=== PATIENT | female | born 1955 | race Caucasian/White ===

== ENCOUNTER 2019-09-01 12:48 | Outpatient (RCR) | payer MEDICARE, SELFPAY | END 2019-11-30 23:59 | disposition home or self-care (01) | LOC: ANHDMC 12:48 | PROVIDERS: PCP Physician Assistant; Visit Provider Physician Assistant | DX: E11.22 Type 2 diabetes mellitus with diabetic chronic kidney disease (principal); E11.40 Type 2 diabetes mellitus with diabetic neuropathy, unspecified; Z71.89 Other specified counseling | CPT/HCPCS: G0108 ==

== ENCOUNTER → 2019-09-28 08:59 | Outpatient (CLI) | payer MEDICARE, SELFPAY ==
--- NOTE | ~2019-09-28 | XR_ITS ---
EXAMINATION: XR hand LT min 3V INDICATION: Left hand pain TECHNIQUE: Three views of the left hand are obtained. COMPARISON: 10/09/2013 FINDINGS: There is soft tissue swelling of the fourth finger no acute fracture is identified. Bone al ignment is normal. There is moderate osteoarthritis at the first carpometacarpal joint. Mild osteoart hritis is seen in multiple interphalangeal joints. IMPRESSION: 1. Soft tissue swelling of the fourth finger without acute osseous abnormality. 2. Polyarticular osteoarthritis. Reviewed, dictated and finalized at location A. DIE PICKER
== END ==
PROVIDERS: PCP Physician Assistant; Visit Provider Physician Assistant
DX: M19.042 Primary osteoarthritis, left hand (principal); M79.89 Other specified soft tissue disorders
CPT/HCPCS: 73130

== ENCOUNTER 2019-10-23 11:49 | Inpatient (IN) | payer MEDICARE, MEDICAID, SELFPAY ==
[2019-10-23] VITALS (12 sets, daily range): BP systolic 100–143; BP diastolic 55–74; PULSE 103–138; RESP 14–26; TEMP 37.2–39.3; O2SAT 76–95; BMI 43.9; BMI 43.7
--- NOTE | ~2019-10-23 | XR_ITS ---
EXAMINATION: XR abdomen/kub 1V DATE: 10/30/2019 14:58 INDICATION: Nephrolithiasis, urinary tract infection with severe sepsis TECHNIQUE: A supine view of the abdomen on 2 radiographs was obtained. COMPARISON: CT dated 10/30/2019 FINDINGS: The amount of gas scattered throughout the colon. No dilated loops of gas-filled bowel to suggest obs truction. The stone previously noted in the proximal left ureter is unable to be clearly identified o n the current study likely due to patient body habitus. Opacities in the bilateral lower lung zones w ith configuration on CT favoring atelectasis over pneumonia. Cardiomediastinal silhouette is within n ormal limits for AP technique. IMPRESSION: 1. Stone seen on CT in the proximal left ureter is unable to be definitively identified on plain radi ographs likely due to patient body habitus. 2. Nonobstructive bowel gas pattern. 3. Bibasilar atelectasis. Reviewed, dictated and finalized at location A. LATE LAYOUT WORKER IMPRESSION: 1. Stone seen on CT in the proximal left ureter is unable to be definitively id entified on plain radiographs likely due to patient body habitus. 2. Nonobstructive bowel gas pattern. 3. Bibasilar atelectasis.
--- NOTE | ~2019-10-23 | XR_ITS ---
EXAMINATION: XR retrograde pyelo w/stent LT DATE: 10/31/2019 14:58 INDICATION: Left internal ureteral stent placement TECHNIQUE: Fluoroscopic images from a left internal ureteral stent placement are submitted for review . 26 seconds of fluoroscopy time. 69 fluoroscopic images. FINDINGS: No prior studies for comparison. There is a left double-J internal ureteral stent projecting in expected position, with proximal [place] loop at the level of the renal pelvis and distal loop in the pelvis within the bladder lumen. IMPRESSION: 1. Left internal ureteral stent placement. Please refer to real-time procedural findings for detail s. Reviewed, dictated and finalized at location B. FLIGHT CREW MEMBER IMPRESSION: 1. Left internal ureteral stent placement. Please refer to real-time procedur al findings for details.
--- NOTE | ~2019-10-23 | XR_ITS ---
EXAMINATION: XR chest 1V portable DATE: 10/24/2019 21:38 INDICATION: Respiratory distress. TECHNIQUE: frontal view of the chest was obtained. COMPARISON: 10/23/2019 FINDINGS: Opacities in the left lower lung zone. Pulmonary vascular congestion without anabell pulmonary edema. N o pleural effusion or pneumothorax. Cardiomegaly. IMPRESSION: 1. Cardiomegaly with pulmonary vascular congestion. 2. Opacities in the left lower lung zone which could represent atelectasis and/or pneumonia. Reviewed, dictated and finalized at location A. DDING MACHINE TENDER IMPRESSION: 1. Cardiomegaly with pulmonary vascular congestion. 2. Opacities in the left lower lung zone which could represent atelectasis and/ or pneumonia.
--- NOTE | ~2019-10-23 | CT_ITS ---
EXAMINATION: CT abdomen pelvis wo con DATE: 10/30/2019 09:34 INDICATION: Leukocytosis. TECHNIQUE: Computed tomography (CT) of the abdomen and pelvis was performed without intravenous contr ast. Automated exposure control and iterative reconstruction technique were employed. The dose-length product was 1521.90 mGy-cm. COMPARISON: CT abdomen and pelvis 06/02/2012 FINDINGS: The visualized portions of the lung bases demonstrate mild atelectasis. No pleural effusion . The heart size is normal. There is a small pericardial effusion. There are coronary artery calcific ations. The liver and spleen are normal. There is a gallstone in the gallbladder, which is normal in size. The pancreas is normal. There are chronic masses in the adrenal glands measuring up to 2.5 cm o n the right, consistent with adenomas. The right kidney is normal. There is mild left hydronephrosis. There is a 7 mm stone in proximal left ureter. There are no dilated loops of bowel. There are no dil ated loops of bowel. The appendix is normal. There is a mildly enlarged periportal lymph node. There is mild left para-aortic lymphadenopathy. There is no free intraperitoneal fluid. There is mild thora columbar spondylosis. IMPRESSION: 1. 7 mm stone in proximal left ureter with mild left hydronephrosis. 2. Mild left para-aortic and periportal lymphadenopathy, likely reactive. 3. Small pericardial effusion. Reviewed, dictated and finalized at location A. AIRSPACE OFFICER
--- NOTE | ~2019-10-23 | CT_ITS ---
EXAMINATION: CT cervical spine wo con DATE: 10/23/2019 12:46 INDICATION: Status post fall out of bed. Confusion. TECHNIQUE: Computed tomography (CT) of the cervical spine was performed without intravenous contrast. The dose-length product was 503 mGy-cm. Automated exposure control and iterative reconstruction tech nique were employed. COMPARISON: None FINDINGS: There is straightening of normal cervical lordosis. There is mild degenerative anterolisthe sis at C2-3, C3-4 and C4-5 secondary to facet hypertrophy. Odontoid process within normal limits. Lat eral masses are normally aligned. There is moderate multilevel facet and uncinate hypertrophy. Lung a pices are normal. No paraspinal soft tissue abnormalities. IMPRESSION: 1. No acute abnormality of the cervical spine. Reviewed, dictated and finalized at location A. LA CHARGER INSULATION
--- NOTE | ~2019-10-23 | XR_ITS ---
EXAMINATION: XR chest 1V 10/23/2019 12:49 INDICATION: Redness of breath PROCEDURE: AP view of the chest COMPARISON: Comparison to multiple prior studies sequentially, with oldest reviewed study dated 08/2015. FINDINGS: The lungs are clear. The cardiomediastinal silhouette is within normal limits. There are no pleural effusions. There is no pneumothorax suspected. IMPRESSION: 1: NO ACUTE CARDIOPULMONARY DISEASE. Reviewed, dictated and finalized at location A. T WINDOW CASHIER
--- NOTE | ~2019-10-23 | US_ITS ---
EXAMINATION: US renal BI EXAM DATE: 10/24/2019 12:54 INDICATION: Acute kidney insufficiency. TECHNIQUE: Multiple grayscale and Doppler images of the kidneys were obtained (by a technologist who performed the scan) and subsequently reviewed. Comparison is made to prior examination from 04/21/2018 . FINDINGS: Right kidney: There is normal contour and echogenicity. It measures 11.6 x 5.4 x 5.5 centimeters. T here are no focal renal lesions identified. There is no hydronephrosis. Left kidney: There is normal contour and echogenicity. It measures 12.6 x 6.3 x 6.3 centimeters. Th ere are no focal renal lesions identified. There is no hydronephrosis. Bladder unremarkable. Incidental hepatic steatosis. IMPRESSION: 1. Sonographically unremarkable kidneys. 2. Hepatic steatosis. Reviewed, dictated and finalized at location B. UNITY ASSOCIATE
--- NOTE | ~2019-10-23 | CT_ITS ---
EXAMINATION: CT brain wo con DATE: 10/23/2019 12:45 INDICATION: Status post fall. Confusion. TECHNIQUE: Computed tomography (CT) of the head was performed without intravenous contrast. The dose- length product was 605.33 mGy-cm. The mA was adjusted according to patient size. Iterative reconstruc tion technique was employed. COMPARISON: CT dated 05/22/2008 FINDINGS: Normal brain parenchymal volume. There are scattered mild periventricular and subcortical w deysi matter changes, most likely related to small vessel ischemic disease (microangiopathy). No acute intracranial hemorrhage, infarction, mass or mass effect. Basilar cisterns are patent. No ventriculo megaly or midline shift. There is intracranial atherosclerosis. Paranasal sinuses and mastoids are pn eumatized. No depressed skull fractures. IMPRESSION: 1. No acute intracranial abnormality. Reviewed, dictated and finalized at location A. F GRINDER
--- NOTE | ~2019-10-23 | XR_ITS ---
EXAMINATION: XR chest 2V DATE: 10/28/2019 12:39 INDICATION: Sepsis. Shortness of breath. TECHNIQUE: Frontal and lateral views of the chest were obtained. COMPARISON: Chest single view 10/24/2019, chest CT 10/30/2015 FINDINGS: There is mild atelectasis in right lower lung zone. No pleural effusion or pneumothorax. Th e heart size is normal. IMPRESSION: 1. Mild atelectasis in right lower lung zone. Reviewed, dictated and finalized at location A. R SWEEPER OPERATOR
--- NOTE | 2019-10-23 11:57 | ED.WEAKNESS ---
HPI - Weakness General Chief complaint: Weakness Stated complaint: weakness Time Seen by Provider: 10/23/19 11:55 Related Data Home Medications Medication Instructions Recorded Confirmed albuterol sulfate 90 mcg/actuation 1 inhalation INHALATION Q4H 07/27/19 07/31/19 aerosol inhaler bupropion HCl 300 mg 24 hr tablet, 300 mg PO QAM 07/27/19 07/31/19 extended release furosemide 40 mg tablet 40 mg PO QAM 07/27/19 07/31/19 gabapentin 300 mg capsule 300 mg PO TID 07/27/19 07/31/19 hydrocodone 10 mg-acetaminophen 1 tablet PO Q8H PRN 07/27/19 07/31/19 325 mg tablet meloxicam 15 mg tablet 15 mg PO DAILY 07/27/19 07/31/19 metoprolol succinate 25 mg 25 mg PO BID 07/27/19 07/31/19 tablet,extended release 24 hr montelukast 10 mg tablet 10 mg PO DAILY 07/27/19 07/31/19 omega 7-cxk-hyp-fish oil 60 mg-90 1 cap PO DAILY 07/27/19 07/31/19 mg-500 mg capsule valsartan 160 mg tablet 160 mg PO DAILY 07/27/19 07/31/19 blood sugar diagnostic #10 each 07/31/19 07/31/19 pen needle, diabetic 31 gauge x #30 each 07/31/19 07/31/19/ simvastatin 40 mg tablet 40 mg PO .HS tablet 07/31/19 07/31/19 zolpidem 10 mg tablet 10 mg PO .HS PRN tablet 07/31/19 07/31/19 albuterol sulfate 90 mcg/actuation 2 inhalation INHALATION Q4-6H PRN 08/01/19 breath activated powder inhaler aspirin 81 mg tablet,delayed 81 mg PO DAILY 08/01/19 release carvedilol 6.25 mg tablet 6.25 mg PO Q12H 08/01/19 cholecalciferol (vitamin D3) 25 1,000 unit PO DAILY 08/01/19 mcg (1,000 unit) capsule diphenhydramine HCl 25 mg tablet 50 mg PO Q6H PRN tablet 08/01/19 hydrocodone 10 mg-acetaminophen 1 tablet PO Q6H PRN 08/01/19 300 mg tablet losartan 100 mg tablet 100 mg PO DAILY 08/01/19 lurasidone 120 mg tablet 120 mg PO DAILY 08/01/19 Allergies Allergy/AdvReac Type Severity Reaction Status Date / Time ibuprofen Allergy Unknown skin Verified 08/02/19 08:29 changes Sulfa (Sulfonamide Allergy Unknown Itching Verified 08/02/19 08:29 Antibiotics) [facility] Past Medical History Medical History (Updated 08/02/19 @ 08:39 by Hever Cobos DO) Anemia Arthritis Asthma Diabetes mellitus Hypertension Stroke Thyroid disease Type 2 diabetes mellitus with hyperglycemia Social History Social History Smoking status: Current every day smoker Second hand tobacco smoke exposure: Yes Smoking end date: 08/31/12 Alcohol intake: never Course Vital Signs Vital signs: Vital Signs Pulse Rate 131 H 10/23/19 11:43 Respiratory Rate 10/23/19 11:43 Blood Pressure 121/74 10/23/19 11:43 Pulse Oximetry 92 10/23/19 11:43 Pulse Rate 131 H 10/23/19 11:43 Respiratory Rate 10/23/19 11:43 Blood Pressure 121/74 10/23/19 11:43 Pulse Oximetry 92 10/23/19 11:43 Discharge Plan Discharge Prescriptions: No Action bupropion HCl 300 mg tablet extended release 24 hr 300 mg PO QAM RF: 0 valsartan [Diovan] 160 mg tablet 160 mg PO DAILY RF: 0 omega 3-ejl-osf-fish oil [Fish Oil] 60-90-500 mg capsule 1 cap PO DAILY RF: 0 furosemide 40 mg tablet 40 mg PO QAM RF: 0 hydrocodone-acetaminophen 10-325 mg tablet 1 tablet PO Q8H PRNRF: 0 meloxicam 15 mg tablet 15 mg PO DAILY RF: 0 metoprolol succinate 25 mg tablet extended release 24 hr 25 mg PO BID RF: 0 gabapentin [Neurontin] 300 mg capsule 300 mg PO TID RF: 0 albuterol sulfate [ProAir HFA] 90 mcg/actuation HFA aerosol inhaler 1 inhalation INHALATION Q4H RF: 0 montelukast [Singulair] 10 mg tablet 10 mg PO DAILY RF: 0 zolpidem 10 mg tablet 10 mg PO .HS PRNRF: 0 simvastatin 40 mg tablet 40 mg PO .HS RF: 0 (DME) OneTouch Verio Strip See Rx Instructions .ROUTE .MEDSUPPLY Qty: 10 RF: 0 (DME) pen needle, diabetic 31 gauge x 5/16 needle See Rx Instructions .ROUTE .MEDSUPPLY Qty: 30 RF: 0 cholecalciferol (vitamin D3) 1,000 unit capsule
--- NOTE | 2019-10-23 12:01 | ECG_ITS ---
Measurements Intervals Ward Rate: 130 P: CA: 0 QRS: -11 QRSD: 113 T: 78 QT: 306 QTc: 450 Interpretive Statements SINUS OR ECTOPIC ATRIAL TACHYCARDIA INTRAVENTRICULAR CONDUCTION DELAY POOR R WAVE PROGRESSION, ANTERIOR LEADS INFERIOR INFARCT, AGE INDETERMINATE BORDERLINE ST-T WAVE ABNORMALITY- LATERAL LEADS BASELINE ARTIFACT- II, V6 ABNORMAL ECG Electronically Signed On 10-23-2019 16:04:32 COMPETITIVE INTELLIGENCE MANAGER by Hever Cobos D.O.
--- NOTE | 2019-10-23 12:01 | ED.FALL ---
HPI - Fall General Chief Complaint: Weakness Stated Complaint: weakness Time Seen by Provider: 10/23/19 11:55 Source: patient Mode of arrival: EMS Limitations: no limitations History of Present Illness HPI Narrative: The pt is a 64 y/o female who presents to the ED, via EMS, with c/o frequent falls for the last 3 days. The pt states that she has been rolling and falling off of her bed for the past 3 days. Today, she fell again and could not get up. The pt notes that she has not been falling while walking with her walker, but is doing so when trying to get out of bed. She has hit her head during the falls but denies being on any blood thinners. The pt reports JARRELL, dizziness, SOB, CP, and productive cough, but denies nausea, vomiting, fever, or any other pain. She has a PMHx of CHF, A-Fib, and COPD, which she uses a CPAP for at night. The pt lives at home with her brother and sister in law and her heating fixture tender is Dr. Cobos. complaint: fall Onset (ago): day(s) (3) Fall from: out of bed Place fall occurred: home Associated symptoms (after fall): headache, chest pain, shortness of breath and other (dizziness, productive cough) Related Data Home Medications Medication Instructions Recorded Confirmed albuterol sulfate 90 mcg/actuation 1 inhalation INHALATION Q4H 07/27/19 10/23/19 aerosol inhaler bupropion HCl 300 mg 24 hr tablet, 300 mg PO QAM 07/27/19 10/23/19 extended release furosemide 40 mg tablet 40 mg PO QAM 07/27/19 10/23/19 gabapentin 300 mg capsule 300 mg PO TID 07/27/19 10/23/19 hydrocodone 10 mg-acetaminophen 1 tablet PO Q6H PRN 07/27/19 10/23/19 325 mg tablet meloxicam 15 mg tablet 15 mg PO DAILY 07/27/19 10/23/19 metoprolol succinate 25 mg 25 mg PO BID 07/27/19 10/23/19 tablet,extended release 24 hr montelukast 10 mg tablet 10 mg PO DAILY 07/27/19 10/23/19 omega 9-vjk-vpw-fish oil 60 mg-90 1 cap PO DAILY 11/27/19 02/23/20 mg-500 mg capsule valsartan 160 mg tablet 160 mg PO DAILY 07/27/19 10/23/19 blood sugar diagnostic #10 each 07/31/19 10/23/19 pen needle, diabetic 31 gauge x #30 each 07/31/19 10/23/19 5/16 simvastatin 40 mg tablet 40 mg PO .HS tablet 07/31/19 10/23/19 aspirin 81 mg tablet,delayed 81 mg PO DAILY 08/01/19 10/23/19 release carvedilol 6.25 mg tablet 6.25 mg PO Q12H 08/01/19 10/23/19 cholecalciferol (vitamin D3) 25 1,000 unit PO DAILY 08/01/19 10/23/19 mcg (1,000 unit) capsule diphenhydramine HCl 25 mg tablet 50 mg PO Q6H PRN tablet 08/01/19 10/23/19 losartan 100 mg tablet 100 mg PO DAILY 08/01/19 10/23/19 lurasidone 120 mg tablet 120 mg PO DAILY 08/01/19 10/23/19 diphenhydramine-acetaminophen 1 tablet PO HS PRN 10/23/19 10/23/19 [Tylenol PM Extra Strength] Allergies Allergy/AdvReac Type Severity Reaction Status Date / Time ibuprofen Allergy Unknown skin Verified 10/23/19 15:26 changes Sulfa (Sulfonamide AdvReac Unknown Itching Verified 10/23/19 15:26 Antibiotics) Review of Systems Review of Systems: All systems reviewed & are unremarkable except as noted in HPI and below Constitutional: Constitutional: Denies fever(s) Cardiovascular: Cardiovascular: Reports chest pain Respiratory: Respiratory: Reports cough (productive) and Reports dyspnea Gastrointestinal: Gastrointestinal: Denies nausea and Denies vomiting Neurologic: Reports dizziness and Reports headache(s) [facility] Past Medical History Medical History (Updated 10/23/19 @ 17:31 by Vanessa Martínez MD) Anemia Arthritis Asthma Back pain Bronchitis CHF (congestive heart failure) COPD (chronic obstructive pulmonary disease) Depression Diabetes mellitus DVT (deep venous thrombosis) Fracture rt knee Gout Hepatitis C Hypercholesteremia Hypertension Neuropathy Pneumonia Rheumatoid arthritis Stroke Thyroid disease Type 2 diabetes mellitus with hyperglycemia UTI (urinary tract infection) Surgical History Surgical History (Updated 10/23/19 @ 12:15 by Janine Hurley) H/O tubal ligation H
[2019-10-23 12:18] LABS: Alveolar/Arterial O2 Gradient 100.6 mmHg; Base Excess ABG -4.4 mEq/l (+/-2.0); Carboxyhemoglobin 0.4 % THb (0-2.0); Fractional Inspired Oxygen 28 %; Methemoglobin ABG 0.3 %THb (0-1.5); Oxygen Content ABG 16.5 %vol (16.0-22.0); Oxyhemoglobin 91.5 % THb (90.0-100.0); PCO2 ABG 30.1 mmHg (35.0-45.0); PO2 ABG 63.5 mmHg (80.0-100.0); PO2 FiO2 Ratio Arterial Blood 2.27 %; Reduced Hemoglobin 7.8 %THb (0-5.0); Total Hemoglobin 12.8 g/dL (12.0-18.0); pH ABG 7.418 (7.350-7.450)
[2019-10-23 12:19] LABS: Device NASAL CANNULA; Modified Allen's Test Pass; Site Drawn LEFT RADIAL
[2019-10-23 12:27] LABS: Add Urine Microscopic? YES; Appearance Urine Cloudy (Clear); Bacteria Urine 4+ /hpf; Bilirubin Urine Negative (Negative); Blood Urine 2+ (Negative); Color Urine Yellow (Yellow); Glucose Urine UA 3+ mg/dL (Negative); Ketones Urine Negative (Negative); Leukocyte Esterase Ur 3+ LEU/UL (Negative); Nitrate Urine Negative (Negative); Protein Urine 2+ mg/dL (Negative); Specific Grav Ur 1.015 (1.001-1.035); Squamous Epithelial Cell Urine Few /hpf (Few); Urobilinogen Urine Negative mg/dL (<2.0); WBC Clumps Urine Present /HPF; WBC Urine >75 /hpf
[2019-10-23 12:40] LABS: Hemoglobin 11.6 g/dL (12.0-15.0); Mean Corpuscular HGB Conc 33.1 g/dl (32-36); Mean Corpuscular Hemoglobin 29.8 pg (26-34); Mean Platelet Volume 11.8 fl (7.4-10.4); Platelet Count Result 205 k/mm3 (150-375); Red Blood Count 3.89 M/mm3 (4.2-5.4); Red Cell Distribution Width 13.7 % (11.5-14.5); White Blood Count 26.1 K/mm3 (4.5-10.0)
[2019-10-23 12:51] LABS: Lactic Acid Reflex 1.9 mmol/L (0.7-2.1)
[2019-10-23 12:52] LABS: Alanine Aminotransferase 21 U/L (4-35); Albumin Level 4.2 g/dL (3.5-5.1); Alkaline Phosphatase 119 U/L (38-126); Aspartate Amino Transferase 27 U/L (14-36); Bilirubin,Total 0.5 mg/dL (0.2-1.3); Blood Urea Nitrogen 36 mg/dL (7-17); Calcium 10.3 mg/dL (8.4-10.2); Carbon Dioxide 21 mmol/L (22-30); Chloride 89 mmol/L (98-107); Estimated Glomerular Filt Rate 12; Glucose 349 mg/dL (65-105); INR 1.1; Lipase 14 U/L (23-300); Magnesium 1.6 mg/dL (1.6-2.3); Potassium 5.1 mmol/L (3.4-5.0); Prothrombin Time 13.8 Seconds (11.1-14.7); Sodium 129 mmol/L (137-145)
[2019-10-23 12:53] LABS: Partial Thromboplastin Time 30.9 SECONDS (22.3-36.8)
[2019-10-23 13:04] LABS: NT Pro B Type Natriuretic Pept 2350 PG/ML (5-100); Troponin I 0.026 ng/mL (0.000-0.034)
[2019-10-23 13:05] LABS: Band Neutrophils Percent 2 % (0-6); Lymphocytes Absolute Manual 1.04 K/mm3 (1.1-4.5); Monocytes Absolute Manual 0.78 K/mm3 (0.1-0.90); Monocytes Percent Manual 3 % (3-9); Neutrophils Absolute Manual 24.27 K/mm3 (1.7-7.2); Neutrophils Percent Manual 91 % (46-73); Platelet Estimate Adequate (Adequate); Total Cells Counted 100
[2019-10-23] MEDS: LACTATED RINGERS 1,000 ML 999 ML IV CONT (13:31)
[2019-10-23 13:48] LABS: Alveolar/Arterial O2 Gradient 94.4 mmHg; Base Excess ABG -4.3 mEq/l (+/-2.0); Carboxyhemoglobin 0.1 % THb (0-2.0); Fractional Inspired Oxygen 28 %; HCO3 ABG 19.6 mEq/l (22.0-26.0); Methemoglobin ABG 0.3 %THb (0-1.5); Oxygen Content ABG 15.9 %vol (16.0-22.0); Oxygen Saturation ABG 93.7 % (95.0-100.0); Oxyhemoglobin 92.3 % THb (90.0-100.0); PCO2 ABG 32.1 mmHg (35.0-45.0); PO2 ABG 67.4 mmHg (80.0-100.0); PO2 FiO2 Ratio Arterial Blood 2.41 %; Reduced Hemoglobin 7.3 %THb (0-5.0); Total Hemoglobin 12.2 g/dL (12.0-18.0); pH ABG 7.403 (7.350-7.450)
[2019-10-23 13:49] LABS: Device NASAL CANNULA; Modified Allen's Test Pass; Site Drawn LEFT RADIAL
--- NOTE | 2019-10-23 14:15 | PM.IMHP ---
H&P: HPI History of Present Illness Chief complaint: Weakness. Narrative: Lakshmi Fry is a 64-year-old female with multiple medical problems to include morbid obesity, hypertension, COPD, chronic respiratory failure on 2 liters nasal cannula, type 2 diabetes mellitus with peripheral neuropathy, rheumatoid arthritis, history of DVT, COPD, and obstructive sleep apnea who presented to the emergency department earlier this morning via EMS from home for evaluation of weakness. Reportedly she has developed progressive weakness to the point where she cannot get herself out of bed, and for the last 4 days she has ?slid out of bed? when trying to get up in the mornings. She lives with her brother and his girlfriend, and they have been able to help her up couple of times. The last 2 mornings she has had to use her Life Alert for lift assist. She declined transport yesterday, but decided she best come in today for evaluation. Family members note that she has been acting a bit differently the last couple of days, seemingly confused, however they give no specific instances. With each fall, she either fell onto her buttocks or forward onto her breasts and stomach. She may have hit her head in 1 of the falls, but she cannot recall any significant trauma. With further questioning, she notes having chronic balance problems and ambulates with a walker. She does have pretty significant neuropathy in her lower extremities as well that she believes are contributing factor. Additionally, she notes lightheadedness, mild shortness of breath, dysuria, and increased urinary frequency/urgency. She denies fever, chills, sweats, chest pain, nausea, vomiting, diarrhea, and decreased oral intake. No auditory and visual changes. She denies focal weakness and paresthesias. Review of Systems Review of Systems: Narrative: Twelve systems were reviewed with pertinent positives and negatives as per HPI. She denies headache. No dysarthria or dysphagia. No paresthesias. No history of CVA. Reports that her glucose has been high recently. She does not recall her last hemoglobin A1c. She states compliance with her CPAP most nights. Except as documented, all other systems were reviewed and are negative. [facility] Past Medical History Medical History (Updated 10/23/19 @ 19:11 by Sharron Blank PA-C) Anemia Arthritis Chronic kidney disease, stage 3 Baseline creatinine appears to be about 1.10. Chronic respiratory failure with hypoxia Combined systolic and diastolic congestive heart failure Echocardiogram in May 2016 showed moderate enlargement of the left ventricular cavity, moderate global left ventricular systolic dysfunction, ejection fraction of 35%, and grade 3 diastolic dysfunction. COPD (chronic obstructive pulmonary disease) Depression Diabetic peripheral neuropathy Gout Hepatitis C History of DVT (deep vein thrombosis) Hyperlipidemia Hypertension Insulin dependent type 2 diabetes mellitus With diabetic peripheral neuropathy Morbid obesity Nonischemic cardiomyopathy Cardiac catheterization December 10, [address] Emmanuel Boyd showed right coronary dominant circulation with no significant coronary disease. Obstructive sleep apnea on CPAP Psoriasis Rheumatoid arthritis Tobacco dependence Surgical History Surgical History (Updated 10/23/19 @ 18:57 by Sharron Blank PA-C) History of cardiac catheterization Cardiac catheterization December 10, [address] Emmanuel Boyd showed right coronary dominant circulation with no significant coronary disease. History of dilatation and curettage Status post tubal ligation Family History Family History Father Cerebrovascular accident Hypertension Mother Family history of malignant neoplasm Other Asthma Diabetes mellitus Family history of anemia Family history of arthritis Family history of blood dyscrasia Family history of cardiovascul
--- NOTE | 2019-10-23 15:09 | ADMGEN ---
This patient, Lakshmi Fry, was admitted to Medical Room 348-. Patient/family oriented to hospital policies and general routines including ID bracelet, bed and alarms, visiting hours, pain management, procedures, bathroom and other care routines, personal items, smoking policy, room service/diet, and visiting hours. Valuables list has been completed. Information on how to activate the Rapid Response Team has been discussed. Patient/Family are encouraged to report perceived risks to care and to ask questions if they do not understand what they are told or what they should do.
[2019-10-23] MEDS: LACTATED RINGERS 1,000 ML 125 ML IV CONT (17:06)
[2019-10-23 17:29] LABS: Glucose Point of Care 325 (65-105)
[2019-10-23 19:20] LABS: Hemoglobin A1C 7.8 % (<5.7)
[2019-10-23 19:35] LABS: Blood Urea Nitrogen 41 mg/dL (7-17); Calcium 10.2 mg/dL (8.4-10.2); Carbon Dioxide 21 mmol/L (22-30); Chloride 88 mmol/L (98-107); Creatine Kinase 871 U/L (30-135); Estimated CRCL calculation 18 ml/min; Estimated Glomerular Filt Rate 12; Glucose 327 mg/dL (65-105); Potassium 4.8 mmol/L (3.4-5.0); Sodium 128 mmol/L (137-145)
[2019-10-23] MEDS: SIMVASTATIN 20 MG TABLET 40 MG PO (20:55)
[2019-10-23] MEDS: INSULIN ASPART (*BKC) 100 UNITS/ML 8 UNITS SUB-Q (21:31)
[2019-10-23] MEDS: ALBUTEROL SULFATE NEB 2.5 MG/0.5 ML INH 5 MG INHALATION (22:05)
[2019-10-23] MEDS: IPRATROPIUM BR 0.02% INH SOLN 0.5 MG/2.5 ML VIAL INHALATION (22:06)
[2019-10-24] VITALS (22 sets, daily range): BP systolic 96–158; BP diastolic 50–75; PULSE 95–116; RESP 16–34; TEMP 36.6–38.8; O2SAT 92–98; BMI 45.1
[2019-10-24 00:21] LABS: Glucose Point of Care 357 (65-105)
[2019-10-24] MEDS: LACTATED RINGERS 1,000 ML 125 ML IV CONT (02:15)
[2019-10-24] MEDS: IPRATROPIUM BR 0.02% INH SOLN 0.5 MG/2.5 ML VIAL INHALATION ×4 (03:56→20:27)
[2019-10-24] MEDS: ALBUTEROL SULFATE NEB 2.5 MG/0.5 ML INH 5 MG INHALATION ×4 (03:56→20:27)
[2019-10-24 06:05] LABS: Hematocrit 30.4 % (37.0-47.0); Hemoglobin 10.4 g/dL (12.0-15.0); Mean Corpuscular HGB Conc 34.2 g/dl (32-36); Mean Corpuscular Hemoglobin 30.1 pg (26-34); Mean Corpuscular Volume 88.1 fl (80-100); Mean Platelet Volume 12.5 fl (7.4-10.4); Platelet Count Result 184 k/mm3 (150-375); Red Blood Count 3.45 M/mm3 (4.2-5.4); Red Cell Distribution Width 13.5 % (11.5-14.5); White Blood Count 21.7 K/mm3 (4.5-10.0)
[2019-10-24 06:18] LABS: Alanine Aminotransferase 20 U/L (4-35); Albumin Level 3.6 g/dL (3.5-5.1); Alkaline Phosphatase 109 U/L (38-126); Aspartate Amino Transferase 36 U/L (14-36); Bilirubin,Total 0.4 mg/dL (0.2-1.3); Blood Urea Nitrogen 46 mg/dL (7-17); Calcium 9.9 mg/dL (8.4-10.2); Carbon Dioxide 21 mmol/L (22-30); Chloride 89 mmol/L (98-107); Estimated CRCL calculation 17 ml/min; Estimated Glomerular Filt Rate 10; Glucose 313 mg/dL (65-105); Potassium 4.8 mmol/L (3.4-5.0); Sodium 128 mmol/L (137-145)
[2019-10-24 07:09] LABS: Band Neutrophils Percent 17 % (0-6); Lymphocytes Absolute Manual 0.21 K/mm3 (1.1-4.5); Monocytes Absolute Manual 0.86 K/mm3 (0.1-0.90); Monocytes Percent Manual 4 % (3-9); Neutrophils Absolute Manual 20.61 K/mm3 (1.7-7.2); Neutrophils Percent Manual 78 % (46-73); Platelet Estimate Adequate (Adequate); Total Cells Counted 100
[2019-10-24 08:15] LABS: Glucose Point of Care 302 (65-105)
[2019-10-24] MEDS: MONTELUKAST SODIUM 10 MG TABLET PO (09:16)
[2019-10-24] MEDS: CHOLECALCIFEROL 1,000 UNIT TABLET 1000 UNITS PO (09:16)
[2019-10-24] MEDS: GABAPENTIN 300 MG CAPSULE PO ×3 (09:16→17:24)
[2019-10-24] MEDS: ASPIRIN 81 MG ENTERIC TABLET PO (09:16)
[2019-10-24] MEDS: buPROPion HCL XL (24 HR) 150 MG TABCR 300 MG PO (09:17)
[2019-10-24] MEDS: OMEGA 3 POLYUNSAT FATTY ACIDS 1 GM CAP PO (09:29)
[2019-10-24] MEDS: INSULIN GLARGINE (*BKC) 100 UNITS/ML 90 UNITS SUB-Q (09:32)
[2019-10-24 09:34] LABS: Glucose Point of Care 279 (65-105)
[2019-10-24] MEDS: INSULIN ASPART (*BKC) 100 UNITS/ML SUB-Q ×3 (09:34→17:28)
--- NOTE | 2019-10-24 09:58 | PCOTNOTE ---
OT eval attempted. Pt off floor for testing. Will attempt OT eval at later time.
[2019-10-24 11:57] LABS: Glucose Point of Care 324 (65-105)
[2019-10-24] MEDS: LACTATED RINGERS 1,000 ML 100 ML IV CONT ×2 (12:40→22:43)
--- NOTE | 2019-10-24 14:43 | P.PNIM_ITS ---
Progress Note: A&P Assessment and Plan (1) Sepsis: Qualifiers: Sepsis type: sepsis due to unspecified organism Sepsis acute organ dysfunction status: without acute organ dysfunction Qualified Code(s): A41.9 - Sepsis, unspecified organism Code(s): A41.9 - Sepsis, unspecified organism Status: Acute Assessment and Plan: * Present on admission and supported by tachycardia, leukocytosis, and acute kidney injury in the setting of infection. * Lactic acid level was within normal limits. * Blood cultures pending (2) Urinary tract infection: Qualifiers: Urinary tract infection type: site unspecified Hematuria presence: without hematuria Qualified Code(s): N39.0 - Urinary tract infection, site not specified Code(s): N39.0 - Urinary tract infection, site not specified Status: Acute Assessment and Plan: * Ceftriaxone day 2 * Urine culture pending. (3) Acute kidney injury: Code(s): N17.9 - Acute kidney failure, unspecified Status: Acute Assessment and Plan: * Etiology is not entirely clear but is most likely multifactorial (infection, dehydration, drugs, rhabdo) * Furosemide, losartan, valsartan, and meloxicam held * She will receive cautious IV fluid rehydration with strict monitoring of I/O. * Renal ultrasound WNL with fatty liver noted * Repeat lab 10/25, consider renal consultation if not improving (4) Electrolyte abnormality: Code(s): E87.8 - Other disorders of electrolyte and fluid balance, not elsewhere classified Status: Acute Assessment and Plan: * Including moderate hyponatremia (glucose 349), mild hyperkalemia, and hypochloremia. * As above, she is receiving cautious IV fluid rehydration. * Will monitor electrolytes closely to ensure they are correcting appropriately. (5) Metabolic encephalopathy: Code(s): G93.41 - Metabolic encephalopathy Status: Acute Assessment and Plan: * improved (6) Nonischemic cardiomyopathy: Code(s): I42.8 - Other cardiomyopathies Status: Acute Assessment and Plan: * Echocardiogram in May 2016 showed moderate global left ventricular systolic dysfunction with ejection fraction of 35% grade 3 diastolic dysfunction. * Cardiac catheterization showed no coronary artery abnormalities. * Will need to be mindful of her volume status while hydrating. (7) Insulin dependent type 2 diabetes mellitus: Code(s): E11.9 - Type 2 diabetes mellitus without complications; Z79.4 - long term care phlebotomist (current) use of insulin Status: Acute Assessment and Plan: * Hyperglycemic today, with random glucose of 349 on arrival. * Metformin on hold given acute kidney injury. * Will continue basal insulin. * initiate sliding scale insulin, Accu-Cheks, and hypoglycemic protocol. * Check hemoglobin A1c. Subjective Date/time seen: 10/24/19 14:43 Interval history: Tired. Napping with CPAP on. Denied pain in chest, abdomen, back, extremities, head. Denied sob. Denied edema. Denied gi/gu c/o. Denied ABNL bleeding. Review of Systems Review of Systems: All systems reviewed & are unremarkable except as noted in HPI and below Exam Narrative: Exam Narrative: HEENT: EOMI, PERRL, pharyngeal mucosa pink and intact NECK: No JVD, adenopathy, or thyromegaly CHEST: Clear to auscultation. Normal effort. HEART: NL S1/S2, regular, no murmur ABDOMEN: BS+, soft, nontender, no ma
--- NOTE | 2019-10-24 14:43 | PM.IMPN ---
Progress Note: A&P Assessment and Plan (1) Sepsis: Qualifiers: Sepsis type: sepsis due to unspecified organism Sepsis acute organ dysfunction status: without acute organ dysfunction Qualified Code(s): A41.9 - Sepsis, unspecified organism Code(s): A41.9 - Sepsis, unspecified organism Status: Acute Assessment and Plan: Present on admission and supported by tachycardia, leukocytosis, and acute kidney injury in the setting of infection. Lactic acid level was within normal limits. Blood cultures pending (2) Urinary tract infection: Qualifiers: Urinary tract infection type: site unspecified Hematuria presence: without hematuria Qualified Code(s): N39.0 - Urinary tract infection, site not specified Code(s): N39.0 - Urinary tract infection, site not specified Status: Acute Assessment and Plan: Ceftriaxone day 2 Urine culture pending. (3) Acute kidney injury: Code(s): N17.9 - Acute kidney failure, unspecified Status: Acute Assessment and Plan: Etiology is not entirely clear but is most likely multifactorial (infection, dehydration, drugs, rhabdo) Furosemide, losartan, valsartan, and meloxicam held She will receive cautious IV fluid rehydration with strict monitoring of I/O. Renal ultrasound WNL with fatty liver noted Repeat lab 10/25, consider renal consultation if not improving (4) Electrolyte abnormality: Code(s): E87.8 - Other disorders of electrolyte and fluid balance, not elsewhere classified Status: Acute Assessment and Plan: Including moderate hyponatremia (glucose 349), mild hyperkalemia, and hypochloremia. As above, she is receiving cautious IV fluid rehydration. Will monitor electrolytes closely to ensure they are correcting appropriately. (5) Metabolic encephalopathy: Code(s): G93.41 - Metabolic encephalopathy Status: Acute Assessment and Plan: improved (6) Nonischemic cardiomyopathy: Code(s): I42.8 - Other cardiomyopathies Status: Acute Assessment and Plan: Echocardiogram in May 2016 showed moderate global left ventricular systolic dysfunction with ejection fraction of 35% grade 3 diastolic dysfunction. Cardiac catheterization showed no coronary artery abnormalities. Will need to be mindful of her volume status while hydrating. (7) Insulin dependent type 2 diabetes mellitus: Code(s): E11.9 - Type 2 diabetes mellitus without complications; Z79.4 - [facility] (current) use of insulin Status: Acute Assessment and Plan: Hyperglycemic today, with random glucose of 349 on arrival. Metformin on hold given acute kidney injury. Will continue basal insulin. initiate sliding scale insulin, Accu-Cheks, and hypoglycemic protocol. Check hemoglobin A1c. Subjective Date/time seen: 10/24/19 14:43 Interval history: Tired. Napping with CPAP on. Denied pain in chest, abdomen, back, extremities, head. Denied sob. Denied edema. Denied gi/gu c/o. Denied ABNL bleeding. Review of Systems Review of Systems: All systems reviewed & are unremarkable except as noted in HPI and below Exam Narrative: Exam Narrative: HEENT: EOMI, PERRL, pharyngeal mucosa pink and intact NECK: No JVD, adenopathy, or thyromegaly CHEST: Clear to auscultation. Normal effort. HEART: NL S1/S2, regular, no murmur ABDOMEN: BS+, soft, nontender, no mass, no bruits EXTREMITIES: No cyanosis, trace ankle edema NEUROLOGIC: CN intact and symmetric to inspection. MUSCULOSKELETAL: Tone and strength symmetric. PSYCH: Alert. Oriented to person, place, and time (year but not month) Objective Data Vital Signs Vital Signs: Vital Signs - 24 hr 10/23/19 14:55 10/23/19 16:00 10/23/19 20:23 Temperature 99.0 F 101.9 F H Pulse Rate 115 H 108 H 130 H Respiratory Rate 14 22 H 18 Blood Pressure 116/68 100/55 L 143/67 H Pulse Oximetry 95 93 92
[2019-10-24 17:12] LABS: Glucose Point of Care 295 (65-105)
[2019-10-24] MEDS: INSULIN ASPART (*BKC) 100 UNITS/ML 8 UNITS SUB-Q (17:27)
[2019-10-24 21:02] LABS: Alveolar/Arterial O2 Gradient 190.9 mmHg; Base Excess ABG -0.9 mEq/l (+/-2.0); CPAP 13 cmH2O; Carboxyhemoglobin 0.3 % THb (0-2.0); Device CPAP; Fractional Inspired Oxygen 42 %; HCO3 ABG 23.1 mEq/l (22.0-26.0); Methemoglobin ABG 0.4 %THb (0-1.5); Modified Allen's Test Unable to perform; Oxygen Content ABG 14.3 %vol (16.0-22.0); Oxygen Saturation ABG 91.7 % (95.0-100.0); Oxyhemoglobin 89.9 % THb (90.0-100.0); PCO2 ABG 36.1 mmHg (35.0-45.0); PO2 FiO2 Ratio Arterial Blood 1.43 %; Reduced Hemoglobin 9.4 %THb (0-5.0); Site Drawn LEFT RADIAL; Total Hemoglobin 11.3 g/dL (12.0-18.0); pH ABG 7.424 (7.350-7.450)
--- NOTE | 2019-10-24 21:17 | PC.NURSE ---
This patient, Lakshmi Fry, was transferred to [232 ] on 10/24/19 at 2119. Personal belongings sent with patient. Belongings list checked and signed with receiving [ ]. Report given to [ ]. Appropriate documentation sent with patient.
[2019-10-24 21:39] LABS: Hematocrit 31.9 % (37.0-47.0); Hemoglobin 10.5 g/dL (12.0-15.0); Mean Corpuscular HGB Conc 32.9 g/dl (32-36); Mean Corpuscular Hemoglobin 29.7 pg (26-34); Mean Corpuscular Volume 90.4 fl (80-100); Mean Platelet Volume 12.5 fl (7.4-10.4); Platelet Count Result 165 k/mm3 (150-375); Red Blood Count 3.53 M/mm3 (4.2-5.4); Red Cell Distribution Width 13.7 % (11.5-14.5); White Blood Count 16.8 K/mm3 (4.5-10.0)
--- NOTE | 2019-10-24 21:45 | PCRCNOTE ---
pre albuterol assessment showed SpO2 88%. Post treatment, patient was placed on ordered CPAP of 13cmwp + 4LPM oxygen for SpO2 90%. Due to patient lack of responsiveness, called RN to assess patient. Vitals done per day care aide. decision made to call rapid response. ABG drawn and patient moved to IMU 232. NIV set up and placed on patient upon arrival to 232 with ordered settings of 15/8 R15 50% for SpO2 96%
[2019-10-24 21:50] LABS: Lactic Acid 1.3 mmol/L (0.7-2.1)
[2019-10-24 22:09] LABS: Blood Urea Nitrogen 55 mg/dL (7-17); Calcium 10.2 mg/dL (8.4-10.2); Carbon Dioxide 25 mmol/L (22-30); Chloride 91 mmol/L (98-107); Estimated CRCL calculation 17 ml/min; Estimated Glomerular Filt Rate 11; Glucose 197 mg/dL (65-105); Potassium 4.8 mmol/L (3.4-5.0); Sodium 131 mmol/L (137-145)
[2019-10-24] MEDS: SIMVASTATIN 20 MG TABLET 40 MG PO (22:43)
[2019-10-24 23:07] LABS: Glucose Point of Care 191 (65-105)
[2019-10-25] VITALS (25 sets, daily range): BP systolic 120–145; BP diastolic 46–87; PULSE 98–118; RESP 20–32; TEMP 36.3–38.3; O2SAT 90–99
[2019-10-25] MEDS: ALBUTEROL SULFATE NEB 2.5 MG/0.5 ML INH 5 MG INHALATION ×4 (03:12→22:01)
[2019-10-25] MEDS: IPRATROPIUM BR 0.02% INH SOLN 0.5 MG/2.5 ML VIAL INHALATION ×4 (03:12→22:00)
--- NOTE | 2019-10-25 03:59 | PM.EVENT ---
Event Note Event Note Event Note: Date and time of patient contact 10/24/2019 at 9:00 p.m. this is a late entry. A rapid response was called. I arrived at the patient's bedside around 2100. Rapid response was called due to the patient being tachypneic with respiratory rate in the 30s and hypoxia. Respiratory therapy was at the bedside and place patient on her CPAP of 13 but had increased the blow-by oxygen to 6 L in order to get the patient's oxygen saturations up to 90%. Which demonstrated 10/23/19 10/23/19 10/24/19 12:11 13:42 20:58 Puncture Site Left radial Left radial Left radial ABG pH 7.418 7.403 7.424 ABG pCO2 30.1 L 32.1 L 36.1 ABG pO2 63.5 L 67.4 L 60.0 L ABG PO2/FiO2 Ratio 2.27 2.41 1.43 ABG HCO3 19.0 L 19.6 L 23.1 ABG O2 Saturation 93.0 L 93.7 L 91.7 L ABG O2 Content 16.5 15.9 L 14.3 L ABG Base Excess -4.4 -4.3 -0.9 A-a Gradient 100.6 94.4 190.9 Oxyhemoglobin 91.5 92.3 89.9 L Carboxyhemoglobin 0.4 0.1 0.3 Reduced Hemoglobin 7.8 H 7.3 H 9.4 H Total Hemoglobin 12.8 12.2 11.3 L O2 Delivery Device Nasal cannula Nasal cannula Cpap O2 Liters/Min 2.0 2.0 6.0 FiO2 28 28 42 Results are similar to prior values. Reportedly has had waxing and waning mental status that is multifactorial given her UTI, sepsis/fevers, and uremia. The patient has been getting IV fluids. A stat chest x-ray was ordered but results were not immediately available. I just removed reviewed the patient's chest x-ray did not feel it is changed much from her baseline. However radiologic interpretation was not immediately available. Given the patient has persistent acute renal failure I initially continued IV fluid hydration. However, at the time of this dictation on the at 4:00 a.m. I reviewed the chest x-ray which demonstrated evidence of pulmonary vascular congestion. I will stop IV fluids at this time. It does not appear that the IV fluids have improved the patient's creatinine much at this point. Her creatinine has continued to slowly increase 3.7-3 0.8-4.3 since admission is now at 4.1. Given the patient's tachypnea and hypoxia and need for transition to more continuous noninvasive ventilatory support patient was transferred to IMU. Repeat labs were performed which demonstrated improvement in leukocytosis. Since the nursing staff had reported that the patient had been still having fevers added blood cultures to the patient's labs. Was obtained and had improved from 1.9 down to 1.3. Acute hypoxic respiratory failure: Patient has been placed on BiPAP 14/04 with a rate of 15 and transferred to IMU for closer monitoring and BiPAP therapy. 35 minutes spent in critical care activities including reviewing the patient's chart, ordering of labs, review of results ABG, and noninvasive ventilatory management.
[2019-10-25 05:40] LABS: Hematocrit 29.1 % (37.0-47.0); Mean Corpuscular HGB Conc 34.4 g/dl (32-36); Mean Corpuscular Hemoglobin 30.5 pg (26-34); Mean Corpuscular Volume 88.7 fl (80-100); Mean Platelet Volume 12.4 fl (7.4-10.4); Platelet Count Result 152 k/mm3 (150-375); Red Blood Count 3.28 M/mm3 (4.2-5.4); Red Cell Distribution Width 13.7 % (11.5-14.5); White Blood Count 15.3 K/mm3 (4.5-10.0)
[2019-10-25 05:54] LABS: Alanine Aminotransferase 23 U/L (4-35); Albumin Level 3.3 g/dL (3.5-5.1); Alkaline Phosphatase 104 U/L (38-126); Aspartate Amino Transferase 50 U/L (14-36); Bilirubin,Total 0.4 mg/dL (0.2-1.3); Blood Urea Nitrogen 57 mg/dL (7-17); Calcium 9.8 mg/dL (8.4-10.2); Carbon Dioxide 22 mmol/L (22-30); Chloride 94 mmol/L (98-107); Creatine Kinase 1074 U/L (30-135); Estimated CRCL calculation 17 ml/min; Estimated Glomerular Filt Rate 11; Glucose 222 mg/dL (65-105); Phosphorus 3.9 mg/dL (2.5-4.5); Potassium 4.8 mmol/L (3.4-5.0); Sodium 131 mmol/L (137-145)
[2019-10-25 07:42] LABS: Glucose Point of Care 213 (65-105)
[2019-10-25 08:09] LABS: Glucose Point of Care 240 (65-105)
[2019-10-25] MEDS: INSULIN ASPART (*BKC) 100 UNITS/ML 8 UNITS SUB-Q ×3 (11:10→19:38)
[2019-10-25] MEDS: INSULIN ASPART (*BKC) 100 UNITS/ML SUB-Q ×2 (11:11→15:45)
[2019-10-25] MEDS: buPROPion HCL XL (24 HR) 150 MG TABCR 300 MG PO (11:12)
[2019-10-25] MEDS: ASPIRIN 81 MG ENTERIC TABLET PO (11:12)
[2019-10-25] MEDS: OMEGA 3 POLYUNSAT FATTY ACIDS 1 GM CAP PO (11:13)
[2019-10-25] MEDS: MONTELUKAST SODIUM 10 MG TABLET PO (11:13)
[2019-10-25] MEDS: GABAPENTIN 300 MG CAPSULE PO ×3 (11:13→17:36)
[2019-10-25] MEDS: CHOLECALCIFEROL 1,000 UNIT TABLET 1000 UNITS PO (11:13)
[2019-10-25] MEDS: TOLNAFTATE 1% POWDER 45 GM BTL 1 APPLIC TOPICAL ×2 (11:13→21:49)
[2019-10-25] MEDS: INSULIN GLARGINE (*BKC) 100 UNITS/ML 90 UNITS SUB-Q (11:15)
[2019-10-25 13:22] LABS: Glucose Point of Care 263 (65-105)
[2019-10-25] MEDS: ACETAMINOPHEN 500 MG TABLET PO (17:37)
[2019-10-25 17:44] LABS: Glucose Point of Care 187 (65-105)
--- NOTE | 2019-10-25 17:50 | P.PNIM_ITS ---
Progress Note: A&P Assessment and Plan (1) Sepsis: Qualifiers: Sepsis type: sepsis due to unspecified organism Sepsis acute organ dysfunction status: without acute organ dysfunction Qualified Code(s): A41.9 - Sepsis, unspecified organism Code(s): A41.9 - Sepsis, unspecified organism Status: Acute Assessment and Plan: * Present on admission and supported by tachycardia, leukocytosis, and acute kidney injury in the setting of infection. * Lactic acid level was within normal limits. * Blood cultures pending (2) Urinary tract infection: Qualifiers: Urinary tract infection type: site unspecified Hematuria presence: without hematuria Qualified Code(s): N39.0 - Urinary tract infection, site not specified Code(s): N39.0 - Urinary tract infection, site not specified Status: Acute Assessment and Plan: * Ceftriaxone day 3 * Urine culture growing E coli sensitivity pending (3) Acute kidney injury: Code(s): N17.9 - Acute kidney failure, unspecified Status: Acute Assessment and Plan: * Etiology is not entirely clear but is most likely multifactorial (infection, dehydration, drugs, rhabdo) * Furosemide, losartan, valsartan, and meloxicam held * She will receive cautious IV fluid rehydration with strict monitoring of I/O. * Renal ultrasound WNL with fatty liver noted * Repeat lab 10/25, today creatinine unchanged at 4.1 but bladder scan revealed greater than 1000 mL when [place] was placed some may be some component of obstruction also (4) Electrolyte abnormality: Code(s): E87.8 - Other disorders of electrolyte and fluid balance, not elsewhere classified Status: Acute Assessment and Plan: * Including moderate hyponatremia (glucose 349), mild hyperkalemia, and hypochlo remia. * As above, she is receiving cautious IV fluid rehydration. * Will monitor electrolytes closely to ensure they are correcting appropriately. (5) Metabolic encephalopathy: Code(s): G93.41 - Metabolic encephalopathy Status: Acute Assessment and Plan: * improved (6) Nonischemic cardiomyopathy: Code(s): I42.8 - Other cardiomyopathies Status: Acute Assessment and Plan: * Echocardiogram in May 2016 showed moderate global left ventricular systolic dysfunction with ejection fraction of 35% grade 3 diastolic dysfunction. * Cardiac catheterization showed no coronary artery abnormalities. * Will need to be mindful of her volume status while hydrating. (7) Insulin dependent type 2 diabetes mellitus: Code(s): E11.9 - Type 2 diabetes mellitus without complications; Z79.4 - intermediate accountant (current) use of insulin Status: Acute Assessment and Plan: * Hyperglycemic today, with random glucose of 349 on arrival. * Metformin on hold given acute kidney injury. * Will continue basal insulin. * initiate sliding scale insulin, Accu-Cheks, and hypoglycemic protocol. * hemoglobin A1c. 7.8. Subjective Date/time seen: 10/25/19 17:50 Interval history: Date of visit 10/25. 54-year-old white female type 2 diabetic, nonischemic cardiomyopathy admitted with sepsis and urinary tract infection. Napping with CPAP on. Denied pain in chest, abdomen, back, extremities, head. Denied sob. Denied edema. Denied gi/gu c/o. Denied ABNL bleeding. Exam Narrative: Exam Narrative: Blood pressure 128/66 pulse is 96 temp 36.3? HEENT: EOMI, PERRL, NECK: No JVD, adenopathy,
--- NOTE | 2019-10-25 17:50 | PM.IMPN ---
Progress Note: A&P Assessment and Plan (1) Sepsis: Qualifiers: Sepsis type: sepsis due to unspecified organism Sepsis acute organ dysfunction status: without acute organ dysfunction Qualified Code(s): A41.9 - Sepsis, unspecified organism Code(s): A41.9 - Sepsis, unspecified organism Status: Acute Assessment and Plan: Present on admission and supported by tachycardia, leukocytosis, and acute kidney injury in the setting of infection. Lactic acid level was within normal limits. Blood cultures pending (2) Urinary tract infection: Qualifiers: Urinary tract infection type: site unspecified Hematuria presence: without hematuria Qualified Code(s): N39.0 - Urinary tract infection, site not specified Code(s): N39.0 - Urinary tract infection, site not specified Status: Acute Assessment and Plan: Ceftriaxone day 3 Urine culture growing E coli sensitivity pending (3) Acute kidney injury: Code(s): N17.9 - Acute kidney failure, unspecified Status: Acute Assessment and Plan: Etiology is not entirely clear but is most likely multifactorial (infection, dehydration, drugs, rhabdo) Furosemide, losartan, valsartan, and meloxicam held She will receive cautious IV fluid rehydration with strict monitoring of I/O. Renal ultrasound WNL with fatty liver noted Repeat lab 10/25, today creatinine unchanged at 4.1 but bladder scan revealed greater than 1000 mL when [place] was placed some may be some component of obstruction also (4) Electrolyte abnormality: Code(s): E87.8 - Other disorders of electrolyte and fluid balance, not elsewhere classified Status: Acute Assessment and Plan: Including moderate hyponatremia (glucose 349), mild hyperkalemia, and hypochloremia. As above, she is receiving cautious IV fluid rehydration. Will monitor electrolytes closely to ensure they are correcting appropriately. (5) Metabolic encephalopathy: Code(s): G93.41 - Metabolic encephalopathy Status: Acute Assessment and Plan: improved (6) Nonischemic cardiomyopathy: Code(s): I42.8 - Other cardiomyopathies Status: Acute Assessment and Plan: Echocardiogram in May 2016 showed moderate global left ventricular systolic dysfunction with ejection fraction of 35% grade 3 diastolic dysfunction. Cardiac catheterization showed no coronary artery abnormalities. Will need to be mindful of her volume status while hydrating. (7) Insulin dependent type 2 diabetes mellitus: Code(s): E11.9 - Type 2 diabetes mellitus without complications; Z79.4 - [facility] (current) use of insulin Status: Acute Assessment and Plan: Hyperglycemic today, with random glucose of 349 on arrival. Metformin on hold given acute kidney injury. Will continue basal insulin. initiate sliding scale insulin, Accu-Cheks, and hypoglycemic protocol. hemoglobin A1c. 7.8. Subjective Date/time seen: 10/25/19 17:50 Interval history: Date of visit 10/25. 54-year-old white female type 2 diabetic, nonischemic cardiomyopathy admitted with sepsis and urinary tract infection. Napping with CPAP on. Denied pain in chest, abdomen, back, extremities, head. Denied sob. Denied edema. Denied gi/gu c/o. Denied ABNL bleeding. Exam Narrative: Exam Narrative: Blood pressure 128/66 pulse is 96 temp 36.3? HEENT: EOMI, PERRL, NECK: No JVD, adenopathy, CHEST: Clear to auscultation. Normal effort. HEART: NL S1/S2, regular, no murmur ABDOMEN: BS+, soft, nontender, EXTREMITIES: , trace ankle edema NEUROLOGIC: CN intact and symmetric to inspection. PSYCH: Alert. Oriented to person, place, and time Objective Data Vital Signs Vital Signs: Vital Signs - 24 hr 10/24/19 20:27 10/24/19 20:45 10/24/19 20:48 Temperature 37.4 C Pulse Rate 116 H 115 H 115 H Respiratory Rate 24 H 31 H 30 H Blood Pressure 143/65 H Puls
[2019-10-25 18:56] LABS: Alveolar/Arterial O2 Gradient 169.1 mmHg; Base Excess ABG 0.5 mEq/l (+/-2.0); Carboxyhemoglobin 0.3 % THb (0-2.0); Device NON-INVASIVE VENT; Fractional Inspired Oxygen 40 %; Methemoglobin ABG 0.3 %THb (0-1.5); Modified Allen's Test Pass; Oxygen Content ABG 15.7 %vol (16.0-22.0); Oxygen Saturation ABG 94.4 % (95.0-100.0); Oxyhemoglobin 93.1 % THb (90.0-100.0); PCO2 ABG 39.9 mmHg (35.0-45.0); PO2 ABG 70.2 mmHg (80.0-100.0); PO2 FiO2 Ratio Arterial Blood 1.75 %; Reduced Hemoglobin 6.3 %THb (0-5.0); Site Drawn RIGHT RADIAL; pH ABG 7.415 (7.350-7.450)
[2019-10-25 18:57] LABS: Non-Invasive Expiratory Pressure 8 CMH2O; Non-Invasive Inspiratory Pressure 15 CMH2O; Non-Invasive Vent Rate 15 /MIN
[2019-10-25 21:01] LABS: Glucose Point of Care 106 (65-105)
[2019-10-25] MEDS: HEPARIN SODIUM 5,000 UNITS/ML VIAL 5000 UNITS SUB-Q (21:48)
[2019-10-25] MEDS: SIMVASTATIN 20 MG TABLET 40 MG PO (21:48)
[2019-10-25] MEDS: MUPIROCIN 2% OINT 22 GM TUBE 1 APPLIC EACH NARE (21:49)
[2019-10-26] VITALS (19 sets, daily range): BP systolic 119–149; BP diastolic 58–85; PULSE 67–114; RESP 18–26; TEMP 36–37.2; O2SAT 93–98
[2019-10-26] MEDS: ALBUTEROL SULFATE NEB 2.5 MG/0.5 ML INH 5 MG INHALATION ×4 (02:15→21:34)
[2019-10-26] MEDS: IPRATROPIUM BR 0.02% INH SOLN 0.5 MG/2.5 ML VIAL INHALATION ×4 (02:15→21:35)
[2019-10-26 05:26] LABS: Basophils Percent Auto 0.2 % (0.2-1.2); Eosinophils Absolute Auto 0.1 K/mm3 (0-0.3); Eosinophils Percent Auto 0.8 % (0-4.4); Hematocrit 30.5 % (37.0-47.0); Hemoglobin 10.2 g/dL (12.0-15.0); Immature Granulocyte Absolute 0.18 K/mm3 (0.00-0.031); Immature Granulocyte Percent A 1.2 % (0-0.5); Lymphocytes Absolute Auto 0.81 K/mm3 (0.9-3.2); Lymphocytes Percent Auto 5.6 % (18.3-44.2); Mean Corpuscular HGB Conc 33.4 g/dl (32-36); Mean Corpuscular Hemoglobin 29.8 pg (26-34); Mean Corpuscular Volume 89.2 fl (80-100); Monocytes Absolute Auto 1.2 K/mm3 (0.1-0.6); Monocytes Percent Auto 8.4 % (2.6-8.5); Neutrophils Absolute Auto 12.2 K/mm3 (1.3-6.7); Neutrophils Percent Auto 83.8 % (45.5-73.1); Platelet Count Result 170 k/mm3 (150-375); Red Blood Count 3.42 M/mm3 (4.2-5.4); Red Cell Distribution Width 14.1 % (11.5-14.5); White Blood Count 14.6 K/mm3 (4.5-10.0)
[2019-10-26] MEDS: HEPARIN SODIUM 5,000 UNITS/ML VIAL 5000 UNITS SUB-Q ×3 (05:50→20:34)
[2019-10-26 05:56] LABS: Blood Urea Nitrogen 70 mg/dL (7-17); Calcium 10.4 mg/dL (8.4-10.2); Carbon Dioxide 25 mmol/L (22-30); Chloride 97 mmol/L (98-107); Estimated CRCL calculation 17 ml/min; Estimated Glomerular Filt Rate 11; Glucose 99 mg/dL (65-105); Potassium 4.4 mmol/L (3.4-5.0); Sodium 136 mmol/L (137-145)
--- NOTE | 2019-10-26 08:00 | ECG_ITS ---
Measurements Intervals [place] Rate: 85 P: 44 NH: 181 QRS: 1 QRSD: 118 T: 59 QT: 338 QTc: 403 Interpretive Statements SINUS RHYTHM FREQUENT ATRIAL PREMATURE COMPLEXES INTRAVENTRICULAR CONDUCTION DELAY LOW QRS VOLTAGE IN PRECORDIAL LEADS POOR R WAVE PROGRESSION, CONSIDER ANTERIOR INFARCT BORDERLINE ST-T WAVE ABNORMALITY- LATERAL LEADS BASELINE ARTIFACT- I, III, V1-V3 ABNORMAL ECG Electronically Signed On 10-26-2019 9:44:02 [employer] by Hever Cobos D.O.
[2019-10-26] MEDS: MONTELUKAST SODIUM 10 MG TABLET PO (08:54)
[2019-10-26] MEDS: ASPIRIN 81 MG ENTERIC TABLET PO (08:54)
[2019-10-26] MEDS: buPROPion HCL XL (24 HR) 150 MG TABCR 300 MG PO (08:54)
[2019-10-26] MEDS: OMEGA 3 POLYUNSAT FATTY ACIDS 1 GM CAP PO (08:54)
[2019-10-26] MEDS: GABAPENTIN 300 MG CAPSULE PO ×3 (08:54→17:18)
[2019-10-26] MEDS: CHOLECALCIFEROL 1,000 UNIT TABLET 1000 UNITS PO (08:54)
[2019-10-26] MEDS: INSULIN ASPART (*BKC) 100 UNITS/ML 8 UNITS SUB-Q ×3 (08:55→17:19)
[2019-10-26] MEDS: MUPIROCIN 2% OINT 22 GM TUBE 1 APPLIC EACH NARE ×2 (08:55→20:34)
[2019-10-26] MEDS: TOLNAFTATE 1% POWDER 45 GM BTL 1 APPLIC TOPICAL ×2 (08:55→20:34)
[2019-10-26] MEDS: INSULIN GLARGINE (*BKC) 100 UNITS/ML 90 UNITS SUB-Q (08:56)
[2019-10-26 09:08] LABS: Glucose Point of Care 102 (65-105)
[2019-10-26 12:18] LABS: Glucose Point of Care 210 (65-105)
[2019-10-26] MEDS: INSULIN ASPART (*BKC) 100 UNITS/ML SUB-Q (13:15)
--- NOTE | 2019-10-26 14:16 | PM.CNNEP ---
Assessment and Plan Assessment and plan (1) Acute kidney injury: Code(s): N17.9 - Acute kidney failure, unspecified Status: Acute (2) Sepsis: Qualifiers: Sepsis acute organ dysfunction status: without acute organ dysfunction Sepsis type: sepsis due to unspecified organism Qualified Code(s): A41.9 - Sepsis, unspecified organism Code(s): A41.9 - Sepsis, unspecified organism Status: Acute (3) Urinary tract infection: Qualifiers: Hematuria presence: without hematuria Urinary tract infection type: site unspecified Qualified Code(s): N39.0 - Urinary tract infection, site not specified Code(s): N39.0 - Urinary tract infection, site not specified Status: Acute (4) Nonischemic cardiomyopathy: Code(s): I42.8 - Other cardiomyopathies Status: Acute Assessment and Plan: . Additional Plan Lakshmi has acute kidney injury/acute renal failure as evidenced by the trend of her labs since admission. Her baseline renal function was apparently normal as of 2019. However, as mentioned, she does have significant risk factors for kidney disease which may have yet manifested themselves at this time. I suspect her acute kidney injury/acute renal failure is multifactorial and probably related to medications that she was on prior to admission (diuretics/NSAIDs/ARB...), her acute infection (urinary tract infection), mild rhabdomyolysis and prerenal factors. She did receive IV fluid resuscitation but then this had to be discontinued due to concerns of volume overload particularly given her known history of a significant cardiomyopathy. Unfortunately, she still has some issues related to fluid overload but diuretics are being held given her renal dysfunction at this time. I am somewhat concerned given the rapid decline in her kidney function that she may require more than just conservative therapy to get her kidney function back to baseline. Eventually, if her urine output continues to be somewhat diminished, we may have to consider IV diuretics to optimize her volume status and of course, if this fails, the next step would probably be renal replacement therapy/dialysis. I had a fairly long discussion with both her daughter at bedside, the patient, and her other daughter by phone (greater than 20 minutes was spent in detailed discussion) regarding her renal dysfunction and my concerns of open may need to do including the possibility of dialysis. My hope is that her kidney function will eventually return to baseline with just supportive therapy but I cannot deny the possibility that she may require more invasive procedures. They all seem to be aware of this possibility and were willing to proceed with dialysis should it be needed. For now, I would continue conservative therapy in terms of holding IV fluids given her issues with volume overload, follow the trend of her repeat labs in urine output, and if necessary, consider diuretic therapy if needed to maintain stability in her respiratory/volume status. I will continue follow patient with you while she remains hospitalized and make further recommendations are hospital course Thank you for allowing me participate in care this patient. History of Present Illness Reason for Consult Consult date: 10/26/19 Reason for consult: acute renal failure Chief Complaint Chief complaint: Severe sepsis, UTI, Acute renal failure History of Present Illness Narrative: The patient 64-year-old female with and extensive medically history as outlined below who presented to the [facility] ER for further evaluation of weakness. Apparently, she has developed progressive weakness -- she cannot get herself out of bed and needs to ?slide out of bed? when she gets up in the mornings. The last couple of mornings before admission, she has had to use her Life Alert for lift assist. Due to the ongoing nature of this problems, she came to the ER for evaluation
--- NOTE | 2019-10-26 16:22 | P.PNIM_ITS ---
Progress Note: A&P Assessment and Plan (1) Sepsis: Qualifiers: Sepsis type: sepsis due to unspecified organism Sepsis acute organ dysfunction status: without acute organ dysfunction Qualified Code(s): A41.9 - Sepsis, unspecified organism Code(s): A41.9 - Sepsis, unspecified organism Status: Acute Assessment and Plan: * Present on admission and supported by tachycardia, leukocytosis, and acute kidney injury in the setting of infection. * Lactic acid level was within normal limits. * Blood cultures negative (2) Urinary tract infection: Qualifiers: Urinary tract infection type: site unspecified Hematuria presence: without hematuria Qualified Code(s): N39.0 - Urinary tract infection, site not specified Code(s): N39.0 - Urinary tract infection, site not specified Status: Acute Assessment and Plan: * Ceftriaxone day 4 * Urine culture growing E coli sensitive to ceftriaxone (3) Acute kidney injury: Code(s): N17.9 - Acute kidney failure, unspecified Status: Acute Assessment and Plan: * Etiology is not entirely clear but is most likely multifactorial (infection, dehydration, drugs, rhabdo) * Furosemide, losartan, valsartan, and meloxicam held * She was rehydrated with strict monitoring of I/O. * Renal ultrasound WNL with fatty liver noted * Repeat lab 10/26, today creatinine unchanged at 4.2 but bladder scan 10/25 revealed greater than 1000 mL when [place] was placed so may be some component of obstruction also, nephrololgy opinion (4) Electrolyte abnormality: Code(s): E87.8 - Other disorders of electrolyte and fluid balance, not elsewhere classified Status: Acute Assessment and Plan: * Including moderate hyponatremia (glucose 349), mild hyperkalemia, and hypoc hloremia. * As above, received cautious IV fluid rehydration. and creatinine did not fall . (5) Metabolic encephalopathy: Code(s): G93.41 - Metabolic encephalopathy Status: Acute Assessment and Plan: * improved (6) Nonischemic cardiomyopathy: Code(s): I42.8 - Other cardiomyopathies Status: Acute Assessment and Plan: * Echocardiogram in May 2016 showed moderate global left ventricular systolic dysfunction with ejection fraction of 35% grade 3 diastolic dysfunction. * Cardiac catheterization showed no coronary artery abnormalities. * last echo 11/15 EF 40%, will recheck . (7) Insulin dependent type 2 diabetes mellitus: Code(s): E11.9 - Type 2 diabetes mellitus without complications; Z79.4 - [facility] (current) use of insulin Status: Acute Assessment and Plan: * Hyperglycemic on admission, with random glucose of 349 on arrival. * Metformin on hold given acute kidney injury. * Will continue basal insulin. * initiate sliding scale insulin, Accu-Cheks, and hypoglycemic protocol. * hemoglobin A1c. 7.8. * FBS 99 this am Subjective Date/time seen: 10/26/19 16:22 Interval history: Date of visit 10/26. 54-year-old white female type 2 diabetic, nonischemic cardiomyopathy admitted with sepsis and urinary tract infection. Napping with CPAP on.but arousable Denied pain in chest, abdomen, back, extremities, head. Denied sob. Denied edema. Denied gi/gu c/o. Denied ABNL bleeding. Exam Narrative: Exam Narrative: Blood pressure 146/58 pulse is 92 temp 36.3?, sat 95% 4L HEENT: EOMI, PERRL, NECK: No JVD, adenopathy, CHEST: Clear to
--- NOTE | 2019-10-26 16:22 | PM.IMPN ---
Progress Note: A&P Assessment and Plan (1) Sepsis: Qualifiers: Sepsis type: sepsis due to unspecified organism Sepsis acute organ dysfunction status: without acute organ dysfunction Qualified Code(s): A41.9 - Sepsis, unspecified organism Code(s): A41.9 - Sepsis, unspecified organism Status: Acute Assessment and Plan: Present on admission and supported by tachycardia, leukocytosis, and acute kidney injury in the setting of infection. Lactic acid level was within normal limits. Blood cultures negative (2) Urinary tract infection: Qualifiers: Urinary tract infection type: site unspecified Hematuria presence: without hematuria Qualified Code(s): N39.0 - Urinary tract infection, site not specified Code(s): N39.0 - Urinary tract infection, site not specified Status: Acute Assessment and Plan: Ceftriaxone day 4 Urine culture growing E coli sensitive to ceftriaxone (3) Acute kidney injury: Code(s): N17.9 - Acute kidney failure, unspecified Status: Acute Assessment and Plan: Etiology is not entirely clear but is most likely multifactorial (infection, dehydration, drugs, rhabdo) Furosemide, losartan, valsartan, and meloxicam held She was rehydrated with strict monitoring of I/O. Renal ultrasound WNL with fatty liver noted Repeat lab 10/26, today creatinine unchanged at 4.2 but bladder scan 10/25 revealed greater than 1000 mL when [place] was placed so may be some component of obstruction also, nephrololgy opinion (4) Electrolyte abnormality: Code(s): E87.8 - Other disorders of electrolyte and fluid balance, not elsewhere classified Status: Acute Assessment and Plan: Including moderate hyponatremia (glucose 349), mild hyperkalemia, and hypochloremia. As above, received cautious IV fluid rehydration. and creatinine did not fall . (5) Metabolic encephalopathy: Code(s): G93.41 - Metabolic encephalopathy Status: Acute Assessment and Plan: improved (6) Nonischemic cardiomyopathy: Code(s): I42.8 - Other cardiomyopathies Status: Acute Assessment and Plan: Echocardiogram in May 2016 showed moderate global left ventricular systolic dysfunction with ejection fraction of 35% grade 3 diastolic dysfunction. Cardiac catheterization showed no coronary artery abnormalities. last echo 11/15 EF 40%, will recheck . (7) Insulin dependent type 2 diabetes mellitus: Code(s): E11.9 - Type 2 diabetes mellitus without complications; Z79.4 - [facility] (current) use of insulin Status: Acute Assessment and Plan: Hyperglycemic on admission, with random glucose of 349 on arrival. Metformin on hold given acute kidney injury. Will continue basal insulin. initiate sliding scale insulin, Accu-Cheks, and hypoglycemic protocol. hemoglobin A1c. 7.8. FBS 99 this am Subjective Date/time seen: 10/26/19 16:22 Interval history: Date of visit 10/26. 54-year-old white female type 2 diabetic, nonischemic cardiomyopathy admitted with sepsis and urinary tract infection. Napping with CPAP on.but arousable Denied pain in chest, abdomen, back, extremities, head. Denied sob. Denied edema. Denied gi/gu c/o. Denied ABNL bleeding. Exam Narrative: Exam Narrative: Blood pressure 146/58 pulse is 92 temp 36.3?, sat 95% 4L HEENT: EOMI, PERRL, NECK: No JVD, adenopathy, CHEST: Clear to auscultation. Normal effort. HEART: NL S1/S2, regular, no murmur ABDOMEN: BS+, soft, nontender, EXTREMITIES: , trace ankle edema NEUROLOGIC: CN intact and symmetric to inspection. PSYCH: Alert. Oriented to person, place, and time Objective Data Vital Signs Vital Signs: Vital Signs - 24 hr 10/25/19 17:37 10/25/19 18:00 10/25/19 18:21 Temperature 38.3 C H 37.0 C Pulse Rate 111 H 110 H Respiratory Rate 22 H Blood Pressure 120/46 L Pulse Oximetry 90 10/25/19 18:
[2019-10-26 16:56] LABS: Glucose Point of Care 101 (65-105)
[2019-10-26] MEDS: METOPROLOL SUCCINATE EXT REL 25 MG TABCR PO (20:35)
[2019-10-26] MEDS: SIMVASTATIN 20 MG TABLET 40 MG PO (20:35)
[2019-10-26 20:38] LABS: Glucose Point of Care 70 (65-105)
[2019-10-27] VITALS (20 sets, daily range): BP systolic 106–145; BP diastolic 49–73; PULSE 78–95; RESP 18–26; TEMP 36.2–36.9; O2SAT 91–98
--- NOTE | 2019-10-27 | ECHO_ITS ---
Patient Info Name: Lakshmi Fry Age: 64 years : 1955 Gender: Female Ht: 65 in Wt: 277 lbs BSA: 2.47 m2 HR: 105 bpm BP: 106 / 49 mmHg Heart Rhythm: Sinus Rhythm Technical Quality: Fair Exam Date: 10/27/2019 9:27 AM Exam Location: [facility] Pul[facility] Patient Status: Inpatient Admit Date: 10/23/2019 Staff Ordering Physician: Domenic Herzog MD [place] Ragger: Fredy Bernard RDCS Attending Provider: Jamison Jones MD Referring Physician: Rosenda PINEDA; Exam Type: CA echo dop color flow w con Study Info Indications I50.9 - Heart failure, unspecified Complete two-dimensional, color flow and Doppler transthoracic echocardiogram is performed with contrast to opacify the left ventrical and to improve the deliniation of the left ventrical endocarial boarders. Contrast/Agitated Saline Contrast/Ag. Saline: Definity Amount: 3.00 ml Administered By: Shira Ward RN Existing IV Access: Yes History/Risk Factors CHF - NICM w/ worsening renal function; CKD3, HTN, DM2, COPD. Summary 1. Left ventricular chamber dimension is severely enlarged. 2. Definity contrast administered improved wall motion interpretation. 3. Left ventricular systolic function is severely reduced, estimated at 30-35%. 4. The left ventricular diastolic function is grade I diastolic dysfunction. 5. E/e' 14 is mildly elevated. 6. Left atrial chamber dimension is mildly enlarged. 7. Right atrial chamber dimension is mildly enlarged. Left Ventricle E/e' 14 is mildly elevated. Definity contrast administered improved wall motion interpretation. Left ventricular chamber dimension is severely enlarged. Left ventricular systolic function is severely reduced, estimated at 30-35%. The left ventricular diastolic function is grade I diastolic dysfunction. Right Ventricle Right ventricular chamber dimension is normal. Right ventricular systolic function is normal. Left Atria Left atrial chamber dimension is mildly enlarged. Right Atria Right atrial chamber dimension is mildly enlarged. Aortic Valve There is no aortic valve stenosis base on normal valve area and gradients. Cannot determine number of aortic valve leaflets. The aortic valve is not well visualized. There is no aortic valve regurgitation. Pulmonic Valve The pulmonic valve is not well visualized. Mitral Valve There is no mitral valve stenosis. There is no mitral valve regurgitation. Tricuspid Valve The tricuspid valve leaflets are not well visualized. There is no tricuspid valve regurgitation. Pericardium/Pleural There is no pericardial effusion. Aorta The aortic root size at the sinus of Valsalva is not well visualized. Left Ventricular Outflow Tract Name Value Normal LVOT 2D LVOT Diameter 2.05 cm LVOT Doppler LVOT Peak Gradient 6 mmHg LVOT Mean Gradient 3 mmHg LVOT VTI 22.30 cm LVOT VTI/AV VTI Ratio 0.57 LVOT Stroke Volume 73.31 ml Mitral Valve
[2019-10-27] MEDS: ALBUTEROL SULFATE NEB 2.5 MG/0.5 ML INH 5 MG INHALATION ×4 (03:41→19:29)
[2019-10-27] MEDS: IPRATROPIUM BR 0.02% INH SOLN 0.5 MG/2.5 ML VIAL INHALATION ×4 (03:42→19:29)
[2019-10-27 05:09] LABS: Basophils Percent Auto 0.3 % (0.2-1.2); Eosinophils Absolute Auto 0.2 K/mm3 (0-0.3); Eosinophils Percent Auto 1.5 % (0-4.4); Hematocrit 30.9 % (37.0-47.0); Immature Granulocyte Absolute 0.34 K/mm3 (0.00-0.031); Immature Granulocyte Percent A 2.2 % (0-0.5); Lymphocytes Percent Auto 7.6 % (18.3-44.2); Mean Corpuscular HGB Conc 32.4 g/dl (32-36); Mean Corpuscular Hemoglobin 29.1 pg (26-34); Mean Corpuscular Volume 89.8 fl (80-100); Monocytes Absolute Auto 1.5 K/mm3 (0.1-0.6); Monocytes Percent Auto 9.3 % (2.6-8.5); Neutrophils Absolute Auto 12.5 K/mm3 (1.3-6.7); Neutrophils Percent Auto 79.1 % (45.5-73.1); Platelet Count Result 198 k/mm3 (150-375); Red Blood Count 3.44 M/mm3 (4.2-5.4); Red Cell Distribution Width 14.3 % (11.5-14.5); White Blood Count 15.8 K/mm3 (4.5-10.0)
[2019-10-27] MEDS: HEPARIN SODIUM 5,000 UNITS/ML VIAL 5000 UNITS SUB-Q ×3 (05:25→20:49)
[2019-10-27 05:31] LABS: Blood Urea Nitrogen 79 mg/dL (7-17); Calcium 10.1 mg/dL (8.4-10.2); Carbon Dioxide 24 mmol/L (22-30); Chloride 96 mmol/L (98-107); Estimated CRCL calculation 17 ml/min; Estimated Glomerular Filt Rate 10; Glucose 98 mg/dL (65-105); Potassium 4.5 mmol/L (3.4-5.0); Sodium 135 mmol/L (137-145)
[2019-10-27 08:11] LABS: Glucose Point of Care 113 (65-105)
[2019-10-27] MEDS: buPROPion HCL XL (24 HR) 150 MG TABCR 300 MG PO (08:36)
[2019-10-27] MEDS: OMEGA 3 POLYUNSAT FATTY ACIDS 1 GM CAP PO (08:36)
[2019-10-27] MEDS: CHOLECALCIFEROL 1,000 UNIT TABLET 1000 UNITS PO (08:37)
[2019-10-27] MEDS: METOPROLOL SUCCINATE EXT REL 25 MG TABCR PO ×2 (08:37→20:47)
[2019-10-27] MEDS: MONTELUKAST SODIUM 10 MG TABLET PO (08:37)
[2019-10-27] MEDS: INSULIN ASPART (*BKC) 100 UNITS/ML 8 UNITS SUB-Q ×3 (08:38→17:42)
[2019-10-27] MEDS: GABAPENTIN 300 MG CAPSULE PO ×3 (08:38→17:42)
[2019-10-27] MEDS: ASPIRIN 81 MG ENTERIC TABLET PO (08:38)
[2019-10-27] MEDS: MUPIROCIN 2% OINT 22 GM TUBE 1 APPLIC EACH NARE ×2 (08:39→20:48)
[2019-10-27] MEDS: TOLNAFTATE 1% POWDER 45 GM BTL 1 APPLIC TOPICAL ×2 (08:39→20:48)
[2019-10-27] MEDS: INSULIN GLARGINE (*BKC) 100 UNITS/ML 90 UNITS SUB-Q (08:39)
[2019-10-27] MEDS: PERFLUTREN LIPID MICROSPHERES 1.5 ML VIAL DILUTED TO 10 ML TOTAL VOLUME IV PUSH (09:51)
[2019-10-27 12:49] LABS: Glucose Point of Care 128 (65-105)
--- NOTE | 2019-10-27 15:16 | PM.PNNEP ---
Progress Note: A&P Assessment and Plan (1) Acute kidney injury: Code(s): N17.9 - Acute kidney failure, unspecified Status: Acute Assessment and Plan: creatinine remains elevated however, no critical electrolytes and making reasonable urine output etiology thought to be multifactorial: - infection/UTI - drugs (diuretics/ARB/NSAIDs), - rhabdo - pre-renal factorus - urinary retention/obstruction(?) follow trend of repeat labs and UOP (2) Sepsis: Qualifiers: Sepsis acute organ dysfunction status: without acute organ dysfunction Sepsis type: sepsis due to unspecified organism Qualified Code(s): A41.9 - Sepsis, unspecified organism Code(s): A41.9 - Sepsis, unspecified organism Status: Acute Assessment and Plan: as noted on admission clinically better continue supportive therapy (3) Urinary tract infection: Qualifiers: Hematuria presence: without hematuria Urinary tract infection type: site unspecified Qualified Code(s): N39.0 - Urinary tract infection, site not specified Code(s): N39.0 - Urinary tract infection, site not specified Status: Acute Assessment and Plan: E.coli by culture on antibiotics (4) Nonischemic cardiomyopathy: Code(s): I42.8 - Other cardiomyopathies Status: Acute Assessment and Plan: issues with volume overload with IVFs IVFs hold follow volume status closely Will continue to follow. Subjective Date/time seen: 10/27/19 15:16 Sleeping with CPAP and in no acute distress; no new issues or problems voiced at this time; no new issues or events overnight or earlier today. Exam Narrative: Exam Narrative: General: WD/WN female in NAD Heart: normal S1 and S2; no rub Lungs: coarse with a few crackles at bases Abdomen: soft, nontender, nondistended, positive bowel sounds Extremities: no cyanosis or clubbing; 2+ edema Skin: warm and dry Objective Data Vital Signs Vital Signs: Vital Signs Temp Pulse Resp BP Pulse Ox 10/27/19 12:00 36.5 C 82 24 H 121/56 L 94 10/27/19 09:05 82 18 96 10/27/19 08:37 92 10/27/19 08:00 36.2 C L 78 20 133/73 97 10/27/19 04:43 36.6 C 84 22 H 106/49 L 98 10/27/19 03:48 80 20 10/27/19 03:45 81 24 H 94 10/27/19 03:42 83 20 10/26/19 23:10 83 21 H 95 10/26/19 21:43 81 20 10/26/19 21:35 76 20 10/26/19 20:35 114 H 10/26/19 20:00 36.8 C 86 20 136/69 96 10/26/19 16:00 36.9 C 96 26 H 149/67 H 94 Intake/Output Intake/Output: Intake & Output 10/24/19 10/25/19 10/26/19 10/27/19 23:59 23:59 23:59 23:59 Intake Total 4610 1490 1860 690 Output Total 400 1000 1900 950 Balance 4211 626 -70 -413 Meds/Results Medications: Active Medications Generic Name Dose Route Start Last Admin Trade Name Freq PRN Reason Stop Dose Admin Acetaminophen 500 mg 10/23/19 21:00 10/25/19 17:37 Tylenol Tablet PO 500 mg HS PRN Administration Insomnia Albuterol 5 mg 10/23/19 20:00 10/27/19 14:59 Albuterol Sulf Neb 2.5mg/0.5ml INHALATION 5 mg Q6HRT KALINA Administration Aspirin 81 mg 10/24/19 09:00 10/27/19 08:38 Aspirin Ec PO 81 mg DAILY KALINA Administration Bupropion HCl 300 mg 10/24/19 09:00 10/27/19 08:36 Wellbutrin Xl (24 Hr) PO 300 mg QAM KALINA Administration Dextrose 12.5 gm 10/23/19 19:18 Dextrose 50% Syringe IV PUSH PRN PRN Hypoglycemia Protocol Diphenhydramine HCl 50 mg 10/23/19 19:24 10/23/19 20:56 Benadryl Cap PO 50 mg Q6H PRN Administration Itching Diphenhydramine HCl 25 mg 10/23/19 21:00 Benadryl Cap PO HS PRN Insomnia Fish Oil 1 gm 10/24/19 09:00 10/27/19 08:36 Lovaza PO 1 gm DAILY KALINA Administration Gabapentin 300 mg 10/24/19 09:00 10/27/19 12:50 Neurontin PO 300 mg TID KALINA Administration Glucagon 1 mg 10/23/19 19:
--- NOTE | 2019-10-27 16:08 | PCPTNOTE ---
The patient treatment was not able to be completed. Will plan to continue treatment per plan of care.
--- NOTE | 2019-10-27 17:30 | P.PNIM_ITS ---
Progress Note: A&P Assessment and Plan (1) Sepsis: Qualifiers: Sepsis type: sepsis due to unspecified organism Sepsis acute organ dysfunction status: without acute organ dysfunction Qualified Code(s): A41.9 - Sepsis, unspecified organism Code(s): A41.9 - Sepsis, unspecified organism Status: Acute Assessment and Plan: * Present on admission and supported by tachycardia, leukocytosis, and acute kidney injury in the setting of infection. * Lactic acid level was within normal limits. * Blood cultures negative (2) Urinary tract infection: Qualifiers: Urinary tract infection type: site unspecified Hematuria presence: without hematuria Qualified Code(s): N39.0 - Urinary tract infection, site not specified Code(s): N39.0 - Urinary tract infection, site not specified Status: Acute Assessment and Plan: * Ceftriaxone day 5 * Urine culture growing E coli sensitive to ceftriaxone (3) Acute kidney injury: Code(s): N17.9 - Acute kidney failure, unspecified Status: Acute Assessment and Plan: * Etiology is not entirely clear but is most likely multifactorial (infection, dehydration, drugs, rhabdo) * Furosemide, losartan, valsartan, and meloxicam held * She was rehydrated with strict monitoring of I/O. * Renal ultrasound WNL with fatty liver noted * Repeat lab 10/27, today creatinine at 4.3 but bladder scan 10/25 revealed greater than 1000 mL when [place] was placed so may be some component of obstruction also, nephrololgy input appreciated (4) Electrolyte abnormality: Code(s): E87.8 - Other disorders of electrolyte and fluid balance, not elsewhere classified Status: Acute Assessment and Plan: * Including moderate hyponatremia (glucose 349), mild hyperkalemia, and hypo chloremia. * As above, received cautious IV fluid rehydration. and creatinine did not fall . (5) Metabolic encephalopathy: Code(s): G93.41 - Metabolic encephalopathy Status: Acute Assessment and Plan: * improved (6) Nonischemic cardiomyopathy: Code(s): I42.8 - Other cardiomyopathies Status: Acute Assessment and Plan: * Echocardiogram in May 2016 showed moderate global left ventricular systolic dysfunction with ejection fraction of 35% grade 3 diastolic dysfunction. * Cardiac catheterization showed no coronary artery abnormalities. * last echo 11/15 EF 40%, and repeat now 30-35 % . (7) Insulin dependent type 2 diabetes mellitus: Code(s): E11.9 - Type 2 diabetes mellitus without complications; Z79.4 - [facility] (current) use of insulin Status: Acute Assessment and Plan: * Hyperglycemic on admission, with random glucose of 349 on arrival. * Metformin on hold given acute kidney injury. * Will continue basal insulin. * initiate sliding scale insulin, Accu-Cheks, and hypoglycemic protocol. * hemoglobin A1c. 7.8. * FBS 98 this am Subjective Date/time seen: 10/27/19 17:30 Interval history: Date of visit 10/27. 54-year-old white female type 2 diabetic, nonischemic cardiomyopathy admitted with sepsis and urinary tract infection. Napping with CPAP on.but arousable Denied pain in chest, abdomen, back, extremities, head. Denied sob. Denied edema. Denied gi/gu c/o. Denied ABNL bleeding. Exam Narrative: Exam Narrative: Blood pressure 122/56 pulse is 82 temp 36.3?, sat 94% 4L HEENT: EOMI, PERRL, NECK: No JVD, adenopathy, CHES
--- NOTE | 2019-10-27 17:30 | PM.IMPN ---
Progress Note: A&P Assessment and Plan (1) Sepsis: Qualifiers: Sepsis type: sepsis due to unspecified organism Sepsis acute organ dysfunction status: without acute organ dysfunction Qualified Code(s): A41.9 - Sepsis, unspecified organism Code(s): A41.9 - Sepsis, unspecified organism Status: Acute Assessment and Plan: Present on admission and supported by tachycardia, leukocytosis, and acute kidney injury in the setting of infection. Lactic acid level was within normal limits. Blood cultures negative (2) Urinary tract infection: Qualifiers: Urinary tract infection type: site unspecified Hematuria presence: without hematuria Qualified Code(s): N39.0 - Urinary tract infection, site not specified Code(s): N39.0 - Urinary tract infection, site not specified Status: Acute Assessment and Plan: Ceftriaxone day 5 Urine culture growing E coli sensitive to ceftriaxone (3) Acute kidney injury: Code(s): N17.9 - Acute kidney failure, unspecified Status: Acute Assessment and Plan: Etiology is not entirely clear but is most likely multifactorial (infection, dehydration, drugs, rhabdo) Furosemide, losartan, valsartan, and meloxicam held She was rehydrated with strict monitoring of I/O. Renal ultrasound WNL with fatty liver noted Repeat lab 10/27, today creatinine at 4.3 but bladder scan 10/25 revealed greater than 1000 mL when [place] was placed so may be some component of obstruction also, nephrololgy input appreciated (4) Electrolyte abnormality: Code(s): E87.8 - Other disorders of electrolyte and fluid balance, not elsewhere classified Status: Acute Assessment and Plan: Including moderate hyponatremia (glucose 349), mild hyperkalemia, and hypochloremia. As above, received cautious IV fluid rehydration. and creatinine did not fall . (5) Metabolic encephalopathy: Code(s): G93.41 - Metabolic encephalopathy Status: Acute Assessment and Plan: improved (6) Nonischemic cardiomyopathy: Code(s): I42.8 - Other cardiomyopathies Status: Acute Assessment and Plan: Echocardiogram in May 2016 showed moderate global left ventricular systolic dysfunction with ejection fraction of 35% grade 3 diastolic dysfunction. Cardiac catheterization showed no coronary artery abnormalities. last echo 11/15 EF 40%, and repeat now 30-35 % . (7) Insulin dependent type 2 diabetes mellitus: Code(s): E11.9 - Type 2 diabetes mellitus without complications; Z79.4 - skilled nursing (current) use of insulin Status: Acute Assessment and Plan: Hyperglycemic on admission, with random glucose of 349 on arrival. Metformin on hold given acute kidney injury. Will continue basal insulin. initiate sliding scale insulin, Accu-Cheks, and hypoglycemic protocol. hemoglobin A1c. 7.8. FBS 98 this am Subjective Date/time seen: 10/27/19 17:30 Interval history: Date of visit 10/27. 54-year-old white female type 2 diabetic, nonischemic cardiomyopathy admitted with sepsis and urinary tract infection. Napping with CPAP on.but arousable Denied pain in chest, abdomen, back, extremities, head. Denied sob. Denied edema. Denied gi/gu c/o. Denied ABNL bleeding. Exam Narrative: Exam Narrative: Blood pressure 122/56 pulse is 82 temp 36.3?, sat 94% 4L HEENT: EOMI, PERRL, NECK: No JVD, adenopathy, CHEST: Clear to auscultation. Normal effort. HEART: NL S1/S2, regular, no murmur ABDOMEN: BS+, soft, nontender, EXTREMITIES: , trace ankle edema NEUROLOGIC: CN intact and symmetric to inspection. PSYCH: Alert. Oriented to person, place, and time Objective Data Vital Signs Vital Signs: Vital Signs - 24 hr 10/26/19 20:00 10/26/19 20:35 10/26/19 21:35 Temperature 36.8 C Pulse Rate 86 114 H 76 Respiratory Rate 20 20 Blood Pressure 136/69 Pulse Oximetry 96 10/26/19 21:
--- NOTE | 2019-10-27 17:53 | PC.NURSE ---
This patient, Lakshmi Fry, was transferred to [[id number] ] on 10/27/19 at 1753. Personal belongings sent with patient. Belongings list checked and signed with receiving [ ]. Report given to [ JOSIANE Sherman]. Appropriate documentation sent with patient.
[2019-10-27 18:07] LABS: Glucose Point of Care 97 (65-105)
--- NOTE | 2019-10-27 18:43 | PC.NURSE ---
Received from [facility] 232/ at [address] bed.
[2019-10-27] MEDS: SIMVASTATIN 20 MG TABLET 40 MG PO (20:48)
[2019-10-28] VITALS (16 sets, daily range): BP systolic 122–145; BP diastolic 49–79; PULSE 70–88; RESP 16–25; TEMP 36.1–36.6; O2SAT 92–99
[2019-10-28] MEDS: ALBUTEROL SULFATE NEB 2.5 MG/0.5 ML INH 5 MG INHALATION ×4 (01:19→22:18)
[2019-10-28] MEDS: IPRATROPIUM BR 0.02% INH SOLN 0.5 MG/2.5 ML VIAL INHALATION ×4 (01:19→22:18)
[2019-10-28] MEDS: HEPARIN SODIUM 5,000 UNITS/ML VIAL 5000 UNITS SUB-Q ×3 (06:02→21:38)
[2019-10-28 06:12] LABS: Basophils Absolute Auto 0.1 K/mm3 (0.0-0.1); Basophils Percent Auto 0.5 % (0.2-1.2); Eosinophils Absolute Auto 0.3 K/mm3 (0-0.3); Eosinophils Percent Auto 1.7 % (0-4.4); Hemoglobin 10.1 g/dL (12.0-15.0); Immature Granulocyte Absolute 0.72 K/mm3 (0.00-0.031); Immature Granulocyte Percent A 4.2 % (0-0.5); Immature Platelet Fraction Pct 12.9 % (0.9-11.2); Lymphocytes Percent Auto 11.6 % (18.3-44.2); Mean Corpuscular HGB Conc 32.6 g/dl (32-36); Mean Corpuscular Hemoglobin 29.7 pg (26-34); Mean Corpuscular Volume 91.2 fl (80-100); Mean Platelet Volume 13.2 fl (7.4-10.4); Monocytes Absolute Auto 1.3 K/mm3 (0.1-0.6); Monocytes Percent Auto 7.7 % (2.6-8.5); Neutrophils Absolute Auto 12.8 K/mm3 (1.3-6.7); Neutrophils Percent Auto 74.3 % (45.5-73.1); Platelet Count Result 221 k/mm3 (150-375); Red Cell Distribution Width 14.3 % (11.5-14.5); White Blood Count 17.2 K/mm3 (4.5-10.0)
[2019-10-28 06:28] LABS: Blood Urea Nitrogen 83 mg/dL (7-17); Calcium 9.8 mg/dL (8.4-10.2); Carbon Dioxide 25 mmol/L (22-30); Chloride 96 mmol/L (98-107); Estimated CRCL calculation 17 ml/min; Estimated Glomerular Filt Rate 11; Glucose 90 mg/dL (65-105); Potassium 4.5 mmol/L (3.4-5.0); Sodium 134 mmol/L (137-145)
[2019-10-28] MEDS: GABAPENTIN 300 MG CAPSULE PO ×3 (09:01→17:38)
[2019-10-28] MEDS: ASPIRIN 81 MG ENTERIC TABLET PO (09:01)
[2019-10-28 09:02] LABS: Glucose Point of Care 111 (65-105)
[2019-10-28] MEDS: METOPROLOL SUCCINATE EXT REL 25 MG TABCR PO ×2 (09:02→21:35)
[2019-10-28] MEDS: OMEGA 3 POLYUNSAT FATTY ACIDS 1 GM CAP PO (09:02)
[2019-10-28] MEDS: MUPIROCIN 2% OINT 22 GM TUBE 1 APPLIC EACH NARE ×2 (09:02→21:35)
[2019-10-28] MEDS: MONTELUKAST SODIUM 10 MG TABLET PO (09:02)
[2019-10-28] MEDS: CHOLECALCIFEROL 1,000 UNIT TABLET 1000 UNITS PO (09:03)
[2019-10-28] MEDS: buPROPion HCL XL (24 HR) 150 MG TABCR 300 MG PO (09:03)
[2019-10-28] MEDS: TOLNAFTATE 1% POWDER 45 GM BTL 1 APPLIC TOPICAL ×2 (09:07→21:36)
--- NOTE | 2019-10-28 10:21 | P.PNIM_ITS ---
Progress Note: A&P Assessment and Plan (1) Sepsis: Qualifiers: Sepsis type: sepsis due to unspecified organism Sepsis acute organ dysfunction status: without acute organ dysfunction Qualified Code(s): A41.9 - Sepsis, unspecified organism Code(s): A41.9 - Sepsis, unspecified organism Status: Acute Assessment and Plan: * Present on admission and supported by tachycardia, leukocytosis, and acute kidney injury in the setting of infection. * Lactic acid level was within normal limits. * Blood cultures negative * WBC still up so repeat cxr (2) Urinary tract infection: Qualifiers: Urinary tract infection type: site unspecified Hematuria presence: without hematuria Qualified Code(s): N39.0 - Urinary tract infection, site not specified Code(s): N39.0 - Urinary tract infection, site not specified Status: Acute Assessment and Plan: * Ceftriaxone day 6 * Urine culture growing E coli sensitive to ceftriaxone (3) Acute kidney injury: Code(s): N17.9 - Acute kidney failure, unspecified Status: Acute Assessment and Plan: * Etiology is not entirely clear but is most likely multifactorial (infection, dehydration, drugs, rhabdo) * Furosemide, losartan, valsartan, and meloxicam held * She was rehydrated with strict monitoring of I/O. * Renal ultrasound WNL with fatty liver noted * Repeat lab 10/27, today creatinine still at 4.2 and diuresing some so may have peaked and hopefully will see more recovery in renal function * (4) Electrolyte abnormality: Code(s): E87.8 - Other disorders of electrolyte and fluid balance, not elsewhere classified Status: Acute Assessment and Plan: * Including moderate hyponatremia (glucose 349), mild hyperkalemia, and hypochloremia. * As above, received cautious IV fluid rehydration. and electrolytes have corrected Na 134 today and K 4.5 . (5) Metabolic encephalopathy: Code(s): G93.41 - Metabolic encephalopathy Status: Acute Assessment and Plan: * resolved (6) Nonischemic cardiomyopathy: Code(s): I42.8 - Other cardiomyopathies Status: Acute Assessment and Plan: * Echocardiogram in May 2016 showed moderate global left ventricular systolic dysfunction with ejection fraction of 35% grade 3 diastolic dysfunction. * Cardiac catheterization showed no coronary artery abnormalities. * last echo 11/15 EF 40%, and repeat now 30-35 % , ARB and diuretic on hold . (7) Insulin dependent type 2 diabetes mellitus: Code(s): E11.9 - Type 2 diabetes mellitus without complications; Z79.4 - terminal carman (current) use of insulin Status: Acute Assessment and Plan: * Hyperglycemic on admission, with random glucose of 349 on arrival. * Metformin on hold given acute kidney injury. * Will continue basal insulin but decrease to 80 U daily . * initiate sliding scale insulin, Accu-Cheks, and hypoglycemic protocol. * hemoglobin A1c. 7.8. * FBS 90 this am Subjective Date/time seen: 10/28/19 10:21 Interval history: Date of visit 10/28. 54-year-old white female type 2 diabetic, nonischemic cardiomyopathy admitted with sepsis and urinary tract infection. Feels much better and asking to go home. Denied pain in chest, abdomen, back, extremities, head. Denied sob. Denied edema. Denied gi/gu c/o. Exam Narrative: Exam Narrative: Blood pressure 144/80 pulse is 74 temp 36.3?, sat 93% 4L H
--- NOTE | 2019-10-28 10:21 | PM.IMPN ---
Progress Note: A&P Assessment and Plan (1) Sepsis: Qualifiers: Sepsis type: sepsis due to unspecified organism Sepsis acute organ dysfunction status: without acute organ dysfunction Qualified Code(s): A41.9 - Sepsis, unspecified organism Code(s): A41.9 - Sepsis, unspecified organism Status: Acute Assessment and Plan: Present on admission and supported by tachycardia, leukocytosis, and acute kidney injury in the setting of infection. Lactic acid level was within normal limits. Blood cultures negative WBC still up so repeat cxr (2) Urinary tract infection: Qualifiers: Urinary tract infection type: site unspecified Hematuria presence: without hematuria Qualified Code(s): N39.0 - Urinary tract infection, site not specified Code(s): N39.0 - Urinary tract infection, site not specified Status: Acute Assessment and Plan: Ceftriaxone day 6 Urine culture growing E coli sensitive to ceftriaxone (3) Acute kidney injury: Code(s): N17.9 - Acute kidney failure, unspecified Status: Acute Assessment and Plan: Etiology is not entirely clear but is most likely multifactorial (infection, dehydration, drugs, rhabdo) Furosemide, losartan, valsartan, and meloxicam held She was rehydrated with strict monitoring of I/O. Renal ultrasound WNL with fatty liver noted Repeat lab 10/27, today creatinine still at 4.2 and diuresing some so may have peaked and hopefully will see more recovery in renal function (4) Electrolyte abnormality: Code(s): E87.8 - Other disorders of electrolyte and fluid balance, not elsewhere classified Status: Acute Assessment and Plan: Including moderate hyponatremia (glucose 349), mild hyperkalemia, and hypochloremia. As above, received cautious IV fluid rehydration. and electrolytes have corrected Na 134 today and K 4.5 . (5) Metabolic encephalopathy: Code(s): G93.41 - Metabolic encephalopathy Status: Acute Assessment and Plan: resolved (6) Nonischemic cardiomyopathy: Code(s): I42.8 - Other cardiomyopathies Status: Acute Assessment and Plan: Echocardiogram in May 2016 showed moderate global left ventricular systolic dysfunction with ejection fraction of 35% grade 3 diastolic dysfunction. Cardiac catheterization showed no coronary artery abnormalities. last echo 11/15 EF 40%, and repeat now 30-35 % , ARB and diuretic on hold . (7) Insulin dependent type 2 diabetes mellitus: Code(s): E11.9 - Type 2 diabetes mellitus without complications; Z79.4 - computer terminal operator (current) use of insulin Status: Acute Assessment and Plan: Hyperglycemic on admission, with random glucose of 349 on arrival. Metformin on hold given acute kidney injury. Will continue basal insulin but decrease to 80 U daily . initiate sliding scale insulin, Accu-Cheks, and hypoglycemic protocol. hemoglobin A1c. 7.8. FBS 90 this am Subjective Date/time seen: 10/28/19 10:21 Interval history: Date of visit 10/28. 54-year-old white female type 2 diabetic, nonischemic cardiomyopathy admitted with sepsis and urinary tract infection. Feels much better and asking to go home. Denied pain in chest, abdomen, back, extremities, head. Denied sob. Denied edema. Denied gi/gu c/o. Exam Narrative: Exam Narrative: Blood pressure 144/80 pulse is 74 temp 36.3?, sat 93% 4L HEENT: EOMI, PERRL, NECK: No JVD, adenopathy, CHEST: Clear to auscultation. Normal effort. HEART: NL S1/S2, regular, no murmur ABDOMEN: BS+, soft, nontender, EXTREMITIES: , no ankle edema NEUROLOGIC: CN intact and symmetric to inspection. PSYCH: Alert. Oriented to person, place, and time Objective Data Vital Signs Vital Signs: Vital Signs - 24 hr 10/27/19 12:00 10/27/19 14:59 10/27/19 15:09 Temperature 36.5 C Pulse Rate 82 82 85 Respiratory Rate 24 H 18 18 Blood Pressure
[2019-10-28 10:48] LABS: Glucose Point of Care 110 (65-105)
--- NOTE | 2019-10-28 11:47 | PCNFU ---
Nutrition Follow-Up Complete: Inadequate oral Intake as related to UTI/sepsis as evidenced by poor po intake reported. Adequate Intake of at least 75% of meals/supplements Goal has been met. Pt current nutrition is [facility]. Nutrition recommendation: Agree Last recorded weight is 118.6 kg. Bowel Motility: last reported BM 10/24 Labs Reviewed:Na 134,GFR 11,BUN 83,Cr 4.2,Hct 31.0,Hgb 10.1 Meds Noted:Vit D, Lovaza Additional Notes: Patient is on Isolation for MRSA in the nares. Agree with diet orders, intake has been good 75-100% of meals. Also receiving Ensure compact BID for an additional 220 kcals and 10 gms protein. Blood Sugars running WNL. Monitoring: RD will monitor every 5 days.
[2019-10-28] MEDS: INSULIN GLARGINE (*BKC) 100 UNITS/ML 75 UNITS SUB-Q (11:52)
[2019-10-28 12:33] LABS: Glucose Point of Care 172 (65-105)
--- NOTE | 2019-10-28 13:06 | WPDCDIQUERY2 ---
CDI Query Clarification Request -Documentation in H&P that pt is on home O2 at 2L and chronic respiratory failure -On 10/24 a rapid response was called for tachypnea and hypoxia. Pt was placed on Cpap with O2 and 6L then bipap. -ABG's 10/24 pH 7.424, pCO2 36.1 pO2 60.0 HCO3 23.1 O2 Sats 91% on Cpap with O2 at 6L -Acute respiratory failure documented by Dr Duran after rapid response -Pt remains on O2 at 4-5 L -Neither acute or chronic respiratory failure are on problem list Please clarify if acute and/or chronic respiratory failure have been ruled in or ruled out.
[2019-10-28] MEDS: INSULIN ASPART (*BKC) 100 UNITS/ML 8 UNITS SUB-Q (13:42)
--- NOTE | 2019-10-28 16:18 | PM.PNNEP ---
Progress Note: A&P Assessment and Plan (1) Acute kidney injury: Code(s): N17.9 - Acute kidney failure, unspecified Status: Acute Assessment and Plan: etiology thought to be multifactorial: - infection/UTI - drugs (diuretics/ARB/NSAIDs), - rhabdo - pre-renal factorus - urinary retention/obstruction(?) creatinine remains elevated - possible peak/plateau yesterday with creatinine of 4.3mg/dl (?) no critical electrolytes and good urine output (post ATN/obstructive diuresis?) follow trend of repeat labs and UOP (2) Sepsis: Qualifiers: Sepsis type: sepsis due to unspecified organism Sepsis acute organ dysfunction status: without acute organ dysfunction Qualified Code(s): A41.9 - Sepsis, unspecified organism Code(s): A41.9 - Sepsis, unspecified organism Status: Acute Assessment and Plan: as noted on admission clinically better continue supportive therapy (3) Urinary tract infection: Qualifiers: Urinary tract infection type: site unspecified Hematuria presence: without hematuria Qualified Code(s): N39.0 - Urinary tract infection, site not specified Code(s): N39.0 - Urinary tract infection, site not specified Status: Acute Assessment and Plan: E.coli by culture on antibiotics (4) Nonischemic cardiomyopathy: Code(s): I42.8 - Other cardiomyopathies Status: Acute Assessment and Plan: issues with volume overload with IVFs IVFs hold follow volume status closely Will continue to follow. Subjective Date/time seen: 10/28/19 16:18 Sleeping comfortably when I came to see her; after I woke her up, she voiced no acute complaints with regard to chest pain, shortness of breath, nausea, or vomiting; states she is feeling reasonably well. Exam Narrative: Exam Narrative: General: WD/WN female in NAD Heart: normal S1 and S2; no rub Lungs: coarse and decreased at bases Abdomen: soft, nontender, nondistended, positive bowel sounds Extremities: no cyanosis or clubbing; 2+ edema Skin: warm and intact Objective Data Vital Signs Vital Signs: Vital Signs Temp Pulse Resp BP Pulse Ox 10/28/19 15:32 79 18 10/28/19 15:26 70 16 10/28/19 09:59 88 20 10/28/19 09:52 87 18 93 10/28/19 09:02 74 10/28/19 06:29 36.1 C L 74 16 145/79 H 99 10/28/19 01:35 82 24 H 10/28/19 01:23 80 25 H 95 10/28/19 01:19 80 25 H 10/27/19 22:28 82 26 H 96 10/27/19 21:25 36.4 C L 95 18 145/61 H 92 10/27/19 19:45 86 22 H 94 10/27/19 19:42 86 22 H 10/27/19 19:31 94 10/27/19 19:29 88 20 10/27/19 18:30 36.9 C 94 18 135/55 L 97 10/27/19 18:10 92 20 93 Intake/Output Intake/Output: Intake & Output 10/25/19 10/26/19 10/27/19 10/28/19 23:59 23:59 23:59 23:59 Intake Total 1490 1860 2180 1280 Output Total 1000 1900 3700 1300 Balance 038 -52 -8037 -20 Meds/Results Medications: Active Medications Generic Name Dose Route Start Last Admin Trade Name Freq PRN Reason Stop Dose Admin Acetaminophen 500 mg 10/23/19 21:00 10/25/19 17:37 Tylenol Tablet PO 500 mg HS PRN Administration Insomnia Albuterol 5 mg 10/23/19 20:00 10/28/19 15:24 Albuterol Sulf Neb 2.5mg/0.5ml INHALATION 5 mg Q6HRT KALINA Administration Aspirin 81 mg 10/24/19 09:00 10/28/19 09:01 Aspirin Ec PO 81 mg DAILY KALINA Administration Bupropion HCl 300 mg 10/24/19 09:00 10/28/19 09:03 Wellbutrin Xl (24 Hr) PO 300 mg QAM KALINA Administration Dextrose 12.5 gm 10/23/19 19:18 Dextrose 50% Syringe IV PUSH PRN PRN Hypoglycemia Protocol Diphenhydramine HCl 50 mg 10/23/19 19:24 10/23/19 20:56 Benadryl Cap PO 50 mg Q6H PRN Administration Itching Diphenhydramine HCl 25 mg 10/23/19 21:00 Benadryl Cap PO HS PRN Insomnia Fish Oil 1 gm 10/24/19 09:00 10/02
[2019-10-28 17:46] LABS: Glucose Point of Care 98 (65-105)
[2019-10-28] MEDS: SIMVASTATIN 20 MG TABLET 40 MG PO (21:37)
[2019-10-28 22:00] LABS: Glucose Point of Care 233 (65-105)
[2019-10-29] VITALS (13 sets, daily range): BP systolic 113–124; BP diastolic 53–58; PULSE 70–87; RESP 16–27; TEMP 36.6–36.8; O2SAT 93–99
[2019-10-29] MEDS: IPRATROPIUM BR 0.02% INH SOLN 0.5 MG/2.5 ML VIAL INHALATION ×4 (03:39→19:52)
[2019-10-29] MEDS: ALBUTEROL SULFATE NEB 2.5 MG/0.5 ML INH 5 MG INHALATION ×4 (03:39→19:52)
[2019-10-29] MEDS: HEPARIN SODIUM 5,000 UNITS/ML VIAL 5000 UNITS SUB-Q ×3 (06:03→21:00)
[2019-10-29 06:04] LABS: Basophils Absolute Auto 0.1 K/mm3 (0.0-0.1); Basophils Percent Auto 0.4 % (0.2-1.2); Eosinophils Absolute Auto 0.3 K/mm3 (0-0.3); Eosinophils Percent Auto 1.7 % (0-4.4); Hematocrit 31.1 % (37.0-47.0); Hemoglobin 10.3 g/dL (12.0-15.0); Immature Granulocyte Absolute 1.13 K/mm3 (0.00-0.031); Immature Granulocyte Percent A 5.6 % (0-0.5); Lymphocytes Absolute Auto 2.35 K/mm3 (0.9-3.2); Lymphocytes Percent Auto 11.6 % (18.3-44.2); Mean Corpuscular HGB Conc 33.1 g/dl (32-36); Mean Corpuscular Volume 90.7 fl (80-100); Mean Platelet Volume 12.3 fl (7.4-10.4); Monocytes Absolute Auto 1.3 K/mm3 (0.1-0.6); Monocytes Percent Auto 6.2 % (2.6-8.5); Neutrophils Absolute Auto 15.1 K/mm3 (1.3-6.7); Neutrophils Percent Auto 74.5 % (45.5-73.1); Platelet Count Result 299 k/mm3 (150-375); Red Blood Count 3.43 M/mm3 (4.2-5.4); Red Cell Distribution Width 14.3 % (11.5-14.5); White Blood Count 20.3 K/mm3 (4.5-10.0)
[2019-10-29 06:21] LABS: Blood Urea Nitrogen 90 mg/dL (7-17); Calcium 9.4 mg/dL (8.4-10.2); Carbon Dioxide 25 mmol/L (22-30); Chloride 96 mmol/L (98-107); Estimated CRCL calculation 19 ml/min; Estimated Glomerular Filt Rate 12; Glucose 109 mg/dL (65-105); Potassium 4.9 mmol/L (3.4-5.0); Sodium 135 mmol/L (137-145)
[2019-10-29] MEDS: buPROPion HCL XL (24 HR) 150 MG TABCR 300 MG PO (09:07)
[2019-10-29] MEDS: OMEGA 3 POLYUNSAT FATTY ACIDS 1 GM CAP PO (09:07)
[2019-10-29] MEDS: CHOLECALCIFEROL 1,000 UNIT TABLET 1000 UNITS PO (09:07)
[2019-10-29] MEDS: ASPIRIN 81 MG ENTERIC TABLET PO (09:07)
[2019-10-29] MEDS: MUPIROCIN 2% OINT 22 GM TUBE 1 APPLIC EACH NARE ×2 (09:08→20:45)
[2019-10-29] MEDS: GABAPENTIN 300 MG CAPSULE PO ×3 (09:08→17:31)
[2019-10-29] MEDS: MONTELUKAST SODIUM 10 MG TABLET PO (09:08)
[2019-10-29] MEDS: TOLNAFTATE 1% POWDER 45 GM BTL 1 APPLIC TOPICAL ×2 (09:08→20:46)
[2019-10-29] MEDS: METOPROLOL SUCCINATE EXT REL 25 MG TABCR PO ×2 (09:08→20:52)
[2019-10-29] MEDS: INSULIN GLARGINE (*BKC) 100 UNITS/ML 75 UNITS SUB-Q (09:26)
[2019-10-29 09:33] LABS: Glucose Point of Care 116 (65-105)
--- NOTE | 2019-10-29 12:00 | P.PNIM_ITS ---
Progress Note: A&P Assessment and Plan (1) Sepsis: Qualifiers: Sepsis type: sepsis due to unspecified organism Sepsis acute organ dysfunction status: without acute organ dysfunction Qualified Code(s): A41.9 - Sepsis, unspecified organism Code(s): A41.9 - Sepsis, unspecified organism Status: Acute Assessment and Plan: * Present on admission and supported by tachycardia, leukocytosis, and acute kidney injury in the setting of infection. * Lactic acid level was within normal limits. * Blood cultures negative * WBC still up and repeat cxr 10/18 no infiltrates, she has had no diarrhea to suggest cdiff, no fever and BS trending down? * if wbc still up 10/[address] abd and pelvis (2) Urinary tract infection: Qualifiers: Urinary tract infection type: site unspecified Hematuria presence: without hematuria Qualified Code(s): N39.0 - Urinary tract infection, site not specified Code(s): N39.0 - Urinary tract infection, site not specified Status: Acute Assessment and Plan: * Ceftriaxone day 7 * Urine culture growing E coli sensitive to ceftriaxone (3) Acute kidney injury: Code(s): N17.9 - Acute kidney failure, unspecified Status: Acute Assessment and Plan: * Etiology is not entirely clear but is most likely multifactorial (infection, dehydration, drugs, rhabdo) * Furosemide, losartan, valsartan, and meloxicam held * She was rehydrated with strict monitoring of I/O. * Renal ultrasound WNL with fatty liver noted * Repeat lab , today creatinine at 3.7 and diuresing some so has peaked and hopefully will see more recovery in renal function * (4) Electrolyte abnormality: Code(s): E87.8 - Other disorders of electrolyte and fluid balance, not elsewhere classified Status: Acute Assessment and Plan: * Including moderate hyponatremia (glucose 349), mild hyperkalemia, and hypochloremia. * As above, received cautious IV fluid rehydration. and electrolytes have corrected Na 135 today and K 4.9 . (5) Metabolic encephalopathy: Code(s): G93.41 - Metabolic encephalopathy Status: Acute Assessment and Plan: * resolved (6) Nonischemic cardiomyopathy: Code(s): I42.8 - Other cardiomyopathies Status: Acute Assessment and Plan: * Echocardiogram in May 2016 showed moderate global left ventricular systolic dysfunction with ejection fraction of 35% grade 3 diastolic dysfunction. * Cardiac catheterization showed no coronary artery abnormalities. * last echo 11/15 EF 40%, and repeat now 30-35 % , ARB and diuretic still on hold . (7) Insulin dependent type 2 diabetes mellitus: Code(s): E11.9 - Type 2 diabetes mellitus without complications; Z79.4 - assisted (current) use of insulin Status: Acute Assessment and Plan: * Hyperglycemic on admission, with random glucose of 349 on arrival. * Metformin on hold given acute kidney injury. * Will continue basal insulin but decrease to 60 U daily 10/29. * initiate sliding scale insulin, Accu-Cheks, and hypoglycemic protocol. * hemoglobin A1c. 7.8. * FBS 107 this am Subjective Date/time seen: 10/29/19 12:00 Interval history: Date of visit . 54-year-old white female type 2 diabetic, nonischemic cardiomyopathy admitted with sepsis and urinary tract infection. Feels much better and up some (poorly motivated) Denied pain in chest, abdomen, back, extremities, head. Denied sob. Denied
--- NOTE | 2019-10-29 12:00 | PM.IMPN ---
Progress Note: A&P Assessment and Plan (1) Sepsis: Qualifiers: Sepsis type: sepsis due to unspecified organism Sepsis acute organ dysfunction status: without acute organ dysfunction Qualified Code(s): A41.9 - Sepsis, unspecified organism Code(s): A41.9 - Sepsis, unspecified organism Status: Acute Assessment and Plan: Present on admission and supported by tachycardia, leukocytosis, and acute kidney injury in the setting of infection. Lactic acid level was within normal limits. Blood cultures negative WBC still up and repeat cxr 10/18 no infiltrates, she has had no diarrhea to suggest cdiff, no fever and BS trending down? if wbc still up 10/[address] abd and pelvis (2) Urinary tract infection: Qualifiers: Urinary tract infection type: site unspecified Hematuria presence: without hematuria Qualified Code(s): N39.0 - Urinary tract infection, site not specified Code(s): N39.0 - Urinary tract infection, site not specified Status: Acute Assessment and Plan: Ceftriaxone day 7 Urine culture growing E coli sensitive to ceftriaxone (3) Acute kidney injury: Code(s): N17.9 - Acute kidney failure, unspecified Status: Acute Assessment and Plan: Etiology is not entirely clear but is most likely multifactorial (infection, dehydration, drugs, rhabdo) Furosemide, losartan, valsartan, and meloxicam held She was rehydrated with strict monitoring of I/O. Renal ultrasound WNL with fatty liver noted Repeat lab , today creatinine at 3.7 and diuresing some so has peaked and hopefully will see more recovery in renal function (4) Electrolyte abnormality: Code(s): E87.8 - Other disorders of electrolyte and fluid balance, not elsewhere classified Status: Acute Assessment and Plan: Including moderate hyponatremia (glucose 349), mild hyperkalemia, and hypochloremia. As above, received cautious IV fluid rehydration. and electrolytes have corrected Na 135 today and K 4.9 . (5) Metabolic encephalopathy: Code(s): G93.41 - Metabolic encephalopathy Status: Acute Assessment and Plan: resolved (6) Nonischemic cardiomyopathy: Code(s): I42.8 - Other cardiomyopathies Status: Acute Assessment and Plan: Echocardiogram in May 2016 showed moderate global left ventricular systolic dysfunction with ejection fraction of 35% grade 3 diastolic dysfunction. Cardiac catheterization showed no coronary artery abnormalities. last echo 11/15 EF 40%, and repeat now 30-35 % , ARB and diuretic still on hold . (7) Insulin dependent type 2 diabetes mellitus: Code(s): E11.9 - Type 2 diabetes mellitus without complications; Z79.4 - senior living (current) use of insulin Status: Acute Assessment and Plan: Hyperglycemic on admission, with random glucose of 349 on arrival. Metformin on hold given acute kidney injury. Will continue basal insulin but decrease to 60 U daily 10/29. initiate sliding scale insulin, Accu-Cheks, and hypoglycemic protocol. hemoglobin A1c. 7.8. FBS 107 this am Subjective Date/time seen: 10/29/19 12:00 Interval history: Date of visit . 54-year-old white female type 2 diabetic, nonischemic cardiomyopathy admitted with sepsis and urinary tract infection. Feels much better and up some (poorly motivated) Denied pain in chest, abdomen, back, extremities, head. Denied sob. Denied edema. Denied diarrhea Exam Narrative: Exam Narrative: Blood pressure 124/58 pulse is 80 afebrile, sat 93% 4L HEENT: EOMI, PERRL, NECK: No JVD, adenopathy, CHEST: Clear to auscultation. Normal effort. HEART: NL S1/S2, regular, no murmur ABDOMEN: BS+, soft, nontender, EXTREMITIES: , no ankle edema NEUROLOGIC: CN intact and symmetric to inspection. PSYCH: Alert. Oriented to person, place, and time Objective Data Vital Signs Vital Signs: Vital Signs - 24 hr
[2019-10-29 12:33] LABS: Glucose Point of Care 175 (65-105)
[2019-10-29] MEDS: INSULIN ASPART (*BKC) 100 UNITS/ML 8 UNITS SUB-Q ×2 (13:01→18:11)
--- NOTE | 2019-10-29 15:34 | PM.PNNEP ---
Progress Note: A&P Assessment and Plan (1) Acute kidney injury: Code(s): N17.9 - Acute kidney failure, unspecified Status: Acute Assessment and Plan: etiology thought to be multifactorial: - infection/UTI - drugs (diuretics/ARB/NSAIDs) - rhabdomyolysis - pre-renal factors - urinary retention/obstruction(?) creatinine improving - peak/plateau with creatinine of 4.3mg/dl no critical electrolytes and good urine output (post ATN/obstructive diuresis?) follow trend of repeat labs and UOP (2) Sepsis: Qualifiers: Sepsis type: sepsis due to unspecified organism Sepsis acute organ dysfunction status: without acute organ dysfunction Qualified Code(s): A41.9 - Sepsis, unspecified organism Code(s): A41.9 - Sepsis, unspecified organism Status: Acute Assessment and Plan: as noted on admission clinically better continue supportive therapy (3) Urinary tract infection: Qualifiers: Urinary tract infection type: site unspecified Hematuria presence: without hematuria Qualified Code(s): N39.0 - Urinary tract infection, site not specified Code(s): N39.0 - Urinary tract infection, site not specified Status: Acute Assessment and Plan: E.coli by culture on antibiotics (4) Nonischemic cardiomyopathy: Code(s): I42.8 - Other cardiomyopathies Status: Acute Assessment and Plan: issues with volume overload with IVFs IVFs hold follow volume status closely PRN diuretics if needed Will continue to follow. Subjective Date/time seen: 10/29/19 15:34 Overall, states she is feeling better; no ambulating much at this time; no issues or problems overnight; no apparent distress voiced today. Exam Narrative: Exam Narrative: General: WD/WN female in NAD Heart: normal S1 and S2; no rub Lungs: coarse and decreased at bases Abdomen: soft, nontender, nondistended, positive bowel sounds Extremities: no cyanosis or clubbing; 2+ edema Skin: warm and intact Objective Data Vital Signs Vital Signs: Vital Signs Temp Pulse Resp BP Pulse Ox 10/29/19 14:43 85 20 10/29/19 14:35 82 20 10/29/19 14:00 36.8 C 87 18 120/56 L 98 10/29/19 09:20 83 20 10/29/19 09:08 78 20 93 10/29/19 08:00 36.8 C 86 18 124/58 L 97 10/29/19 03:45 83 18 10/29/19 03:40 81 18 10/29/19 03:39 81 20 95 10/28/19 22:32 81 18 10/28/19 22:31 85 22 H 94 10/28/19 22:23 92 10/28/19 22:18 85 18 10/28/19 21:35 81 10/28/19 20:47 36.6 C 81 24 H 122/49 L 95 Intake/Output Intake/Output: Intake & Output 10/26/19 10/27/19 10/28/19 10/29/19 23:59 23:59 23:59 23:59 Intake Total 1860 2180 3810 1310 Output Total 1900 3700 3100 1400 Balance -40 1520 710 -90 Meds/Results Medications: Active Medications Generic Name Dose Route Start Last Admin Trade Name Freq PRN Reason Stop Dose Admin Acetaminophen 500 mg 10/23/19 21:00 10/25/19 17:37 Tylenol Tablet PO 500 mg HS PRN Administration Insomnia Albuterol 5 mg 10/23/19 20:00 10/29/19 14:43 Albuterol Sulf Neb 2.5mg/0.5ml INHALATION 5 mg Q6HRT KALINA Administration Aspirin 81 mg 10/24/19 09:00 10/29/19 09:07 Aspirin Ec PO 81 mg DAILY KALINA Administration Bupropion HCl 300 mg 10/24/19 09:00 10/29/19 09:07 Wellbutrin Xl (24 Hr) PO 300 mg QAM KALINA Administration Dextrose 12.5 gm 10/23/19 19:18 Dextrose 50% Syringe IV PUSH PRN PRN Hypoglycemia Protocol Diphenhydramine HCl 50 mg 10/23/19 19:24 10/23/19 20:56 Benadryl Cap PO 50 mg Q6H PRN Administration Itching Diphenhydramine HCl 25 mg 10/23/19 21:00 Benadryl Cap PO HS PRN Insomnia Fish Oil 1 gm 10/24/19 09:00 10/29/19 09:07 Lovaza PO 1 gm DAILY KALINA Administration Gabapentin 300 mg 10/24/19 09:00 10/29/19 12:26 Neurontin PO 300
[2019-10-29 18:19] LABS: Glucose Point of Care 130 (65-105)
[2019-10-29] MEDS: SIMVASTATIN 20 MG TABLET 40 MG PO (20:45)
[2019-10-29 21:06] LABS: Glucose Point of Care 211 (65-105)
[2019-10-30] VITALS (15 sets, daily range): BP systolic 100–119; BP diastolic 48–62; PULSE 63–89; RESP 16–20; TEMP 36.4–36.6; O2SAT 93–97
[2019-10-30] MEDS: ALBUTEROL SULFATE NEB 2.5 MG/0.5 ML INH 5 MG INHALATION ×4 (02:05→20:17)
[2019-10-30] MEDS: IPRATROPIUM BR 0.02% INH SOLN 0.5 MG/2.5 ML VIAL INHALATION ×4 (02:05→20:17)
[2019-10-30] MEDS: HEPARIN SODIUM 5,000 UNITS/ML VIAL 5000 UNITS SUB-Q ×3 (05:57→21:32)
[2019-10-30 06:12] LABS: Basophils Absolute Auto 0.1 K/mm3 (0.0-0.1); Basophils Percent Auto 0.5 % (0.2-1.2); Eosinophils Absolute Auto 0.5 K/mm3 (0-0.3); Eosinophils Percent Auto 2.4 % (0-4.4); Hematocrit 31.7 % (37.0-47.0); Hemoglobin 10.3 g/dL (12.0-15.0); Immature Granulocyte Absolute 1.21 K/mm3 (0.00-0.031); Immature Granulocyte Percent A 5.9 % (0-0.5); Lymphocytes Absolute Auto 2.53 K/mm3 (0.9-3.2); Lymphocytes Percent Auto 12.3 % (18.3-44.2); Mean Corpuscular HGB Conc 32.5 g/dl (32-36); Mean Corpuscular Hemoglobin 29.6 pg (26-34); Mean Corpuscular Volume 91.1 fl (80-100); Mean Platelet Volume 12.4 fl (7.4-10.4); Monocytes Absolute Auto 1.1 K/mm3 (0.1-0.6); Monocytes Percent Auto 5.4 % (2.6-8.5); Neutrophils Absolute Auto 15.1 K/mm3 (1.3-6.7); Neutrophils Percent Auto 73.5 % (45.5-73.1); Platelet Count Result 297 k/mm3 (150-375); Red Blood Count 3.48 M/mm3 (4.2-5.4); Red Cell Distribution Width 14.3 % (11.5-14.5); White Blood Count 20.6 K/mm3 (4.5-10.0)
[2019-10-30 06:29] LABS: Albumin Level 3.3 g/dL (3.5-5.1); Blood Urea Nitrogen 85 mg/dL (7-17); Calcium 9.8 mg/dL (8.4-10.2); Carbon Dioxide 25 mmol/L (22-30); Chloride 97 mmol/L (98-107); Estimated CRCL calculation 20 ml/min; Estimated Glomerular Filt Rate 13; Glucose 106 mg/dL (65-105); Phosphorus 5.7 mg/dL (2.5-4.5); Potassium 5.2 mmol/L (3.4-5.0); Sodium 134 mmol/L (137-145)
[2019-10-30] MEDS: buPROPion HCL XL (24 HR) 150 MG TABCR 300 MG PO (10:45)
[2019-10-30] MEDS: CHOLECALCIFEROL 1,000 UNIT TABLET 1000 UNITS PO (10:45)
[2019-10-30] MEDS: GABAPENTIN 300 MG CAPSULE PO ×3 (10:45→17:36)
[2019-10-30] MEDS: MONTELUKAST SODIUM 10 MG TABLET PO (10:45)
[2019-10-30] MEDS: OMEGA 3 POLYUNSAT FATTY ACIDS 1 GM CAP PO (10:45)
[2019-10-30] MEDS: ASPIRIN 81 MG ENTERIC TABLET PO (10:45)
[2019-10-30] MEDS: MUPIROCIN 2% OINT 22 GM TUBE 1 APPLIC EACH NARE (10:46)
[2019-10-30] MEDS: METOPROLOL SUCCINATE EXT REL 25 MG TABCR PO ×2 (10:46→21:31)
[2019-10-30] MEDS: TOLNAFTATE 1% POWDER 45 GM BTL 1 APPLIC TOPICAL ×2 (10:48→21:31)
[2019-10-30] MEDS: INSULIN GLARGINE (*BKC) 100 UNITS/ML 65 UNITS SUB-Q (10:51)
[2019-10-30 10:55] LABS: Glucose Point of Care 104 (65-105)
--- NOTE | 2019-10-30 12:46 | P.PNIM_ITS ---
Progress Note: A&P Assessment and Plan (1) Sepsis: Qualifiers: Sepsis type: sepsis due to unspecified organism Sepsis acute organ dysfunction status: without acute organ dysfunction Qualified Code(s): A41.9 - Sepsis, unspecified organism Code(s): A41.9 - Sepsis, unspecified organism Status: Acute Assessment and Plan: * Present on admission and supported by tachycardia, leukocytosis, and acute kidney injury in the setting of infection. * Lactic acid level was within normal limits. * Blood cultures negative * WBC still up and repeat cxr 10/18 no infiltrates, she has had no diarrhea to suggest cdiff, no fever and BS trending down * wbc still up today and ct abd and pelvis reveal 7 mm proximal stone with mild hydro,? source of WBC (2) Urinary tract infection: Qualifiers: Urinary tract infection type: site unspecified Hematuria presence: without hematuria Qualified Code(s): N39.0 - Urinary tract infection, site not specified Code(s): N39.0 - Urinary tract infection, site not specified Status: Acute Assessment and Plan: * Ceftriaxone day 8 * Urine culture growing E coli sensitive to ceftriaxone (3) Acute kidney injury: Code(s): N17.9 - Acute kidney failure, unspecified Status: Acute Assessment and Plan: * Etiology is not entirely clear but is most likely multifactorial (infection, dehydration, drugs, rhabdo) and now possible obstruction with stone * Furosemide, losartan, valsartan, and meloxicam held * She was rehydrated with strict monitoring of I/O. * Renal ultrasound WNL with fatty liver noted * Repeat lab , today creatinine at 3.5 and diuresing some so has peaked and hopefully will see more recovery in renal function, with mild hydro on Left will have seen urology see, ? stent * (4) Electrolyte abnormality: Code(s): E87.8 - Other disorders of electrolyte and fluid balance, not elsewhere classified Status: Acute Assessment and Plan: * Including moderate hyponatremia (glucose 349), mild hyperkalemia, and hypochloremia. * As above, received cautious IV fluid rehydration. and electrolytes have corrected Na 134 today and K 5.2 . (5) Metabolic encephalopathy: Code(s): G93.41 - Metabolic encephalopathy Status: Acute Assessment and Plan: * resolved (6) Nonischemic cardiomyopathy: Code(s): I42.8 - Other cardiomyopathies Status: Acute Assessment and Plan: * Echocardiogram in May 2016 showed moderate global left ventricular systolic dysfunction with ejection fraction of 35% grade 3 diastolic dysfunction. * Cardiac catheterization showed no coronary artery abnormalities. * last echo 11/15 EF 40%, and repeat now 30-35 % , ARB and diuretic still on hold . (7) Insulin dependent type 2 diabetes mellitus: Code(s): E11.9 - Type 2 diabetes mellitus without complications; Z79.4 - [facility] (current) use of insulin Status: Acute Assessment and Plan: * Hyperglycemic on admission, with random glucose of 349 on arrival. * Metformin on hold given acute kidney injury. * Will continue basal insulin but decrease to 65 U daily 10/29. * initiate sliding scale insulin, Accu-Cheks, and hypoglycemic protocol. * hemoglobin A1c. 7.8. * FBS 106 this am Subjective Date/time seen: 10/30/19 12:46 Interval history: Date of visit . 54-year-old white female type 2 diabetic, nonischemic cardiomyopathy admitted with se
--- NOTE | 2019-10-30 12:46 | PM.IMPN ---
Progress Note: A&P Assessment and Plan (1) Sepsis: Qualifiers: Sepsis type: sepsis due to unspecified organism Sepsis acute organ dysfunction status: without acute organ dysfunction Qualified Code(s): A41.9 - Sepsis, unspecified organism Code(s): A41.9 - Sepsis, unspecified organism Status: Acute Assessment and Plan: Present on admission and supported by tachycardia, leukocytosis, and acute kidney injury in the setting of infection. Lactic acid level was within normal limits. Blood cultures negative WBC still up and repeat cxr 10/18 no infiltrates, she has had no diarrhea to suggest cdiff, no fever and BS trending down wbc still up today and ct abd and pelvis reveal 7 mm proximal stone with mild hydro,? source of WBC (2) Urinary tract infection: Qualifiers: Urinary tract infection type: site unspecified Hematuria presence: without hematuria Qualified Code(s): N39.0 - Urinary tract infection, site not specified Code(s): N39.0 - Urinary tract infection, site not specified Status: Acute Assessment and Plan: Ceftriaxone day 8 Urine culture growing E coli sensitive to ceftriaxone (3) Acute kidney injury: Code(s): N17.9 - Acute kidney failure, unspecified Status: Acute Assessment and Plan: Etiology is not entirely clear but is most likely multifactorial (infection, dehydration, drugs, rhabdo) and now possible obstruction with stone Furosemide, losartan, valsartan, and meloxicam held She was rehydrated with strict monitoring of I/O. Renal ultrasound WNL with fatty liver noted Repeat lab , today creatinine at 3.5 and diuresing some so has peaked and hopefully will see more recovery in renal function, with mild hydro on Left will have seen urology see, ? stent (4) Electrolyte abnormality: Code(s): E87.8 - Other disorders of electrolyte and fluid balance, not elsewhere classified Status: Acute Assessment and Plan: Including moderate hyponatremia (glucose 349), mild hyperkalemia, and hypochloremia. As above, received cautious IV fluid rehydration. and electrolytes have corrected Na 134 today and K 5.2 . (5) Metabolic encephalopathy: Code(s): G93.41 - Metabolic encephalopathy Status: Acute Assessment and Plan: resolved (6) Nonischemic cardiomyopathy: Code(s): I42.8 - Other cardiomyopathies Status: Acute Assessment and Plan: Echocardiogram in May 2016 showed moderate global left ventricular systolic dysfunction with ejection fraction of 35% grade 3 diastolic dysfunction. Cardiac catheterization showed no coronary artery abnormalities. last echo 11/15 EF 40%, and repeat now 30-35 % , ARB and diuretic still on hold . (7) Insulin dependent type 2 diabetes mellitus: Code(s): E11.9 - Type 2 diabetes mellitus without complications; Z79.4 - [facility] (current) use of insulin Status: Acute Assessment and Plan: Hyperglycemic on admission, with random glucose of 349 on arrival. Metformin on hold given acute kidney injury. Will continue basal insulin but decrease to 65 U daily 10/29. initiate sliding scale insulin, Accu-Cheks, and hypoglycemic protocol. hemoglobin A1c. 7.8. FBS 106 this am Subjective Date/time seen: 10/30/19 12:46 Interval history: Date of visit . 54-year-old white female type 2 diabetic, nonischemic cardiomyopathy admitted with sepsis and urinary tract infection. Feels much better and up some (poorly motivated) Denied pain in chest, abdomen, back, extremities, head. Denied sob. Denied edema. Denied diarrhea. when can I go home Exam Narrative: Exam Narrative: Blood pressure 120/60 pulse is 80 afebrile, sat 92% 4L HEENT: EOMI, PERRL, NECK: No JVD, adenopathy, CHEST: Clear to auscultation. Normal effort. HEART: NL S1/S2, regular, no murmur ABDOMEN: BS+, soft, nontender, EXTREMITIES: , no ankle
[2019-10-30 14:23] LABS: Glucose Point of Care 171 (65-105)
[2019-10-30] MEDS: INSULIN ASPART (*BKC) 100 UNITS/ML 8 UNITS SUB-Q ×2 (14:32→17:40)
--- NOTE | 2019-10-30 14:50 | PM.PNNEP ---
Progress Note: A&P Assessment and Plan (1) Acute kidney injury: Code(s): N17.9 - Acute kidney failure, unspecified Status: Acute Assessment and Plan: etiology thought to be multifactorial: - infection/UTI - drugs (diuretics/ARB/NSAIDs) - rhabdomyolysis - pre-renal factors - urinary retention(?) - possible obstruction(?) -- see CT of abdomen done today creatinine improving - peak/plateau with creatinine of 4.3mg/dl no critical electrolytes and good urine output (post ATN/obstructive diuresis?) follow trend of repeat labs and UOP (2) Sepsis: Qualifiers: Sepsis type: sepsis due to unspecified organism Sepsis acute organ dysfunction status: without acute organ dysfunction Qualified Code(s): A41.9 - Sepsis, unspecified organism Code(s): A41.9 - Sepsis, unspecified organism Status: Acute Assessment and Plan: as noted on admission clinically better continue supportive therapy (3) Urinary tract infection: Qualifiers: Urinary tract infection type: site unspecified Hematuria presence: without hematuria Qualified Code(s): N39.0 - Urinary tract infection, site not specified Code(s): N39.0 - Urinary tract infection, site not specified Status: Acute Assessment and Plan: E.coli by culture on antibiotics (4) Nephrolithiasis: Code(s): N20.0 - Calculus of kidney Status: Acute Assessment and Plan: as noted by CT scan of abdomen today evidence of mild left hydronephrosis (not present on renal ultrasound done earlier) Urology consuted for further evaluation (5) Nonischemic cardiomyopathy: Code(s): I42.8 - Other cardiomyopathies Status: Acute Assessment and Plan: issues with volume overload with IVFs follow volume status closely PRN diuretics if needed Will continue to follow. Subjective Date/time seen: 10/30/19 14:50 Appears to be steadily improving in general; keeps asking about possible discharge; CT of abdomen makes note of nephrolithiasis with associated obstruction on left although patient appears asymptomatic. Exam Narrative: Exam Narrative: General: WD/WN female in NAD Heart: normal S1 and S2; no rub Lungs: coarse and decreased at bases Abdomen: soft, nontender, nondistended, positive bowel sounds Extremities: no cyanosis or clubbing; 1 - 2+ edema Skin: no rash or nodules Objective Data Vital Signs Vital Signs: Vital Signs Temp Pulse Resp BP Pulse Ox 03/01/20 14:00 36.6 C 68 18 118/62 97 10/30/19 10:46 74 10/30/19 09:10 63 20 10/30/19 09:00 72 20 93 10/30/19 07:53 119/60 10/30/19 06:39 36.4 C L 79 16 100/48 L 96 10/30/19 02:14 71 18 10/30/19 02:05 70 20 93 10/29/19 20:52 78 10/29/19 20:46 36.6 C 78 16 113/53 L 99 10/29/19 20:03 86 27 H 96 10/29/19 19:52 82 22 H 95 Intake/Output Intake/Output: Intake & Output 10/27/19 10/28/19 10/29/19 10/30/19 23:59 23:59 23:59 23:59 Intake Total 2180 3810 2650 930 Output Total 3700 3100 2200 1660 Balance -1520 710 450 -730 Meds/Results Medications: Active Medications Generic Name Dose Route Start Last Admin Trade Name Freq PRN Reason Stop Dose Admin Acetaminophen 500 mg 10/23/19 21:00 10/25/19 17:37 Tylenol Tablet PO 500 mg HS PRN Administration Insomnia Albuterol 5 mg 10/23/19 20:00 10/30/19 09:01 Albuterol Sulf Neb 2.5mg/0.5ml INHALATION 5 mg Q6HRT KALINA Administration Aspirin 81 mg 10/24/19 09:00 10/30/19 10:45 Aspirin Ec PO 81 mg DAILY KALINA Administration Bupropion HCl 300 mg 10/24/19 09:00 10/30/19 10:45 Wellbutrin Xl (24 Hr) PO 300 mg QAM KALINA Administration Dextrose 12.5 gm 10/23/19 19:18 Dextrose 50% Syringe IV PUSH PRN PRN Hypoglycemia Protocol Diphenhydramine HCl 50 mg 10/23/19 19:24 10/23/19 20:56 Benadryl Cap P
--- NOTE | 2019-10-30 14:58 | WPDURCON ---
Assessment and Plan Assessment and plan (1) Nephrolithiasis: Code(s): N20.0 - Calculus of kidney Status: Acute Assessment and Plan: Patient is clinically stable at this time. I have recommended she undergo cystoscopy and left ureteral stent placement. Particularly in light of her immunocompromised state give her DMII. She has just finished drinking an Ensure and had a full lunch. We will plan for cystoscopy and left ureteral stent placement tomorrow with Dr. Mcknight, [employer] is aware. NPO pMN D5 1/2 NS at 75cc/hr Continue IV antibiotics. Urology Consult Note HPI Date Seen: 10/30/19 Requesting Physician: Jamison Jones MD Primary Care Provider: Geri Girard, PA Consult Narrative Narrative: Lakshmi Fry is a 64 year old female who was admitted 10/23/19 for a UTI. She was treated with culture specific antibiotics and a RBUS performed closer to her admission date was essentially normal. Her WBC however, has not down-trended despite antibiotics so her admitting physician ordered a CT scan which demonstrated a 7 mm proximal left ureteral stone. She denies pain, nausea or other symptoms typical of obstructing ureteral stones. She was looking forward to discharge tomorrow, however she just finished an Ensure and had a general diet lunch. Review of Systems Review of Systems: All systems reviewed & are unremarkable except as noted in HPI and below Constitutional: Constitutional: Reports no additional constitutional complaints, Denies anorexia, Denies chills, Denies daytime sleepiness, Denies difficulty sleeping, Denies fatigue and Denies fever(s) Eyes: Eyes: Reports no additional eye complaints ENT: Reports Normal hearing present Cardiovascular: Cardiovascular: Reports no additional cardiovascular complaints Respiratory: Respiratory: Reports no additional respiratory complaints Gastrointestinal: Gastrointestinal: Reports no additional gastrointestinal complaints Genitourinary: Genitourinary: Reports as per HPI Musculoskeletal: Musculoskeletal: Reports as per HPI Integumentary/Breasts: Skin/Breast: Reports as per HPI Neurologic: Reports system reviewed and no additional complaints, except as documented and Reports as per HPI Psychiatric: Psychiatric: Reports no additional psychiatric complaints and Reports as per HPI Endocrine: Endocrine: Reports no additional endocrine complaints and Reports as per HPI Hematologic/Lymphatic: Hematologic/Lymphatic: Reports no additional hematologic/lymphatic complaints and Reports as per HPI Allergic/Immunologic: Allergic/Immunologic: Reports no additional allergic/immunologic complaints and Reports as per HPI PMFSH Past Medical History Medical History (Updated 10/30/19 @ 14:57 by Ange Barlow MD) Anemia Arthritis Chronic kidney disease, stage 3 Baseline creatinine appears to be about 1.10. Chronic respiratory failure with hypoxia Combined systolic and diastolic congestive heart failure Echocardiogram in May 2016 showed moderate enlargement of the left ventricular cavity, moderate global left ventricular systolic dysfunction, ejection fraction of 35%, and grade 3 diastolic dysfunction. COPD (chronic obstructive pulmonary disease) Depression Diabetic peripheral neuropathy Gout Hepatitis C History of DVT (deep vein thrombosis) Hyperlipidemia Hypertension Insulin dependent type 2 diabetes mellitus With diabetic peripheral neuropathy Morbid obesity Nonischemic cardiomyopathy Cardiac catheterization December 10, [address] Emmanuel Boyd showed right coronary dominant circulation with no significant coronary disease. Obstructive sleep apnea on CPAP Psoriasis Rheumatoid arthritis Tobacco dependence Surgical History Surgical History (Updated 10/23/19 @ 18:57 by Sharron Blank PA-C) History of cardiac catheterization Cardiac catheterization December 10, [address] Emmanuel Boyd showed right coronary dominant circulation with n
[2019-10-30] MEDS: DEXTROSE 5%/0.45% SOD CHL 1,000 ML 75 ML IV CONT (17:38)
[2019-10-30 18:15] LABS: Glucose Point of Care 144 (65-105)
[2019-10-30] MEDS: SIMVASTATIN 20 MG TABLET 40 MG PO (21:31)
--- NOTE | 2019-10-30 22:00 | PC.NURSE ---
checked pts BGL and got a error with the meter, pt was unwilling to be restuck for a second attempt to check her BGL.
[2019-10-31] VITALS (21 sets, daily range): BP systolic 91–132; BP diastolic 42–73; PULSE 64–88; RESP 15–30; TEMP 36.1–36.7; O2SAT 92–100
[2019-10-31] MEDS: ALBUTEROL SULFATE NEB 2.5 MG/0.5 ML INH 5 MG INHALATION ×3 (01:08→22:42)
[2019-10-31] MEDS: IPRATROPIUM BR 0.02% INH SOLN 0.5 MG/2.5 ML VIAL INHALATION ×3 (01:08→22:42)
[2019-10-31 05:47] LABS: Basophils Absolute Auto 0.2 K/mm3 (0.0-0.1); Basophils Percent Auto 0.9 % (0.2-1.2); Eosinophils Absolute Auto 0.5 K/mm3 (0-0.3); Eosinophils Percent Auto 2.5 % (0-4.4); Hematocrit 32.8 % (37.0-47.0); Hemoglobin 10.1 g/dL (12.0-15.0); Immature Granulocyte Absolute 1.02 K/mm3 (0.00-0.031); Immature Granulocyte Percent A 4.9 % (0-0.5); Lymphocytes Absolute Auto 2.38 K/mm3 (0.9-3.2); Lymphocytes Percent Auto 11.5 % (18.3-44.2); Mean Corpuscular HGB Conc 30.8 g/dl (32-36); Mean Corpuscular Hemoglobin 29.4 pg (26-34); Mean Corpuscular Volume 95.6 fl (80-100); Monocytes Percent Auto 4.8 % (2.6-8.5); Neutrophils Absolute Auto 15.6 K/mm3 (1.3-6.7); Neutrophils Percent Auto 75.4 % (45.5-73.1); Platelet Count Result 346 k/mm3 (150-375); Red Blood Count 3.43 M/mm3 (4.2-5.4); Red Cell Distribution Width 14.2 % (11.5-14.5); White Blood Count 20.7 K/mm3 (4.5-10.0)
[2019-10-31 06:01] LABS: Blood Urea Nitrogen 78 mg/dL (7-17); Calcium 9.4 mg/dL (8.4-10.2); Carbon Dioxide 20 mmol/L (22-30); Chloride 101 mmol/L (98-107); Estimated CRCL calculation 22 ml/min; Estimated Glomerular Filt Rate 15; Glucose 138 mg/dL (65-105); Potassium 5.6 mmol/L (3.4-5.0); Sodium 131 mmol/L (137-145)
[2019-10-31] MEDS: HEPARIN SODIUM 5,000 UNITS/ML VIAL 5000 UNITS SUB-Q ×3 (06:44→21:00)
[2019-10-31 08:27] LABS: Glucose Point of Care 133 (65-105)
[2019-10-31] MEDS: DEXTROSE 5%/0.45% SOD CHL 1,000 ML 75 ML IV CONT (09:21)
--- NOTE | 2019-10-31 11:20 | WPDUROPN2 ---
Progress Note: A&P Assessment and Plan (1) Nephrolithiasis: Code(s): N20.0 - Calculus of kidney Status: Acute Assessment and Plan: Left ureteral stone noted on CT scan with hydronephrosis. Will plan on left ureteral stent today with definitive stone management to follow. (2) Acute UTI (urinary tract infection): Code(s): N39.0 - Urinary tract infection, site not specified Status: Acute Assessment and Plan: Urine cultures growing E coli. She is on antibiotics. Subjective Subjective Date/Time Seen: 10/31/19 11:21 No flank pain. No flank pain noted. Has a history of kidney stones. I discussed with her will be placing left ureteral stent today. Definitive stone procedure to follow. Exam Const: General: no acute distress HENMT: Mouth: Yes moist mucous membranes Eyes: General: appearance normal, both eyes and all related structures Resp: Effort & Inspection: normal respiratory effort Psych: Mental Status: mental status grossly normal Objective Data Vital Signs Vital Signs: Vital Signs - 24 hr 10/30/19 14:00 10/30/19 15:15 10/30/19 15:26 Temperature 97.9 F Pulse Rate 68 89 68 Respiratory Rate 18 20 20 Blood Pressure 118/62 Pulse Oximetry 97 10/30/19 20:18 10/30/19 20:21 10/30/19 20:25 Temperature Pulse Rate 76 79 Respiratory Rate 20 20 Blood Pressure Pulse Oximetry 94 10/30/19 21:31 10/30/19 21:39 10/31/19 00:00 Temperature 96.9 F L Pulse Rate 79 79 71 Respiratory Rate 20 16 Blood Pressure 120/49 L Pulse Oximetry 94 99 10/31/19 01:09 10/31/19 01:17 10/31/19 01:26 Temperature Pulse Rate 88 81 88 Respiratory Rate 20 20 30 H Blood Pressure Pulse Oximetry 93 10/31/19 04:30 10/31/19 06:31 10/31/19 07:48 Temperature 97.3 F L Pulse Rate 81 70 70 Respiratory Rate 22 H 15 20 Blood Pressure 110/44 L Pulse Oximetry 94 94 94 10/31/19 07:50 10/31/19 08:02 Temperature Pulse Rate 70 72 Respiratory Rate 20 20 Blood Pressure Pulse Oximetry Intake/Output Intake/Output: Intake & Output 10/28/19 10/29/19 10/30/1920 23:59 23:59 23:59 23:59 Intake Total 3810 2650 2270 1150 Output Total 3100 2200 2560 2420 Balance 710 382 -818 -6644 Meds/Results Medications: Active Medications Generic Name Dose Route Start Last Admin Trade Name Freq PRN Reason Stop Dose Admin Acetaminophen 500 mg 10/23/19 21:00 10/25/19 17:37 Tylenol Tablet PO 500 mg HS PRN Administration Insomnia Albuterol 5 mg 10/23/19 20:00 10/31/19 07:46 Albuterol Sulf Neb 2.5mg/0.5ml INHALATION 5 mg Q6HRT KALINA Administration Aspirin 81 mg 10/24/19 09:00 10/30/19 10:45 Aspirin Ec PO 81 mg DAILY KALINA Administration Bupropion HCl 300 mg 10/24/19 09:00 10/30/19 10:45 Wellbutrin Xl (24 Hr) PO 300 mg QAM KALINA Administration Dextrose 12.5 gm 10/23/19 19:18 Dextrose 50% Syringe IV PUSH PRN PRN Hypoglycemia Protocol Diphenhydramine HCl 50 mg 10/23/19 19:24 10/23/19 20:56 Benadryl Cap PO 50 mg Q6H PRN Administration Itching Diphenhydramine HCl 25 mg 10/23/19 21:00 Benadryl Cap PO HS PRN Insomnia Fentanyl Citrate 25 mcg 10/31/19 08:16 Sublimaze IV PUSH Q2M PRN Pain Fish Oil 1 gm 10/24/19 09:00 10/30/19 10:45 Lovaza PO 1 gm DAILY KALINA Administration Gabapentin 300 mg 10/24/19 09:00 10/30/19 17:36 Neurontin PO 300 mg TID KALINA Administration Glucagon 1 mg 10/23/19 19:18 Glucagon For Inj IM PRN PRN Hypoglycemia Protocol Glucose 15 gm 10/23/19 19:18 Glutose 15 PO PRN PRN Hypoglycemia Protocol Heparin Sodium (Porcine) 5,000 units 10/25/19 22:00 10/31/19 06:44 Heparin Sodium SUB-Q 5,000 units Q8HR KALINA Administration Ceftriaxone Sodium/Dextrose 1 gm in 50 mls @ 100 mls/hr 10/24/19 14:00 10/30/19 14:17 Rocephin 1 Gm/D5w 50 Ml IVPB Infus
[2019-10-31] MEDS: INSULIN GLARGINE (*BKC) 100 UNITS/ML 30 UNITS SUB-Q (11:38)
[2019-10-31] MEDS: METOPROLOL SUCCINATE EXT REL 25 MG TABCR PO ×2 (11:40→20:56)
[2019-10-31] MEDS: TOLNAFTATE 1% POWDER 45 GM BTL 1 APPLIC TOPICAL ×2 (11:45→20:56)
--- NOTE | 2019-10-31 13:22 | PCPTNOTE ---
The PT treatment was unable to be completed today, patient out of room for procedure. Will continue per Plan of Care frequency and endurance.
[2019-10-31] MEDS: LACTATED RINGERS 1,000 ML 30 ML IV CONT (13:30)
--- NOTE | 2019-10-31 13:47 | PCOTNOTE ---
Patient unavailable to be seen, in procedure to place stent. Will attempt later if time permits, or continue plan of care tomorrow, 11/01/19.
[2019-10-31 13:49] LABS: Glucose Point of Care 132 (65-105)
--- NOTE | 2019-10-31 13:54 | WPDANESEPPF ---
Anes - Initial Pre Proc Eval Procedure: Operation Date: 10/31/19 16:00 Proposed Procedures p Cystoscopy,Left Stent Placement,Possible Ureteroscopy - Chester Mcknight MD Date/Time: 10/31/19 13:54 Surgeon: Jamison Jones MD Pre Op Diagnosis: Severe sepsis, UTI, Acute renal failure Patient Data Age: 64 Gender: F Height: 1.65 m Weight: 117.4 kg Last Vital Signs Temp 36.3 C L 10/31/19 06:31 Pulse 73 10/31/19 11:40 Resp 20 10/31/19 08:02 BP 110/44 L 10/31/19 06:31 Pulse Ox 94 10/31/19 07:48 Allergies Allergy/AdvReac Type Severity Reaction Status Date / Time ibuprofen Allergy Unknown skin Verified 10/23/19 15:26 changes Sulfa (Sulfonamide AdvReac Unknown Itching Verified 10/23/19 15:26 Antibiotics) Home Medications Medication Instructions Recorded Confirmed Type albuterol sulfate 90 mcg/actuation 1 inhalation INHALATION Q4H 07/27/19 10/23/19 History aerosol inhaler bupropion HCl 300 mg 24 hr tablet, 300 mg PO QAM 07/27/19 10/23/19 History extended release gabapentin 300 mg capsule 300 mg PO TID 07/27/19 10/23/19 History hydrocodone 10 mg-acetaminophen 1 tablet PO Q6H PRN 07/27/19 10/23/19 History 325 mg tablet meloxicam 15 mg tablet 15 mg PO DAILY 07/27/19 10/23/19 History metoprolol succinate 25 mg 25 mg PO BID 07/27/19 10/23/19 History tablet,extended release 24 hr montelukast 10 mg tablet 10 mg PO DAILY 07/27/19 10/23/19 History omega 3-qnr-eur-fish oil 60 mg-90 1 cap PO DAILY 07/27/19 10/23/19 History mg-500 mg capsule valsartan 160 mg tablet 160 mg PO DAILY 07/27/19 10/23/19 History blood sugar diagnostic #10 each 07/31/19 10/23/19 History pen needle, diabetic 31 gauge x #30 each 07/31/19 10/23/19 History 5/16 simvastatin 40 mg tablet 40 mg PO .HS tablet 07/31/19 10/23/19 History aspirin 81 mg tablet,delayed 81 mg PO DAILY 08/01/19 10/23/19 History release carvedilol 6.25 mg tablet 6.25 mg PO Q12H 08/01/19 10/23/19 History cholecalciferol (vitamin D3) 25 1,000 unit PO DAILY 08/01/19 10/23/19 History mcg (1,000 unit) capsule diphenhydramine HCl 25 mg tablet 50 mg PO Q6H PRN tablet 08/01/19 10/23/19 History losartan 100 mg tablet 100 mg PO DAILY 08/01/19 10/23/19 History lurasidone 120 mg tablet 120 mg PO DAILY 08/01/19 10/23/19 History metformin 500 mg tablet 500 mg PO QPM #90 tablet 08/18/19 10/23/19 Rx insulin aspart U-100 100 unit/mL See Rx Instructions SUB-Q .COMPLEX 10/20/19 10/23/19 Rx (3 mL) subcutaneous pen #45 ml insulin glargine 100 unit/mL (3 90 unit SUB-Q DAILY 90 Days #81 ml 10/20/19 10/23/19 Rx mL) subcutaneous pen diphenhydramine-acetaminophen 1 tablet PO HS PRN 10/23/19 10/23/19 History [Tylenol PM Extra Strength] furosemide 40 mg tablet See Rx Instructions .ROUTE 10/25/19 Rx .COMPLEX #30 tablet Laboratory Tests 10/30/19 10/30/19 10/31/19 14:21 17:37 05:07 WBC 20.7 K/mm3 H K/mm3 (4.5-10.0) RBC 3.43 M/mm3 L M/mm3 (4.2-5.4) Hgb 10.1 g/dL L g/dL (12.0-15.0) Hct 32.8 % L % (37.0-47.0) MCV 95.6 fl fl (80-100) MCH 29.4 pg pg (26-34) MCHC 30.8 g/dl L g/dl (32-36) RDW 14.2 % % (11.5-14.5) Plt Count 346 k/mm3 k/mm3 (150-375) MPV 12.0 fl H fl (7.4-10.4) Immature Gran % (Auto) 4.9 % H % (0-0.5) Neut % (Auto) 75.4 % H % (45.5-73.1) Lymph % (Auto) 11.5 % L % (18.3-44.2) [place] % (Auto) 4.8 % % (2.6-8.5) Eos % (Auto) 2.5 % % (0-4.4) Baso % (Auto) 0.9 % % (0.2-1.2) Lymph # (Auto) 2.38 K/mm3 K/mm3 (0.9-3.2) [place] # (Auto) 1.0 K/mm3 H K/mm3 (0.1-0.6) Eos # (Auto) 0.5 K/mm3 H K/mm3 (0-0.3) Baso # (Auto) 0.2 K/mm3 H K/mm3 (0.0-0.1) Abs Immat Gran (auto) 1.02 K/mm3 H K/mm3 (0.00-0.031) Absolute Neuts (auto) 15.6 K/mm3 H K/mm3 (1.3-6.7) Absolute Nucleated RBC 0.0 K/mm3
[2019-10-31 14:24] LABS: Glucose Point of Care 148 (65-105)
[2019-10-31] MEDS: LIDOCAINE HCL 2% GEL UROJET 10 ML PKG MUCOUS MEM (14:50)
--- NOTE | 2019-10-31 14:55 | P.OP_ITS ---
Procedure Note - Detailed Date of procedure: 10/31/19 Pre-op diagnosis: Severe sepsis, UTI, Acute renal failure Left ureteral stone, hydronephrosis Post-op diagnosis: same Procedure performed: Cystoscopy, left retrograde pyelogram, left ureteral stent placement Description of procedure: She was correctly identified and informed consent is obtained. She from the operating room. She was given general anesthesia. She was on appropriate perioperative antibiotics. She was prepped and draped in a sterile fashion. A time-out performed. Bladder revealed some redness and some catheter related edema. The stone was seen on de ionizer operator radiograph. I did a gentle retrograde pyelogram on the outline renal anatomy. She had hydronephrosis proximal to the stone. A guidewire was placed in the kidney. I loaded a 4.8 variable length stent. Proximal coil in the kidney. Distal coil in the bladder. There was purulence which came from the left ureteral orifice. The bladder was drained. Uro jet was applied. She was awakened and transferred to the PACU in stable condition. Implants: 4.8 variable length stent Anesthesia: GLMA Surgeon: Chester Mcknight MD Estimated blood loss (mL): 0 Drains: Yes (Stent) Packing: No Pathology: none sent Complications: No immediate complications Condition: stable Disposition: PACU
[2019-10-31] MEDS: CHOLECALCIFEROL 1,000 UNIT TABLET 1000 UNITS PO (16:57)
[2019-10-31] MEDS: OMEGA 3 POLYUNSAT FATTY ACIDS 1 GM CAP PO (16:57)
[2019-10-31] MEDS: ASPIRIN 81 MG ENTERIC TABLET PO (16:57)
[2019-10-31] MEDS: buPROPion HCL XL (24 HR) 150 MG TABCR 300 MG PO (16:57)
[2019-10-31] MEDS: MONTELUKAST SODIUM 10 MG TABLET PO (16:57)
[2019-10-31] MEDS: GABAPENTIN 300 MG CAPSULE PO (16:58)
[2019-10-31] MEDS: PHENAZOPYRIDINE HCL 100 MG TABLET 200 MG PO (16:58)
[2019-10-31] MEDS: metFORMIN HCL 500 MG TABLET PO (17:01)
--- NOTE | 2019-10-31 17:07 | P.PNNP_ITS ---
Progress Note: A&P Assessment and Plan (1) Acute kidney injury: Code(s): N17.9 - Acute kidney failure, unspecified Status: Acute Assessment and Plan: * etiology thought to be multifactorial: - infection/UTI - drugs (diuretics/ARB/NSAIDs) - rhabdomyolysis - pre-renal factors - urinary retention(?) - possible obstruction(?) --she has a stone and hydronephrosis; urology seeing her. To do a stent today. * creatinine improving - peak/plateau with creatinine of 4.3mg/dl * no critical electrolytes and good urine output * follow trend of repeat labs and UOP * Discussed with Dr. Herzog (2) Sepsis: Qualifiers: Sepsis acute organ dysfunction status: without acute organ dysfunction Sepsis type: sepsis due to unspecified organism Qualified Code(s): A41.9 - Sepsis, unspecified organism Code(s): A41.9 - Sepsis, unspecified organism Status: Acute Assessment and Plan: * as noted on admission * clinically better * continue supportive therapy (3) Urinary tract infection: Qualifiers: Hematuria presence: without hematuria Urinary tract infection type: site unspecified Qualified Code(s): N39.0 - Urinary tract infection, site not specified Code(s): N39.0 - Urinary tract infection, site not specified Status: Acute Assessment and Plan: * E.coli by culture * on antibiotics (4) Nephrolithiasis: Code(s): N20.0 - Calculus of kidney Status: Acute Assessment and Plan: * as noted by CT scan of abdomen today * Will get a stent today. * Will see what kind of urine is behind the stone. (5) Nonischemic cardiomyopathy: Code(s): I42.8 - Other cardiomyopathies Status: Acute Assessment and Plan: * issues with volume overload with IVFs * follow volume status closely * PRN diuretics if needed Will continue to follow. Additional Plan Subjective Date/time seen: 10/31/19 08:07 Interval history: Lakshmi is feeling about the same. No chest pain or shortness of breath She is eager to get her stent placed. Review of Systems Cardiovascular: Cardiovascular: Reports no additional cardiovascular complaint s Respiratory: Respiratory: Reports no additional respiratory complaints Gastrointestinal: Gastrointestinal: Reports no additional gastrointestinal complaints Genitourinary: Genitourinary: Reports no additional female genitourinary complaints Exam Narrative: Exam Narrative: General: WD/WN female in NAD Heart: normal S1 and S2; no rub or gallop Lungs: coarse and decreased at bases Abdomen: soft, nontender, nondistended, positive bowel sounds Extremities: 1 - 2+ edema Skin: no rash or nodules Objective Data Vital Signs Vital Signs: Vital Signs - 24 hr 10/30/19 20:18 10/30/19 20:21 10/30/19 20:25 Temperature Pulse Rate 76 79 Respiratory Rate 20 20 Blood Pressure Pulse Oximetry 94 10/30/19 21:31 10/30/19 21:39 10/31/19 00:00 Temperature 36.1 C L Pulse Rate 79 79 71 Respiratory Rate 20 16 Blood Pressure 120/49 L Pulse Oximetry 94 99 10/31/19 01:09 10/31/19 01:17 10/31/19 01:26 Temperature Pulse Rate 88 81 88 Respira
--- NOTE | 2019-10-31 17:07 | PM.PNNEP ---
Progress Note: A&P Assessment and Plan (1) Acute kidney injury: Code(s): N17.9 - Acute kidney failure, unspecified Status: Acute Assessment and Plan: etiology thought to be multifactorial: - infection/UTI - drugs (diuretics/ARB/NSAIDs) - rhabdomyolysis - pre-renal factors - urinary retention(?) - possible obstruction(?) --she has a stone and hydronephrosis; urology seeing her. To do a stent today. creatinine improving - peak/plateau with creatinine of 4.3mg/dl no critical electrolytes and good urine output follow trend of repeat labs and UOP Discussed with Dr. Herzog (2) Sepsis: Qualifiers: Sepsis acute organ dysfunction status: without acute organ dysfunction Sepsis type: sepsis due to unspecified organism Qualified Code(s): A41.9 - Sepsis, unspecified organism Code(s): A41.9 - Sepsis, unspecified organism Status: Acute Assessment and Plan: as noted on admission clinically better continue supportive therapy (3) Urinary tract infection: Qualifiers: Hematuria presence: without hematuria Urinary tract infection type: site unspecified Qualified Code(s): N39.0 - Urinary tract infection, site not specified Code(s): N39.0 - Urinary tract infection, site not specified Status: Acute Assessment and Plan: E.coli by culture on antibiotics (4) Nephrolithiasis: Code(s): N20.0 - Calculus of kidney Status: Acute Assessment and Plan: as noted by CT scan of abdomen today Will get a stent today. Will see what kind of urine is behind the stone. (5) Nonischemic cardiomyopathy: Code(s): I42.8 - Other cardiomyopathies Status: Acute Assessment and Plan: issues with volume overload with IVFs follow volume status closely PRN diuretics if needed Will continue to follow. Additional Plan Subjective Date/time seen: 10/31/19 08:07 Interval history: Lakshmi is feeling about the same. No chest pain or shortness of breath She is eager to get her stent placed. Review of Systems Cardiovascular: Cardiovascular: Reports no additional cardiovascular complaints Respiratory: Respiratory: Reports no additional respiratory complaints Gastrointestinal: Gastrointestinal: Reports no additional gastrointestinal complaints Genitourinary: Genitourinary: Reports no additional female genitourinary complaints Exam Narrative: Exam Narrative: General: WD/WN female in NAD Heart: normal S1 and S2; no rub or gallop Lungs: coarse and decreased at bases Abdomen: soft, nontender, nondistended, positive bowel sounds Extremities: 1 - 2+ edema Skin: no rash or nodules Objective Data Vital Signs Vital Signs: Vital Signs - 24 hr 10/30/19 20:18 10/30/19 20:21 10/30/19 20:25 Temperature Pulse Rate 76 79 Respiratory Rate 20 20 Blood Pressure Pulse Oximetry 94 10/30/19 21:31 10/30/19 21:39 10/31/19 00:00 Temperature 36.1 C L Pulse Rate 79 79 71 Respiratory Rate 20 16 Blood Pressure 120/49 L Pulse Oximetry 94 99 10/31/19 01:09 10/31/19 01:17 10/31/19 01:26 Temperature Pulse Rate 88 81 88 Respiratory Rate 20 20 30 H Blood Pressure Pulse Oximetry 93 10/31/19 04:30 10/31/19 06:31 10/31/19 07:48 Temperature 36.3 C L Pulse Rate 81 70 70 Respiratory Rate 22 H 15 20 Blood Pressure 110/44 L Pulse Oximetry 94 94 94 10/31/19 07:50 10/31/19 08:02 10/31/19 11:40 Temperature Pulse Rate 70 72 73 Respiratory Rate 20 20 Blood Pressure Pulse Oximetry 10/31/19 13:30 10/31/19 15:06 10/31/19 15:15 Temperature 36.2 C L 36.7 C Pulse Rate 64 70 71 Respiratory Rate 18 18 18 Blood Pressure 119/42 L 131/73 91/47 L Pulse Oximetry 100 93 96 10/31/19 15:30 10/31/19 15:45 Temperature Pulse Rate 69 66 Respiratory Rate 18 18 Blood Pressure 129/64 132/59 L Pulse Oximetry 97 98 Intake/Output Int
[2019-10-31] MEDS: carvediloL 6.25 MG TABLET PO (17:10)
--- NOTE | 2019-10-31 17:11 | P.PNIM_ITS ---
Progress Note: A&P Assessment and Plan (1) Sepsis: Qualifiers: Sepsis type: sepsis due to unspecified organism Sepsis acute organ dysfunction status: without acute organ dysfunction Qualified Code(s): A41.9 - Sepsis, unspecified organism Code(s): A41.9 - Sepsis, unspecified organism Status: Acute Assessment and Plan: * Present on admission and supported by tachycardia, leukocytosis, and acute kidney injury in the setting of infection. * Lactic acid level was within normal limits. * Blood cultures negative * WBC still up and repeat cxr 10/18 no infiltrates, she has had no diarrhea to suggest cdiff, no fever and BS trending down * wbc still up 10/[address] and pelvis reveal 7 mm proximal stone with mild hydro,? source of WBC * 10/30 urology did cysto with stent placement and found her renal insult from left ureteral orifice. Should improve her WBC and creatinine (2) Urinary tract infection: Qualifiers: Urinary tract infection type: site unspecified Hematuria presence: without hematuria Qualified Code(s): N39.0 - Urinary tract infection, site not specified Code(s): N39.0 - Urinary tract infection, site not specified Status: Acute Assessment and Plan: * Ceftriaxone day 9 * Urine culture growing E coli sensitive to ceftriaxone * Will continue antibiotics since is complicated UTI with stone (3) Acute kidney injury: Code(s): N17.9 - Acute kidney failure, unspecified Status: Acute Assessment and Plan: * Etiology is not entirely clear but is most likely multifactorial (infection, dehydration, drugs, rhabdo) and now possible obstruction with stone * Furosemide, losartan, valsartan, and meloxicam held * She was rehydrated with strict monitoring of I/O. * Renal ultrasound WNL with fatty liver noted * Repeat lab , today creatinine at 3.2 and diuresing some so has peaked and hopefully will see more recovery in renal function, with mild hydro on Left urology saw and placed stent today. Hopefully this will accelerate return of renal function also * (4) Electrolyte abnormality: Code(s): E87.8 - Other disorders of electrolyte and fluid balance, not elsewhere classified Status: Acute Assessment and Plan: * Including moderate hyponatremia (glucose 349), mild hyperkalemia, and hypochloremia. * As above, received cautious IV fluid rehydration. and electrolytes have corrected Na 131 today and K 5.6 . (5) Metabolic encephalopathy: Code(s): G93.41 - Metabolic encephalopathy Status: Acute Assessment and Plan: * resolved but still intermittently confused probably secondary to underlying infection (6) Nonischemic cardiomyopathy: Code(s): I42.8 - Other cardiomyopathies Status: Acute Assessment and Plan: * Echocardiogram in May 2016 showed moderate global left ventricular systolic dysfunction with ejection fraction of 35% grade 3 diastolic dysf unction. * Cardiac catheterization showed no coronary artery abnormalities. * last echo 11/15 EF 40%, and repeat now 30-35 % , ARB and diuretic still on hold . (7) Insulin dependent type 2 diabetes mellitus: Code(s): E11.9 - Type 2 diabetes mellitus without complications; Z79.4 - residential (current) use of insulin Status: Acute Assessment and Plan: * Hyperglycemic on admission, with random glucose of 349 on arrival. * Metformin on hold given acute kidney injury. * Will continue basal insulin but
--- NOTE | 2019-10-31 17:11 | PM.IMPN ---
Progress Note: A&P Assessment and Plan (1) Sepsis: Qualifiers: Sepsis type: sepsis due to unspecified organism Sepsis acute organ dysfunction status: without acute organ dysfunction Qualified Code(s): A41.9 - Sepsis, unspecified organism Code(s): A41.9 - Sepsis, unspecified organism Status: Acute Assessment and Plan: Present on admission and supported by tachycardia, leukocytosis, and acute kidney injury in the setting of infection. Lactic acid level was within normal limits. Blood cultures negative WBC still up and repeat cxr 10/18 no infiltrates, she has had no diarrhea to suggest cdiff, no fever and BS trending down wbc still up 10/[address] abd and pelvis reveal 7 mm proximal stone with mild hydro,? source of WBC 10/30 urology did cysto with stent placement and found her renal insult from left ureteral orifice. Should improve her WBC and creatinine (2) Urinary tract infection: Qualifiers: Urinary tract infection type: site unspecified Hematuria presence: without hematuria Qualified Code(s): N39.0 - Urinary tract infection, site not specified Code(s): N39.0 - Urinary tract infection, site not specified Status: Acute Assessment and Plan: Ceftriaxone day 9 Urine culture growing E coli sensitive to ceftriaxone Will continue antibiotics since is complicated UTI with stone (3) Acute kidney injury: Code(s): N17.9 - Acute kidney failure, unspecified Status: Acute Assessment and Plan: Etiology is not entirely clear but is most likely multifactorial (infection, dehydration, drugs, rhabdo) and now possible obstruction with stone Furosemide, losartan, valsartan, and meloxicam held She was rehydrated with strict monitoring of I/O. Renal ultrasound WNL with fatty liver noted Repeat lab , today creatinine at 3.2 and diuresing some so has peaked and hopefully will see more recovery in renal function, with mild hydro on Left urology saw and placed stent today. Hopefully this will accelerate return of renal function also (4) Electrolyte abnormality: Code(s): E87.8 - Other disorders of electrolyte and fluid balance, not elsewhere classified Status: Acute Assessment and Plan: Including moderate hyponatremia (glucose 349), mild hyperkalemia, and hypochloremia. As above, received cautious IV fluid rehydration. and electrolytes have corrected Na 131 today and K 5.6 . (5) Metabolic encephalopathy: Code(s): G93.41 - Metabolic encephalopathy Status: Acute Assessment and Plan: resolved but still intermittently confused probably secondary to underlying infection (6) Nonischemic cardiomyopathy: Code(s): I42.8 - Other cardiomyopathies Status: Acute Assessment and Plan: Echocardiogram in May 2016 showed moderate global left ventricular systolic dysfunction with ejection fraction of 35% grade 3 diastolic dysfunction. Cardiac catheterization showed no coronary artery abnormalities. last echo 11/15 EF 40%, and repeat now 30-35 % , ARB and diuretic still on hold . (7) Insulin dependent type 2 diabetes mellitus: Code(s): E11.9 - Type 2 diabetes mellitus without complications; Z79.4 - skilled nursing (current) use of insulin Status: Acute Assessment and Plan: Hyperglycemic on admission, with random glucose of 349 on arrival. Metformin on hold given acute kidney injury. Will continue basal insulin but decrease to 65 U daily 10/29. initiate sliding scale insulin, Accu-Cheks, and hypoglycemic protocol. hemoglobin A1c. 7.8. FBS 138 this am, only received 30 units of Lantus today since was NPO and had late afternoon procedure Subjective Date/time seen: 10/31/19 17:11 Interval history: Date of visit 10/30. 54-year-old white female type 2 diabetic, nonischemic cardiomyopathy admitted with sepsis and urinary tract infection. Feels much better and up some
[2019-10-31 18:51] LABS: Glucose Point of Care 102 (65-105)
[2019-10-31] MEDS: INSULIN ASPART (*BKC) 100 UNITS/ML 8 UNITS SUB-Q (18:52)
[2019-10-31] MEDS: SIMVASTATIN 20 MG TABLET 40 MG PO (20:55)
[2019-10-31 21:57] LABS: Glucose Point of Care 118 (65-105)
[2019-11-01] VITALS (13 sets, daily range): BP systolic 115–134; BP diastolic 51–98; PULSE 64–84; RESP 16–19; TEMP 36.1–36.3; O2SAT 93–100
[2019-11-01] MEDS: DEXTROSE 5%/0.45% SOD CHL 1,000 ML 75 ML IV CONT (01:25)
[2019-11-01] MEDS: ALBUTEROL SULFATE NEB 2.5 MG/0.5 ML INH 5 MG INHALATION ×3 (03:44→19:38)
[2019-11-01] MEDS: IPRATROPIUM BR 0.02% INH SOLN 0.5 MG/2.5 ML VIAL INHALATION ×3 (03:44→19:38)
[2019-11-01] MEDS: HEPARIN SODIUM 5,000 UNITS/ML VIAL 5000 UNITS SUB-Q ×3 (05:56→21:00)
[2019-11-01 06:01] LABS: Basophils Absolute Auto 0.1 K/mm3 (0.0-0.1); Basophils Percent Auto 0.5 % (0.2-1.2); Eosinophils Absolute Auto 0.6 K/mm3 (0-0.3); Hematocrit 31.4 % (37.0-47.0); Hemoglobin 10.3 g/dL (12.0-15.0); Immature Granulocyte Absolute 0.93 K/mm3 (0.00-0.031); Immature Granulocyte Percent A 4.6 % (0-0.5); Lymphocytes Absolute Auto 2.59 K/mm3 (0.9-3.2); Lymphocytes Percent Auto 12.9 % (18.3-44.2); Mean Corpuscular HGB Conc 32.8 g/dl (32-36); Mean Corpuscular Hemoglobin 30.1 pg (26-34); Mean Corpuscular Volume 91.8 fl (80-100); Mean Platelet Volume 11.4 fl (7.4-10.4); Monocytes Absolute Auto 0.8 K/mm3 (0.1-0.6); Monocytes Percent Auto 4.2 % (2.6-8.5); Neutrophils Percent Auto 74.8 % (45.5-73.1); Platelet Count Result 488 k/mm3 (150-375); Red Blood Count 3.42 M/mm3 (4.2-5.4); Red Cell Distribution Width 14.2 % (11.5-14.5)
[2019-11-01 07:00] LABS: Albumin Level 3.3 g/dL (3.5-5.1); Blood Urea Nitrogen 66 mg/dL (7-17); Calcium 9.9 mg/dL (8.4-10.2); Carbon Dioxide 25 mmol/L (22-30); Chloride 102 mmol/L (98-107); Estimated CRCL calculation 21 ml/min; Estimated Glomerular Filt Rate 14; Glucose 115 mg/dL (65-105); Phosphorus 5.4 mg/dL (2.5-4.5); Potassium 5.2 mmol/L (3.4-5.0); Sodium 136 mmol/L (137-145)
--- NOTE | 2019-11-01 07:46 | WPDANESPN ---
Anes - Prog Note Post-Op Date/Time: 11/01/19 07:46 Cardiovascular status: normal Respiratory status: normal Airway patency: baseline Mental status: baseline Post-Op hydration status: normal Vital Signs: Last Vital Signs Temp 36.1 C L 11/01/19 06:00 Pulse 64 11/01/19 06:00 Resp 16 11/01/19 06:00 BP 120/69 11/01/19 06:00 Pulse Ox 97 11/01/19 06:00 I/O: Intake & Output 10/31/19 10/31/19 11/01/19 15:59 23:59 07:59 Intake Total 1050 1830 740 Output Total 1216 201 Balance 5595 -708 -107 Laboratory Tests 11/01/19 05:05 11/01/19 05:05 10/31/19 10/31/19 10/31/19 05:07 08:24 11:55 WBC 20.7 H RBC 3.43 L Hgb 10.1 L Hct 32.8 L MCV 95.6 MCH 29.4 MCHC 30.8 L RDW 14.2 Plt Count 346 MPV 12.0 H Immature Gran % (Auto) 4.9 H Neut % (Auto) 75.4 H Lymph % (Auto) 11.5 L [place] % (Auto) 4.8 Eos % (Auto) 2.5 Baso % (Auto) 0.9 Lymph # (Auto) 2.38 [place] # (Auto) 1.0 H Eos # (Auto) 0.5 H Baso # (Auto) 0.2 H Abs Immat Gran (auto) 1.02 H Absolute Neuts (auto) 15.6 H Absolute Nucleated RBC 0.0 Nucleated RBC % 0.0 Sodium Potassium Chloride Carbon Dioxide BUN Creatinine Estim Creat Clear Calc Estimated GFR Glucose POC Capillary Glucose 133 H 132 H Calcium Phosphorus Albumin 10/31/19 10/31/19 10/31/19 14:21 17:02 20:36 WBC RBC Hgb Hct MCV MCH MCHC RDW Plt Count MPV Immature Gran % (Auto) Neut % (Auto) Lymph % (Auto) [place] % (Auto) Eos % (Auto) Baso % (Auto) Lymph # (Auto) [place] # (Auto) Eos # (Auto) Baso # (Auto) Abs Immat Gran (auto) Absolute Neuts (auto) Absolute Nucleated RBC Nucleated RBC % Sodium Potassium Chloride Carbon Dioxide BUN Creatinine Estim Creat Clear Calc Estimated GFR Glucose POC Capillary Glucose 148 H 102 118 H Calcium Phosphorus Albumin 11/01/19 11/01/19 05:05 05:05 WBC 20.0 H RBC 3.42 L Hgb 10.3 L Hct 31.4 L MCV 91.8 MCH 30.1 MCHC 32.8 RDW 14.2 Plt Count 488 H MPV 11.4 H Immature Gran % (Auto) 4.6 H Neut % (Auto) 74.8 H Lymph % (Auto) 12.9 L [place] % (Auto) 4.2 Eos % (Auto) 3.0 Baso % (Auto) 0.5 Lymph # (Auto) 2.59 [place] # (Auto) 0.8 H Eos # (Auto) 0.6 H Baso # (Auto) 0.1 Abs Immat Gran (auto) 0.93 H Absolute Neuts (auto) 15.0 H Absolute Nucleated RBC 0.0 Nucleated RBC % 0.0 Sodium 136 L Potassium 5.2 H Chloride 102 Carbon Dioxide 25 BUN 66 H D Creatinine 3.30 H Estim Creat Clear Calc 21 Estimated GFR 14 L Glucose 115 H POC Capillary Glucose Calcium 9.9 Phosphorus 5.4 H Albumin 3.3 L Post-procedural complaints: none Patient Feedback: Patient satisfied with anesthetic care.
[2019-11-01 08:25] LABS: Glucose Point of Care 141 (65-105)
--- NOTE | 2019-11-01 09:06 | WPDUROPN2 ---
Progress Note: A&P Assessment and Plan (1) Nephrolithiasis: Code(s): N20.0 - Calculus of kidney Status: Acute Assessment and Plan: Will plan to schedule Lithotripsy as an outpatient. (2) Urinary tract infection: Qualifiers: Urinary tract infection type: site unspecified Hematuria presence: without hematuria Qualified Code(s): N39.0 - Urinary tract infection, site not specified Code(s): N39.0 - Urinary tract infection, site not specified Status: Acute Assessment and Plan: Continue IV antibiotics. Ok to discharge home from urology standpoint on appropriate oral antibiotics. Will follow up next week in the office for a repeat urine culture and to schedule Lithotripsy. Subjective Subjective Date/Time Seen: 11/01/19 09:06 Left Proximal Ureteral Stone UTI Review of Systems Cardiovascular: Cardiovascular: Denies chest pain Respiratory: Respiratory: Reports no additional respiratory complaints Gastrointestinal: Gastrointestinal: Denies abdominal pain, Denies nausea and Denies vomiting Genitourinary: Genitourinary: Reports no additional female genitourinary complaints Exam Resp: Effort & Inspection: normal respiratory effort Cardio: Rate: regular rate GI: GI Palp: No abdominal tenderness Extrem: General: no edema Objective Data Vital Signs Vital Signs: Vital Signs - 24 hr 10/31/19 11:40 10/31/19 13:30 10/31/19 15:06 Temperature 97.2 F L 98.1 F Pulse Rate 73 64 70 Respiratory Rate 18 18 Blood Pressure 119/42 L 131/73 Pulse Oximetry 100 93 10/31/19 15:15 10/31/19 15:30 10/31/19 15:45 Temperature Pulse Rate 71 69 66 Respiratory Rate 18 18 18 Blood Pressure 91/47 L 129/64 132/59 L Pulse Oximetry 96 97 98 10/31/19 17:10 10/31/19 20:56 10/31/19 22:45 Temperature Pulse Rate 72 80 Respiratory Rate Blood Pressure Pulse Oximetry 92 10/31/19 22:46 10/31/19 22:56 10/31/19 22:57 Temperature Pulse Rate 68 73 73 Respiratory Rate 20 20 19 Blood Pressure Pulse Oximetry 92 11/01/19 00:00 11/01/19 03:45 11/01/19 03:55 Temperature 97.1 F L Pulse Rate 73 65 69 Respiratory Rate 17 18 18 Blood Pressure 124/51 L Pulse Oximetry 100 11/01/19 06:00 11/01/19 08:00 Temperature 97.0 F L 97.0 F L Pulse Rate 64 64 Respiratory Rate 16 16 Blood Pressure 120/69 115/98 H Pulse Oximetry 97 99 Intake/Output Intake/Output: Intake & Output 10/29/19 10/30/19 10/31/19 11/01/19 23:59 23:59 23:59 23:59 Intake Total 2650 2270 3030 740 Output Total 2200 2560 4500 970 Balance 450 290 1470 -230 Meds/Results Medications: Active Medications Generic Name Dose Route Start Last Admin Trade Name Freq PRN Reason Stop Dose Admin Acetaminophen 500 mg 10/23/19 21:00 10/25/19 17:37 Tylenol Tablet PO 500 mg HS PRN Administration Insomnia Hydrocodone Bitart/Acetaminophen 1 tab 10/31/19 15:46 [place] 10-325 Mg PO Q6H PRN Pain, Severe Albuterol 5 mg 10/23/19 20:00 11/01/19 03:44 Albuterol Sulf Neb 2.5mg/0.5ml INHALATION 5 mg Q6HRT KALINA Administration Aspirin 81 mg 10/24/19 09:00 10/31/19 16:57 Aspirin Ec PO 81 mg DAILY KALINA Administration Bupropion HCl 300 mg 10/24/19 09:00 10/31/19 16:57 Wellbutrin Xl (24 Hr) PO 300 mg QAM KALINA Administration Dextrose 12.5 gm 10/23/19 19:18 Dextrose 50% Syringe IV PUSH PRN PRN Hypoglycemia Protocol Diphenhydramine HCl 50 mg 10/23/19 19:24 10/23/19 20:56 Benadryl Cap PO 50 mg Q6H PRN Administration Itching Diphenhydramine HCl 25 mg 10/23/19 21:00 Benadryl Cap PO HS PRN Insomnia Fentanyl Citrate 25 mcg 10/31/19 08:16 Sublimaze IV PUSH Q2M PRN Pain Fish Oil 1 gm 10/24/19 09:00 10/31/19 16:57 Lovaza PO 1 gm DAILY KALINA Administration Gabapentin 300 mg 10/24/19 09:00 10/31/19 16:58 Neurontin PO 300 mg TID KALINA Administration
[2019-11-01] MEDS: PHENAZOPYRIDINE HCL 100 MG TABLET 200 MG PO ×3 (09:36→17:41)
[2019-11-01] MEDS: ASPIRIN 81 MG ENTERIC TABLET PO (09:36)
[2019-11-01] MEDS: CHOLECALCIFEROL 1,000 UNIT TABLET 1000 UNITS PO (09:37)
[2019-11-01] MEDS: buPROPion HCL XL (24 HR) 150 MG TABCR 300 MG PO (09:37)
[2019-11-01] MEDS: TOLNAFTATE 1% POWDER 45 GM BTL 1 APPLIC TOPICAL ×2 (09:38→20:50)
[2019-11-01] MEDS: MONTELUKAST SODIUM 10 MG TABLET PO (09:38)
[2019-11-01] MEDS: GABAPENTIN 300 MG CAPSULE PO ×3 (09:38→17:41)
[2019-11-01] MEDS: OMEGA 3 POLYUNSAT FATTY ACIDS 1 GM CAP PO (09:38)
[2019-11-01] MEDS: METOPROLOL SUCCINATE EXT REL 25 MG TABCR PO ×2 (09:40→20:51)
[2019-11-01] MEDS: INSULIN GLARGINE (*BKC) 100 UNITS/ML 65 UNITS SUB-Q (09:41)
[2019-11-01] MEDS: INSULIN ASPART (*BKC) 100 UNITS/ML 8 UNITS SUB-Q ×2 (09:41→13:43)
--- NOTE | 2019-11-01 09:47 | P.PNNP_ITS ---
Progress Note: A&P Assessment and Plan (1) Acute kidney injury: Code(s): N17.9 - Acute kidney failure, unspecified Status: Acute Assessment and Plan: * etiology thought to be multifactorial: - infection/UTI - drugs (diuretics/ARB/NSAIDs) - rhabdomyolysis recheck a CPK -the stone was obstructing and there was pus behind there. * creatinine improving - peak/plateau with creatinine of 4.3mg/dl * no critical electrolytes and good urine output * Creatinine seems to be improving (2) Sepsis: Qualifiers: Sepsis type: sepsis due to unspecified organism Sepsis acute organ dysfunction status: without acute organ dysfunction Qualified Code(s): A41.9 - Sepsis, unspecified organism Code(s): A41.9 - Sepsis, unspecified organism Status: Acute Assessment and Plan: * as noted on admission * clinically better * Blood cultures were negative. * She is on antibiotics (3) Urinary tract infection: Qualifiers: Urinary tract infection type: site unspecified Hematuria presence: without hematuria Qualified Code(s): N39.0 - Urinary tract infection, site not specified Code(s): N39.0 - Urinary tract infection, site not specified Status: Acute Assessment and Plan: * E.coli by culture * on antibiotics (4) Nephrolithiasis: Code(s): N20.0 - Calculus of kidney Status: Acute Assessment and Plan: * as noted by CT scan of abdomen today * Stent was placed (5) Nonischemic cardiomyopathy: Code(s): I42.8 - Other cardiomyopathies Status: Acute Assessment and Plan: * issues with volume overload with IVFs * follow volume status closely * PRN diuretics if needed Additional Plan Subjective Date/time seen: 11/01/19 09:47 Interval history: Lakshmi is feeling about the same. Eager for discharge Up and walking in the halls. Eating well. Review of Systems Cardiovascular: Cardiovascular: Reports no additional cardiovascular c omplaints Respiratory: Respiratory: Reports no additional respiratory complaints Gastrointestinal: Gastrointestinal: Reports no additional gastrointestinal complaints Genitourinary: Genitourinary: Reports no additional female genitourinary complaints Exam Narrative: Exam Narrative: General: WD/WN female in NAD Heart: normal S1 and S2; no rub or gallop Lungs: Fairly clear bilaterally Abdomen: soft, nontender, nondistended, positive bowel sounds Extremities: 1+ edema Skin: no rash Objective Data Vital Signs Vital Signs: Vital Signs - 24 hr 10/31/19 11:40 10/31/19 13:30 10/31/19 15:06 Temperature 36.2 C L 36.7 C Pulse Rate 73 64 70 Respiratory Rate 18 18 Blood Pressure 119/42 L 131/73 Pulse Oximetry 100 93 10/31/19 15:15 10/31/19 15:30 10/31/19 15:45 Temperature Pulse Rate 71 69 66 Respiratory Rate 18 18 18 Blood Pressure 91/47 L 129/64 132/59 L Pulse Oximetry 96 97 98 10/31/19 17:10 10/31/19 20:56 10/31/19 22:45 Temperature Pulse Rate 72 80 Respiratory Rate Blood Pressure Pulse Oximetry 92 10/31/19 22:46 10/31/19 22:56 10/31/19 22:57 Temperature
--- NOTE | 2019-11-01 09:47 | PM.PNNEP ---
Progress Note: A&P Assessment and Plan (1) Acute kidney injury: Code(s): N17.9 - Acute kidney failure, unspecified Status: Acute Assessment and Plan: etiology thought to be multifactorial: - infection/UTI - drugs (diuretics/ARB/NSAIDs) - rhabdomyolysis recheck a CPK -the stone was obstructing and there was pus behind there. creatinine improving - peak/plateau with creatinine of 4.3mg/dl no critical electrolytes and good urine output Creatinine seems to be improving (2) Sepsis: Qualifiers: Sepsis type: sepsis due to unspecified organism Sepsis acute organ dysfunction status: without acute organ dysfunction Qualified Code(s): A41.9 - Sepsis, unspecified organism Code(s): A41.9 - Sepsis, unspecified organism Status: Acute Assessment and Plan: as noted on admission clinically better Blood cultures were negative. She is on antibiotics (3) Urinary tract infection: Qualifiers: Urinary tract infection type: site unspecified Hematuria presence: without hematuria Qualified Code(s): N39.0 - Urinary tract infection, site not specified Code(s): N39.0 - Urinary tract infection, site not specified Status: Acute Assessment and Plan: E.coli by culture on antibiotics (4) Nephrolithiasis: Code(s): N20.0 - Calculus of kidney Status: Acute Assessment and Plan: as noted by CT scan of abdomen today Stent was placed (5) Nonischemic cardiomyopathy: Code(s): I42.8 - Other cardiomyopathies Status: Acute Assessment and Plan: issues with volume overload with IVFs follow volume status closely PRN diuretics if needed Additional Plan Subjective Date/time seen: 11/01/19 09:47 Interval history: Lakshmi is feeling about the same. Eager for discharge Up and walking in the halls. Eating well. Review of Systems Cardiovascular: Cardiovascular: Reports no additional cardiovascular complaints Respiratory: Respiratory: Reports no additional respiratory complaints Gastrointestinal: Gastrointestinal: Reports no additional gastrointestinal complaints Genitourinary: Genitourinary: Reports no additional female genitourinary complaints Exam Narrative: Exam Narrative: General: WD/WN female in NAD Heart: normal S1 and S2; no rub or gallop Lungs: Fairly clear bilaterally Abdomen: soft, nontender, nondistended, positive bowel sounds Extremities: 1+ edema Skin: no rash Objective Data Vital Signs Vital Signs: Vital Signs - 24 hr 10/31/19 11:40 10/31/19 13:30 10/31/19 15:06 Temperature 36.2 C L 36.7 C Pulse Rate 73 64 70 Respiratory Rate 18 18 Blood Pressure 119/42 L 131/73 Pulse Oximetry 100 93 10/31/19 15:15 10/31/19 15:30 10/31/19 15:45 Temperature Pulse Rate 71 69 66 Respiratory Rate 18 18 18 Blood Pressure 91/47 L 129/64 132/59 L Pulse Oximetry 96 97 98 10/31/19 17:10 10/31/19 20:56 10/31/19 22:45 Temperature Pulse Rate 72 80 Respiratory Rate Blood Pressure Pulse Oximetry 92 10/31/19 22:46 10/31/19 22:56 10/31/19 22:57 Temperature Pulse Rate 68 73 73 Respiratory Rate 20 20 19 Blood Pressure Pulse Oximetry 92 11/01/19 00:00 11/01/19 03:45 11/01/19 03:55 Temperature 36.2 C L Pulse Rate 73 65 69 Respiratory Rate 17 18 18 Blood Pressure 124/51 L Pulse Oximetry 100 11/01/19 06:00 11/01/19 08:00 Temperature 36.1 C L 36.1 C L Pulse Rate 64 64 Respiratory Rate 16 16 Blood Pressure 120/69 115/98 H Pulse Oximetry 97 99 Intake/Output Intake/Output: Intake & Output 10/29/19 10/30/19 10/31/19 11/01/19 23:59 23:59 23:59 23:59 Intake Total 2650 2270 3030 880 Output Total 2200 2560 4500 970 Balance 371 -071 -0410 -90 Meds/Results Medications: Active Medications Generic Name Dose Route Start Last Admin Trade Name Freq PRN Reason Stop Dose Admin Acetaminophen 500 mg
[2019-11-01 12:25] LABS: Creatine Kinase 32 U/L (30-135)
[2019-11-01 12:33] LABS: Glucose Point of Care 166 (65-105)
--- NOTE | 2019-11-01 16:30 | P.PNIM_ITS ---
Progress Note: A&P Assessment and Plan (1) Urinary tract infection: Qualifiers: Urinary tract infection type: site unspecified Hematuria presence: without hematuria Qualified Code(s): N39.0 - Urinary tract infection, site not specified Code(s): N39.0 - Urinary tract infection, site not specified Status: Acute Assessment and Plan: * Ceftriaxone day 10 * Urine culture growing E coli sensitive to ceftriaxone * Will continue antibiotics since is complicated UTI with stone (2) Acute kidney injury: Code(s): N17.9 - Acute kidney failure, unspecified Status: Acute Assessment and Plan: * Etiology is not entirely clear but is most likely multifactorial (infection, dehydration, drugs, rhabdo) and now possible obstruction with stone * Furosemide, losartan, valsartan, and meloxicam held * She was rehydrated with strict monitoring of I/O. * Renal ultrasound WNL with fatty liver noted * Repeat lab , today creatinine at 3.2 and diuresing some so has peaked and hopefully will see more recovery in renal function, with mild hydro on Left urology saw and placed stent. (3) Electrolyte abnormality: Code(s): E87.8 - Other disorders of electrolyte and fluid balance, not elsewhere classified Status: Acute Assessment and Plan: * Including moderate hyponatremia (glucose 349), mild hyperkalemia, and hypochloremia. * As above, received cautious IV fluid rehydration. and electrolytes have corrected Na 136today and K 5.2 . (4) Metabolic encephalopathy: Code(s): G93.41 - Metabolic encephalopathy Status: Acute Assessment and Plan: * resolved but still intermittently confused probably secondary to underlying infection * 3/3 seems to be doing better (5) Nonischemic cardiomyopathy: Code(s): I42.8 - Other cardiomyopathies Status: Acute Assessment and Plan: * Echocardiogram in May 2016 showed moderate global left ventricular systolic dysfunction with ejection fraction of 35% grade 3 diastolic dysfunction. * Cardiac catheterization showed no coronary artery abnormalities. * last echo 11/15 EF 40%, and repeat now 30-35 % , ARB and diuretic still on hold . (6) Insulin dependent type 2 diabetes mellitus: Code(s): E11.9 - Type 2 diabetes mellitus without complications; Z79.4 - [facility] (current) use of insulin Status: Acute Assessment and Plan: * Hyperglycemic on admission, with random glucose of 349 on arrival. * Metformin on hold given acute kidney injury. * Will continue basal insulin but decrease to 65 U daily 10/29. * initiate sliding scale insulin, Accu-Cheks, and hypoglycemic protocol. * hemoglobin A1c. 7.8. (7) Sepsis: Qualifiers: Sepsis type: sepsis due to unspecified organism Sepsis acute organ dysfunction status: without acute organ dysfunction Qualified Code(s): A41.9 - Sepsis, unspecified organism Code(s): A41.9 - Sepsis, unspecified organism Status: Acute Assessment and Plan: * Present on admission and supported by tachycardia, leukocytosis, and acute kidney injury in the setting of infection. * Lactic acid level was within normal limits. * Blood cultures negative * WBC still up and repeat cxr 10/18 no infiltrates, she has had no diarrhea to suggest cdiff, no fever and BS trending down * wbc still up 10/[address] and pelvis reveal 7 mm proximal stone with mild hydro,? source of WBC * 10/30 urology did cysto with stent placement and found
--- NOTE | 2019-11-01 16:30 | PM.IMPN ---
Progress Note: A&P Assessment and Plan (1) Urinary tract infection: Qualifiers: Urinary tract infection type: site unspecified Hematuria presence: without hematuria Qualified Code(s): N39.0 - Urinary tract infection, site not specified Code(s): N39.0 - Urinary tract infection, site not specified Status: Acute Assessment and Plan: Ceftriaxone day 10 Urine culture growing E coli sensitive to ceftriaxone Will continue antibiotics since is complicated UTI with stone (2) Acute kidney injury: Code(s): N17.9 - Acute kidney failure, unspecified Status: Acute Assessment and Plan: Etiology is not entirely clear but is most likely multifactorial (infection, dehydration, drugs, rhabdo) and now possible obstruction with stone Furosemide, losartan, valsartan, and meloxicam held She was rehydrated with strict monitoring of I/O. Renal ultrasound WNL with fatty liver noted Repeat lab , today creatinine at 3.2 and diuresing some so has peaked and hopefully will see more recovery in renal function, with mild hydro on Left urology saw and placed stent. (3) Electrolyte abnormality: Code(s): E87.8 - Other disorders of electrolyte and fluid balance, not elsewhere classified Status: Acute Assessment and Plan: Including moderate hyponatremia (glucose 349), mild hyperkalemia, and hypochloremia. As above, received cautious IV fluid rehydration. and electrolytes have corrected Na 136today and K 5.2 . (4) Metabolic encephalopathy: Code(s): G93.41 - Metabolic encephalopathy Status: Acute Assessment and Plan: resolved but still intermittently confused probably secondary to underlying infection 3/3 seems to be doing better (5) Nonischemic cardiomyopathy: Code(s): I42.8 - Other cardiomyopathies Status: Acute Assessment and Plan: Echocardiogram in May 2016 showed moderate global left ventricular systolic dysfunction with ejection fraction of 35% grade 3 diastolic dysfunction. Cardiac catheterization showed no coronary artery abnormalities. last echo 11/15 EF 40%, and repeat now 30-35 % , ARB and diuretic still on hold . (6) Insulin dependent type 2 diabetes mellitus: Code(s): E11.9 - Type 2 diabetes mellitus without complications; Z79.4 - [employer] (current) use of insulin Status: Acute Assessment and Plan: Hyperglycemic on admission, with random glucose of 349 on arrival. Metformin on hold given acute kidney injury. Will continue basal insulin but decrease to 65 U daily 10/29. initiate sliding scale insulin, Accu-Cheks, and hypoglycemic protocol. hemoglobin A1c. 7.8. (7) Sepsis: Qualifiers: Sepsis type: sepsis due to unspecified organism Sepsis acute organ dysfunction status: without acute organ dysfunction Qualified Code(s): A41.9 - Sepsis, unspecified organism Code(s): A41.9 - Sepsis, unspecified organism Status: Acute Assessment and Plan: Present on admission and supported by tachycardia, leukocytosis, and acute kidney injury in the setting of infection. Lactic acid level was within normal limits. Blood cultures negative WBC still up and repeat cxr 10/18 no infiltrates, she has had no diarrhea to suggest cdiff, no fever and BS trending down wbc still up 10/[address] and pelvis reveal 7 mm proximal stone with mild hydro,? source of WBC 10/30 urology did cysto with stent placement and found her renal insult from left ureteral orifice. Should improve her WBC and creatinine 10/31 resolved Subjective Date/time seen: 11/01/19 16:30 Interval history: Wants to go home. Denied pain. Tolerated diet. Only c/o is frequent urination. Review of Systems Review of Systems: All systems reviewed & are unremarkable except as noted in HPI and below Exam Narrative: Exam Narrative: HEENT: EOMI, PERRL, NECK: No JVD, adenopathy, CHEST: Clear to
[2019-11-01 17:52] LABS: Glucose Point of Care 110 (65-105)
[2019-11-01 20:40] LABS: Glucose Point of Care 190 (65-105)
[2019-11-01] MEDS: SIMVASTATIN 20 MG TABLET 40 MG PO (20:50)
[2019-11-02] VITALS (16 sets, daily range): BP systolic 117–139; BP diastolic 45–74; PULSE 71–85; RESP 16–18; TEMP 36.2–36.6; O2SAT 92–100
[2019-11-02] MEDS: IPRATROPIUM BR 0.02% INH SOLN 0.5 MG/2.5 ML VIAL INHALATION ×3 (02:15→19:54)
[2019-11-02] MEDS: ALBUTEROL SULFATE NEB 2.5 MG/0.5 ML INH 5 MG INHALATION ×3 (02:15→19:54)
[2019-11-02] MEDS: HEPARIN SODIUM 5,000 UNITS/ML VIAL 5000 UNITS SUB-Q ×3 (05:06→21:27)
[2019-11-02 06:05] LABS: Hematocrit 32.6 % (37.0-47.0); Hemoglobin 10.2 g/dL (12.0-15.0); Mean Corpuscular HGB Conc 31.3 g/dl (32-36); Mean Corpuscular Hemoglobin 29.4 pg (26-34); Mean Corpuscular Volume 93.9 fl (80-100); Mean Platelet Volume 11.6 fl (7.4-10.4); Platelet Count Result 511 k/mm3 (150-375); Red Blood Count 3.47 M/mm3 (4.2-5.4); Red Cell Distribution Width 14.3 % (11.5-14.5); White Blood Count 17.1 K/mm3 (4.5-10.0)
[2019-11-02 06:37] LABS: Albumin Level 3.5 g/dL (3.5-5.1); Blood Urea Nitrogen 54 mg/dL (7-17); Calcium 10.3 mg/dL (8.4-10.2); Carbon Dioxide 26 mmol/L (22-30); Chloride 103 mmol/L (98-107); Estimated CRCL calculation 22 ml/min; Estimated Glomerular Filt Rate 15; Glucose 125 mg/dL (65-105); Phosphorus 5.8 mg/dL (2.5-4.5); Potassium 5.5 mmol/L (3.4-5.0); Sodium 137 mmol/L (137-145)
--- NOTE | 2019-11-02 07:09 | PM.PNNEP ---
Progress Note: A&P Assessment and Plan (1) Acute kidney injury: Code(s): N17.9 - Acute kidney failure, unspecified Status: Acute Assessment and Plan: etiology thought to be multifactorial: - infection/UTI - drugs (diuretics/ARB/NSAIDs) - rhabdomyolysis CK is normal now. -the stone was obstructing and there was pus behind there. creatinine seems to have plateaued. It is unclear why this is the case because she had the stone removed. Consider another bug in the urine behind the stone, allergic interstitial nephritis I doubt dehydration because she is making some much urine and she is taking a good amount of volume in. (2) Sepsis: Qualifiers: Sepsis type: sepsis due to unspecified organism Sepsis acute organ dysfunction status: without acute organ dysfunction Qualified Code(s): A41.9 - Sepsis, unspecified organism Code(s): A41.9 - Sepsis, unspecified organism Status: Acute Assessment and Plan: as noted on admission clinically better Blood cultures were negative. White cell count has dropped. She is on antibiotics Since her creatinine is stabilized we will check another urine culture to be sure there was nothing else growing behind that stone. (3) Urinary tract infection: Qualifiers: Urinary tract infection type: site unspecified Hematuria presence: without hematuria Qualified Code(s): N39.0 - Urinary tract infection, site not specified Code(s): N39.0 - Urinary tract infection, site not specified Status: Acute Assessment and Plan: E.coli by culture on antibiotics Will repeat urine culture (4) Nephrolithiasis: Code(s): N20.0 - Calculus of kidney Status: Acute Assessment and Plan: as noted by CT scanof abdomen Stent was placed (5) Nonischemic cardiomyopathy: Code(s): I42.8 - Other cardiomyopathies Status: Acute Assessment and Plan: issues with volume overload with IVFs follow volume status closely PRN diuretics if needed (6) Hyperkalemia: Code(s): E87.5 - Hyperkalemia Status: Acute Assessment and Plan: Potassium is 5.5 today. Will repeat this this afternoon. And treat if it is still high Additional Plan Subjective Date/time seen: 11/02/19 07:09 Interval history: Lakshmi is feeling about the same. Walked in the halls yesterday. Eating okay. Slept well last night Review of Systems Cardiovascular: Cardiovascular: Reports no additional cardiovascular complaints Respiratory: Respiratory: Reports no additional respiratory complaints Gastrointestinal: Gastrointestinal: Reports no additional gastrointestinal complaints Genitourinary: Genitourinary: Reports no additional female genitourinary complaints Exam Narrative: Exam Narrative: General: WD/WN female in NAD Heart: normal S1 and S2; no rub or gallop Lungs: Fairly clear to auscultation Abdomen: soft, nontender, nondistended, positive bowel sounds Extremities: Not much edema Skin: no rash or subcu nodules Objective Data Vital Signs Vital Signs: Vital Signs - 24 hr 11/01/19 08:00 11/01/19 09:40 11/01/19 15:44 Temperature 36.1 C L Pulse Rate 64 64 78 Respiratory Rate 16 18 Blood Pressure 115/98 H Pulse Oximetry 99 11/01/19 16:00 11/01/19 19:39 11/01/19 19:42 Temperature 36.3 C L Pulse Rate 73 72 Respiratory Rate 16 18 Blood Pressure 134/96 H Pulse Oximetry 100 93 11/01/19 19:50 11/01/19 20:51 11/01/19 22:00 Temperature Pulse Rate 74 84 78 Respiratory Rate 18 19 Blood Pressure Pulse Oximetry 94 11/02/19 00:00 11/02/19 02:15 11/02/19 02:25 Temperature 36.6 C Pulse Rate 77 73 74 Respiratory Rate 18 18 18 Blood Pressure 127/46 L Pulse Oximetry 97 11/02/19 06:00 Temperature 36.2 C L Pulse Rate 73 Respiratory Rate 18 Blood Pressure 124/46 L Pulse Oximetry 100 Intake/Output Intake/Output:
[2019-11-02 08:05] LABS: Glucose Point of Care 173 (65-105)
[2019-11-02] MEDS: GABAPENTIN 300 MG CAPSULE PO ×3 (08:45→17:44)
[2019-11-02] MEDS: PHENAZOPYRIDINE HCL 100 MG TABLET 200 MG PO ×3 (08:45→17:44)
[2019-11-02] MEDS: TOLNAFTATE 1% POWDER 45 GM BTL 1 APPLIC TOPICAL ×2 (08:45→21:26)
[2019-11-02] MEDS: buPROPion HCL XL (24 HR) 150 MG TABCR 300 MG PO (08:45)
[2019-11-02] MEDS: ASPIRIN 81 MG ENTERIC TABLET PO (08:45)
[2019-11-02] MEDS: CHOLECALCIFEROL 1,000 UNIT TABLET 1000 UNITS PO (08:45)
[2019-11-02] MEDS: MONTELUKAST SODIUM 10 MG TABLET PO (08:46)
[2019-11-02] MEDS: OMEGA 3 POLYUNSAT FATTY ACIDS 1 GM CAP PO (08:46)
[2019-11-02] MEDS: METOPROLOL SUCCINATE EXT REL 25 MG TABCR PO ×2 (08:50→21:26)
[2019-11-02] MEDS: INSULIN GLARGINE (*BKC) 100 UNITS/ML 65 UNITS SUB-Q (08:52)
[2019-11-02] MEDS: INSULIN ASPART (*BKC) 100 UNITS/ML 8 UNITS SUB-Q ×3 (08:52→17:45)
--- NOTE | 2019-11-02 11:36 | PCDIET ---
Nutrition Follow-Up Complete: Inadequate oral Intake as related to UTI/sepsis as evidenced by poor po intake reported. Adequate Intake of at least 75% of meals/supplements Goal: Goal Met. Continue goal. Pt current nutrition is DBCC+ Glucerna Nutrition recommendation: Agree Last recorded weight is 117.2 kg (down from admit wt of 123.1) Wt loss appropriate Bowel Motility: BM yesterday Labs Reviewed: Hgb 10.2, Hct 32.6, K 5.5, GFR 15, BUN 54, Cr 3.2, PO4 5.8 Meds Noted:Vit D, Insulin Additional Notes: Pt eating 100% of all meals and glucerna. Bowels moving normally. All goals met. Plans for possible d/c today. RD will monitor every 7 days.
[2019-11-02 11:42] LABS: Glucose Point of Care 113 (65-105)
[2019-11-02 12:03] LABS: Add Urine Microscopic? YES; Appearance Urine Clear (Clear); Bacteria Urine Trace /hpf; Bilirubin Urine Negative (Negative); Blood Urine 2+ (Negative); Color Urine Amber (Yellow); Glucose Urine UA 1+ mg/dL (Negative); Ketones Urine Negative (Negative); Leukocyte Esterase Ur 1+ LEU/UL (Negative); Mucus Urine Rare /lpf; Nitrate Urine Positive (Negative); Protein Urine 2+ mg/dL (Negative); Specific Grav Ur 1.013 (1.001-1.035); Squamous Epithelial Cell Urine Rare /hpf (Few); Urobilinogen Urine Negative mg/dL (<2.0); WBC Urine 21-30 /hpf
[2019-11-02 13:47] LABS: Potassium 5.6 mmol/L (3.4-5.0)
--- NOTE | 2019-11-02 14:58 | P.PNIM_ITS ---
Progress Note: A&P Assessment and Plan (1) Urinary tract infection: Qualifiers: Urinary tract infection type: site unspecified Hematuria presence: without hematuria Qualified Code(s): N39.0 - Urinary tract infection, site not specified Code(s): N39.0 - Urinary tract infection, site not specified Status: Acute Assessment and Plan: * Ceftriaxone day 11 * Urine culture growing E coli sensitive to ceftriaxone * Will continue antibiotics since is complicated UTI with stone (2) Acute kidney injury: Code(s): N17.9 - Acute kidney failure, unspecified Status: Acute Assessment and Plan: * Etiology is not entirely clear but is most likely multifactorial (infection, dehydration, drugs, rhabdo) and now possible obstruction with stone * Furosemide, losartan, valsartan, and meloxicam held * She was rehydrated with strict monitoring of I/O. * Renal ultrasound WNL with fatty liver noted * Repeat lab , today creatinine at 3.3 (3) Electrolyte abnormality: Code(s): E87.8 - Other disorders of electrolyte and fluid balance, not elsewhere classified Status: Acute Assessment and Plan: * Including moderate hyponatremia (glucose 349), mild hyperkalemia, and hypochloremia. * As above, received cautious IV fluid rehydration. and electrolytes have corrected Na 137, K 5.5, then 5.6 on repeat * Kayexalate 15gm x 1 * F/u lab in AM. * Renal diet ordered . (4) Metabolic encephalopathy: Code(s): G93.41 - Metabolic encephalopathy Status: Acute Assessment and Plan: * resolved but still intermittently confused probably secondary to underlying infection * 3/4 seems to be at baseline (5) Nonischemic cardiomyopathy: Code(s): I42.8 - Other cardiomyopathies Status: Acute Assessment and Plan: * Echocardiogram in May 2016 showed moderate global left ventricular systolic dysfunction with ejection fraction of 35% grade 3 diastolic dysfunction. * Cardiac catheterization showed no coronary artery abnormalities. * last echo 11/15 EF 40%, and repeat now 30-35 % , ARB and diuretic still on hold . (6) Insulin dependent type 2 diabetes mellitus: Code(s): E11.9 - Type 2 diabetes mellitus without complications; Z79.4 - [facility] ([facility] use of insulin Status: Acute Assessment and Plan: * Hyperglycemic on admission, with random glucose of 349 on arrival. * Metformin on hold given acute kidney injury. * Will continue basal insulin but decrease to 65 U daily 10/29. * initiate sliding scale insulin, Accu-Cheks, and hypoglycemic protocol. * hemoglobin A1c. 7.8. (7) Sepsis: Qualifiers: Sepsis type: sepsis due to unspecified organism Sepsis acute organ dysfunction status: without acute organ dysfunction Qualified Code(s): A41.9 - Sepsis, unspecified organism Code(s): A41.9 - Sepsis, unspecified organism Status: Acute Assessment and Plan: * Present on admission and supported by tachycardia, leukocytosis, and acute kidney injury in the setting of infection. * Lactic acid level was within normal limits. * Blood cultures negative * WBC still up and repeat cxr 10/18 no infiltrates, she has had no diarrhea to suggest cdiff, no fever and BS trending down * wbc still up 10/[address] and pelvis reveal 7 mm proximal stone with mild hydro,? source of WBC * 10/30 urology did cysto with stent placement and found her renal insult from le ft ureteral orifice. Should improve her WB
--- NOTE | 2019-11-02 14:58 | PM.IMPN ---
Progress Note: A&P Assessment and Plan (1) Urinary tract infection: Qualifiers: Urinary tract infection type: site unspecified Hematuria presence: without hematuria Qualified Code(s): N39.0 - Urinary tract infection, site not specified Code(s): N39.0 - Urinary tract infection, site not specified Status: Acute Assessment and Plan: Ceftriaxone day 11 Urine culture growing E coli sensitive to ceftriaxone Will continue antibiotics since is complicated UTI with stone (2) Acute kidney injury: Code(s): N17.9 - Acute kidney failure, unspecified Status: Acute Assessment and Plan: Etiology is not entirely clear but is most likely multifactorial (infection, dehydration, drugs, rhabdo) and now possible obstruction with stone Furosemide, losartan, valsartan, and meloxicam held She was rehydrated with strict monitoring of I/O. Renal ultrasound WNL with fatty liver noted Repeat lab , today creatinine at 3.3 (3) Electrolyte abnormality: Code(s): E87.8 - Other disorders of electrolyte and fluid balance, not elsewhere classified Status: Acute Assessment and Plan: Including moderate hyponatremia (glucose 349), mild hyperkalemia, and hypochloremia. As above, received cautious IV fluid rehydration. and electrolytes have corrected Na 137, K 5.5, then 5.6 on repeat Kayexalate 15gm x 1 F/u lab in AM. Renal diet ordered . (4) Metabolic encephalopathy: Code(s): G93.41 - Metabolic encephalopathy Status: Acute Assessment and Plan: resolved but still intermittently confused probably secondary to underlying infection 3/4 seems to be at baseline (5) Nonischemic cardiomyopathy: Code(s): I42.8 - Other cardiomyopathies Status: Acute Assessment and Plan: Echocardiogram in May 2016 showed moderate global left ventricular systolic dysfunction with ejection fraction of 35% grade 3 diastolic dysfunction. Cardiac catheterization showed no coronary artery abnormalities. last echo 11/15 EF 40%, and repeat now 30-35 % , ARB and diuretic still on hold . (6) Insulin dependent type 2 diabetes mellitus: Code(s): E11.9 - Type 2 diabetes mellitus without complications; Z79.4 - [facility] (current) use of insulin Status: Acute Assessment and Plan: Hyperglycemic on admission, with random glucose of 349 on arrival. Metformin on hold given acute kidney injury. Will continue basal insulin but decrease to 65 U daily 10/29. initiate sliding scale insulin, Accu-Cheks, and hypoglycemic protocol. hemoglobin A1c. 7.8. (7) Sepsis: Qualifiers: Sepsis type: sepsis due to unspecified organism Sepsis acute organ dysfunction status: without acute organ dysfunction Qualified Code(s): A41.9 - Sepsis, unspecified organism Code(s): A41.9 - Sepsis, unspecified organism Status: Acute Assessment and Plan: Present on admission and supported by tachycardia, leukocytosis, and acute kidney injury in the setting of infection. Lactic acid level was within normal limits. Blood cultures negative WBC still up and repeat cxr 10/18 no infiltrates, she has had no diarrhea to suggest cdiff, no fever and BS trending down wbc still up 10/[address] and pelvis reveal 7 mm proximal stone with mild hydro,? source of WBC 10/30 urology did cysto with stent placement and found her renal insult from left ureteral orifice. Should improve her WBC and creatinine 10/31 resolved Subjective Date/time seen: 11/02/19 14:58 Interval history: Wants to go home. Denied pain. Tolerated diet. Only c/o is frequent urination. Exam Narrative: Exam Narrative: HEENT: EOMI, PERRL, NECK: No JVD, adenopathy, CHEST: Clear to auscultation. Normal effort. HEART: NL S1/S2, regular, no murmur ABDOMEN: BS+, soft, nontender, EXTREMITIES: no ankle edema NEUROLOGIC: CN intact and symmetric to inspection. PSYC
[2019-11-02 16:38] LABS: Glucose Point of Care 107 (65-105)
[2019-11-02] MEDS: SODIUM POLYSTYRENE SULFONONATE 15 GM/60 ML BTL PO (17:44)
[2019-11-02] MEDS: SIMVASTATIN 20 MG TABLET 40 MG PO (21:25)
[2019-11-02 21:43] LABS: Glucose Point of Care 129 (65-105)
[2019-11-03] MEDS: IPRATROPIUM BR 0.02% INH SOLN 0.5 MG/2.5 ML VIAL INHALATION (01:50)
[2019-11-03] MEDS: ALBUTEROL SULFATE NEB 2.5 MG/0.5 ML INH 5 MG INHALATION (01:50)
[2019-11-03 01:52] VITALS: PULSE 65; RESP 18
[2019-11-03] MEDS: HEPARIN SODIUM 5,000 UNITS/ML VIAL 5000 UNITS SUB-Q (05:44)
[2019-11-03 06:06] VITALS: BP 113/48; PULSE 69; RESP 16; TEMP 36.2; O2SAT 95
[2019-11-03 06:19] LABS: Hematocrit 31.7 % (37.0-47.0); Mean Corpuscular HGB Conc 31.5 g/dl (32-36); Mean Corpuscular Hemoglobin 29.3 pg (26-34); Mean Platelet Volume 10.9 fl (7.4-10.4); Platelet Count Result 509 k/mm3 (150-375); Red Blood Count 3.41 M/mm3 (4.2-5.4); Red Cell Distribution Width 14.2 % (11.5-14.5)
[2019-11-03 06:35] LABS: Albumin Level 3.5 g/dL (3.5-5.1); Blood Urea Nitrogen 44 mg/dL (7-17); Carbon Dioxide 23 mmol/L (22-30); Chloride 100 mmol/L (98-107); Estimated CRCL calculation 22 ml/min; Estimated Glomerular Filt Rate 15; Glucose 121 mg/dL (65-105); Phosphorus 5.8 mg/dL (2.5-4.5); Potassium 5.1 mmol/L (3.4-5.0); Sodium 138 mmol/L (137-145)
[2019-11-03 08:25] LABS: Glucose Point of Care 119 (65-105)
[2019-11-03] MEDS: INSULIN ASPART (*BKC) 100 UNITS/ML 8 UNITS SUB-Q (08:41)
[2019-11-03 08:42] VITALS: PULSE 70
[2019-11-03] MEDS: MONTELUKAST SODIUM 10 MG TABLET PO (08:42)
[2019-11-03] MEDS: GABAPENTIN 300 MG CAPSULE PO (08:42)
[2019-11-03] MEDS: OMEGA 3 POLYUNSAT FATTY ACIDS 1 GM CAP PO (08:42)
[2019-11-03] MEDS: METOPROLOL SUCCINATE EXT REL 25 MG TABCR PO (08:42)
[2019-11-03] MEDS: CHOLECALCIFEROL 1,000 UNIT TABLET 1000 UNITS PO (08:42)
[2019-11-03] MEDS: PHENAZOPYRIDINE HCL 100 MG TABLET 200 MG PO (08:43)
[2019-11-03] MEDS: ASPIRIN 81 MG ENTERIC TABLET PO (08:43)
[2019-11-03] MEDS: buPROPion HCL XL (24 HR) 150 MG TABCR 300 MG PO (08:43)
[2019-11-03] MEDS: TOLNAFTATE 1% POWDER 45 GM BTL 1 APPLIC TOPICAL (08:43)
[2019-11-03] MEDS: INSULIN GLARGINE (*BKC) 100 UNITS/ML 65 UNITS SUB-Q (08:46)
--- NOTE | 2019-11-03 11:44 | PM.PNNEP ---
Progress Note: A&P Assessment and Plan (1) Acute kidney injury: Code(s): N17.9 - Acute kidney failure, unspecified Status: Acute Assessment and Plan: etiology thought to be multifactorial: - infection/UTI - drugs (diuretics/ARB/NSAIDs) - rhabdomyolysis CK is normal now. - kidney stone obstruction and associated infection creatinine seems to have plateaued - new baseline versus may take more time to improve?? continue supportive therapy (2) Sepsis: Qualifiers: Sepsis type: sepsis due to unspecified organism Sepsis acute organ dysfunction status: without acute organ dysfunction Qualified Code(s): A41.9 - Sepsis, unspecified organism Code(s): A41.9 - Sepsis, unspecified organism Status: Acute Assessment and Plan: as noted on admission clinically better blood cultures were negative. WBC has continued to decline on antibiotics (3) Urinary tract infection: Qualifiers: Urinary tract infection type: site unspecified Hematuria presence: without hematuria Qualified Code(s): N39.0 - Urinary tract infection, site not specified Code(s): N39.0 - Urinary tract infection, site not specified Status: Acute Assessment and Plan: E.coli by culture on antibiotics follow-up on urine culture (4) Nephrolithiasis: Code(s): N20.0 - Calculus of kidney Status: Acute Assessment and Plan: as noted by CT scanof abdomen stent was placed by Urology (5) Nonischemic cardiomyopathy: Code(s): I42.8 - Other cardiomyopathies Status: Acute Assessment and Plan: issues with volume overload with IVFs follow volume status closely PRN diuretics if needed Will continue to follow. Subjective Date/time seen: 11/03/19 11:44 Appears to be doing relatively well since I last saw her; quite anxious to go home; no apparent distress voiced; no issues or events overnight or earlier today to report. Exam Narrative: Exam Narrative: General: WD/WN female in NAD Heart: normal S1 and S2; no rub or gallop Lungs: Fairly clear to auscultation Abdomen: soft, nontender, nondistended, positive bowel sounds Extremities: Not much edema Skin: no rash or subcu nodules Objective Data Vital Signs Vital Signs: Vital Signs Temp Pulse Resp BP Pulse Ox 11/03/19 08:42 70 11/03/19 06:06 36.2 C L 69 16 113/48 L 95 11/03/19 01:52 65 18 11/02/19 21:26 84 11/02/19 20:07 76 18 11/02/19 19:57 92 11/02/19 19:56 71 18 11/02/19 19:32 36.3 C L 73 16 139/45 L 92 11/02/19 17:56 36.3 C L 73 18 117/72 96 11/02/19 16:00 36.3 C L 85 18 138/74 98 11/02/19 15:14 72 18 11/02/19 15:05 95 11/02/19 15:04 73 18 Intake/Output Intake/Output: Intake & Output 10/31/19 11/01/19 11/02/19 11/03/19 23:59 23:59 23:59 23:59 Intake Total 3030 3015 2955 1340 Output Total 4500 1420 3130 825 Balance -1470 1595 -175 515 Meds/Results Medications: Active Medications Generic Name Dose Route Start Last Admin Trade Name Freq PRN Reason Stop Dose Admin Acetaminophen 500 mg 10/23/19 21:00 10/25/19 17:37 Tylenol Tablet PO 500 mg HS PRN Administration Insomnia Hydrocodone Bitart/Acetaminophen 1 tab 10/31/19 15:46 Agate 10-325 Mg PO Q6H PRN Pain, Severe Albuterol 5 mg 10/23/19 20:00 11/03/19 01:50 Albuterol Sulf Neb 2.5mg/0.5ml INHALATION 5 mg Q6HRT KALINA Administration Aspirin 81 mg 10/24/19 09:00 11/03/19 08:43 Aspirin Ec PO 81 mg DAILY KALINA Administration Bupropion HCl 300 mg 10/24/19 09:00 11/03/19 08:43 Wellbutrin Xl (24 Hr) PO 300 mg QAM KALINA Administration Dextrose 12.5 gm 10/23/19 19:18 Dextrose 50% Syringe IV PUSH PRN PRN Hypoglycemia Protocol Diphenhydramine HCl 50 mg 10/23/19 19:24 10/23/19 20:56 Benadryl Cap PO 50 mg Q6H PRN Admi
[2019-11-03 12:05] LABS: Glucose Point of Care 81 (65-105)
--- NOTE | 2019-11-03 13:46 | P.DS_ITS ---
DS: Diagnosis Admitting Diagnosis Admitting Diagnosis: Sepsis, unspecified organism Discharge Diagnosis (1) Urinary tract infection: Qualifiers: Hematuria presence: without hematuria Urinary tract infection type: site unspecified Qualified Code(s): N39.0 - Urinary tract infection, site not specified Code(s): N39.0 - Urinary tract infection, site not specified Status: Acute Assessment and Plan: * Ceftriaxone day 12, add 3 more days of cefdinir as outpatient * Urine culture growing E coli sensitive to ceftriaxone * Will continue antibiotics since is complicated UTI with stone (2) Acute kidney injury: Code(s): N17.9 - Acute kidney failure, unspecified Status: Acute Assessment and Plan: * Etiology is not entirely clear but is most likely multifactorial (infection, dehydration, drugs, rhabdo) and now possible obstruction with stone * Furosemide, losartan, valsartan, and meloxicam held * She was rehydrated with strict monitoring of I/O. * Renal ultrasound WNL with fatty liver noted * Repeat lab , today creatinine at 3.1 (max was 4.3) (3) Electrolyte abnormality: Code(s): E87.8 - Other disorders of electrolyte and fluid balance, not elsewhere classified Status: Acute Assessment and Plan: * Including moderate hyponatremia (glucose 349), mild hyperkalemia, and hypochloremia. * As above, received cautious IV fluid rehydration. and electrolytes have corrected Na 137, K 5.5, then 5.6 on repeat on 11/01; 5.1 on 11/02 * Kayexalate 15gm x 1 on 11/01 * F/u lab in 4 days * Renal diet ordered . (4) Metabolic encephalopathy: Code(s): G93.41 - Metabolic encephalopathy Status: Acute Assessment and Plan: * resolved but still intermittently confused probably secondary to underlying infection * 3/4 seems to be at baseline (5) Nonischemic cardiomyopathy: Code(s): I42.8 - Other cardiomyopathies Status: Acute Assessment and Plan: * Echocardiogram in May 2016 showed moderate global left ventricular systolic dysfunction with ejection fraction of 35% grade 3 diastolic dysfunction. * Cardiac catheterization showed no coronary artery abnormalities. * last echo 11/15 EF 40%, and repeat now 30-35 % , ARB still on hold; resume diuretic at discharge . (6) Insulin dependent type 2 diabetes mellitus: Code(s): E11.9 - Type 2 diabetes mellitus without complications; Z79.4 - director long term care (current) use of insulin Status: Acute Assessment and Plan: * Hyperglycemic on admission, with random glucose of 349 on arrival. * Metformin on hold given acute kidney injury. * Will continue basal insulin but decrease to 60 U daily 10/29. * Continue premeal Novolog 8 U if BS is over 140 * Add pioglitazone * Monitor FBS as outpatient TIDAC and report to PCP * hemoglobin A1c. 7.8. (7) Sepsis: Qualifiers: Sepsis acute organ dysfunction status: without acute organ dysfunction Sepsis type: sepsis due to unspecified organism Qualified Code(s): A41.9 - Sepsis, unspecified organism Code(s): A41.9 - Sepsis, unspecified organism Status: Acute Assessment and Plan: * Present on admission and supported by tachycardia, leukocytosis, and acute kidney injury in the setting of infection. * Lactic acid level was within normal limits. * Blood cultures negative * WBC still up and repeat cxr 10/18 no infiltrates, she has had no diarrhea to suggest cdiff, no fever and BS trending down *
--- NOTE | 2019-11-03 13:46 | PM.DS ---
DS: Diagnosis Admitting Diagnosis Admitting Diagnosis: Sepsis, unspecified organism Discharge Diagnosis (1) Urinary tract infection: Qualifiers: Hematuria presence: without hematuria Urinary tract infection type: site unspecified Qualified Code(s): N39.0 - Urinary tract infection, site not specified Code(s): N39.0 - Urinary tract infection, site not specified Status: Acute Assessment and Plan: Ceftriaxone day 12, add 3 more days of cefdinir as outpatient Urine culture growing E coli sensitive to ceftriaxone Will continue antibiotics since is complicated UTI with stone (2) Acute kidney injury: Code(s): N17.9 - Acute kidney failure, unspecified Status: Acute Assessment and Plan: Etiology is not entirely clear but is most likely multifactorial (infection, dehydration, drugs, rhabdo) and now possible obstruction with stone Furosemide, losartan, valsartan, and meloxicam held She was rehydrated with strict monitoring of I/O. Renal ultrasound WNL with fatty liver noted Repeat lab , today creatinine at 3.1 (max was 4.3) (3) Electrolyte abnormality: Code(s): E87.8 - Other disorders of electrolyte and fluid balance, not elsewhere classified Status: Acute Assessment and Plan: Including moderate hyponatremia (glucose 349), mild hyperkalemia, and hypochloremia. As above, received cautious IV fluid rehydration. and electrolytes have corrected Na 137, K 5.5, then 5.6 on repeat on 11/01; 5.1 on 11/02 Kayexalate 15gm x 1 on 11/01 F/u lab in 4 days Renal diet ordered . (4) Metabolic encephalopathy: Code(s): G93.41 - Metabolic encephalopathy Status: Acute Assessment and Plan: resolved but still intermittently confused probably secondary to underlying infection 3/4 seems to be at baseline (5) Nonischemic cardiomyopathy: Code(s): I42.8 - Other cardiomyopathies Status: Acute Assessment and Plan: Echocardiogram in May 2016 showed moderate global left ventricular systolic dysfunction with ejection fraction of 35% grade 3 diastolic dysfunction. Cardiac catheterization showed no coronary artery abnormalities. last echo 11/15 EF 40%, and repeat now 30-35 % , ARB still on hold; resume diuretic at discharge . (6) Insulin dependent type 2 diabetes mellitus: Code(s): E11.9 - Type 2 diabetes mellitus without complications; Z79.4 - correction (current) use of insulin Status: Acute Assessment and Plan: Hyperglycemic on admission, with random glucose of 349 on arrival. Metformin on hold given acute kidney injury. Will continue basal insulin but decrease to 60 U daily 10/29. Continue premeal Novolog 8 U if BS is over 140 Add pioglitazone Monitor FBS as outpatient TIDAC and report to PCP hemoglobin A1c. 7.8. (7) Sepsis: Qualifiers: Sepsis acute organ dysfunction status: without acute organ dysfunction Sepsis type: sepsis due to unspecified organism Qualified Code(s): A41.9 - Sepsis, unspecified organism Code(s): A41.9 - Sepsis, unspecified organism Status: Acute Assessment and Plan: Present on admission and supported by tachycardia, leukocytosis, and acute kidney injury in the setting of infection. Lactic acid level was within normal limits. Blood cultures negative WBC still up and repeat cxr 10/18 no infiltrates, she has had no diarrhea to suggest cdiff, no fever and BS trending down wbc still up 10/[address] and pelvis reveal 7 mm proximal stone with mild hydro,? source of WBC / urology did cysto with stent placement and found her renal insult from left ureteral orifice. Should improve her WBC and creatinine 3/3 resolved DS: Summary Hospital Course Reason for hospitalization: Weakness Hospital Course: Progressive generalized weakness for the 4 days prior to admission. Found to have urinary infection and acute kidney injury. Treate
== END 2019-11-03 14:52 | disposition home or self-care (01) | DRG 853 ==
LOC: ANHED 12:24 → ANH3MED 14:43 → ANH3MEDSUR 10-24 12:11 → ANH3MED 10-24 12:13 → ANHIMU 10-24 21:44 → ANH3MED 10-27 17:49
PROVIDERS: Internal Medicine; Internal Medicine Nephrology; Physician Assistant; Urology; Admitting Provider Internal Medicine; Emergency Provider General Practice; PCP Physician Assistant; Visit Provider Internal Medicine
PROC: 0T778DZ Dilation of Left Ureter with Intraluminal Device, Via Natural or Artificial Opening Endoscopic (ICD-10-PCS; CPT 52352; principal; 2019-10-31 16:00)
DX: A41.9 Sepsis, unspecified organism (principal); G93.41 Metabolic encephalopathy; Z68.41 Body mass index [BMI] 40.0-44.9, adult; J96.11 Chronic respiratory failure with hypoxia; I42.8 Other cardiomyopathies; N39.0 Urinary tract infection, site not specified; E87.1 Hypo-osmolality and hyponatremia; I13.0 Hypertensive heart and chronic kidney disease with heart failure and stage 1 through stage 4 chronic kidney disease, or unspecified chronic kidney disease; I50.42 Chronic combined systolic (congestive) and diastolic (congestive) heart failure; M62.82 Rhabdomyolysis; N13.2 Hydronephrosis with renal and ureteral calculous obstruction; N18.3 Chronic kidney disease, stage 3 (moderate); E66.01 Morbid (severe) obesity due to excess calories; J44.9 Chronic obstructive pulmonary disease, unspecified; Z99.81 Dependence on supplemental oxygen; E11.42 Type 2 diabetes mellitus with diabetic polyneuropathy; Z79.4 Long term (current) use of insulin; G47.33 Obstructive sleep apnea (adult) (pediatric); E87.5 Hyperkalemia; R65.20 Severe sepsis without septic shock; E87.8 Other disorders of electrolyte and fluid balance, not elsewhere classified; E11.65 Type 2 diabetes mellitus with hyperglycemia; Z86.718 Personal history of other venous thrombosis and embolism; E11.22 Type 2 diabetes mellitus with diabetic chronic kidney disease; M06.9 Rheumatoid arthritis, unspecified; F17.210 Nicotine dependence, cigarettes, uncomplicated; B96.20 Unspecified Escherichia coli [E. coli] as the cause of diseases classified elsewhere; T50.2X5A Adverse effect of carbonic-anhydrase inhibitors, benzothiadiazides and other diuretics, initial encounter; T39.395A Adverse effect of other nonsteroidal anti-inflammatory drugs [NSAID], initial encounter; E86.0 Dehydration; T46.5X5A Adverse effect of other antihypertensive drugs, initial encounter; Z86.19 Personal history of other infectious and parasitic diseases; L40.9 Psoriasis, unspecified
CPT/HCPCS: 36415; 36600; 70450; 71045; 71046; 72125; 74018; 74176; 74420; 76775; 80048; 80053; 80069; 81001; 82375; 82550; 82805; 83036; 83050; 83605; 83690; 83735; 83880; 84100; 84132; 84443; 84484; 85025; 85027; 85055; 85610; 85730; 87040; 87077; 87081; 87086; 87088; 87186; 93005; 94002; 94003; 94640; 94660; 96365; 97110; 97116; 97161; 97165; 97530; 97535; 99285; A9270; C1769; C2617; C8929; J0131; J0696; J1644; J1815; J2250; J2405; J2704; J3010; J7120; Q9957

== ENCOUNTER → 2019-11-09 08:42 | Outpatient (CLI) | payer MEDICARE, SELFPAY ==
--- NOTE | ~2019-11-09 | XR_ITS ---
XR knee RT 2V DATE: 11/09/2019 09:23 INDICATION: Bilateral chronic knee pain TECHNIQUE: AP and lateral views COMPARISON: 11/07/2016 right knee FINDINGS: There is varus angulation. There is severe hypertrophic osteoarthritic spurring and joint s pace narrowing at the patellofemoral joint and severe joint space narrowing and spurring at the media l compartment. There is prominent periarticular spurring at the lateral compartment. Loose body at suprapatellar bursa. No fracture, dislocation, periosteal reaction or bone destruction is evident. IMPRESSION: Severe osteoarthritic changes at the patellofemoral and medial compartments and moderatel y prominent osteoarthritic change at the lateral compartment Reviewed, dictated and finalized at location A. IMPRESSION: Severe osteoarthritic changes at the patellofemoral and medial comp artments and moderately prominent osteoarthritic change at the lateral compartm ent
--- NOTE | ~2019-11-09 | XR_ITS ---
XR knee LT 2V DATE: 11/09/2019 09:23 INDICATION: Chronic bilateral knee pain TECHNIQUE: AP and lateral views COMPARISON: 05/04/2019 left knee FINDINGS: There is severe hypertrophic osteoarthritic spurring and joint space narrowing at the [place] lofemoral joint. There is severe osteoarthritis at the medial compartment and moderately prominent os teoarthritis at the lateral compartment. Resolution of joint effusion since 05/04/2019. No fracture, dislocation, periosteal reaction or bone destruction or chondrocalcinosis is evident. IMPRESSION: Severe osteoarthritis at patellofemoral and medial compartments, moderately severe osteoa rthritis at lateral compartment Reviewed, dictated and finalized at location A. IMPRESSION: Severe osteoarthritis at patellofemoral and medial compartments, mo derately severe osteoarthritis at lateral compartment
--- NOTE | ~2019-11-09 | XR_ITS ---
XR lumbar spine 2-3V DATE: 11/09/2019 09:23 INDICATION: Chronic back pain, radiculopathy TECHNIQUE: AP, lateral, coned lateral lumbosacral views COMPARISON: 10/30/2019 CT abdomen pelvis noncontrast examination FINDINGS: Calcified gallstone is noted overlying the right upper quadrant. Calcified left renal pelvi c stone is noted and left internal urinary stent. Normal alignment of the lumbar spine. No fracture, bone destruction or spondylolisthesis. The lumbar pedicles are intact. There is mild degenerative spurring of the lumbar spine but the lumbar and lumbo sacral interspaces are well preserved. The sacroiliac joints are normal. IMPRESSION: Mild degenerative change of the lumbar spine Left internal urinary stent; calcified left ureteropelvic junction stone Cholelithiasis Reviewed, dictated and finalized at location A.
== END ==
PROVIDERS: PCP Pain Medicine Interventional Pain Medicine
DX: G89.4 Chronic pain syndrome (principal); M54.17 Radiculopathy, lumbosacral region; Z96.0 Presence of urogenital implants; N20.1 Calculus of ureter; K80.20 Calculus of gallbladder without cholecystitis without obstruction; M17.0 Bilateral primary osteoarthritis of knee
CPT/HCPCS: 72100; 73560

== ENCOUNTER 2020-01-16 13:07 | Outpatient (CLI) | payer MEDICARE, MEDICAID, SELFPAY ==
[2020-01-16 13:47] LABS: INR 1.1; Prothrombin Time 13.5 Seconds (11.1-14.7)
[2020-01-16 13:48] LABS: Partial Thromboplastin Time 34.2 SECONDS (22.3-36.8)
[2020-01-16 13:58] LABS: Blood Urea Nitrogen 26 mg/dL (7-17); Calcium 11.3 mg/dL (8.4-10.2); Carbon Dioxide 27 mmol/L (22-30); Chloride 101 mmol/L (98-107); Estimated Glomerular Filt Rate 17; Glucose 63 mg/dL (65-105); Potassium 4.9 mmol/L (3.4-5.0); Sodium 137 mmol/L (137-145)
== END 2020-01-16 13:08 | disposition home or self-care (01) ==
LOC: ANHSURGERY 13:12
PROVIDERS: Anesthesiology; PCP Physician Assistant; Visit Provider Urology
DX: Z01.818 Encounter for other preprocedural examination (principal); N20.0 Calculus of kidney; E11.9 Type 2 diabetes mellitus without complications; Z79.4 Long term (current) use of insulin
CPT/HCPCS: 36415; 80048; 85610; 85730; 87077; 87086; 87088

== ENCOUNTER 2020-01-17 00:11 | Outpatient (CLI) | payer MEDICARE, MEDICAID, SELFPAY ==
[2020-01-17 18:40] LABS: SARS-CoV-2 RNA PCR Negative
== END 2020-01-17 00:12 | disposition home or self-care (01) ==
LOC: ANHCOVIDDT 00:11
PROVIDERS: PCP Physician Assistant; Visit Provider Urology
DX: Z01.812 Encounter for preprocedural laboratory examination (principal); Z20.828 Contact with and (suspected) exposure to other viral communicable diseases
CPT/HCPCS: 87635; C9803; U0003

== ENCOUNTER 2020-01-20 01:01 | Day surgery (SDC) | payer MEDICARE, MEDICAID, SELFPAY ==
[2020-01-13 15:30] VITALS: BMI 43.4
[2020-01-20] VITALS (7 sets, daily range): BP systolic 108–123; BP diastolic 49–68; PULSE 75–88; RESP 15–18; TEMP 36.5–36.6; O2SAT 92–99
--- NOTE | ~2020-01-20 | XR_ITS ---
XR abdomen/kub 1V DATE: 01/20/2020 08:52 INDICATION: Lithotripsy, left sided stone TECHNIQUE: AP projection, 2 views COMPARISON: 10/30/2019 KUB FINDINGS: There is a left internal urinary stent, proximal pigtail overlying the left kidney, distal pigtail overlying the left base of the urinary bladder. There is an approximately 4 x 8 mm calcified stone at the proximal left ureter at the L3 level. There is an approximately 6.5 mm calcified gallstone overlying the right upper abdomen, consistent wi th gallstone documented on 10/30/2019 CT abdomen pelvis examination. No bowel obstruction is evident. IMPRESSION: Proximal left ureteral calcified calculus; left internal urinary calculus Cholelithiasis Reviewed, dictated and finalized at Location A. Reviewed, dictated and finalized at location A. IMPRESSION: Proximal left ureteral calcified calculus; left internal urinary ca lculus Cholelithiasis
--- NOTE | 2020-01-20 07:30 | WPDHPUPDATE1 ---
History and Physical Update Update Date/Time: 01/20/20 07:30 History and Physical has been reviewed, including an updated exam of the patient. There are NO changes in the patient's condition. Risks, benefits, and alternatives have been discussed and questions answered. Patient agrees to proceed with procedure.
[2020-01-20 09:25] LABS: Glucose Point of Care 135 (65-105)
[2020-01-20] MEDS: LACTATED RINGERS 1,000 ML 30 ML IV CONT ×2 (09:30→12:10)
--- NOTE | 2020-01-20 10:24 | WPDANESEPPF ---
Anes - Initial Pre Proc Eval Procedure: Operation Date: 01/20/20 10:45 Proposed Procedures p Left Extracorporeal Shock Wave Lithotripsy - Chester Mcknight MD Date/Time: 01/20/20 10:24 Surgeon: Chester Mcknight MD Pre Op Diagnosis: Ureteral Stone Patient Data Age: 64 Gender: F Height: 1.66 m Weight: 116.2 kg Last Vital Signs Temp 36.5 C 01/20/20 09:04 Pulse 88 01/20/20 09:04 Resp 18 01/20/20 09:04 BP 110/60 01/20/20 09:04 Pulse Ox 99 01/20/20 09:04 Allergies Allergy/AdvReac Type Severity Reaction Status Date / Time ibuprofen Allergy Unknown skin Verified 01/20/20 09:38 changes Sulfa (Sulfonamide AdvReac Unknown Itching Verified 01/20/20 09:38 Antibiotics) Home Medications Medication Instructions Recorded Confirmed Type albuterol sulfate 90 mcg/actuation 1 inhalation INHALATION Q4H PRN 07/27/19 01/13/20 History aerosol inhaler bupropion HCl 300 mg 24 hr tablet, 300 mg PO QAM 07/27/19 01/13/20 History extended release gabapentin 300 mg capsule 300 mg PO TID 07/27/19 01/13/20 History hydrocodone 10 mg-acetaminophen 1 tablet PO Q6H PRN 07/27/19 01/13/20 History 325 mg tablet montelukast 10 mg tablet 10 mg PO DAILY 07/27/19 01/13/20 History aspirin 81 mg tablet,delayed 81 mg PO DAILY 08/01/19 01/13/20 History release cholecalciferol (vitamin D3) 25 1,000 unit PO DAILY 08/01/19 01/13/20 History mcg (1,000 unit) capsule lurasidone 120 mg tablet 120 mg PO DAILY 08/01/19 01/13/20 History tolnaftate 1 applic TOPICAL Q12HR #0 g 11/03/19 01/13/20 Rx insulin degludec 100 unit/mL (3 50 unit SUBCUT QPM 90 Days #45 ml 12/08/19 01/13/20 Rx mL) subcutaneous pen pen needle, diabetic 31 gauge x #30 each 12/08/19 12/08/19 History 516 simvastatin 40 mg tablet 40 mg PO QPM tablet 12/08/19 01/13/20 History blood sugar diagnostic #300 each 12/21/19 Rx duloxetine 60 mg PO DAILY 01/13/20 01/13/20 History fluticasone furoate-vilanterol 1 inh INHALATION DAILY 01/13/20 01/13/20 History [Breo Ellipta] furosemide 40 mg PO DAILY 01/13/20 01/13/20 History icosapent ethyl [Vascepa] 2 g PO BID 01/13/20 01/13/20 History insulin aspart U-100 [Novolog 40 unit SUBCUT TID 01/13/20 01/13/20 History Flexpen U-100 Insulin] losartan 100 mg PO DAILY 01/13/20 01/13/20 History metformin 500 mg PO DAILY 01/13/20 01/13/20 History carvedilol 6.25 mg tablet 6.25 mg PO BID #60 tablet 01/16/20 01/20/20 Rx Laboratory Tests 01/20/20 09:22 POC Capillary Glucose 135 mg/dl H mg/dl (65-105) Patient hx anesthesia problems: none Family hx anesthesia problems: none PMFSH Social History Social History Social History: The patient lives in [place] with her brother and his girlfriend. She has smoked as many as a pack of cigarettes per day, and now smokes about a half pack a day. She denies alcohol and drug abuse. She wishes to be a full code. Smoking packs per day: 0.5 Smoking cigarettes per day: 10.0 Years smoked: 52 Smoking pack-years: 26.00 Smoking status: Current every day smoker Second hand tobacco smoke exposure: Yes Gender identity (if verbalized by the patient): Female Spiritual care concerns: No Agree to blood products: Yes Anes - Eval Final PreProcedure Day of Procedure 01/20/20 10:24 Patient weight: morbidly obese Heart: regular rate and rhythm Lungs: clear to auscultation and normal air movement Airway: Mallampati scale class II Neurological: alert and oriented Last oral intake: >/= 8 hours ASA classification: IV Emergent: no Anesthetic plan: proceed Anesthesia type and monitoring: general LMA Informed Consent: The patient's anesthetic plan and its attendant risks and benefits were discussed with the patient/family/POA. Questions were solicited and answers provided to the satisfaction of the patient/family/POA.
[2020-01-20] MEDS: ceFAZolin 2 GM/D5W 50 ML 2 GM/50 ML BAG IVPB (11:16)
--- NOTE | 2020-01-20 12:09 | PM.PROC ---
Procedure Note - Detailed Date of procedure: 01/20/20 Pre-op diagnosis: Ureteral Stone Post-op diagnosis: same Procedure performed: Left extracorporeal shockwave lithotripsy Description of procedure: She was correctly identified and informed consent is obtained. She is from the operating room. She was given general anesthesia. The stone was targeted fluoroscopy. It was clearly visible in the left proximal ureter. The stent was in place. We delivered lithotripsy. Total of 2500 shocks. Power level up to 4. There was excellent fragmentation of the stone. She is awakened and transferred to the PACU in stable condition. Implants: None Anesthesia: GLMA Surgeon: Chester Mcknight MD Estimated blood loss (mL): 0 Drains: No Packing: No Pathology: none sent Complications: No immediate complications Condition: stable
[2020-01-20 12:27] LABS: Glucose Point of Care 103 (65-105)
== END 2020-01-20 13:49 | disposition home or self-care (01) ==
PROVIDERS: PCP Physician Assistant; Visit Provider Urology
PROC: (CPT 50590; principal; 2020-01-20 10:45)
DX: N20.1 Calculus of ureter (principal); I13.0 Hypertensive heart and chronic kidney disease with heart failure and stage 1 through stage 4 chronic kidney disease, or unspecified chronic kidney disease; I50.40 Unspecified combined systolic (congestive) and diastolic (congestive) heart failure; N18.3 Chronic kidney disease, stage 3 (moderate); J96.11 Chronic respiratory failure with hypoxia; J44.9 Chronic obstructive pulmonary disease, unspecified; E11.40 Type 2 diabetes mellitus with diabetic neuropathy, unspecified; E11.22 Type 2 diabetes mellitus with diabetic chronic kidney disease; M10.9 Gout, unspecified; F32.9 Major depressive disorder, single episode, unspecified; E78.5 Hyperlipidemia, unspecified; I42.8 Other cardiomyopathies; G47.33 Obstructive sleep apnea (adult) (pediatric); M06.9 Rheumatoid arthritis, unspecified; D64.9 Anemia, unspecified; L40.9 Psoriasis, unspecified; Z86.718 Personal history of other venous thrombosis and embolism; Z86.19 Personal history of other infectious and parasitic diseases; Z79.82 Long term (current) use of aspirin; Z79.4 Long term (current) use of insulin; Z79.84 Long term (current) use of oral hypoglycemic drugs; F17.210 Nicotine dependence, cigarettes, uncomplicated; E66.01 Morbid (severe) obesity due to excess calories; Z68.41 Body mass index [BMI] 40.0-44.9, adult
CPT/HCPCS: 50590; 36415; 74018; 80048; 85610; 85730; 87077; 87086; 87088; A9270; J0690; J2250; J2370; J2405; J2704; J3010; J7120

== ENCOUNTER 2020-02-09 09:13 | Outpatient (CLI) | payer MEDICARE, MEDICAID, SELFPAY ==
--- NOTE | ~2020-02-09 | XR_ITS ---
XR abdomen/kub 1V 02/09/2020 09:34 Indication: Left ureteral stone Procedure: KUB Comparison: 01/20/2020 Findings: Left internal ureteral stent in expected position. There is a right renal stone measuring 9 mm. Bowel gas pattern is nonobstructive. No acute osseous abnormality. Impression: 1: Right nephrolithiasis. Reviewed, dictated and finalized at location A. Impression: 1: Right nephrolithiasis.
== END 2020-02-09 09:14 | disposition home or self-care (01) ==
PROVIDERS: PCP Physician Assistant; Visit Provider Urology
DX: N20.1 Calculus of ureter (principal); N20.0 Calculus of kidney
CPT/HCPCS: 74018

== ENCOUNTER 2020-06-07 15:33 | Outpatient (RCR) | payer MEDICARE, MEDICAID, SELFPAY | END 2020-08-27 15:57 | disposition home or self-care (01) | LOC: ANHDMC 15:33 | PROVIDERS: PCP Physician Assistant; Visit Provider Physician Assistant | DX: E11.65 Type 2 diabetes mellitus with hyperglycemia (principal); E11.22 Type 2 diabetes mellitus with diabetic chronic kidney disease; E11.40 Type 2 diabetes mellitus with diabetic neuropathy, unspecified | CPT/HCPCS: 99199 ==

== ENCOUNTER 2020-11-21 16:51 | Emergency (ER) | payer MEDICARE, MEDICAID, SELFPAY ==
--- NOTE | ~2020-11-21 | XR_ITS ---
XR hip RT min 2V DATE: 11/21/2020 17:27 INDICATION: Right lateral hip pain following a fall last week TECHNIQUE: AP and lateral views of right hip COMPARISON: None FINDINGS: Osteopenia. Normal alignment at the pubic symphysis and right sacroiliac joint. No fracture, dislocation, avascular necrosis or bone destruction of the right hip is evident. Right h ip joint space is relatively preserved. IMPRESSION: Osteopenia; no fracture or dislocation of the right hip Reviewed, dictated and finalized at location B.
[2020-11-21 17:09] VITALS: BP 141/74; PULSE 111; RESP 16; TEMP 37.2; O2SAT 97
--- NOTE | 2020-11-21 17:10 | ED.GENADULT ---
HPI - General Adult General Chief complaint: Extremity Injury, Lower Stated complaint: right hip pain Time Seen by Provider: 11/21/20 17:10 Source: patient and RN notes reviewed Mode of arrival: ambulatory Limitations: no limitations History of Present Illness HPI narrative: 65-year-old female presents with complaints of right hip pain for the past 6 days. Lakshmi reports falling down 4 concert steps landing on RT hip and buttock causing pain. Vicodin last on 11/19/20 and ice without relief. Denies radiation of pain. No numbness or tingling or bleeding. No swelling. No loss of mobility. Exacerbating factor consist of being weight and movement. No relieving factors. Remains active. The patient reports she was diagnosed with COVID-19 October 2020, no recent symptoms. The patient reports she is not waiting for the results of a COVID-19 lab test. The patient reports she do not have fever, chills, weakness, or fatigue. The patient reports she do not have a new or worsening cough or shortness of breath. Denies chest pain. The patient reports she do not have any rhinorrhea, congestion, sore throat, loss of taste and/or smell, nausea, vomiting, abdominal pain, and diarrhea. Tolerating po intake well. Denies concerns for COVID-19 or exposures been home with limited outdoor exposure except for essential household needs and return home. At this time, patient is not suspected of having COVID-19. Some parts of this dictation were generated by voice recognition software and may contain typographical and/or grammatical inaccuracies. Related Data Home Medications Medication Instructions Recorded Confirmed gabapentin 300 mg capsule 300 mg PO TID 07/27/19 11/21/20 hydrocodone 10 mg-acetaminophen 1 tablet PO Q6-8H PRN 07/27/19 11/21/20 325 mg tablet montelukast 10 mg tablet 10 mg PO DAILY 07/27/19 11/21/20 aspirin 81 mg tablet,delayed 81 mg PO DAILY 08/01/19 11/21/20 release cholecalciferol (vitamin D3) 25 1,000 unit PO DAILY 08/01/19 11/21/20 mcg (1,000 unit) capsule lurasidone 120 mg tablet 120 mg PO DAILY 08/01/19 11/21/20 pen needle, diabetic 31 gauge x #30 each 04/09/20 08/12/20 5/16 simvastatin 40 mg tablet 40 mg PO QPM tablet 12/08/19 11/21/20 Breo Ellipta 1 inh INHALATION DAILY 01/13/20 11/21/20 duloxetine 60 mg PO DAILY 01/13/20 11/21/20 icosapent ethyl [Vascepa] 2 g PO BID 01/13/20 11/21/20 tolnaftate 1 % topical powder 1 applic TOPICAL Q12HR PRN g 11/12/20 11/21/20 allopurinol 300 mg PO DAILY 11/21/20 11/21/20 bupropion HCl 200 mg PO BID 11/21/20 11/21/20 carvedilol 6.25 mg PO BID 11/21/20 11/21/20 cyclobenzaprine 10 mg PO Q8-12H PRN 11/21/20 11/21/20 Allergies Allergy/AdvReac Type Severity Reaction Status Date / Time ibuprofen Allergy Unknown skin Verified 04/11/20 13:56 changes Sulfa (Sulfonamide AdvReac Unknown Itching Verified 04/11/20 13:56 Antibiotics) Review of Systems Review of Systems: Narrative: CONSTITUTIONAL: Denies fever, chills, sweats. EYES: Denies visual changes, redness, discharge. ENT: Denies rhinorrhea, congestion, sore throat, otalgia. CARDIOVASCULAR: Denies chest pain, palpitations, edema. RESPIRATORY: Denies dyspnea, wheezing, cough. GASTROINTESTINAL: Denies abdominal pain, nausea, vomiting, diarrhea. SKIN: Denies rash or itching. MUSCULOSKELETAL: Denies acute back pain or myalgia. Complains of Right hip pain. NEUROLOGIC: Denies numbness or focal weakness. PSYCHIATRIC: Denies anxiety or depression. All systems reviewed & are unremarkable except as noted in HPI and below. [facility] Past Medical History Medical History (Updated 11/21/20 @ 17:44 by LAKIA Cleaning) Anemia Arthritis Chronic kidney disease, stage 3 Baseline creatinine appears to be about 1.10. Chronic respiratory failure with hypoxia Combined systolic and diastolic congestive heart failure Echocardiogram in May 2016 showed moderate enlargement of the left ventricular cavity, moderate global
[2020-11-21 17:12] VITALS: BP 141/74; PULSE 111; RESP 16; TEMP 37.2; O2SAT 97
[2020-11-21 17:51] VITALS: PULSE 94
== END 2020-11-21 17:51 | disposition home or self-care (01) ==
PROVIDERS: Emergency Provider Nurse Practitioner Family; PCP Physician Assistant
DX: M25.551 Pain in right hip (principal); M85.851 Other specified disorders of bone density and structure, right thigh; F17.210 Nicotine dependence, cigarettes, uncomplicated; M19.90 Unspecified osteoarthritis, unspecified site; I13.0 Hypertensive heart and chronic kidney disease with heart failure and stage 1 through stage 4 chronic kidney disease, or unspecified chronic kidney disease; E11.22 Type 2 diabetes mellitus with diabetic chronic kidney disease; N18.30 Chronic kidney disease, stage 3 unspecified; I50.9 Heart failure, unspecified; J44.9 Chronic obstructive pulmonary disease, unspecified; F32.9 Major depressive disorder, single episode, unspecified; E11.42 Type 2 diabetes mellitus with diabetic polyneuropathy; M10.9 Gout, unspecified; G47.33 Obstructive sleep apnea (adult) (pediatric); M06.9 Rheumatoid arthritis, unspecified; E78.5 Hyperlipidemia, unspecified; Z79.4 Long term (current) use of insulin
CPT/HCPCS: 73502; 99213; G0463

== ENCOUNTER 2020-12-27 12:53 | Outpatient (CLI) | payer MEDICARE, MEDICAID, SELFPAY ==
--- NOTE | 2020-12-27 13:27 | ECHO_ITS ---
Patient Info Name: Lakshmi Fry Age: 65 years : 1955 Gender: Female Ht: 65 in Wt: 269 lbs BSA: 2.43 m2 BP: 119 / 69 mmHg Technical Quality: Poor Exam Date: 12/27/2020 1:46 PM Exam Location: [facility] Patient Status: Outpatient Admit Date: 12/27/2020 Staff Ordering Physician: Hever Cobos DO Mechanical Technologist: Nakita Corona RDCS Attending Provider: Hever Cobos DO Referring Physician: Papito MANE; Exam Type: CA echo dop color flow w con Study Info Indications I50.42 - Chronic combined systolic (congestive) and diastolic (congestive) heart failure Complete two-dimensional, color flow and Doppler transthoracic echocardiogram is performed with contrast to opacify the left ventricle and to improve the deliniation of the left ventricle endocardial borders. Contrast/Agitated Saline Contrast/Ag. Saline: Definity Amount: 2.00 ml Administered By: Naomy Lazaro RN Site Condition: No extravasation and IV removed Reason for Poor Study: poor echocardiographic windows Summary 1. Left ventricular chamber dimension is moderately enlarged. 2. Definity contrast administered improved wall motion interpretation. 3. Left ventricular systolic function is moderately reduced, estimated at 40-45%. 4. Left ventricular septal wall motion is abnormal with septal motion related to bundle branch block. 5. The left ventricular diastolic function is grade I diastolic dysfunction. 6. E/e' 11 is mildly elevated. 7. There is mild aortic valve sclerosis. 8. No pulmonary hypertension, estimated pulmonary arterial systolic pressure is 32 mmHg. Left Ventricle E/e' 11 is mildly elevated. Definity contrast administered improved wall motion interpretation. Left ventricular chamber dimension is moderately enlarged. Left ventricular systolic function is moderately reduced, estimated at 40-45%. Left ventricular septal wall motion is abnormal with septal motion related to bundle branch block. The left ventricular diastolic function is grade I diastolic dysfunction. Right Ventricle Right ventricular systolic function is normal with normal TAPSE 2.3 cm. Right ventricular chamber dimension is normal. Left Atria Left atrial chamber dimension is normal. Right Atria Right atrial chamber dimension is normal. Aortic Valve The aortic valve is probable trileaflet. There is mild aortic valve sclerosis. There is no aortic valve stenosis. There is no aortic valve regurgitation. Pulmonic Valve There is no pulmonic regurgitation. Mitral Valve There is no mitral valve stenosis. There is no mitral valve regurgitation. Tricuspid Valve There is no tricuspid valve regurgitation. No pulmonary hypertension, estimated pulmonary arterial systolic pressure is 32 mmHg. Pericardium/Pleural There is no pericardial effusion. Inferior Vena Cava Normal inferior vena cava with >50% collapse upon inspiration consistent with normal right atrial pressure, 5 mmHg. Aorta The aortic root size at the sinus of Valsalva is not well visualized. Left Ventricular Outflow Tract Name Value Normal LVOT 2D LVOT Diameter 2.00 cm LVOT Doppler
== END 2020-12-27 12:54 | disposition home or self-care (01) ==
PROVIDERS: PCP Physician Assistant; Visit Provider Internal Medicine Cardiovascular Disease
DX: I50.42 Chronic combined systolic (congestive) and diastolic (congestive) heart failure (principal); I35.8 Other nonrheumatic aortic valve disorders
CPT/HCPCS: C8929

== ENCOUNTER 2021-02-22 03:09 | Inpatient (IN) | payer MEDICARE, MEDICAID, SELFPAY ==
[2021-02-22] VITALS (23 sets, daily range): BP systolic 94–152; BP diastolic 52–83; PULSE 97–124; RESP 24–31; TEMP 36.8–39.4; O2SAT 93–100
--- NOTE | ~2021-02-22 | CT_ITS ---
EXAMINATION: CT brain wo con DATE: 02/22/2021 16:28 INDICATION: Confusion. Right hemiparesis. TECHNIQUE: Computed tomography (CT) of the head was performed without intravenous contrast. The mA wa s adjusted according to patient size. Iterative reconstruction technique was employed. The dose-lengt h product was 605.33 mGy-cm. COMPARISON: Head CT 10/23/2019 FINDINGS: There are scattered areas of low attenuation in the cerebral white matter. There is no intr acranial hemorrhage, acute infarction, or abnormal intracranial mass lesion. The ventricles are celestina l in size. There is mild mucosal thickening in the ethmoid sinuses. The orbits are normal. The mastoi d air cells are normal. IMPRESSION: 1. Stable mild nonspecific cerebral white matter disease, which likely represents chronic small vesse l ischemic disease. Reviewed, dictated and finalized at location A. IMPRESSION: 1. Stable mild nonspecific cerebral white matter disease, which likely represen ts chronic small vessel ischemic disease.
--- NOTE | ~2021-02-22 | XR_ITS ---
EXAMINATION: XR chest 1V portable DATE: 02/22/2021 03:52 INDICATION: Weakness TECHNIQUE: frontal view of the chest was obtained. COMPARISON: Chest radiograph dated 10/28/2019 FINDINGS: The lungs are clear with no focal airspace opacities, pulmonary edema, pleural effusion or pneumothor ax. The cardiomediastinal silhouette is normal accounting for slight rightward rotation of the patien t. Visualized bones and soft tissues are unremarkable. IMPRESSION: 1. No acute cardiopulmonary disease. Reviewed, dictated and finalized at location A.
--- NOTE | 2021-02-22 03:22 | ED.WEAKNESS ---
HPI - Weakness General Chief complaint: Weakness Stated complaint: LETHARGY, GLF X 2, NOT FEELING WELL History of Present Illness HPI Narrative: 65 yo female w/ h/o htn, DM, psoriasis presents to the ED for weakness. She reports that she has not been feeling well for the past 3 days. She has felt increasingly weak and tired. She has had 2 falls. She also endorses urinary frequency. Her blood sugar has been running in the high 300s. No chest pain, SOB. Related Data Home Medications Medication Instructions Recorded Confirmed gabapentin 300 mg capsule 300 mg PO TID 07/27/19 12/24/20 hydrocodone 10 mg-acetaminophen 1 tablet PO Q6-8H PRN 07/27/19 12/24/20 325 mg tablet montelukast 10 mg tablet 10 mg PO DAILY 07/27/19 12/24/20 aspirin 81 mg tablet,delayed 81 mg PO DAILY 08/01/19 12/24/20 release cholecalciferol (vitamin D3) 25 1,000 unit PO DAILY 08/01/19 12/24/20 mcg (1,000 unit) capsule lurasidone 120 mg tablet 120 mg PO DAILY 08/01/19 12/24/20 pen needle, diabetic 31 gauge x #30 each 12/08/19 12/24/20 5/16 simvastatin 40 mg tablet 40 mg PO QPM tablet 12/08/19 12/24/20 Breo Ellipta 1 inh INHALATION DAILY 01/13/20 12/24/20 duloxetine 60 mg PO DAILY 01/13/20 12/24/20 icosapent ethyl [Vascepa] 2 g PO BID 01/13/20 12/24/20 tolnaftate 1 % topical powder 1 applic TOPICAL Q12HR PRN g 11/12/20 12/24/20 allopurinol 300 mg PO DAILY 11/21/20 12/24/20 bupropion HCl 200 mg PO BID 11/21/20 12/24/20 carvedilol 6.25 mg PO BID 11/21/20 12/24/20 cyclobenzaprine 10 mg PO Q8-12H PRN 11/21/20 12/24/20 Allergies Allergy/AdvReac Type Severity Reaction Status Date / Time ibuprofen Allergy Unknown skin Verified 12/24/20 10:15 changes Sulfa (Sulfonamide AdvReac Unknown Itching Verified 12/24/20 10:15 Antibiotics) Review of Systems Review of Systems: All systems reviewed & are unremarkable except as noted in HPI and below Constitutional: Constitutional: Reports chills, Reports fatigue, Reports fever(s) and Reports weakness Eyes: Eyes: Reports no additional eye complaints ENT: Denies sore throat Cardiovascular: Cardiovascular: Denies chest pain Respiratory: Respiratory: Denies dyspnea Gastrointestinal: Gastrointestinal: Denies abdominal pain and Denies vomiting Genitourinary: Genitourinary: Denies hematuria, Reports nocturia and Denies dysuria Neurologic: Denies dizziness and Denies numbness [facility] Past Medical History Medical History Anemia Arthritis Chronic kidney disease, stage 3 Baseline creatinine appears to be about 1.10. Chronic respiratory failure with hypoxia Combined systolic and diastolic congestive heart failure Echocardiogram in May 2016 showed moderate enlargement of the left ventricular cavity, moderate global left ventricular systolic dysfunction, ejection fraction of 35%, and grade 3 diastolic dysfunction. COPD (chronic obstructive pulmonary disease) Depression Diabetic peripheral neuropathy Gout Hepatitis C History of DVT (deep vein thrombosis) Hyperkalemia Hyperlipidemia Hypertension Insulin dependent type 2 diabetes mellitus With diabetic peripheral neuropathy Morbid obesity Nonischemic cardiomyopathy Cardiac catheterization December 10, [address] Emmanuel Boyd showed right coronary dominant circulation with no significant coronary disease. Obstructive sleep apnea on CPAP Psoriasis Rheumatoid arthritis Tobacco dependence Surgical History Surgical History History of cardiac catheterization Cardiac catheterization December 10, [address] Emmanuel Boyd showed right coronary dominant circulation with no significant coronary disease. History of dilatation and curettage History of lithotripsy Status post tubal ligation Family History Family History Father Cerebrovascular accident Hypertension Mother Fami
--- NOTE | 2021-02-22 03:23 | PC.NURSE ---
Pt presents to ED with complaints of weakness for the past couple of days . Pt denies nvd, fever, chills, chest pain, and sob. Breathing noted to be even and unlabored on room air with saturation of 96% Per EMS, pt blood sugar was in the 400s. Pt complains of urinary frequency but states she takes water pills . EDMD presented to bedside. Pt states she has fallen x2 since midnight. Pt in no obvious distress with stable vitals and denies all pain and discomfort at this time. Call button and personal items within reach. Pt advised to press call button for assistance. EKG completed during triage.
--- NOTE | 2021-02-22 03:28 | ECG_ITS ---
SINUS OR ECTOPIC ATRIAL TACHYCARDIA LEFT AXIS DEVIATION INTRAVENTRICULAR CONDUCTION DELAY POOR R WAVE PROGRESSION, CONSIDER ANTERIOR INFARCT INFERIOR INFARCT, AGE INDETERMINATE BORDERLINE ST-T WAVE ABNORMALITY- HIGH LATERAL LEADS BASELINE ARTIFACT- I, II, AVR, AVL, V1-V6 ABNORMAL ECG Electronically Signed On 02-27-2021 14:01:58 CDT by Hever Cobos D.O. COMPARED TO ECG 10/26/2019 09:03:17 LEFT-AXIS DEVIATION NOW PRESENT MTDD
[2021-02-22] MEDS: SODIUM CHLORIDE 0.9% IV 500 ML 999 ML IV CONT ×3 (03:34→16:24)
--- NOTE | 2021-02-22 03:55 | PC.NURSE ---
CXR completed at bedside. Pt resting on cart in its lowest position with call button and personal items within reach. Pt advised to press call button for assistance.
[2021-02-22 03:57] LABS: Basophils Absolute Auto 0.1 K/mm3 (0.0-0.1); Basophils Percent Auto 0.4 % (0.2-1.2); Eosinophils Percent Auto 0.1 % (0-4.4); Hematocrit 35.2 % (37.0-47.0); Hemoglobin 11.2 g/dL (12.0-15.0); Immature Granulocyte Absolute 0.12 K/mm3 (0.00-0.031); Immature Granulocyte Percent A 0.6 % (0-0.5); Lymphocytes Absolute Auto 1.05 K/mm3 (0.9-3.2); Lymphocytes Percent Auto 5.2 % (18.3-44.2); Mean Corpuscular HGB Conc 31.8 g/dl (32-36); Mean Corpuscular Hemoglobin 29.2 pg (26-34); Mean Corpuscular Volume 91.7 fl (80-100); Mean Platelet Volume 11.7 fl (7.4-10.4); Monocytes Absolute Auto 1.4 K/mm3 (0.1-0.6); Neutrophils Absolute Auto 17.4 K/mm3 (1.3-6.7); Neutrophils Percent Auto 86.7 % (45.5-73.1); Platelet Count Result 233 k/mm3 (150-375); Red Blood Count 3.84 M/mm3 (4.2-5.4); Red Cell Distribution Width 13.7 % (11.5-14.5)
[2021-02-22 04:08] LABS: Alanine Aminotransferase 15 U/L (4-35); Albumin Level 4.4 g/dL (3.5-5.1); Alkaline Phosphatase 109 U/L (38-126); Anion Gap 10 mmol/L (8-16); Aspartate Amino Transferase 20 U/L (14-36); Bilirubin,Total 0.4 mg/dL (0.2-1.3); Blood Urea Nitrogen 34 mg/dL (7-17); Calcium 10.7 mg/dL (8.4-10.2); Carbon Dioxide 22 mmol/L (22-30); Chloride 97 mmol/L (98-107); Estimated CRCL calculation 26 ml/min; Estimated Glomerular Filt Rate 18; Glucose 454 mg/dL (65-105); Potassium 5.6 mmol/L (3.4-5.0); Sodium 129 mmol/L (137-145)
[2021-02-22 04:10] LABS: Partial Thromboplastin Time 30.9 SECONDS (22.3-36.8)
[2021-02-22 04:12] LABS: Add Urine Microscopic? YES; Appearance Urine Cloudy (Clear); Bacteria Urine Trace /hpf; Bilirubin Urine Negative (Negative); Blood Urine 1+ (Negative); Color Urine Yellow (Yellow); Glucose Urine UA 3+ mg/dL (Negative); Ketones Urine Negative (Negative); Leukocyte Esterase Ur 3+ LEU/UL (Negative); Nitrate Urine Negative (Negative); Protein Urine 2+ mg/dL (Negative); Specific Grav Ur 1.017 (1.001-1.035); Squamous Epithelial Cell Urine Many /hpf (Few); Urobilinogen Urine Negative mg/dL (<2.0); WBC Clumps Urine Present /HPF; WBC Urine >75 /hpf
--- NOTE | 2021-02-22 04:38 | PC.NURSE ---
Pt assisted on and off of bedpan, repositioned in bed and lights dimmed for comfort. Pt resting on cart with call button and personal items within reach with stable vitals and in no obvious distress. Pt advised to press call button for assistance.
[2021-02-22 04:57] LABS: Beta-Hydroxybutyrate/Acetoacetate 0.27 mmol/L (0.02-0.27)
--- NOTE | 2021-02-22 05:17 | PC.NURSE ---
Pt temp remains 101.8. EDMD notified and no new orders provided at this time. ice packs applied to bilateral axilla to help decrease temp. Pt also has 0.9 NS infusing. Will continue to monitor vitals. Pt resting on cart in its lowest position with call button and personal items within reach. Pt advised to press call button for assistance.
[2021-02-22] MEDS: SODIUM CHLORIDE 0.9% IV 1,000 ML 999 ML IV CONT (05:20)
[2021-02-22] MEDS: SODIUM CHLORIDE 0.9% IV 1,000 ML 125 ML IV CONT (05:20)
--- NOTE | 2021-02-22 05:53 | PC.NURSE ---
Pt temp has improved and is now 100.0F. Ice pack remain to bilateral axilla and pt tolerating well. Pt in no obvious distress with stable vitals with call button and personal items within reach. Pt advised to press call button for assistance.
--- NOTE | 2021-02-22 06:00 | PC.NURSE ---
Pt called for bedpan but had an episode of incontinence by the time nurse writer producer made it to bedside. Pt carlee area and cleansed. Linens changed and pt repositioned for comfort. Call button and personal items within reach. Pt advised to press call button for assistance.
--- NOTE | 2021-02-22 06:06 | PC.NURSE ---
Report called to receiving nurse. Ok to send pt to floor.
--- NOTE | 2021-02-22 06:18 | PC.NURSE ---
Pt sent to floor alert, stable and in no obvious distress via cart with RN.
--- NOTE | 2021-02-22 06:35 | PC.NURSE ---
This patient, Lakshmi Fry, was admitted to Intensive Care Unit-7. Patient/family oriented to hospital policies and general routines including ID bracelet, bed and alarms, visiting hours, pain management, procedures, bathroom and other care routines, personal items, smoking policy, room service/diet, and visiting hours. Information on how to activate the Rapid Response Team has been discussed. Patient/Family are encouraged to report perceived risks to care and to ask questions if they do not understand what they are told or what they should do.
--- NOTE | 2021-02-22 07:32 | PC.NURSE ---
Daughter Sheba will go to patients house to get remaining medicine information and call with info between [phone].
[2021-02-22 08:54] LABS: Glucose Point of Care 479 mg/dl (65-105)
--- NOTE | 2021-02-22 09:17 | ECG_ITS ---
Measurements Intervals [place] Rate: 114 P: MA: 0 QRS: -42 QRSD: 130 T: 81 QT: 353 QTc: 487 Interpretive Statements SINUS OR ECTOPIC ATRIAL TACHYCARDIA LEFT AXIS DEVIATION INTRAVENTRICULAR CONDUCTION DELAY POOR R WAVE PROGRESSION, CONSIDER ANTERIOR INFARCT INFERIOR INFARCT, AGE INDETERMINATE BORDERLINE ST-T WAVE ABNORMALITY- HIGH LATERAL LEADS BASELINE ARTIFACT- I, II, AVR, AVL, V1-V6 ABNORMAL ECG Electronically Signed On 02-25-2021 10:57:12 CDT by Hever WAYNE
[2021-02-22] MEDS: INSULIN GLARGINE (*BKC) 100 UNITS/ML 50 UNITS SUB-Q (10:39)
[2021-02-22] MEDS: INSULIN ASPART (*BKC) 100 UNITS/ML 10 UNITS SUB-Q (10:40)
[2021-02-22] MEDS: allopurinoL 300 MG TABLET PO (10:41)
[2021-02-22] MEDS: SACUBITRIL/VALSARTAN 24-26 MG TABLET 1 TAB PO ×2 (10:41→20:05)
[2021-02-22] MEDS: CYCLOBENZAPRINE HCL 10 MG TABLET PO (10:41)
[2021-02-22] MEDS: buPROPion HCL SR (12HR) 100 MG TABCR 200 MG PO ×2 (10:41→20:06)
[2021-02-22] MEDS: OMEGA 3 POLYUNSAT FATTY ACIDS 1 GM CAP PO ×2 (10:41→20:06)
[2021-02-22] MEDS: DIVALPROEX SODIUM DR 250 MG TABEC PO ×2 (10:42→20:05)
[2021-02-22] MEDS: CHOLECALCIFEROL 1,000 UNITS TABLET 1000 UNITS PO (10:42)
[2021-02-22] MEDS: MONTELUKAST SODIUM 10 MG TABLET PO (10:42)
[2021-02-22] MEDS: GABAPENTIN 400 MG CAPSULE PO ×2 (10:42→12:21)
[2021-02-22 11:54] LABS: Hemoglobin A1C 11.7 % (<5.7)
[2021-02-22 12:14] LABS: Glucose Point of Care 475 mg/dl (65-105)
[2021-02-22] MEDS: INSULIN GLARGINE (*BKC) 100 UNITS/ML 40 UNITS SUB-Q (12:20)
[2021-02-22] MEDS: INSULIN ASPART (*BKC) 100 UNITS/ML 20 UNITS SUB-Q (12:20)
[2021-02-22] MEDS: SODIUM CHLORIDE 0.9% IV 1,000 ML 150 ML IV CONT ×2 (12:21→20:39)
--- NOTE | 2021-02-22 14:17 | PM.IMHP ---
H&P: HPI History of Present Illness Date/Time: 02/22/21 14:17 Patient is a 65-year-old female morbidly obese with history of diabetes and hypertension presented emergency department with complaints of weakness fatigue, frequency of urination with dysuria, patient denies any fever or chills, upon arrival patient blood sugar were 454, however patient is not in DKA, patient is being hydrated, and started the patient long-acting as well as short-acting insulin, patient has uncontrolled diabetes with hemoglobin A1c of 11.7, will consult certified adaptive physical educator for further recommendation, will continue to hydrate the patient monitor electrolytes, the urine is suspicious for UTI patient started on Rocephin and will follow-up on urine culture, most likely patient symptoms are stemming from UTI, will have a PT OT evaluate Chief Complaint: Generalized weakness hyperglycemia Review of Systems Review of Systems: All systems reviewed & are unremarkable except as noted in HPI and below PMFSH Past Medical History Medical History Anemia Arthritis Chronic kidney disease, stage 3 Baseline creatinine appears to be about 1.10. Chronic respiratory failure with hypoxia Combined systolic and diastolic congestive heart failure Echocardiogram in May 2016 showed moderate enlargement of the left ventricular cavity, moderate global left ventricular systolic dysfunction, ejection fraction of 35%, and grade 3 diastolic dysfunction. COPD (chronic obstructive pulmonary disease) Depression Diabetic peripheral neuropathy Gout Hepatitis C History of DVT (deep vein thrombosis) Hyperkalemia Hyperlipidemia Hypertension Insulin dependent type 2 diabetes mellitus With diabetic peripheral neuropathy Morbid obesity Nonischemic cardiomyopathy Cardiac catheterization December 10, [address] Emmanuel Boyd showed right coronary dominant circulation with no significant coronary disease. Obstructive sleep apnea on CPAP Psoriasis Rheumatoid arthritis Tobacco dependence Surgical History Surgical History History of cardiac catheterization Cardiac catheterization December 10, [address] Emmanuel Boyd showed right coronary dominant circulation with no significant coronary disease. History of dilatation and curettage History of lithotripsy Status post tubal ligation Family History Family History Father Cerebrovascular accident Hypertension Mother Family history of malignant neoplasm Other Asthma Diabetes mellitus Family history of anemia Family history of arthritis Family history of blood dyscrasia Family history of cardiovascular disease Family history of migraine headaches Social History Social History Social History: The patient lives in [place] with her brother and his girlfriend. She has smoked as many as a pack of cigarettes per day, and now smokes about a half pack a day. She denies alcohol and drug abuse. She wishes to be a full code. Smoking packs per day: 1.5 Smoking cigarettes per day: 30.0 Years smoked: 52 Smoking pack-years: 78.00 Smoking status: Former smoker Tobacco type: cigarettes Second hand tobacco smoke exposure: Yes Smoking end date: 07/31/20 Alcohol intake: never Substance use: never Substance use type: painkillers Additional occupation/education comments: disable Gender identity (if verbalized by the patient): Female Spiritual care concerns: No Agree to blood products: Yes Meds Home Medications and Allergies Home Medications Medication Instructions Recorded Confirmed Type gabapentin 300 mg capsule 400 mg PO TID 07/27/19 02/22/21 History montelukast 10 mg tablet 10 mg PO DAILY 07/27/19 02/22/21 History aspirin 81 mg tablet,delayed 81 mg PO DAILY
[2021-02-22 14:19] LABS: Albumin Level 3.6 g/dL (3.5-5.1); Anion Gap 11 mmol/L (8-16); Blood Urea Nitrogen 32 mg/dL (7-17); Calcium 9.7 mg/dL (8.4-10.2); Carbon Dioxide 18 mmol/L (22-30); Chloride 101 mmol/L (98-107); Estimated CRCL calculation 27 ml/min; Estimated Glomerular Filt Rate 19; Glucose 481 mg/dL (65-105); Magnesium 1.9 mg/dL (1.6-2.3); Phosphorus 3.1 mg/dL (2.5-4.5); Potassium 5.2 mmol/L (3.4-5.0); Sodium 130 mmol/L (137-145)
[2021-02-22 15:13] LABS: Glucose Point of Care 356 mg/dl (65-105)
--- NOTE | 2021-02-22 15:31 | PCOTNOTE ---
Attempted OT evaluation, but unable to complete. Upon entering found patient to be drowsy and sleepy on CPAP. RN summoned and removed CPAP. Attempted to have patient raise right arm and leg, but patient unable to move right arm and leg on command. Patient did not appear to have facial drooping. RN present and aware. RN called MD to update. MD ordering a stat CT. Will attempt again tomorrow.
[2021-02-22 15:47] LABS: Alveolar/Arterial O2 Gradient 48.3 mmHg; Base Excess ABG -2.9 mEq/l (+/-2.0); Device ROOM AIR; Fractional Inspired Oxygen 21 %; HCO3 ABG 21.7 mEq/l (22.0-26.0); Modified Allen's Test Unable to perform; Oxygen Content ABG 13.8 %vol (16.0-22.0); Oxygen Saturation ABG 89.4 % (95.0-100.0); PCO2 ABG 37.2 mmHg (35.0-45.0); PO2 ABG 56.9 mmHg (80.0-100.0); PO2 FiO2 Ratio Arterial Blood 2.71 %; Site Drawn LEFT RADIAL; pH ABG 7.384 (7.350-7.450)
[2021-02-22] MEDS: INSULIN ASPART (*BKC) 100 UNITS/ML 8 UNITS SUB-Q (17:14)
[2021-02-22 17:21] LABS: Glucose Point of Care 324 mg/dl (65-105)
[2021-02-22 17:52] LABS: Amphetamine Screen Urine Negative (Negative); Barbiturate Screen Urine Negative (Negative); Benzodiazepines Screen Urine Negative (Negative); Cannabinoid Screen Urine Negative (Negative); Cocaine Screen Urine Negative (Negative); Methadone Screen Urine Negative (Negative); Opiate Screen Urine Negative (Negative); Phencyclidine Screen Urine Negative (Negative)
[2021-02-22] MEDS: carvediloL 6.25 MG TABLET PO (20:05)
[2021-02-22] MEDS: HEPARIN SODIUM 5,000 UNITS/ML VIAL 5000 UNITS SUB-Q (20:06)
[2021-02-22] MEDS: TOLNAFTATE 1% POWDER 45 GM BTL 1 APPLIC TOPICAL (20:11)
--- NOTE | 2021-02-22 20:39 | PM.EVENT ---
Event Note Event Note Event Note: Preliminary blood culture demonstrates gram negative bacilli in anaerobic culture. Add metronidazole 500 mg q 8hr until identified.
[2021-02-22 20:52] LABS: Glucose Point of Care 249 mg/dl (65-105)
[2021-02-22] MEDS: metroNIDAZOLE 500 MG/ISO 100ML 500 MG/100 ML BAG 100 MG IVPB (21:40)
[2021-02-23] VITALS (20 sets, daily range): BP systolic 119–147; BP diastolic 51–79; PULSE 90–109; RESP 18–32; TEMP 37.1–38.8; O2SAT 92–100
[2021-02-23 04:29] LABS: Hematocrit 32.4 % (37.0-47.0); Hemoglobin 10.3 g/dL (12.0-15.0); Mean Corpuscular HGB Conc 31.8 g/dl (32-36); Mean Corpuscular Hemoglobin 29.6 pg (26-34); Mean Corpuscular Volume 93.1 fl (80-100); Mean Platelet Volume 11.9 fl (7.4-10.4); Platelet Count Result 175 k/mm3 (150-375); Red Blood Count 3.48 M/mm3 (4.2-5.4); Red Cell Distribution Width 13.8 % (11.5-14.5); White Blood Count 16.2 K/mm3 (4.5-10.0)
[2021-02-23] MEDS: SODIUM CHLORIDE 0.9% IV 1,000 ML 150 ML IV CONT (04:33)
[2021-02-23 04:35] LABS: Albumin Level 3.7 g/dL (3.5-5.1); Anion Gap 10 mmol/L (8-16); Blood Urea Nitrogen 29 mg/dL (7-17); Calcium 9.9 mg/dL (8.4-10.2); Carbon Dioxide 21 mmol/L (22-30); Chloride 108 mmol/L (98-107); Estimated CRCL calculation 27 ml/min; Estimated Glomerular Filt Rate 19; Glucose 251 mg/dL (65-105); Magnesium 2.1 mg/dL (1.6-2.3); Phosphorus 3.5 mg/dL (2.5-4.5); Potassium 4.7 mmol/L (3.4-5.0); Sodium 139 mmol/L (137-145)
[2021-02-23] MEDS: metroNIDAZOLE 500 MG/ISO 100ML 500 MG/100 ML BAG 100 MG IVPB (06:27)
[2021-02-23] MEDS: INSULIN ASPART (*BKC) 100 UNITS/ML SUB-Q ×2 (08:38→12:17)
[2021-02-23] MEDS: SACUBITRIL/VALSARTAN 24-26 MG TABLET 1 TAB PO ×2 (08:41→20:10)
[2021-02-23] MEDS: DIVALPROEX SODIUM DR 250 MG TABEC PO ×2 (08:42→20:11)
[2021-02-23] MEDS: MONTELUKAST SODIUM 10 MG TABLET PO (08:42)
[2021-02-23] MEDS: buPROPion HCL SR (12HR) 100 MG TABCR 200 MG PO ×2 (08:42→20:10)
[2021-02-23] MEDS: GABAPENTIN 400 MG CAPSULE PO ×3 (08:43→16:54)
[2021-02-23] MEDS: carvediloL 6.25 MG TABLET PO ×2 (08:43→20:10)
[2021-02-23] MEDS: OMEGA 3 POLYUNSAT FATTY ACIDS 1 GM CAP PO ×2 (08:43→20:11)
[2021-02-23] MEDS: HEPARIN SODIUM 5,000 UNITS/ML VIAL 5000 UNITS SUB-Q ×2 (08:44→20:11)
[2021-02-23] MEDS: INSULIN GLARGINE (*BKC) 100 UNITS/ML 30 UNITS SUB-Q ×2 (08:52→20:50)
[2021-02-23] MEDS: TOLNAFTATE 1% POWDER 45 GM BTL 1 APPLIC TOPICAL ×2 (08:57→20:11)
[2021-02-23] MEDS: CHOLECALCIFEROL 1,000 UNITS TABLET 1000 UNITS PO (08:58)
[2021-02-23 09:08] LABS: Glucose Point of Care 260 mg/dl (65-105)
[2021-02-23 12:31] LABS: Glucose Point of Care 258 mg/dl (65-105)
--- NOTE | 2021-02-23 12:40 | PM.IMPN ---
Progress Note: A&P Assessment and Plan (1) Sepsis: Code(s): A41.9 - Sepsis, unspecified organism Status: Acute Assessment and Plan: patient met sepsis criteria with elevated WBC count tachycardia UTI - lactic acid was within normal limits - UA reflective of UTI - blood and urine cultures growing E coli, sensitivities pending - continue ceftriaxone - patient has been adequately fluid-resuscitated, also drinking plenty of fluids so will discontinue maintenance IV fluids (2) UTI (urinary tract infection): Code(s): N39.0 - Urinary tract infection, site not specified Status: Acute Assessment and Plan: urine cultures growing E coli, sensitivities pending, continue ceftriaxone (3) CKD (chronic kidney disease) stage 4, GFR 15-29 ml/min: Code(s): N18.4 - Chronic kidney disease, stage 4 (severe) Status: Acute Assessment and Plan: patient with acute on chronic kidney disease, baseline creatinine unknown - in December 2019 patient had a creatinine of 2.70 - has a history of UTI, currently urine cultures growing E coli - continue to monitor renal function, electrolytes and urine output (4) Hyperkalemia: Code(s): E87.5 - Hyperkalemia Status: Acute Assessment and Plan: resolved (5) Type 2 diabetes mellitus with hyperglycemia, with long-term current use of insulin: Code(s): E11.65 - Type 2 diabetes mellitus with hyperglycemia; Z79.4 - long-term (current) use of insulin Status: Acute Assessment and Plan: patient with uncontrolled blood sugars, - continue Lantus and sliding scale insulin with Accu-Cheks - hemoglobin A1c this admission is 11.7 Additional Plan discussed with patient updated with her condition and plan of care. Code status full code This dictation may have been done utilizing a voice recognition system. Attempts have been made to correct errors. However, there may be uncorrected grammatical, spelling, and recognition errors present. Due to a high probability of clinically significant, life threatening deterioration, the patient required my highest level of preparedness to intervene emergently and I personally spent this critical care time directly and personally managing the patient. This critical care time included obtaining a history; examining the patient; pulse oximetry; ordering and review of studies; arranging urgent treatment with development of a management plan; evaluation of patient's response to treatment; frequent reassessment; and discussions with other providers. It was exclusive of separately billable procedures and treating other patients and teaching time. Please see Assessment and Plan section and the rest of the note for further information on patient assessment and treatment Subjective Date/time seen: 02/23/21 12:40 Interval history: Patient is a 65-year-old female morbidly obese with history of diabetes and hypertension presented emergency department with complaints of weakness fatigue, frequency of urination with dysuria, patient denies any fever or chills, upon arrival patient blood sugar were 454, however patient is not in DKA, patient is being hydrated, and started the patient long-acting as well as short-acting insulin, patient has uncontrolled diabetes with hemoglobin A1c of 11.7, will consult natural resources extension educator for further recommendation, will continue to hydrate the patient monitor electrolytes, the urine is suspicious for UTI patient started on Rocephin and will follow-up on urine culture patient seen and examined this morning, is awake, alert, oriented x3, able to answer questions appropriately, follows simple commands in all extremities. Urine output has been adequate, patient is hemodynamically stable. Blood in urine cultures growing E coli. White count trending down. Creatinine remains elevated at 2.6. Patient is afebrile, she was to eat something. Patient denies any chest pain, shortness of breath, abdo
[2021-02-23] MEDS: ALPRAZolam (*CRX) 0.25 MG TABLET PO (13:11)
[2021-02-23] MEDS: SIMVASTATIN 20 MG TABLET 40 MG PO (16:55)
[2021-02-23 17:05] LABS: Glucose Point of Care 196 mg/dl (65-105)
[2021-02-23 20:57] LABS: Glucose Point of Care 181 mg/dl (65-105)
[2021-02-23] MEDS: ACETAMINOPHEN 325 MG TABLET 650 MG PO (21:12)
[2021-02-24] VITALS (8 sets, daily range): BP systolic 110–120; BP diastolic 43–87; PULSE 93–102; RESP 18–20; TEMP 36.7–37.7; O2SAT 93–100
[2021-02-24 04:31] LABS: Hematocrit 31.3 % (37.0-47.0); Hemoglobin 9.8 g/dL (12.0-15.0); Mean Corpuscular HGB Conc 31.3 g/dl (32-36); Mean Corpuscular Hemoglobin 29.1 pg (26-34); Mean Corpuscular Volume 92.9 fl (80-100); Mean Platelet Volume 11.5 fl (7.4-10.4); Platelet Count Result 157 k/mm3 (150-375); Red Blood Count 3.37 M/mm3 (4.2-5.4); Red Cell Distribution Width 13.7 % (11.5-14.5)
[2021-02-24 05:24] LABS: Albumin Level 3.7 g/dL (3.5-5.1); Anion Gap 10 mmol/L (8-16); Blood Urea Nitrogen 27 mg/dL (7-17); Calcium 10.4 mg/dL (8.4-10.2); Carbon Dioxide 23 mmol/L (22-30); Chloride 106 mmol/L (98-107); Estimated CRCL calculation 29 ml/min; Estimated Glomerular Filt Rate 20; Glucose 187 mg/dL (65-105); Magnesium 2.1 mg/dL (1.6-2.3); Phosphorus 3.2 mg/dL (2.5-4.5); Potassium 4.6 mmol/L (3.4-5.0); Sodium 139 mmol/L (137-145)
[2021-02-24] MEDS: INSULIN GLARGINE (*BKC) 100 UNITS/ML 30 UNITS SUB-Q ×2 (08:19→20:34)
[2021-02-24 08:20] LABS: Glucose Point of Care 200 mg/dl (65-105)
[2021-02-24] MEDS: HEPARIN SODIUM 5,000 UNITS/ML VIAL 5000 UNITS SUB-Q ×2 (08:21→20:32)
[2021-02-24] MEDS: MONTELUKAST SODIUM 10 MG TABLET PO (08:22)
[2021-02-24] MEDS: buPROPion HCL SR (12HR) 100 MG TABCR 200 MG PO ×2 (08:22→20:26)
[2021-02-24] MEDS: DIVALPROEX SODIUM DR 250 MG TABEC PO ×2 (08:23→20:26)
[2021-02-24] MEDS: GABAPENTIN 400 MG CAPSULE PO ×3 (08:23→18:37)
[2021-02-24] MEDS: OMEGA 3 POLYUNSAT FATTY ACIDS 1 GM CAP PO ×2 (08:23→20:26)
[2021-02-24] MEDS: SACUBITRIL/VALSARTAN 24-26 MG TABLET 1 TAB PO ×2 (08:24→20:26)
[2021-02-24] MEDS: CHOLECALCIFEROL 1,000 UNITS TABLET 1000 UNITS PO (08:24)
[2021-02-24] MEDS: carvediloL 6.25 MG TABLET PO ×2 (08:24→20:26)
[2021-02-24] MEDS: TOLNAFTATE 1% POWDER 45 GM BTL 1 APPLIC TOPICAL ×2 (08:26→20:25)
--- NOTE | 2021-02-24 10:38 | PC.NURSE ---
Sheba called this nurse and was given an update. All questions answered per Sheba.
--- NOTE | 2021-02-24 12:45 | PM.IMPN ---
Progress Note: A&P Assessment and Plan (1) Sepsis: Code(s): A41.9 - Sepsis, unspecified organism Status: Acute Assessment and Plan: 02/22/21 14:17 Patient met the criteria for sepsis with tachycardia tachypnea elevated white and acute on chronic kidney disease most likely secondary to UTI. 02/24/21 12:45 02/22 Patient is a 65-year-old female morbidly obese with history of diabetes and hypertension presented emergency department with complaints of weakness fatigue, frequency of urination with dysuria, patient denies any fever or chills, upon arrival patient blood sugar were 454, however patient is not in DKA, patient is being hydrated, and started the patient long-acting as well as short-acting insulin, patient has uncontrolled diabetes with hemoglobin A1c of 11.7, will consult conservation educator for further recommendation, will continue to hydrate the patient monitor electrolytes, the urine is suspicious for UTI patient started on Rocephin and will follow-up on urine culture, most likely patient symptoms are stemming from UTI, will have a PT OT evaluate. 02/23 seen by curber 02/24 today's patient more awake however unable to provide detailed review of symptom and what exactly happened prior to coming to emergency depart however patient blood sugars are trending, urine and blood cultures are growing E coli ESBL resistant to Rocephin started the patient on Zosyn, will continue to monitor, most likely her initial symptoms a stemming from sepsis secondary to urine and blood culture with E coli ESBL, clinically stable will have a PT OT evaluate the and further recommendation to follow. (2) UTI (urinary tract infection): Code(s): N39.0 - Urinary tract infection, site not specified Status: Acute Assessment and Plan: Will start the patient on ceftriaxone follow-up on urine culture and sensitivity (3) CKD (chronic kidney disease) stage 4, GFR 15-29 ml/min: Code(s): N18.4 - Chronic kidney disease, stage 4 (severe) Status: Acute Assessment and Plan: Patient with acute on chronic kidney disease will hydrate the patient and monitor kidney function if there is no much improved will consult senior linux systems administrator for further recommendation (4) Hyperkalemia: Code(s): E87.5 - Hyperkalemia Status: Acute Assessment and Plan: Most likely secondary hyperglycemia will monitor (5) Type 2 diabetes mellitus with hyperglycemia, with long-term current use of insulin: Code(s): E11.65 - Type 2 diabetes mellitus with hyperglycemia; Z79.4 - [facility] (current) use of insulin Status: Acute Assessment and Plan: Patient with uncontrolled diabetes will continue present managed consult conservation educator and further recommendation to follow. Subjective Date/time seen: 02/24/21 12:45 02/22 Patient is a 65-year-old female morbidly obese with history of diabetes and hypertension presented emergency department with complaints of weakness fatigue, frequency of urination with dysuria, patient denies any fever or chills, upon arrival patient blood sugar were 454, however patient is not in DKA, patient is being hydrated, and started the patient long-acting as well as short-acting insulin, patient has uncontrolled diabetes with hemoglobin A1c of 11.7, will consult conservation educator for further recommendation, will continue to hydrate the patient monitor electrolytes, the urine is suspicious for UTI patient started on Rocephin and will follow-up on urine culture, most likely patient symptoms are stemming from UTI, will have a PT OT evaluate. 02/23 seen by curber 02/24 today's patient more awake however unable to provide detailed review of symptom and what exactly happened prior to coming to emergency depart however patient blood sugars are trending, urine and blood cultures are growing E coli ESBL resistant to Rocephin started the patient on Zosyn, will continue to monitor, most likely he
[2021-02-24 12:47] LABS: Glucose Point of Care 185 mg/dl (65-105)
--- NOTE | 2021-02-24 13:39 | PC.NURSE ---
This patient, Lakshmi Fry, was transferred to [ 348 ] on 02/24/21 at 1320. Personal belongings sent with patient. Report given to [ JOSIANE Cooper. ]. Appropriate documentation sent with patient.
--- NOTE | 2021-02-24 13:43 | PC.NURSE ---
Sheba (Daughter) notified that this patient was brought to 3rd medical room 348. Update given and all questions answered per Sheba.
[2021-02-24] MEDS: SIMVASTATIN 20 MG TABLET 40 MG PO (18:37)
[2021-02-24 18:59] LABS: Glucose Point of Care 116 mg/dl (65-105)
[2021-02-24 22:15] LABS: Glucose Point of Care 175 mg/dl (65-105)
--- NOTE | 2021-02-25 | ECG_ITS ---
Measurements Intervals [place] Rate: 87 P: 46 IN: 168 QRS: -30 QRSD: 118 T: 59 QT: 349 QTc: 422 Interpretive Statements SINUS RHYTHM INTRAVENTRICULAR CONDUCTION DELAY POOR R WAVE PROGRESSION, ANTERIOR LEADS INFERIOR INFARCT, AGE INDETERMINATE BASELINE WANDER- II, III, AVR, AVL, AVF ABNORMAL ECG Electronically Signed On 02-27-2021 15:18:32 CDT by Hever Cobos D.O.
[2021-02-25 05:50] LABS: Hematocrit 31.5 % (37.0-47.0); Hemoglobin 10.1 g/dL (12.0-15.0); Mean Corpuscular HGB Conc 32.1 g/dl (32-36); Mean Corpuscular Hemoglobin 28.9 pg (26-34); Mean Corpuscular Volume 90.3 fl (80-100); Platelet Count Result 190 k/mm3 (150-375); Red Blood Count 3.49 M/mm3 (4.2-5.4); Red Cell Distribution Width 13.6 % (11.5-14.5); White Blood Count 8.3 K/mm3 (4.5-10.0)
[2021-02-25 06:09] LABS: Albumin Level 3.5 g/dL (3.5-5.1); Anion Gap 10 mmol/L (8-16); Blood Urea Nitrogen 29 mg/dL (7-17); Calcium 10.1 mg/dL (8.4-10.2); Carbon Dioxide 23 mmol/L (22-30); Chloride 105 mmol/L (98-107); Estimated CRCL calculation 32 ml/min; Estimated Glomerular Filt Rate 24; Glucose 116 mg/dL (65-105); Phosphorus 3.1 mg/dL (2.5-4.5); Potassium 4.2 mmol/L (3.4-5.0); Sodium 138 mmol/L (137-145)
[2021-02-25 06:12] VITALS: BP 131/71; PULSE 95; RESP 18; TEMP 36.4; O2SAT 93
[2021-02-25 07:41] LABS: Glucose Point of Care 114 mg/dl (65-105)
[2021-02-25] MEDS: buPROPion HCL SR (12HR) 100 MG TABCR 200 MG PO ×2 (08:47→20:01)
[2021-02-25] MEDS: OMEGA 3 POLYUNSAT FATTY ACIDS 1 GM CAP PO ×2 (08:48→20:04)
[2021-02-25] MEDS: MONTELUKAST SODIUM 10 MG TABLET PO (08:48)
[2021-02-25 08:49] VITALS: PULSE 102
[2021-02-25] MEDS: GABAPENTIN 400 MG CAPSULE PO ×3 (08:49→18:23)
[2021-02-25] MEDS: DIVALPROEX SODIUM DR 250 MG TABEC PO ×2 (08:49→20:02)
[2021-02-25] MEDS: carvediloL 6.25 MG TABLET PO ×2 (08:49→20:02)
[2021-02-25] MEDS: HEPARIN SODIUM 5,000 UNITS/ML VIAL 5000 UNITS SUB-Q ×2 (08:51→20:02)
[2021-02-25] MEDS: CHOLECALCIFEROL 1,000 UNITS TABLET 1000 UNITS PO (08:51)
[2021-02-25] MEDS: SACUBITRIL/VALSARTAN 24-26 MG TABLET 1 TAB PO ×2 (08:54→20:05)
[2021-02-25] MEDS: INSULIN GLARGINE (*BKC) 100 UNITS/ML 30 UNITS SUB-Q ×2 (09:01→20:03)
--- NOTE | 2021-02-25 10:50 | P.CDI_ITS ---
CDI Query Clarification Request -02/22 Creatinine 2.70, 02/23 creatinine 2.60, 02/24 creatinine 2.40, 02/25 creatinine 2.10 -CKD 4 has been documented and acute on chronic kidney disease has been documented. Please further clarify acute on chronic kidney disease . * Acute renal failure on CKD 4 * CKD 4 * Other * Unable to determine <Yennifer Dougherty RN - Last Filed: 02/25/21 10:54> Clarified Diagnosis (1) Acute renal failure superimposed on stage 4 chronic kidney disease: Code(s): N17.9 - Acute kidney failure, unspecified; N18.4 - Chronic kidney disease, stage 4 (severe) <Yennifer Dougherty RN - Last Filed: 02/25/21 10:54> Status: Acute <Yennifer Dougherty RN - Last Filed: 02/25/21 10:54> Assessment and Plan: most likely secondary most likely secondary to sepsis, hyperglycemia, and dehydration, patient is being hydrated blood sugars are correct kidney function is improving, will continue to monitor. <Oren Tiwari MD - Last Filed: 02/25/21 15:41>
[2021-02-25] MEDS: TOLNAFTATE 1% POWDER 45 GM BTL 1 APPLIC TOPICAL ×2 (10:58→20:04)
[2021-02-25 12:07] LABS: Glucose Point of Care 157 mg/dl (65-105)
--- NOTE | 2021-02-25 15:27 | PM.IMPN ---
Progress Note: A&P Assessment and Plan (1) Sepsis: Code(s): A41.9 - Sepsis, unspecified organism Status: Acute Assessment and Plan: Patient met the criteria for sepsis with tachycardia tachypnea elevated white and acute on chronic kidney disease most likely secondary to UTI. 02/24/21 12:45 02/22 Patient is a 65-year-old female morbidly obese with history of diabetes and hypertension presented emergency department with complaints of weakness fatigue, frequency of urination with dysuria, patient denies any fever or chills, upon arrival patient blood sugar were 454, however patient is not in DKA, patient is being hydrated, and started the patient long-acting as well as short-acting insulin, patient has uncontrolled diabetes with hemoglobin A1c of 11.7, will consult residential property tax appraiser for further recommendation, will continue to hydrate the patient monitor electrolytes, the urine is suspicious for UTI patient started on Rocephin and will follow-up on urine culture, most likely patient symptoms are stemming from UTI, will have a PT OT evaluate. 02/23 seen by homemaking rehabilitation consultant 02/24 today's patient more awake however unable to provide detailed review of symptom and what exactly happened prior to coming to emergency depart however patient blood sugars are trending, urine and blood cultures are growing E coli ESBL resistant to Rocephin started the patient on Zosyn, will continue to monitor, most likely her initial symptoms a stemming from sepsis secondary to urine and blood culture with E coli ESBL, clinically stable will have a PT OT evaluate the and further recommendation to follow. 02/25 today patient is sitting in the chair states feeling better unable to provide detailed review of symptom, patient has sepsis urine culture and blood culture are positive E coli ESBL being treated with Zosyn patient will require total of 7 days of IV antibiotic 10/07 until 03/02, will continue PT OT, patient will benefit going to rehab. Andrés on CKD4 most likely secondary to sepsis, hyperglycemia, and dehydration, patient is being hydrated blood sugars are corrected kidney function is improving, will continue to monitor. (2) UTI (urinary tract infection): Code(s): N39.0 - Urinary tract infection, site not specified Status: Acute Assessment and Plan: Will start the patient on ceftriaxone follow-up on urine culture and sensitivity (3) CKD (chronic kidney disease) stage 4, GFR 15-29 ml/min: Code(s): N18.4 - Chronic kidney disease, stage 4 (severe) Status: Acute Assessment and Plan: Patient with acute on chronic kidney disease will hydrate the patient and monitor kidney function if there is no much improved will consult business analytics specialist for further recommendation (4) Hyperkalemia: Code(s): E87.5 - Hyperkalemia Status: Acute Assessment and Plan: Most likely secondary hyperglycemia will monitor (5) Type 2 diabetes mellitus with hyperglycemia, with long-term current use of insulin: Code(s): E11.65 - Type 2 diabetes mellitus with hyperglycemia; Z79.4 - predatory animal exterminator (current) use of insulin Status: Acute Assessment and Plan: Patient with uncontrolled diabetes will continue present managed consult residential property tax appraiser and further recommendation to follow. (6) Acute renal failure superimposed on stage 4 chronic kidney disease: Code(s): N17.9 - Acute kidney failure, unspecified; N18.4 - Chronic kidney disease, stage 4 (severe) Status: Acute Assessment and Plan: most likely secondary most likely secondary to sepsis, hyperglycemia, and dehydration, patient is being hydrated blood sugars are correct kidney function is improving, will continue to monitor. Subjective Date/time seen: 02/25/21 15:27 Exam Narrative: Exam Narrative: morbidly obese Patient is comfortable, NAD HEENT: eyes are clear and none icteric LUNGS:CTA HEART: RR S1S2 ABD: BS+, Soft and nontender Low
[2021-02-25 16:56] VITALS: BP 117/62; PULSE 92; RESP 18; TEMP 36.7; O2SAT 94
[2021-02-25 17:49] LABS: Glucose Point of Care 140 mg/dl (65-105)
[2021-02-25] MEDS: SIMVASTATIN 20 MG TABLET 40 MG PO (18:22)
[2021-02-25 20:01] VITALS: BP 123/65; PULSE 73; RESP 20; TEMP 36.6; O2SAT 93
[2021-02-25 20:02] VITALS: PULSE 73
[2021-02-25 21:20] LABS: Glucose Point of Care 197 mg/dl (65-105)
[2021-02-25] MEDS: HYDROcodone/acetaminophen (*CRX) 5-325 MG TABLET 1 TAB PO (23:49)
[2021-02-26 05:54] VITALS: BP 139/70; PULSE 81; RESP 18; TEMP 36; O2SAT 95
[2021-02-26 06:11] LABS: Hematocrit 31.1 % (37.0-47.0); Hemoglobin 9.8 g/dL (12.0-15.0); Mean Corpuscular HGB Conc 31.5 g/dl (32-36); Mean Corpuscular Hemoglobin 28.7 pg (26-34); Mean Corpuscular Volume 90.9 fl (80-100); Mean Platelet Volume 11.5 fl (7.4-10.4); Platelet Count Result 211 k/mm3 (150-375); Red Blood Count 3.42 M/mm3 (4.2-5.4); Red Cell Distribution Width 13.7 % (11.5-14.5); White Blood Count 8.7 K/mm3 (4.5-10.0)
[2021-02-26 06:24] LABS: Albumin Level 3.3 g/dL (3.5-5.1); Anion Gap 7 mmol/L (8-16); Blood Urea Nitrogen 28 mg/dL (7-17); Calcium 9.9 mg/dL (8.4-10.2); Carbon Dioxide 26 mmol/L (22-30); Chloride 103 mmol/L (98-107); Estimated CRCL calculation 33 ml/min; Estimated Glomerular Filt Rate 24; Glucose 103 mg/dL (65-105); Magnesium 1.9 mg/dL (1.6-2.3); Phosphorus 3.8 mg/dL (2.5-4.5); Potassium 3.9 mmol/L (3.4-5.0); Sodium 136 mmol/L (137-145)
[2021-02-26 08:03] LABS: Glucose Point of Care 108 mg/dl (65-105)
[2021-02-26] MEDS: buPROPion HCL SR (12HR) 100 MG TABCR 200 MG PO ×2 (09:17→21:27)
[2021-02-26 09:18] VITALS: PULSE 84
[2021-02-26] MEDS: carvediloL 6.25 MG TABLET PO ×2 (09:18→21:27)
[2021-02-26] MEDS: SACUBITRIL/VALSARTAN 24-26 MG TABLET 1 TAB PO ×2 (09:18→21:27)
[2021-02-26] MEDS: MONTELUKAST SODIUM 10 MG TABLET PO (09:19)
[2021-02-26] MEDS: DIVALPROEX SODIUM DR 250 MG TABEC PO ×2 (09:19→21:27)
[2021-02-26] MEDS: OMEGA 3 POLYUNSAT FATTY ACIDS 1 GM CAP PO ×2 (09:20→21:27)
[2021-02-26] MEDS: GABAPENTIN 400 MG CAPSULE PO ×3 (09:20→17:49)
[2021-02-26] MEDS: CHOLECALCIFEROL 1,000 UNITS TABLET 1000 UNITS PO (09:20)
[2021-02-26] MEDS: HEPARIN SODIUM 5,000 UNITS/ML VIAL 5000 UNITS SUB-Q ×2 (09:20→21:30)
[2021-02-26] MEDS: TOLNAFTATE 1% POWDER 45 GM BTL 1 APPLIC TOPICAL ×2 (09:22→21:38)
[2021-02-26] MEDS: INSULIN GLARGINE (*BKC) 100 UNITS/ML 30 UNITS SUB-Q ×2 (09:25→21:30)
[2021-02-26 11:42] LABS: Glucose Point of Care 186 mg/dl (65-105)
[2021-02-26 13:00] VITALS: BP 110/62; PULSE 84; RESP 20; TEMP 36.4; O2SAT 95
[2021-02-26] MEDS: HYDROcodone/acetaminophen (*CRX) 5-325 MG TABLET 1 TAB PO ×2 (13:02→21:28)
--- NOTE | 2021-02-26 15:24 | PM.IMPN ---
Progress Note: A&P Assessment and Plan (1) Acute renal failure superimposed on stage 4 chronic kidney disease: Code(s): N17.9 - Acute kidney failure, unspecified; N18.4 - Chronic kidney disease, stage 4 (severe) Status: Acute Assessment and Plan: most likely secondary most likely secondary to sepsis, hyperglycemia, and dehydration. Continues to improve slowly. Unknown baseline (2) Sepsis: Code(s): A41.9 - Sepsis, unspecified organism Status: Acute Assessment and Plan: likely from UTI along with bacteremia with ESBL E coli (3) UTI (urinary tract infection): Code(s): N39.0 - Urinary tract infection, site not specified Status: Acute Assessment and Plan: on Zosyn however with ESBL and bacteremia will change it to ertapenem (4) CKD (chronic kidney disease) stage 4, GFR 15-29 ml/min: Code(s): N18.4 - Chronic kidney disease, stage 4 (severe) Status: Acute Assessment and Plan: she was running in 3-4 back in 2019 (5) Hyperkalemia: Code(s): E87.5 - Hyperkalemia Status: Acute Assessment and Plan: resolved (6) Nephrolithiasis: Code(s): N20.0 - Calculus of kidney Status: Acute (7) Nonischemic cardiomyopathy: Code(s): I42.8 - Other cardiomyopathies Status: Acute (8) Metabolic encephalopathy: Code(s): G93.41 - Metabolic encephalopathy Status: Acute Assessment and Plan: this is resolved likely related to sepsis and UTI bacteremia and UTI /hyperglycemia Urine drug screen negative Head CT with stable mild nonspecific cerebral white matter disease which likely represents chronic small-vessel ischemic disease (9) Electrolyte abnormality: Code(s): E87.8 - Other disorders of electrolyte and fluid balance, not elsewhere classified Status: Acute Assessment and Plan: improved (10) Tobacco dependence: Code(s): F17.200 - Nicotine dependence, unspecified, uncomplicated Status: Acute (11) Severe sepsis: Code(s): A41.9 - Sepsis, unspecified organism; R65.20 - Severe sepsis without septic shock Status: Acute (12) Essential hypertension: Code(s): I10 - Essential (primary) hypertension Status: Acute (13) Hyperlipidemia, unspecified: Code(s): E78.5 - Hyperlipidemia, unspecified Status: Acute (14) Peripheral polyneuropathy: Code(s): G62.9 - Polyneuropathy, unspecified Status: Acute (15) Bacteremia: Code(s): R78.81 - Bacteremia Status: Acute Assessment and Plan: with ESBL E coli currently getting Zosyn with bacteremia was changed to ertapenem she will need IV antibiotics for 2 weeks total starting from 02/22/2021 Additional Plan full code Disposition: Await PT OT evaluation Remove [place] catheter today DVT prophylaxis heparin subcu Subjective Date/time seen: 02/26/21 15:24 Interval history: see feels much better. She has a [place] in place. No fevers chills no more confused or hallucinations. Renal function is improving she denies any shortness of breath or chest pain. Review of Systems Review of Systems: All systems reviewed & are unremarkable except as noted in HPI and below Exam Narrative: Exam Narrative: morbidly obeseNot in acute distress Patient is comfortable, NAD HEENT: eyes are clear and none icteric LUNGS:CTA no respiratory distress HEART: RR S1S2 ABD: BS+, Soft and nontender Lower extremities: no edema sinuses or clubbing SKIN: nonjaundiced Neuro: grossly intact. alert and oriented x3 Objective Data Vital Signs Vital Signs: Vital Signs - 24 hr 02/25/21 16:56 02/25/21 20:01 02/25/21 20:02 Temperature 98.1 F 97.9 F Pulse Rate 92 73 73 Respiratory Rate 18 20 Blood Pressure 117/62 123/65 Pulse Oximetry 94 93 02/26/21 05:54 02/26/21 09:18 02/26/21 13:00 Temperature 96.8 F L 97.5 F L Pulse Rate 81 84 84 Respiratory Rate 18 20 Blood Pressure 13
[2021-02-26 17:03] LABS: Glucose Point of Care 196 mg/dl (65-105)
[2021-02-26] MEDS: ERTAPENEM SODIUM 0.5 GM in SODIUM CHLORIDE 0.9% IV 50 ML IVPB (17:47)
[2021-02-26] MEDS: SIMVASTATIN 20 MG TABLET 40 MG PO (17:50)
[2021-02-26 20:13] VITALS: BP 106/42; PULSE 87; RESP 18; TEMP 36.1; O2SAT 96
[2021-02-26 21:27] VITALS: PULSE 87
[2021-02-26 22:37] LABS: Glucose Point of Care 161 mg/dl (65-105)
[2021-02-27 05:58] VITALS: BP 122/51; PULSE 80; RESP 18; TEMP 36.4; O2SAT 93
[2021-02-27 06:04] LABS: Hematocrit 31.1 % (37.0-47.0); Hemoglobin 9.7 g/dL (12.0-15.0); Mean Corpuscular HGB Conc 31.2 g/dl (32-36); Mean Corpuscular Hemoglobin 28.5 pg (26-34); Mean Corpuscular Volume 91.5 fl (80-100); Mean Platelet Volume 11.2 fl (7.4-10.4); Platelet Count Result 237 k/mm3 (150-375); Red Cell Distribution Width 13.8 % (11.5-14.5); White Blood Count 10.4 K/mm3 (4.5-10.0)
[2021-02-27 06:17] LABS: Albumin Level 3.4 g/dL (3.5-5.1); Anion Gap 8 mmol/L (8-16); Blood Urea Nitrogen 25 mg/dL (7-17); Carbon Dioxide 26 mmol/L (22-30); Chloride 102 mmol/L (98-107); Estimated CRCL calculation 34 ml/min; Estimated Glomerular Filt Rate 25; Glucose 163 mg/dL (65-105); Phosphorus 3.4 mg/dL (2.5-4.5); Sodium 136 mmol/L (137-145)
[2021-02-27 09:05] LABS: Glucose Point of Care 199 mg/dl (65-105)
[2021-02-27] MEDS: INSULIN GLARGINE (*BKC) 100 UNITS/ML 30 UNITS SUB-Q (09:39)
[2021-02-27 09:40] VITALS: PULSE 86
[2021-02-27] MEDS: GABAPENTIN 400 MG CAPSULE PO ×2 (09:40→12:11)
[2021-02-27] MEDS: OMEGA 3 POLYUNSAT FATTY ACIDS 1 GM CAP PO (09:40)
[2021-02-27] MEDS: carvediloL 6.25 MG TABLET PO (09:40)
[2021-02-27] MEDS: CHOLECALCIFEROL 1,000 UNITS TABLET 1000 UNITS PO (09:40)
[2021-02-27] MEDS: DIVALPROEX SODIUM DR 250 MG TABEC PO (09:40)
[2021-02-27] MEDS: SACUBITRIL/VALSARTAN 24-26 MG TABLET 1 TAB PO (09:41)
[2021-02-27] MEDS: HEPARIN SODIUM 5,000 UNITS/ML VIAL 5000 UNITS SUB-Q (09:41)
[2021-02-27] MEDS: buPROPion HCL SR (12HR) 100 MG TABCR 200 MG PO (09:41)
[2021-02-27] MEDS: MONTELUKAST SODIUM 10 MG TABLET PO (09:41)
[2021-02-27] MEDS: TOLNAFTATE 1% POWDER 45 GM BTL 1 APPLIC TOPICAL (09:42)
--- NOTE | 2021-02-27 10:17 | PM.DS ---
DS: Admitting Diagnosis Admitting Diagnosis Admitting Diagnosis: Sepsis DS: Discharge Diagnosis Discharge Diagnosis (1) Bacteremia: Code(s): R78.81 - Bacteremia Status: Acute (2) Acute renal failure superimposed on stage 4 chronic kidney disease: Code(s): N17.9 - Acute kidney failure, unspecified; N18.4 - Chronic kidney disease, stage 4 (severe) Status: Acute (3) Sepsis: Code(s): A41.9 - Sepsis, unspecified organism Status: Acute (4) UTI (urinary tract infection): Code(s): N39.0 - Urinary tract infection, site not specified Status: Acute (5) Nonischemic cardiomyopathy: Code(s): I42.8 - Other cardiomyopathies Status: Acute (6) Metabolic encephalopathy: Code(s): G93.41 - Metabolic encephalopathy Status: Acute (7) Electrolyte abnormality: Code(s): E87.8 - Other disorders of electrolyte and fluid balance, not elsewhere classified Status: Acute (8) Insulin dependent type 2 diabetes mellitus: Code(s): E11.9 - Type 2 diabetes mellitus without complications; Z79.4 - buttermaker helper (current) use of insulin Status: Acute (9) Morbid obesity with BMI of 40.0-44.9, adult: Code(s): E66.01 - Morbid (severe) obesity due to excess calories; Z68.41 - Body mass index [BMI]40.0-44.9, adult Status: Acute (10) Chronic kidney disease, stage III (moderate): Code(s): N18.3 - Chronic kidney disease, stage 3 (moderate) Status: Acute (11) Chronic combined systolic and diastolic CHF (congestive heart failure): Code(s): I50.42 - Chronic combined systolic (congestive) and diastolic (congestive) heart failure Status: Acute (12) Peripheral polyneuropathy: Code(s): G62.9 - Polyneuropathy, unspecified Status: Acute (13) Hyperlipidemia, unspecified: Code(s): E78.5 - Hyperlipidemia, unspecified Status: Acute (14) Essential hypertension: Code(s): I10 - Essential (primary) hypertension Status: Acute DS: Summary Hospital Course Hospital Course: (1) Acute renal failure superimposed on stage 4 chronic kidney disease: most likely secondary most likely secondary to sepsis, hyperglycemia, and dehydration. Continues to improve slowly. baseline at 2.2 back from November. Back to her baseline at the time of discharge (2) Sepsis: likely from UTI along with bacteremia with ESBL E coli (3) UTI (urinary tract infection): on Zosyn however with ESBL and bacteremia will change it to ertapenem. Continue ertapenem for total 2 weeks stop date of 03/08/2021. She does have underlying chronic kidney disease discussed the risk PICC line / midline insertion for future fistula requirement. She is aware of the risk and verbalizes understanding (4) CKD (chronic kidney disease) stage 4, GFR 15-29 ml/min: she was running in 3-4 back in 2019. Down to 2.2 back in November 2020 (5) Hyperkalemia: resolved (6) Nephrolithiasis: Code(s): N20.0 - Calculus of kidney Status: Acute (7) Nonischemic cardiomyopathy: Code(s): I42.8 - Other cardiomyopathies Status: Acute (8) Metabolic encephalopathy: Code(s): G93.41 - Metabolic encephalopathy Status: Acute Assessment and Plan: this is resolved likely related to sepsis and UTI bacteremia and UTI /hyperglycemia Urine drug screen negative Head CT with stable mild nonspecific cerebral white matter disease which likely represents chronic small-vessel ischemic disease (9) Electrolyte abnormality: Code(s): E87.8 - Other disorders of electrolyte and fluid balance, not elsewhere classified Status: Acute Assessment and Plan: improved (10) Tobacco dependence: Code(s): F17.200 - Nicotine dependence, unspecified, uncomplicated Status: Acute (12) Essential hypertension: Code(s): I10 - Essential (primary) hypertension Status: Acute (13) Hyperlipidemia, unspecified
[2021-02-27] MEDS: HYDROcodone/acetaminophen (*CRX) 5-325 MG TABLET 1 TAB PO (10:51)
[2021-02-27 11:02] VITALS: O2SAT 92
[2021-02-27] MEDS: LIDOCAINE HCL 1% LOCAL INJ 2 ML AMPUL 5 ML INFILTRATE (11:15)
[2021-02-27 12:47] VITALS: BP 125/66; PULSE 84; RESP 14; TEMP 35.7; O2SAT 96
[2021-02-27] MEDS: SALINE LOCK FLUSH 10 ML IV PUSH (15:05)
[2021-02-27] MEDS: ERTAPENEM SODIUM 0.5 GM in SODIUM CHLORIDE 0.9% IV 50 ML IVPB (15:05)
[2021-02-27 15:25] LABS: Glucose Point of Care 144 mg/dl (65-105)
== END 2021-02-27 16:20 | disposition home health service (06) | DRG 689 ==
LOC: ANHED 05:19 → ANHICU 06:37 → ANH3MED 02-26 12:34 → ANHICU 02-28 14:07
PROVIDERS: Family Medicine; Admitting Provider Internal Medicine; Emergency Provider Emergency Medicine; PCP Physician Assistant; Visit Provider Internal Medicine
DX: N39.0 Urinary tract infection, site not specified (principal); G93.41 Metabolic encephalopathy; N17.9 Acute kidney failure, unspecified; I13.0 Hypertensive heart and chronic kidney disease with heart failure and stage 1 through stage 4 chronic kidney disease, or unspecified chronic kidney disease; N18.4 Chronic kidney disease, stage 4 (severe); I50.42 Chronic combined systolic (congestive) and diastolic (congestive) heart failure; J96.11 Chronic respiratory failure with hypoxia; I42.8 Other cardiomyopathies; Z68.41 Body mass index [BMI] 40.0-44.9, adult; E87.5 Hyperkalemia; F32.9 Major depressive disorder, single episode, unspecified; E78.5 Hyperlipidemia, unspecified; E11.42 Type 2 diabetes mellitus with diabetic polyneuropathy; E11.22 Type 2 diabetes mellitus with diabetic chronic kidney disease; E11.65 Type 2 diabetes mellitus with hyperglycemia; E66.01 Morbid (severe) obesity due to excess calories; F17.210 Nicotine dependence, cigarettes, uncomplicated; L40.9 Psoriasis, unspecified; G47.33 Obstructive sleep apnea (adult) (pediatric); E86.0 Dehydration; M19.90 Unspecified osteoarthritis, unspecified site; D64.9 Anemia, unspecified; M06.9 Rheumatoid arthritis, unspecified; J44.9 Chronic obstructive pulmonary disease, unspecified; M1A.9XX0 Chronic gout, unspecified, without tophus (tophi); Z86.718 Personal history of other venous thrombosis and embolism; Z86.19 Personal history of other infectious and parasitic diseases; Z76.4 Other boarder to healthcare facility
CPT/HCPCS: 36415; 36569; 36600; 70450; 71045; 80053; 80069; 80307; 81001; 82010; 82805; 82948; 83036; 83605; 83735; 85025; 85027; 85610; 85730; 87040; 87077; 87086; 87088; 87186; 93005; 94003; 96361; 96365; 96375; 97110; 97163; 97165; 97530; 99285; A9270; C1751; J0131; J0696; J1335; J1644; J1815; J2543; J7030; J7040

== ENCOUNTER 2021-03-06 11:55 | Outpatient (NON) | payer MEDICARE, MEDICAID, SELFPAY ==
[2021-03-06 12:14] LABS: Hematocrit 34.8 % (37.0-47.0); Hemoglobin 11.2 g/dL (12.0-15.0); Mean Corpuscular HGB Conc 32.2 g/dl (32-36); Mean Corpuscular Hemoglobin 28.9 pg (26-34); Mean Corpuscular Volume 89.9 fl (80-100); Mean Platelet Volume 10.8 fl (7.4-10.4); Platelet Count Result 486 k/mm3 (150-375); Red Blood Count 3.87 M/mm3 (4.2-5.4); Red Cell Distribution Width 14.3 % (11.5-14.5); White Blood Count 14.2 K/mm3 (4.5-10.0)
[2021-03-06 12:20] LABS: Alanine Aminotransferase 28 U/L (4-35); Albumin Level 4.4 g/dL (3.5-5.1); Alkaline Phosphatase 98 U/L (38-126); Anion Gap 9 mmol/L (8-16); Aspartate Amino Transferase 36 U/L (14-36); Bilirubin,Total 0.3 mg/dL (0.2-1.3); Blood Urea Nitrogen 23 mg/dL (7-17); Calcium 13.1 mg/dL (8.4-10.2); Carbon Dioxide 28 mmol/L (22-30); Chloride 98 mmol/L (98-107); Estimated Glomerular Filt Rate 19; Glucose 137 mg/dL (65-105); Potassium 5.9 mmol/L (3.4-5.0); Sodium 135 mmol/L (137-145)
== END 2021-03-06 11:56 | disposition home or self-care (01) ==
PROVIDERS: PCP Physician Assistant; Referring Provider Physician Assistant; Visit Provider Internal Medicine
DX: N17.9 Acute kidney failure, unspecified (principal); A41.9 Sepsis, unspecified organism
CPT/HCPCS: 80053; 85027

== ENCOUNTER 2021-03-07 10:46 | Observation (INO) | payer MEDICARE, MEDICAID, SELFPAY ==
--- NOTE | ~2021-03-07 | XR_ITS ---
EXAMINATION: XR chest 2V EXAM DATE: 03/07/2021 11:17 INDICATION: Elevated white blood cell count, urinary tract infection. TECHNIQUE: Frontal and lateral projections of the chest obtained and reviewed. Comparison is made to prior examination from 02/22/2021. FINDINGS: The lungs are clear. There are no pleural effusions. The cardiomediastinal silhouette is within normal limits. There is no pneumothorax suspected. There are mild bony degenerative changes. IMPRESSION: No acute cardiopulmonary findings. Reviewed, dictated and finalized at location B.
--- NOTE | ~2021-03-07 | XR_ITS ---
EXAMINATION: XR abdomen/kub 1V EXAM DATE: 03/08/2021 12:45 INDICATION: Kidney stone. TECHNIQUE: Frontal projection of the upper abdomen, frontal projection lower abdomen/pelvis for inter pretation. Comparison is made to prior examination from 02/09/2020. FINDINGS: There is calcification projecting over the right midabdomen superolateral to the kidney sto ne, probably cholelithiasis. Previously seen left double-J ureteral stent has been removed. No suspic ious soft tissue calcifications identified. There is a nonobstructive bowel gas pattern. There are no pleural effusions. IMPRESSION: Probable cholelithiasis. Reviewed, dictated and finalized at location B. IMPRESSION: Probable cholelithiasis.
--- NOTE | ~2021-03-07 | US_ITS ---
EXAMINATION: US renal BI EXAM DATE: 03/08/2021 12:01 INDICATION: Acute kidney insufficiency, hx of kidney stones STEVE . TECHNIQUE: Multiple grayscale and Doppler images of the kidneys were obtained (by a technologist who performed the scan) and subsequently reviewed. There is no prior study for comparison. FINDINGS: Right kidney: There is normal contour and echogenicity. It measures 11.3 x 6.1 x 4.3 centimeters. T here are no focal renal lesions identified. There is no hydronephrosis. Left kidney: There is normal contour and echogenicity. It measures 10.9 x 3.6 x 4.3 centimeters. The re is a 1 cm cyst. There is no hydronephrosis. Bladder unremarkable. IMPRESSION: Sonographically unremarkable kidneys. Reviewed, dictated and finalized at location B.
[2021-03-07 11:18] VITALS: BP 104/67; PULSE 83; RESP 20; TEMP 36.9; O2SAT 98
[2021-03-07 11:42] LABS: Basophils Absolute Auto 0.1 K/mm3 (0.0-0.1); Basophils Percent Auto 0.7 % (0.2-1.2); Eosinophils Absolute Auto 0.2 K/mm3 (0-0.3); Eosinophils Percent Auto 1.1 % (0-4.4); Hematocrit 33.2 % (37.0-47.0); Hemoglobin 10.6 g/dL (12.0-15.0); Immature Granulocyte Absolute 0.08 K/mm3 (0.00-0.031); Immature Granulocyte Percent A 0.6 % (0-0.5); Lymphocytes Percent Auto 22.4 % (18.3-44.2); Mean Corpuscular HGB Conc 31.9 g/dl (32-36); Mean Corpuscular Hemoglobin 28.7 pg (26-34); Mean Platelet Volume 10.2 fl (7.4-10.4); Monocytes Absolute Auto 0.9 K/mm3 (0.1-0.6); Monocytes Percent Auto 6.9 % (2.6-8.5); Neutrophils Absolute Auto 9.2 K/mm3 (1.3-6.7); Neutrophils Percent Auto 68.3 % (45.5-73.1); Platelet Count Result 472 k/mm3 (150-375); Red Blood Count 3.69 M/mm3 (4.2-5.4); Red Cell Distribution Width 14.1 % (11.5-14.5); White Blood Count 13.4 K/mm3 (4.5-10.0)
[2021-03-07 11:51] LABS: Lactic Acid Reflex 1.5 mmol/L (0.7-2.1)
[2021-03-07 11:53] LABS: Alanine Aminotransferase 27 U/L (4-35); Albumin Level 4.4 g/dL (3.5-5.1); Alkaline Phosphatase 96 U/L (38-126); Anion Gap 13 mmol/L (8-16); Aspartate Amino Transferase 38 U/L (14-36); Bilirubin,Total 0.4 mg/dL (0.2-1.3); Blood Urea Nitrogen 29 mg/dL (7-17); CRP 0.7 mg/dL (<1.0); Calcium 12.5 mg/dL (8.4-10.2); Carbon Dioxide 25 mmol/L (22-30); Chloride 95 mmol/L (98-107); Estimated CRCL calculation 21 ml/min; Estimated Glomerular Filt Rate 15; Glucose 180 mg/dL (65-105); INR 1.1; Lipase 60 U/L (23-300); Potassium 5.7 mmol/L (3.4-5.0); Prothrombin Time 13.7 Seconds (11.1-14.7); Sodium 133 mmol/L (137-145)
[2021-03-07 11:54] LABS: Partial Thromboplastin Time 28.3 SECONDS (22.3-36.8)
[2021-03-07 12:18] VITALS: BP 121/81; PULSE 88; RESP 20; O2SAT 97
[2021-03-07] MEDS: DEXTROSE 50% 25 GM/50 ML SYRINGE IV PUSH (12:19)
[2021-03-07] MEDS: INSULIN HUMAN REGULAR (*BKC) 100 UNITS/ML IV PUSH (12:19)
[2021-03-07] MEDS: CALCIUM GLUCONATE 1,000 MG/10 ML VIAL 1000 MG IV PUSH (12:19)
[2021-03-07 13:02] LABS: Add Urine Microscopic? YES; Appearance Urine Clear (Clear); Bilirubin Urine Negative (Negative); Blood Urine Negative (Negative); Color Urine Yellow (Yellow); Glucose Urine UA Negative (Negative); Ketones Urine Negative (Negative); Leukocyte Esterase Ur 1+ LEU/UL (Negative); Nitrate Urine Negative (Negative); Protein Urine 1+ mg/dL (Negative); RBC Urine 0-2 /hpf (0-2); Squamous Epithelial Cell Urine Rare /hpf (Few); Urobilinogen Urine Negative mg/dL (<2.0); WBC Urine 16-20 /hpf
[2021-03-07] MEDS: SODIUM CHLORIDE 0.9% IV 500 ML 999 ML IV CONT (13:14)
--- NOTE | 2021-03-07 13:41 | ED.GENADULT ---
HPI - General Adult General Chief complaint: Recheck/Abnormal Lab/Rx Stated complaint: high wbc Time Seen by Provider: 03/07/21 10:56 Source: patient, RN notes reviewed and old records reviewed Mode of arrival: ambulatory Limitations: no limitations History of Present Illness HPI narrative: Patient is a 65-year-old female who presents per request of primary care for evaluation of elevated white blood cell count and abnormal electrolytes on blood work performed yesterday. Patient was recently discharged from the hospital has a PICC line in the left arm was being treated for urinary tract infection bacteremia with history of chronic kidney disease. Patient is scheduled to have the PICC line removed tomorrow. On arrival patient is chronically ill-appearing denying any pain or other complaints Related Data Home Medications Medication Instructions Recorded Confirmed gabapentin 300 mg capsule 400 mg PO TID 07/27/19 02/22/21 montelukast 10 mg tablet 10 mg PO DAILY 07/27/19 02/22/21 aspirin 81 mg tablet,delayed 81 mg PO DAILY 08/01/19 02/22/21 release cholecalciferol (vitamin D3) 25 1,000 unit PO DAILY 08/01/19 02/22/21 mcg (1,000 unit) capsule simvastatin 40 mg tablet 40 mg PO QPM tablet 12/08/19 02/22/21 Breo Ellipta 1 inh INHALATION DAILY 01/13/20 02/22/21 duloxetine 60 mg PO DAILY 01/13/20 02/22/21 icosapent ethyl [Vascepa] 2 g PO BID 01/13/20 02/22/21 allopurinol 300 mg PO DAILY 11/21/20 02/22/21 bupropion HCl 200 mg PO BID 11/21/20 02/22/21 carvedilol 6.25 mg PO BID 11/21/20 02/22/21 cyclobenzaprine 10 mg PO Q8-12H PRN 11/21/20 02/22/21 Latuda 80 mg PO DAILY 02/22/21 02/22/21 Tresiba FlexTouch U-100 90 unit SUBCUT HS 02/22/21 02/22/21 Trulicity 0.75 mg SUBCUT WEEKLY 02/22/21 02/22/21 divalproex 250 mg PO Q12H 02/22/21 02/22/21 omega-3 acid ethyl esters 2 cap PO BID 02/22/21 02/22/21 Allergies Allergy/AdvReac Type Severity Reaction Status Date / Time ibuprofen Allergy Unknown skin Verified 03/07/21 11:26 changes Sulfa (Sulfonamide AdvReac Unknown Itching Verified 03/07/21 11:26 Antibiotics) cucumber AdvReac Hives Verified 03/07/21 11:26 Review of Systems Review of Systems: All systems reviewed & are unremarkable except as noted in HPI and below PMFSH Past Medical History Medical History Acute renal failure superimposed on stage 4 chronic kidney disease Anemia Arthritis Chronic kidney disease, stage 3 Baseline creatinine appears to be about 1.10. Chronic respiratory failure with hypoxia Combined systolic and diastolic congestive heart failure Echocardiogram in May 2016 showed moderate enlargement of the left ventricular cavity, moderate global left ventricular systolic dysfunction, ejection fraction of 35%, and grade 3 diastolic dysfunction. COPD (chronic obstructive pulmonary disease) Depression Diabetic peripheral neuropathy Gout Hepatitis C History of DVT (deep vein thrombosis) Hyperkalemia Hyperlipidemia Hypertension Insulin dependent type 2 diabetes mellitus With diabetic peripheral neuropathy Morbid obesity Nonischemic cardiomyopathy Cardiac catheterization December 10, [address] Emmanuel Boyd showed right coronary dominant circulation with no significant coronary disease. Obstructive sleep apnea on CPAP Psoriasis Rheumatoid arthritis Tobacco dependence Surgical History Surgical History History of cardiac catheterization Cardiac catheterization December 10, [address] Emmanuel Boyd showed right coronary dominant circulation with no significant coronary disease. History of dilatation and curettage History of lithotripsy Status post tubal ligation Family History Family History Father Cerebrovascular accident Hypertension Mother Family history of malignant neoplasm Other Asthma Diabetes mellitus Famil
[2021-03-07 14:03] VITALS: BP 98/53; PULSE 82; RESP 17; O2SAT 94
--- NOTE | 2021-03-07 15:45 | PM.IMHP ---
H&P: HPI History of Present Illness Date/Time: 03/07/21 15:45 Chief Complaint: Abnormal labs. Narrative: This is a 65-year-old female smoker with combined systolic and diastolic congestive heart failure, chronic respiratory failure with hypoxia, chronic obstructive pulmonary disease, insulin-dependent type 2 diabetes mellitus, obstructive sleep apnea, rheumatoid arthritis, and several other comorbidities who presented to the emergency department earlier today at the direction of her primary care provider for evaluation of abnormal labs. She is known to the hospitalist service with a recent admission from 02/22/2021 through 02/27/2021 at which time she was treated for sepsis and ESBL E coli bacteremia secondary to urinary tract infection as well as acute on chronic kidney failure. She was discharged with a PICC or midline in place and has a couple of doses left of ertapenem. Today she was directed to the emergency department by her PCP after she was found to have some abnormalities on labs drawn yesterday including elevated white blood cell count, increasing creatinine from baseline, and elevated potassium. The patient tells me she feels just fine and she has no specific complaints although she is wondering if she is truly dehydrated as she has been eating and drinking as per usual. Specifically she denies fever, chills, sweats, cold and flu symptoms, cough, nausea, vomiting, diarrhea, and dysuria. She has no open wounds, red areas on her skin, or concerns for infection at her PICC/midline site. No issues with urinary retention. Aside from the ertapenem she has not had any recent changes in her medications. Review of Systems Review of Systems: Narrative: Twelve systems were reviewed with pertinent positives and negatives as per HPI. Except as documented, all other systems were reviewed and are negative. [facility] Past Medical History Medical History (Updated 03/07/21 @ 23:01 by Sharron Blank PA-C) Anemia Arthritis Chronic anemia Chronic kidney disease, stage 4 (severe) Baseline creatinine seems to be around 2.60. Chronic obstructive pulmonary disease Chronic respiratory failure with hypoxia Combined systolic and diastolic congestive heart failure Echocardiogram in May 2016 showed moderate enlargement of the left ventricular cavity, moderate global left ventricular systolic dysfunction, ejection fraction of 35%, and grade 3 diastolic dysfunction. Deep venous thrombosis Depression Diabetic peripheral neuropathy Gout Hepatitis C Hyperlipidemia Hypertension Insulin dependent type 2 diabetes mellitus With diabetic peripheral neuropathy. Hemoglobin A1c was 11.7% on 02/22/2021. Kidney stones Morbid obesity Nonischemic cardiomyopathy Cardiac catheterization December 10, [address] Emmanuel Boyd showed right coronary dominant circulation with no significant coronary disease. Obstructive sleep apnea on CPAP Psoriasis Rheumatoid arthritis Tobacco dependence Transient ischemic attack Surgical History Surgical History History of cardiac catheterization Cardiac catheterization December 10, [address] Emmanuel Boyd showed right coronary dominant circulation with no significant coronary disease. History of dilatation and curettage History of lithotripsy Status post tubal ligation Family History Family History Father Cerebrovascular accident Hypertension Mother Family history of malignant neoplasm Other Asthma Diabetes mellitus Family history of anemia Family history of arthritis Family history of blood dyscrasia Family history of cardiovascular disease Family history of migraine headaches Social History Social History (Updated 03/07/21 @ 22:54 by Sharron Blank PA-C) Social History: The patient lives in [place] with a roommate. She is on disability. She smoked up to 1.5 packs of cigarett
--- NOTE | 2021-03-07 15:50 | ADMGEN ---
This patient, Lakshmi Fry, was admitted to Medical Room 247-. Patient/family oriented to hospital policies and general routines including ID bracelet, bed and alarms, visiting hours, pain management, procedures, bathroom and other care routines, personal items, smoking policy, room service/diet, and visiting hours. Information on how to activate the Rapid Response Team has been discussed. Patient/Family are encouraged to report perceived risks to care and to ask questions if they do not understand what they are told or what they should do.
[2021-03-07 16:04] VITALS: BMI 43.2
[2021-03-07] MEDS: ERTAPENEM SODIUM 0.5 GM in SODIUM CHLORIDE 0.9% IV 50 ML IVPB (16:48)
[2021-03-07 17:34] LABS: Glucose Point of Care 164 mg/dl (65-105)
[2021-03-07 18:00] VITALS: BP 117/45; PULSE 88; RESP 16; TEMP 36.2; O2SAT 93
[2021-03-07] MEDS: LACTATED RINGERS 1,000 ML 100 ML IV CONT (18:05)
[2021-03-07] MEDS: OMEGA 3 POLYUNSAT FATTY ACIDS 1 GM CAP 2 GM PO (19:36)
[2021-03-07] MEDS: HYDROcodone/acetaminophen (*CRX) 10-325 MG TABLET 1 TAB PO ×2 (19:37→23:42)
[2021-03-07] MEDS: DIVALPROEX SODIUM DR 250 MG TABEC PO (19:37)
[2021-03-07 19:58] LABS: Anion Gap 10 mmol/L (8-16); Blood Urea Nitrogen 33 mg/dL (7-17); Calcium 11.5 mg/dL (8.4-10.2); Carbon Dioxide 26 mmol/L (22-30); Chloride 98 mmol/L (98-107); Estimated CRCL calculation 21 ml/min; Estimated Glomerular Filt Rate 15; Glucose 209 mg/dL (65-105); Magnesium 1.9 mg/dL (1.6-2.3); Sodium 134 mmol/L (137-145)
[2021-03-07 20:00] VITALS: PULSE 87
[2021-03-07 21:21] VITALS: BP 120/65; PULSE 91; RESP 16; TEMP 36.1; O2SAT 98
[2021-03-07] MEDS: SALINE LOCK FLUSH 10 ML IV PUSH (21:29)
[2021-03-07 21:31] LABS: Glucose Point of Care 180 mg/dl (65-105)
[2021-03-08] VITALS (14 sets, daily range): BP systolic 94–137; BP diastolic 55–66; PULSE 75–109; RESP 16–18; TEMP 36–36.6; O2SAT 91–98; BMI 43.2
[2021-03-08] MEDS: CALCIUM CARBONATE (TUMS) 500 MG (200 MG ELEMENTAL) 400 MG PO (03:51)
[2021-03-08] MEDS: LACTATED RINGERS 1,000 ML 100 ML IV CONT (03:54)
[2021-03-08] MEDS: HYDROcodone/acetaminophen (*CRX) 10-325 MG TABLET 1 TAB PO ×4 (05:36→23:19)
[2021-03-08] MEDS: SALINE LOCK FLUSH 10 ML IV PUSH ×3 (05:36→23:20)
[2021-03-08] MEDS: DIVALPROEX SODIUM DR 250 MG TABEC PO ×2 (05:36→17:39)
--- NOTE | 2021-03-08 07:57 | PM.CNCAR ---
Assessment and Plan Assessment and plan (1) Chronic combined systolic and diastolic CHF (congestive heart failure): Code(s): I50.42 - Chronic combined systolic (congestive) and diastolic (congestive) heart failure Status: Acute Assessment and Plan: Her EF improved recently to 40-45% on Coreg and Entresto. She was started on Entresto in March 2020. When she was on Losartan prior to Entresto she had intermittent hyperkalemia also which could be contributing to it along with her CKD probably from Diabetes. Agree to hold Entresto as her potassium improves. ARB or Stas Inh or Entresto can cause hyperkalemia, and therefore cannot start either of them. In the future if her EF drops again, will do a trial of one of those medications to improve her EF. May d/c home from cardiology standpoint and f/u with me in 2 weeks. (2) Essential hypertension: Code(s): I10 - Essential (primary) hypertension Status: Acute Assessment and Plan: Stable. (3) Hyperlipidemia, unspecified: Code(s): E78.5 - Hyperlipidemia, unspecified Status: Acute Assessment and Plan: On medications. (4) Type 2 diabetes mellitus with hyperglycemia, with long-term current use of insulin: Code(s): E11.65 - Type 2 diabetes mellitus with hyperglycemia; Z79.4 - intermodal dispatcher (current) use of insulin Status: Acute Assessment and Plan: Managed as per hospitalist. (5) Morbid obesity with BMI of 40.0-44.9, adult: Code(s): E66.01 - Morbid (severe) obesity due to excess calories; Z68.41 - Body mass index [BMI]40.0-44.9, adult Status: Acute (6) Hyperkalemia: Code(s): E87.5 - Hyperkalemia Status: Acute Assessment and Plan: Improving. (7) CKD (chronic kidney disease) stage 4, GFR 15-29 ml/min: Code(s): N18.4 - Chronic kidney disease, stage 4 (severe) Status: Acute (8) Obstructive sleep apnea on CPAP: Code(s): G47.33 - Obstructive sleep apnea (adult) (pediatric); Z99.89 - Dependence on other enabling machines and devices Status: Chronic (9) Chronic obstructive pulmonary disease: Code(s): J44.9 - Chronic obstructive pulmonary disease, unspecified Status: Acute History of Present Illness History of Present Illness Consult date/time: 03/08/21 07:57 Reason for consult: Hyperkalemia. Patient is a 65 yr old woman who is my regular cardiology patient who presents to ED for abnormal labs. She has a history of MARY, COPD, chronic systolic dysfunction, diastolic dysfunction, DM, Hypertension, dyslipidemia, obesity, quit smoking around Aug 2020. She is feeling well and would like to go home. Upon admission, her WBC 13.4, Hb 10.6. Potassium 5.9 now 5.0, Cr 3.2 (was as high as 4.3 on 10/26/19), Calcium 13.1, now 11.5. She was recently hospitalized with UTI and ESBL E. Coli bacteremia, requiring PICC line for IV antibiotics. Reports chronic AQUINO walking minimal distance. Denies chest pain, orthopnea, PND, edema. Cardiovascular Procedures Ammonia Box Tender:: Cath (LAD with some minimal luminal irregularities.) - 12/07/2015 Echo/MUGA:: 12/27/20 Echo: EF 40-45%, mod LVE, grade I diastolic dysfunction (E/e' 11). 10/27/19 EF: 30-35%, severe LVE, grade I diastolic dysfunction (E/e' 14), mild biatrial enlargement. Echo (EF 40%, mod LVE, grade I diastolic dysfunction (E/E' 16), trace TR.) - 11/04/2017 Echo (EF 35-40%, mod LVH, grade I diastolic dysfunction (E/E' 11), mod LAE, trace MR/TR.) - 05/05/2017 Echo (EF 35%, mod LV enlargement, grade III diastolic dysfunction (20), mild LAE, trace MR/TR.) - 05/01/2016 Echo (EF 30%, mild LVE, paradoxical septal motion, diastolic dysfunction, trace MR.) - 10/31/2015 Electrophysiology:: 02/25/21 EGK: Sinus rhythm, IVCD, PRWP, inferior infarct, age indeterminate. 10/26/19 EKG: Sinus rhythm, frequent PAC's, low voltage in precordial leads, PRWP, borderline ST-T wave in lateral leads. EKG (Sinus rhythm, borderline R wave progression, anterior leads, borderlin
[2021-03-08 08:03] LABS: Glucose Point of Care 143 mg/dl (65-105)
[2021-03-08 08:06] LABS: Basophils Absolute Auto 0.1 K/mm3 (0.0-0.1); Basophils Percent Auto 0.9 % (0.2-1.2); Eosinophils Absolute Auto 0.1 K/mm3 (0-0.3); Eosinophils Percent Auto 1.2 % (0-4.4); Hematocrit 30.3 % (37.0-47.0); Hemoglobin 9.6 g/dL (12.0-15.0); Immature Granulocyte Absolute 0.03 K/mm3 (0.00-0.031); Immature Granulocyte Percent A 0.3 % (0-0.5); Lymphocytes Percent Auto 33.6 % (18.3-44.2); Mean Corpuscular HGB Conc 31.7 g/dl (32-36); Mean Corpuscular Hemoglobin 28.7 pg (26-34); Mean Corpuscular Volume 90.4 fl (80-100); Monocytes Absolute Auto 0.8 K/mm3 (0.1-0.6); Monocytes Percent Auto 7.6 % (2.6-8.5); Neutrophils Absolute Auto 6.1 K/mm3 (1.3-6.7); Neutrophils Percent Auto 56.4 % (45.5-73.1); Platelet Count Result 363 k/mm3 (150-375); Red Blood Count 3.35 M/mm3 (4.2-5.4); Red Cell Distribution Width 14.2 % (11.5-14.5); White Blood Count 10.7 K/mm3 (4.5-10.0)
[2021-03-08 08:34] LABS: Anion Gap 10 mmol/L (8-16); Blood Urea Nitrogen 31 mg/dL (7-17); Carbon Dioxide 25 mmol/L (22-30); Chloride 99 mmol/L (98-107); Estimated CRCL calculation 23 ml/min; Estimated Glomerular Filt Rate 16; Glucose 149 mg/dL (65-105); Magnesium 1.9 mg/dL (1.6-2.3); Potassium 4.8 mmol/L (3.4-5.0); Sodium 134 mmol/L (137-145)
[2021-03-08] MEDS: ENOXAPARIN 30 MG/0.3 ML SYRINGE SUB-Q (08:45)
[2021-03-08] MEDS: carvediloL 6.25 MG TABLET PO ×2 (08:46→23:19)
[2021-03-08] MEDS: MONTELUKAST SODIUM 10 MG TABLET PO (08:46)
[2021-03-08] MEDS: FUROSEMIDE 40 MG TABLET PO (08:46)
[2021-03-08] MEDS: CHOLECALCIFEROL 1,000 UNITS TABLET 1000 UNITS PO (08:46)
[2021-03-08] MEDS: GABAPENTIN 400 MG CAPSULE PO ×3 (08:46→17:40)
[2021-03-08] MEDS: buPROPion HCL SR (12HR) 100 MG TABCR 200 MG PO ×2 (08:47→23:19)
[2021-03-08] MEDS: ASPIRIN 81 MG ENTERIC TABLET PO (08:47)
[2021-03-08] MEDS: allopurinoL 300 MG TABLET PO (08:47)
[2021-03-08] MEDS: OMEGA 3 POLYUNSAT FATTY ACIDS 1 GM CAP 2 GM PO ×2 (08:48→17:39)
[2021-03-08] MEDS: ERTAPENEM SODIUM 0.5 GM in SODIUM CHLORIDE 0.9% IV 50 ML IVPB ×2 (09:23→14:37)
--- NOTE | 2021-03-08 09:41 | PM.CNNEP ---
Assessment and Plan Assessment and plan (1) Acute renal failure superimposed on stage 4 chronic kidney disease: Code(s): N17.9 - Acute kidney failure, unspecified; N18.4 - Chronic kidney disease, stage 4 (severe) Status: Acute Assessment and Plan: the patient has chronic kidney disease. It seems like her baseline is somewhere between 2 and 2.6. Renal ultrasound done in October was normal. Most likely this is due to diabetes and hypertension. She also may have vascular disease. Will check for other causes as well while she is here but we do not need to wait for all this to come back. She can follow up in the office for this issue. The patient also has acute kidney injury. Her creatinine patrizia from about 2 to 2.6 to 3.2 and now back to 3. The patent has been given some IV fluids and the creatinine improved a little bit. Possibly there was some dehydration involved. She does have congestive heart failure and is on chronic diuretics. Sometimes with the heat the patient does not need is high dose of diuretics. Possibly pre renal azotemia could be playing a role. The patient has a UTI. She does not look toxic but this could contribute to some rise in the creatinine I suppose. Patient has hypercalcemia. Will get a KUB to be sure she does not have nephro calcinosis. There are other causes of acute kidney injury like glomerulonephritis and interstitial nephritis but I think these are less likely in this clinical scenario Will check urine electrolytes and eosinophils as well. (2) Urinary tract infection: Code(s): N39.0 - Urinary tract infection, site not specified Status: Acute Assessment and Plan: the patient is on antibiotics. Blood and urine cultures are pending. (3) Obstructive sleep apnea on CPAP: Code(s): G47.33 - Obstructive sleep apnea (adult) (pediatric); Z99.89 - Dependence on other enabling machines and devices Status: Chronic Assessment and Plan: The patient uses CPAP machine at night as well as some oxygen. (4) Hypercalcemia: Code(s): E83.52 - Hypercalcemia Status: Acute Assessment and Plan: Patient has a high calcium. This has been the case off and on over the last year or 2. It is consistent this admission. Will get a PTH level, Stas level, vitamin-D and 1,25 vitamin-D,. Consider bone scan down the line as an outpatient if these do not tell us what is going on. Usually people with chronic kidney disease have low calcium not high calcium. (5) Hyponatremia: Code(s): E87.1 - Hypo-osmolality and hyponatremia Status: Acute Assessment and Plan: The patient has a low sodium. This is most likely due to diuretics, renal insufficiency, and also her high sugars. Will check a TSH and cortisol just in case. (6) Nephrolithiasis: Code(s): N20.0 - Calculus of kidney Status: Acute Assessment and Plan: She has had a kidney stone in the past. Will see with the KUB shows. (7) Insulin dependent type 2 diabetes mellitus: Code(s): E11.9 - Type 2 diabetes mellitus without complications; Z79.4 - terminal manager (current) use of insulin Status: Acute Assessment and Plan: She is on Accu-Cheks and sliding-scale insulin. History of Present Illness Reason for Consult Consult date: 03/08/21 Chief Complaint Chief complaint: hyperkaemia,dehydration,urinary tract infection History of Present Illness Narrative: George is a very pleasant 65-year-old lady who has multiple medical problems including chronic kidney disease, rising and falling creatinine over the last few months,combined systolic and diastolic congestive heart failure, chronic respiratory failure with hypoxia, chronic obstructive pulmonary disease, insulin-dependent type 2 diabetes mellitus without retinopathy, obstructive sleep apnea, and rheumatoid arthritis the patient went to get her some blood work done
[2021-03-08 11:55] LABS: Creatine Kinase 24 U/L (30-135)
[2021-03-08 12:03] LABS: Complement C3 138 mg/dL (88-165)
[2021-03-08 12:16] LABS: Erythrocyte Sedimentation Rate > 140 mm/hr (0-20)
[2021-03-08 12:25] LABS: Cortisol Random 5.19 ug/dL
--- NOTE | 2021-03-08 14:37 | PCNSR ---
On 03/08/21, the student, [Jolly Mccarthy ], provided care and completed [facility] documentation on this patient. I have reviewed the student's documentation and agree with the findings.
[2021-03-08 14:50] LABS: Vitamin D 25 Hydroxy 34.8 ng/mL
--- NOTE | 2021-03-08 15:56 | PM.IMPN ---
Progress Note: A&P Assessment and Plan (1) Acute renal failure superimposed on stage 4 chronic kidney disease: Code(s): N17.9 - Acute kidney failure, unspecified; N18.4 - Chronic kidney disease, stage 4 (severe) Status: Acute Assessment and Plan: creatinine was 3.2 on admission and now down to 3.0 with fluids. Her baseline usually is around 2.0- 2.6 - she may have had too many diuretics and had gotten a little dehydrated. she is also recovering from a UTI -Pt improved with IV fluids but we want to be sure not to give her too many -recheck Cr in the morning and re-evaluate her fluid status -may discharge tomorrow if she continues to improve (2) room designer current use of antibiotics: Code(s): Z79.2 - snf (current) use of antibiotics Status: Acute Assessment and Plan: Today is her last day of ertapenem for her UTI 02/22/21 -will remove midline prior to discharge (3) Electrolyte abnormality: Code(s): E87.8 - Other disorders of electrolyte and fluid balance, not elsewhere classified Status: Acute Assessment and Plan: Improving. -K now 4.8, Na 134 and calcium 11.0 -pth mildly high -vit D sufficient -continue to hold Entresto -okay to d/c tele (4) Insulin dependent type 2 diabetes mellitus: Code(s): E11.9 - Type 2 diabetes mellitus without complications; Z79.4 - room designer (current) use of insulin Status: Acute Assessment and Plan: Glucoses have been in a good range last being 143 - it is confirmed by the pharmacy that she takes lispro 30 units with meals up to twice a day, Tresiba 90 units at night, and Trulicity 0.75 mg. Patient does not always take these as prescribed, however. - because she has been in a good range here, her diet is more restricted here, and she has acute on chronic renal disease, I am going to just continue with the sliding scale insulin and do 10 units of Lantus. - Adjust as necessary -Most recent hemoglobin A1c was 11.7%. (5) Chronic combined systolic and diastolic CHF (congestive heart failure): Code(s): I50.42 - Chronic combined systolic (congestive) and diastolic (congestive) heart failure Status: Acute Assessment and Plan: euvolemic - will monitor fluid status (6) Obstructive sleep apnea on CPAP: Code(s): G47.33 - Obstructive sleep apnea (adult) (pediatric); Z99.89 - Dependence on other enabling machines and devices Status: Chronic Assessment and Plan: continue CPAP (7) Leukocytosis: Code(s): D72.829 - Elevated white blood cell count, unspecified Status: Acute Assessment and Plan: improving, likely slightly elevated due to dehydration on admission - patient is finishing ertapenem - blood cultures pending but I suspect it will be negative Time Spent With Patient Time with patient: 25 - 35 minutes Subjective Date/time seen: 03/08/21 15:56 Interval history: Pt is a 65 y/o female here for STEVE and abnormal labs. patient was seen today and has no complaints. Pt denies nausea, vomiting, fevers, chills, constipation, diarrhea, chest pain, sob, or abdominal pain. Review of Systems Review of Systems: All systems reviewed & are unremarkable except as noted in HPI and below Exam Narrative: Exam Narrative: General: Overweight patient resting comfortably in bed in no acute distress HEENT: normocephalic Neck: supple Neuro: Alert and oriented x4 CV:RRR. Telemetry showing occasional PVCs Resp: slightly diminished breath sounds, no wheezing or rhonchi Abd: Soft, non distended. No pain to palpation. Positive bowel sounds Extremities: No swelling, erythema, or pain to palpation. Objective Data Vital Signs Vital Signs: Vital Signs - 24 hr 03/07/21 18:00 03/07/21 20:00 03/07/21 21:21 Temperature 97.2 F L 96.9 F L Pulse Rate 88 87 91 Respiratory Rate 16 16 Blood Pressure 117/45 L 120/65 Pulse Oximetry
[2021-03-08] MEDS: SIMVASTATIN 20 MG TABLET 40 MG PO (17:37)
[2021-03-08 18:00] LABS: Glucose Point of Care 122 mg/dl (65-105)
[2021-03-08 20:48] LABS: Glucose Point of Care 190 mg/dl (65-105)
[2021-03-08 22:40] LABS: Creatinine Urine 64.4 mg/dL; Total Protein Urine Random 42 mg/dL; Ur Ttl Prot Creatinine Ratio 0.65 mg/mg (0-0.20)
[2021-03-08 22:41] LABS: Sodium Urine Random 76 meq/L
[2021-03-08] MEDS: INSULIN GLARGINE (*BKC) 100 UNITS/ML 10 UNITS SUB-Q (23:20)
[2021-03-09] VITALS: BP 117/63; PULSE 82; RESP 18; TEMP 36.1; O2SAT 97
[2021-03-09 03:47] LABS: Eosinophil Urine None Seen % (None Seen)
[2021-03-09 04:00] VITALS: BP 125/66; PULSE 81; RESP 20; TEMP 36.1; O2SAT 95
[2021-03-09] MEDS: HYDROcodone/acetaminophen (*CRX) 10-325 MG TABLET 1 TAB PO ×3 (05:48→18:24)
[2021-03-09] MEDS: DIVALPROEX SODIUM DR 250 MG TABEC PO ×2 (05:48→18:24)
[2021-03-09] MEDS: SALINE LOCK FLUSH 10 ML IV PUSH ×2 (05:48→14:15)
[2021-03-09 08:17] LABS: Glucose Point of Care 145 mg/dl (65-105)
[2021-03-09 09:16] LABS: Albumin Level 3.9 g/dL (3.5-5.1); Anion Gap 11 mmol/L (8-16); Blood Urea Nitrogen 29 mg/dL (7-17); Calcium 10.9 mg/dL (8.4-10.2); Carbon Dioxide 24 mmol/L (22-30); Chloride 100 mmol/L (98-107); Estimated CRCL calculation 24 ml/min; Estimated Glomerular Filt Rate 17; Glucose 148 mg/dL (65-105); Phosphorus 5.1 mg/dL (2.5-4.5); Potassium 4.8 mmol/L (3.4-5.0); Sodium 135 mmol/L (137-145)
--- NOTE | 2021-03-09 09:24 | PM.PNNEP ---
Progress Note: A&P Assessment and Plan (1) Acute renal failure superimposed on stage 4 chronic kidney disease: Code(s): N17.9 - Acute kidney failure, unspecified; N18.4 - Chronic kidney disease, stage 4 (severe) Status: Acute Assessment and Plan: the patient has chronic kidney disease. It seems like her baseline is somewhere between 2 and 2.6. Renal ultrasound done in October was normal. ESR is greater than 140 complements are okay. Other serology and immunofixation are all pending renal sonogram is negative. KUB does not show nephrolithiasis or nephrocalcinosis Most likely this is due to diabetes and hypertension. She also may have vascular disease. Evaluation pending. The patient also has acute kidney injury. CPK is 24 urine electrolytes are non pre renal urine eosinophils are negative UA shows a few white cells Her creatinine patrizia from about 2 to 2.6 to 3.2 and dropped to 2.8 over the last couple of days. Most likely the patient is mildly pre renal because of diuretics. I would like to reduce her furosemide to20mg a day. (2) Urinary tract infection: Code(s): N39.0 - Urinary tract infection, site not specified Status: Acute Assessment and Plan: the patient is on antibiotics. blood cultures are pending. Urine cultures are negative (3) Obstructive sleep apnea on CPAP: Code(s): G47.33 - Obstructive sleep apnea (adult) (pediatric); Z99.89 - Dependence on other enabling machines and devices Status: Chronic Assessment and Plan: The patient uses CPAP machine at night as well as some oxygen. (4) Hypercalcemia: Code(s): E83.52 - Hypercalcemia Status: Acute Assessment and Plan: Patient has a high calcium. PTH is a bit high. If this were secondary hyperparathyroidism, her calcium would normally be low or at least normal. However if her issue was primary hyperparathyroidism, her phosphorus level would not be elevated. I suspect her high calcium is due to her dehydration And the furosemide. (5) Hyponatremia: Code(s): E87.1 - Hypo-osmolality and hyponatremia Status: Acute Assessment and Plan: The patient has a low sodium. Still low today. Her cortisol level is very low. Will check a Cortrosyn stim test. TSH is okay. (6) Nephrolithiasis: Code(s): N20.0 - Calculus of kidney Status: Acute Assessment and Plan: She has had a kidney stone in the past. None seen on KUB (7) Insulin dependent type 2 diabetes mellitus: Code(s): E11.9 - Type 2 diabetes mellitus without complications; Z79.4 - watermaster (current) use of insulin Status: Acute Assessment and Plan: She is on Accu-Cheks and sliding-scale insulin. Subjective Date/time seen: 03/09/21 09:24 Interval history: No complaints. Patient eager for discharge. Review of Systems Cardiovascular: Cardiovascular: Reports no additional cardiovascular complaints Respiratory: Respiratory: Reports no additional respiratory complaints Gastrointestinal: Gastrointestinal: Reports no additional gastrointestinal complaints Genitourinary: Genitourinary: Reports no additional female genitourinary complaints Exam Narrative: Exam Narrative: WDWN in NAD skin no rash head ncat lungs clear cor reg no rub abd BS+ nontender and soft ext no edema. Objective Data Vital Signs Vital Signs: Vital Signs - 24 hr 03/08/21 10:00 03/08/21 10:21 03/08/21 12:00 Temperature 36.2 C L Pulse Rate 100 83 Respiratory Rate 16 Blood Pressure 99/55 L Pulse Oximetry 91 91 03/08/21 14:00 03/08/21 18:00 03/08/21 20:00 Temperature 36.6 C 36.2 C L 36.0 C L Pulse Rate 88 75 85 Respiratory Rate 16 16 18 Blood Pressure 94/60 L 137/64 112/58 L Pulse Oximetry 94 96 96 03/08/21 23:19 03/09/21 00:00 03/09/21 04:00 Temperature 36.1 C L 36.1 C L Pulse Rate 85 82
[2021-03-09 09:43] LABS: Cortisol Baseline 2.11 ug/dL
[2021-03-09] MEDS: ASPIRIN 81 MG ENTERIC TABLET PO (09:49)
[2021-03-09] MEDS: allopurinoL 300 MG TABLET PO (09:49)
[2021-03-09] MEDS: ENOXAPARIN 30 MG/0.3 ML SYRINGE SUB-Q (09:50)
[2021-03-09] MEDS: FUROSEMIDE 40 MG TABLET PO (09:50)
[2021-03-09] MEDS: buPROPion HCL SR (12HR) 100 MG TABCR 200 MG PO (09:50)
[2021-03-09] MEDS: CHOLECALCIFEROL 1,000 UNITS TABLET 1000 UNITS PO (09:50)
[2021-03-09] MEDS: OMEGA 3 POLYUNSAT FATTY ACIDS 1 GM CAP 2 GM PO ×2 (09:51→16:53)
[2021-03-09] MEDS: MONTELUKAST SODIUM 10 MG TABLET PO (09:51)
[2021-03-09] MEDS: GABAPENTIN 400 MG CAPSULE PO ×3 (09:51→16:53)
[2021-03-09 09:56] VITALS: PULSE 80
[2021-03-09] MEDS: carvediloL 6.25 MG TABLET PO (09:56)
[2021-03-09] MEDS: COSYNTROPIN 0.25 MG/ML VIAL IV PUSH (10:00)
[2021-03-09 10:15] VITALS: BP 113/63; PULSE 82; RESP 16; TEMP 36.3; O2SAT 95
[2021-03-09 12:47] LABS: Glucose Point of Care 217 mg/dl (65-105)
[2021-03-09] MEDS: INSULIN ASPART (*BKC) 100 UNITS/ML SUB-Q ×2 (14:11→16:47)
--- NOTE | 2021-03-09 14:37 | PM.DS ---
DS: Admitting Diagnosis Admitting Diagnosis Admitting Diagnosis: hyperkalemia DS: Discharge Diagnosis Discharge Diagnosis (1) Acute renal failure superimposed on stage 4 chronic kidney disease: Code(s): N17.9 - Acute kidney failure, unspecified; N18.4 - Chronic kidney disease, stage 4 (severe) Status: Acute Assessment and Plan: creatinine was 3.2 on admission and now down to 2.8 with fluids. Her baseline usually is around 2.0- 2.6 - she may have had too many diuretics and had gotten a little dehydrated. 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 -K now 4.8, Na 135 and calcium 10.9 -pth mildly high, consider primary hyperparathyroidism. May need tx if pt starts having symptoms of hypercalcemia -vit D sufficient -cortisol stim test normal (4) Insulin dependent type 2 diabetes mellitus: Code(s): E11.9 - Type 2 diabetes mellitus without complications; Z79.4 - community living coach (current) use of insulin Status: Acute Assessment and Plan: last glucose 243 - it is confirmed by the pharmacy that she takes lispro 30 units with meals up to twice a day, Tresiba 90 units at night, and Trulicity 0.75 mg. Patient does not always take these as prescribed, however. -Most recent hemoglobin A1c was 11.7%. (5) Chronic combined systolic and diastolic CHF (congestive heart failure): Code(s): I50.42 - Chronic combined systolic (congestive) and diastolic (congestive) heart failure Status: Acute Assessment and Plan: euvolemic - will monitor fluid status (6) Obstructive sleep apnea on CPAP: Code(s): G47.33 - Obstructive sleep apnea (adult) (pediatric); Z99.89 - Dependence on other enabling machines and devices Status: Chronic Assessment and Plan: continue CPAP (7) Leukocytosis: Code(s): D72.829 - Elevated white blood cell count, unspecified Status: Acute Assessment and Plan: improving, likely slightly elevated due to dehydration on admission - patient is finishing ertapenem and no further UTI noted on new urine cx - blood cultures negative and will be monitored until finalized DS: Summary Hospital Course Hospital Course: Pt is a 65 y/o female who was sent to the ED from an outside facility for abnormal electrolytes and wbc. Vitals in the ER stable. Inital WBC 13.4, hgb 10.4, hct 33.2, platelets 472. Na 133, potassium 5.7, chloride 95, CO2 25, BUN 29, creatinine 3.2, glucose 180. Patient was admitted to the hopitalist service and Entresto was held as were diuretics. She was started on IV fluids. Her electrolytes corrected and her creatinine improved as noted above. Her white blood cell count improved with IV fluids, suspect slight dehydration from over-diuresis. New urine culture showed no growth. She received her last dose of ertapenem she was receiving outpatient here in the hospital and the midline was discontinued. No further infection was suspected and blood cultures were negative. White blood cell count on discharge was 10.7 and downward trending. Her creatinine was also down were trending and improving. day of discharge patient was doing well and ready to go. Her midline and catheter was placed and she was discharged after she urinated. The nurse states that she has been walking to and from the bathroom without any issue. The patient states she does not feel weak whatsoever and does
[2021-03-09 14:45] VITALS: BP 116/68; PULSE 84; RESP 16; TEMP 36.6; O2SAT 99
[2021-03-09 14:45] LABS: Creatinine Urine 78.8 mg/dL
[2021-03-09 16:47] LABS: Glucose Point of Care 243 mg/dl (65-105)
[2021-03-09] MEDS: NEOMYCIN/POLYMYXIN/BACITRACIN OINTMENT PACKET 1 PACKET (16:55)
[2021-03-09] MEDS: SIMVASTATIN 20 MG TABLET 40 MG PO (18:28)
[2021-03-10 22:40] LABS: Kappa\\Lambda Light Chains 1.82 (0.26-1.65); Lambda Light Chain 84.4 mg/L (5.7-26.3)
[2021-03-11 20:50] LABS: Angiotensin Converting Enzyme 31 U/L (9-67)
[2021-03-12 00:46] LABS: Vitamin D 1,25 (OH)2 Total 17 pg/mL (18-72); Vitamin D2 1,25 (OH)2 <8 pg/mL; Vitamin D3 1,25 (OH)2 17 pg/mL
[2021-03-12 12:16] LABS: Complement Total CH50 >60 U/mL (31-60)
[2021-03-13 08:37] LABS: Calcium/Creatinine Ratio, Ur 106 mg/g creat (10-320); Urine Calcium, Random 8.2 mg/dL (***); Urine Creatinine, Random 77 mg/dL (20-275)
[2021-03-14 00:17] LABS: Osmolality, Urine 343 mOsm/kg (50-1200)
--- NOTE | 2021-03-14 15:00 | PC.NURSE ---
blood cx are negative.
== END 2021-03-09 19:11 | disposition home health service (06) ==
LOC: ANHED 13:45 → ANH2MED 14:27
PROVIDERS: Emergency Medicine Emergency Medical Services; Internal Medicine Nephrology; Physician Assistant; Admitting Provider Internal Medicine; Emergency Provider Emergency Medicine; PCP Physician Assistant; Visit Provider Internal Medicine
DX: N17.9 Acute kidney failure, unspecified (principal); E87.5 Hyperkalemia; E87.1 Hypo-osmolality and hyponatremia; E83.52 Hypercalcemia; E86.0 Dehydration; N39.0 Urinary tract infection, site not specified; I13.0 Hypertensive heart and chronic kidney disease with heart failure and stage 1 through stage 4 chronic kidney disease, or unspecified chronic kidney disease; E11.22 Type 2 diabetes mellitus with diabetic chronic kidney disease; N18.4 Chronic kidney disease, stage 4 (severe); I50.42 Chronic combined systolic (congestive) and diastolic (congestive) heart failure; I42.9 Cardiomyopathy, unspecified; J96.11 Chronic respiratory failure with hypoxia; J44.9 Chronic obstructive pulmonary disease, unspecified; E11.42 Type 2 diabetes mellitus with diabetic polyneuropathy; D64.9 Anemia, unspecified; B19.20 Unspecified viral hepatitis C without hepatic coma; E78.5 Hyperlipidemia, unspecified; E66.01 Morbid (severe) obesity due to excess calories; M06.9 Rheumatoid arthritis, unspecified; M19.90 Unspecified osteoarthritis, unspecified site; L40.9 Psoriasis, unspecified; F32.9 Major depressive disorder, single episode, unspecified; Z87.891 Personal history of nicotine dependence; G47.33 Obstructive sleep apnea (adult) (pediatric); Z86.718 Personal history of other venous thrombosis and embolism; Z68.41 Body mass index [BMI] 40.0-44.9, adult; Z79.2 Long term (current) use of antibiotics; Z79.4 Long term (current) use of insulin; Z86.73 Personal history of transient ischemic attack (TIA), and cerebral infarction without residual deficits; Z87.442 Personal history of urinary calculi
CPT/HCPCS: 36415; 71046; 74018; 76775; 80048; 80053; 80069; 81001; 82164; 82306; 82310; 82533; 82550; 82570; 82652; 82948; 83605; 83690; 83735; 83883; 83930; 83935; 83970; 84156; 84300; 84443; 85025; 85610; 85652; 85730; 85999; 86038; 86039; 86140; 86160; 86162; 86334; 87040; 87086; 94660; 96361; 96365; 96372; 96375; 96376; 99285; A9270; G0378; J0610; J0834; J1335; J1650; J1815; J7040; J7120

== ENCOUNTER 2021-03-15 12:27 | Outpatient (NON) | payer MEDICARE, MEDICAID, SELFPAY ==
[2021-03-15 13:15] LABS: Anion Gap 11 mmol/L (8-16); Blood Urea Nitrogen 26 mg/dL (7-17); Calcium 11.1 mg/dL (8.4-10.2); Carbon Dioxide 24 mmol/L (22-30); Chloride 100 mmol/L (98-107); Estimated Glomerular Filt Rate 21; Glucose 177 mg/dL (65-105); Potassium 4.7 mmol/L (3.4-5.0); Sodium 135 mmol/L (137-145)
== END 2021-03-15 12:28 | disposition home or self-care (01) ==
LOC: HOME HLTH 12:31
PROVIDERS: PCP Physician Assistant; Visit Provider Physician Assistant
DX: E87.1 Hypo-osmolality and hyponatremia (principal)
CPT/HCPCS: 80048

== ENCOUNTER 2021-05-30 15:20 | Emergency (ER) | payer MEDICARE, MEDICAID, SELFPAY ==
[2021-05-30 16:10] VITALS: BP 126/76; PULSE 105; RESP 20; TEMP 36.9; O2SAT 96
--- NOTE | 2021-05-30 16:11 | ED.DENTAL ---
HPI - Dental/Oral General Chief complaint: Dental/Oral Stated complaint: TOOTHACHE KNEE PAIN Source: patient Mode of arrival: EMS Limitations: no limitations History of Present Illness HPI Narrative: this is a 65-year-old female that is complaining of left lower molar and wisdom tooth pain with surrounding gum inflammation with a tenderness in the submandibular gland on the left with chills with no fevers no shortness of breath no nausea vomiting or abdominal pain, patient has a chronic osteoarthritis in her knees and complaining of some joint pain has tried a narcotic pain medication with minimal relief with no known injuries no bruising has good range of motion. MD Complaint: tooth pain Teeth map: 1. with and tooth pain with surrounding gum inflammation Onset (ago): day(s) Duration: intermittent Severity: moderate Severity scale (1-10): 5 Relieving factors: prescription analgesics Exacerbating factors: chewing and cold Context: history of dental caries Associated symptoms: gum swelling Related Data Home Medications Medication Instructions Recorded Confirmed gabapentin 300 mg capsule 400 mg PO TID 07/27/19 03/07/21 montelukast 10 mg tablet 10 mg PO DAILY 07/27/19 03/07/21 aspirin 81 mg tablet,delayed 81 mg PO DAILY 08/01/19 03/07/21 release cholecalciferol (vitamin D3) 25 1,000 unit PO DAILY 08/01/19 03/07/21 mcg (1,000 unit) capsule simvastatin 40 mg tablet 40 mg PO QPM tablet 12/08/19 03/07/21 Breo Ellipta 1 inh INHALATION DAILY 01/13/20 03/07/21 duloxetine 60 mg PO DAILY 01/13/20 03/07/21 icosapent ethyl [Vascepa] 2 g PO BID 01/13/20 03/07/21 bupropion HCl 200 mg PO BID 11/21/20 03/07/21 cyclobenzaprine 10 mg PO Q8-12H PRN 11/21/20 03/07/21 Latuda 80 mg PO DAILY 02/22/21 03/07/21 Tresiba FlexTouch U-100 90 unit SUBCUT HS 02/22/21 03/07/21 Trulicity 0.75 mg SUBCUT WEEKLY 02/22/21 03/07/21 divalproex 250 mg PO Q12H 02/22/21 03/07/21 omega-3 acid ethyl esters 2 cap PO BID 02/22/21 03/07/21 hydrocodone-acetaminophen 1 tablet PO Q6H 03/07/21 03/07/21 Allergies Allergy/AdvReac Type Severity Reaction Status Date / Time ibuprofen Allergy Unknown skin Verified 03/07/21 11:26 changes Sulfa (Sulfonamide AdvReac Unknown Itching Verified 03/07/21 11:26 Antibiotics) cucumber AdvReac Hives Verified 03/07/21 11:26 Review of Systems Review of Systems: All systems reviewed & are unremarkable except as noted in HPI and below PMFSH Past Medical History Medical History Anemia Arthritis Chronic anemia Chronic kidney disease, stage 4 (severe) Baseline creatinine seems to be around 2.60. Chronic obstructive pulmonary disease Chronic respiratory failure with hypoxia Combined systolic and diastolic congestive heart failure Echocardiogram in May 2016 showed moderate enlargement of the left ventricular cavity, moderate global left ventricular systolic dysfunction, ejection fraction of 35%, and grade 3 diastolic dysfunction. Deep venous thrombosis Depression Diabetic peripheral neuropathy Gout Hepatitis C Hypercalcemia Hyperlipidemia Hypertension Hyponatremia Insulin dependent type 2 diabetes mellitus With diabetic peripheral neuropathy. Hemoglobin A1c was 11.7% on 02/22/2021. Kidney stones Morbid obesity Nonischemic cardiomyopathy Cardiac catheterization December 10, [address] Emmanuel Boyd showed right coronary dominant circulation with no significant coronary disease. Obstructive sleep apnea on CPAP Psoriasis Rheumatoid arthritis Tobacco dependence Transient ischemic attack Surgical History Surgical History History of cardiac catheterization Cardiac catheterization December 10, [address] Emmanuel Boyd showed right coronary dominant circulation with no significant coronary disease. History of dilatation and curettage History of lithotripsy Status post tubal ligation Family Hist
== END 2021-05-30 16:30 | disposition home or self-care (01) ==
PROVIDERS: Emergency Provider Emergency Medicine
DX: K04.7 Periapical abscess without sinus (principal); I13.0 Hypertensive heart and chronic kidney disease with heart failure and stage 1 through stage 4 chronic kidney disease, or unspecified chronic kidney disease; E11.22 Type 2 diabetes mellitus with diabetic chronic kidney disease; N18.4 Chronic kidney disease, stage 4 (severe); I50.40 Unspecified combined systolic (congestive) and diastolic (congestive) heart failure; I42.8 Other cardiomyopathies; J44.9 Chronic obstructive pulmonary disease, unspecified; E11.42 Type 2 diabetes mellitus with diabetic polyneuropathy; B19.20 Unspecified viral hepatitis C without hepatic coma; D64.9 Anemia, unspecified; E78.5 Hyperlipidemia, unspecified; E66.01 Morbid (severe) obesity due to excess calories; M06.9 Rheumatoid arthritis, unspecified; M10.9 Gout, unspecified; L40.9 Psoriasis, unspecified; G47.33 Obstructive sleep apnea (adult) (pediatric); F32.9 Major depressive disorder, single episode, unspecified; Z86.718 Personal history of other venous thrombosis and embolism; Z79.899 Other long term (current) drug therapy; Z79.82 Long term (current) use of aspirin; Z86.73 Personal history of transient ischemic attack (TIA), and cerebral infarction without residual deficits; Z87.891 Personal history of nicotine dependence
CPT/HCPCS: 99283

== ENCOUNTER → 2021-09-06 11:29 | Outpatient (CLI) | payer MEDICARE, MEDICAID, SELFPAY ==
--- NOTE | ~2021-09-06 | XR_ITS ---
EXAMINATION: XR lumbar spine 2-3V EXAM DATE: 09/06/2021 12:22 INDICATION: chronic Pain, arthritis . TECHNIQUE: Lumber spine frontal, lateral, bilateral oblique projections. Coned down frontal and lat eral L5-S1 lumbar projections for interpretation. Comparison is made to prior examination from 020. FINDINGS: Mild lumbar dextroscoliosis. Mild diffuse lumbar disc disease. There is 2-3 mm anterolisthe sis L4 on L5 without spondylolysis. There is mild to moderate upper lumbar, moderate to severe lower lumbar facet arthropathy. Vertebral body and disc heights are well-maintained. Mild aortic arterial s clerosis. Sacrum, sacroiliac joints, sacral arcuate lines are intact. Right upper quadrant calcific d ensity. There are no acute fractures identified. IMPRESSION: Spondylosis. No acute findings. Reviewed, dictated and finalized at location A. 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
== END ==
PROVIDERS: PCP Physician Assistant
DX: M47.26 Other spondylosis with radiculopathy, lumbar region (principal); M41.9 Scoliosis, unspecified; I70.0 Atherosclerosis of aorta
CPT/HCPCS: 72100

== ENCOUNTER 2021-11-28 13:15 | Emergency (ER) | payer MEDICARE, MEDICAID, SELFPAY ==
--- NOTE | ~2021-11-28 | XR_ITS ---
EXAMINATION: XR hip RT 2V w AP pelvis DATE: 11/28/2021 14:12 INDICATION: Frequent falls with chronic low back pain radiating to the right hip. TECHNIQUE: Anteroposterior view of the pelvis and anteroposterior and frog-leg lateral views of the r ight hip were obtained. COMPARISON: Right hip radiographs dated 11/21/[address] abdomen and pelvis dated 05/03/2012 FINDINGS: Alignment is normal. No fracture. No suspected avascular necrosis. Mild bilateral hip osteoarthritis. Severe lower lumbar facet osteoarthritis. Soft tissues are unremarkable. IMPRESSION: 1. Mild bilateral hip osteoarthritis. No acute osseous abnormality. Reviewed, dictated and finalized at location A.
--- NOTE | ~2021-11-28 | XR_ITS ---
XR lumbar spine 2-3V DATE: 11/28/2021 14:11 INDICATION: Chronic low back pain, frequent falls TECHNIQUE: AP, lateral, coned lateral lumbosacral views COMPARISON: 09/06/2021 lumbar spine FINDINGS: There is slight dextro scoliosis. Diffuse osteopenia. There are degenerative changes at the lower lumbar apophyseal joints with associated grade 1 anteroli sthesis at L4-5. There is mild degenerative disc disease of the lumbar interspaces. The L5-S1 interspace is well prese rved. No fracture or bone destruction. The lumbar pedicles are intact. The sacroiliac joints are normal. Approximately 8 mm calcification overlying the right upper quadrant, likely a calcified gallstone. IMPRESSION: Osteopenia Grade 1 anterolisthesis at L4-5 due to degenerative change at the apophyseal joints Mild degenerative disease Probable cholelithiasis Reviewed, dictated and finalized at location A. IMPRESSION: Osteopenia Grade 1 anterolisthesis at L4-5 due to degenerative change at the apophyseal bhavya ints Mild degenerative disease Probable cholelithiasis
[2021-11-28 13:25] VITALS: BP 134/74; PULSE 99; RESP 16; TEMP 36.6; O2SAT 97
[2021-11-28 14:11] LABS: Add Urine Microscopic? YES; Appearance Urine Clear (Clear); Bilirubin Urine Negative (Negative); Blood Urine 3+ (Negative); Color Urine Light Yellow (Yellow); Glucose Urine UA Negative (Negative); Ketones Urine Negative (Negative); Leukocyte Esterase Ur 2+ (Negative); Nitrate Urine Negative (Negative); Protein Urine Negative (Negative); Specific Grav Ur 1.015 (1.010-1.020); Urobilinogen Urine 0.2 mg/dL (0.2-1.0)
[2021-11-28 14:16] LABS: RBC Urine 0-2 /hpf (0-2); WBC Urine >75 /hpf (0-3)
[2021-11-28 14:17] LABS: Bacteria Urine 1+ /hpf; Squamous Epithelial Cell Urine Few /hpf (Few)
[2021-11-28] MEDS: ACETAMINOPHEN 500 MG TABLET 1000 MG PO (14:19)
[2021-11-28 14:20] LABS: Creatine Kinase 52 U/L (26-192)
--- NOTE | 2021-11-28 14:38 | ED.FALL ---
HPI - Fall General Chief Complaint: Fall Stated Complaint: R side pain Time Seen by Provider: 11/28/21 14:38 Source: patient Mode of arrival: ambulatory History of Present Illness HPI Narrative: this is a 66-year-old female that had a fall last week up falling on her lower back and right hip area after she tripped, the patient was doing okay over the course of the week but over the last 24hours pain had increased. Currently there were no symptoms leading up to the fall no lightheadedness no syncopal episodes or presyncopal episodes no chest pain no shortness of breath no fever or chills. complaint: fall Onset (ago): week(s) Fall from: standing Fall witnessed: no Place fall occurred: home Loss of consciousness: none Prolonged down time: no Symptoms prior to fall: none Context: tripped/slipped Related Data Home Medications Medication Instructions Recorded Confirmed montelukast 10 mg tablet 10 mg PO DAILY 07/27/19 11/28/21 aspirin 81 mg tablet,delayed 81 mg PO DAILY 08/01/19 11/28/21 release cholecalciferol (vitamin D3) 25 1,000 unit PO DAILY 08/01/19 11/28/21 mcg (1,000 unit) capsule simvastatin 40 mg tablet 40 mg PO QPM tablet 12/08/19 11/28/21 duloxetine 60 mg PO DAILY 01/13/20 11/28/21 bupropion HCl 200 mg PO BID 11/21/20 11/28/21 Latuda 80 mg PO DAILY 02/22/21 11/28/21 Trulicity 0.75 mg SUBCUT WEEKLY 02/22/21 11/28/21 divalproex 250 mg PO Q12H 02/22/21 11/28/21 allopurinol 100 mg PO DAILY 11/28/21 11/28/21 Allergies Allergy/AdvReac Type Severity Reaction Status Date / Time ibuprofen Allergy Unknown skin Verified 11/28/21 13:42 changes Sulfa (Sulfonamide AdvReac Unknown Itching Verified 11/28/21 13:42 Antibiotics) cucumber AdvReac Hives Verified 11/28/21 13:42 Review of Systems Review of Systems: All systems reviewed & are unremarkable except as noted in HPI and below PMFSH Past Medical History Medical History Anemia Arthritis Chronic anemia Chronic kidney disease, stage 4 (severe) Baseline creatinine seems to be around 2.60. Chronic obstructive pulmonary disease Chronic respiratory failure with hypoxia Combined systolic and diastolic congestive heart failure Echocardiogram in May 2016 showed moderate enlargement of the left ventricular cavity, moderate global left ventricular systolic dysfunction, ejection fraction of 35%, and grade 3 diastolic dysfunction. Deep venous thrombosis Depression Diabetic peripheral neuropathy Gout Hepatitis C Hypercalcemia Hyperlipidemia Hypertension Hyponatremia Insulin dependent type 2 diabetes mellitus With diabetic peripheral neuropathy. Hemoglobin A1c was 11.7% on 02/22/2021. Kidney stones Morbid obesity Nonischemic cardiomyopathy Cardiac catheterization December 10, [address] Emmanuel Boyd showed right coronary dominant circulation with no significant coronary disease. Obstructive sleep apnea on CPAP Psoriasis Rheumatoid arthritis Tobacco dependence Transient ischemic attack Surgical History Surgical History History of cardiac catheterization Cardiac catheterization December 10, [address] Emmanuel Boyd showed right coronary dominant circulation with no significant coronary disease. History of dilatation and curettage History of lithotripsy Status post tubal ligation Family History Family History Father Cerebrovascular accident Hypertension Mother Family history of malignant neoplasm Other Asthma Diabetes mellitus Family history of anemia Family history of arthritis Family history of blood dyscrasia Family history of cardiovascular disease Family history of migraine headaches Social History Social History Social History: The patient lives in [place] with a roommate. She is on disability
[2021-11-28 14:52] VITALS: BP 141/70; PULSE 75; RESP 16; O2SAT 96
== END 2021-11-28 14:54 | disposition home or self-care (01) ==
PROVIDERS: Emergency Provider Emergency Medicine; PCP Physician Assistant
DX: S76.011A Strain of muscle, fascia and tendon of right hip, initial encounter (principal); N39.0 Urinary tract infection, site not specified
CPT/HCPCS: 36415; 72100; 73502; 81001; 82550; 99284; J1940

== ENCOUNTER 2021-12-26 08:46 | Emergency (ER) | payer MEDICARE, MEDICAID, SELFPAY ==
[2021-12-26 09:04] VITALS: BP 108/65; PULSE 96; RESP 16; TEMP 37.2; O2SAT 97
[2021-12-26 09:05] VITALS: BP 108/65; PULSE 96; RESP 16; TEMP 37.2; O2SAT 97
--- NOTE | 2021-12-26 09:15 | ED.BACK ---
HPI - Back Pain/Injury General Chief Complaint: Back Pain/Injury Stated Complaint: right side pain Time Seen by Provider: 12/26/21 09:15 Source: patient Mode of arrival: ambulatory Limitations: no limitations History of Present Illness HPI Narrative: 66-year-old female presents with complaint of right sided back pain radiating to right leg for 1 month. Reports that pain started after a fall. Was seen in the ER and had negative x-rays. Has not scheduled follow-up appointment with her primary care physician. Has been taking hydrocodone and Percocet for pain. Also has prescription for gabapentin. She is ambulatory with a limp. Denies numbness tingling to lower extremities. No weakness to lower extremities. Reports that she is inactive and on disability. Mostly sits around the house. States the most that she can walk is from her house to her car. All systems reviewed and negative except as noted above. Related Data Home Medications Medication Instructions Recorded Confirmed montelukast 10 mg tablet 10 mg PO DAILY 07/27/19 12/26/21 aspirin 81 mg tablet,delayed 81 mg PO DAILY 08/01/19 12/26/21 release cholecalciferol (vitamin D3) 25 1,000 unit PO DAILY 08/01/19 12/26/21 mcg (1,000 unit) capsule simvastatin 40 mg tablet 40 mg PO QPM tablet 12/08/19 12/26/21 bupropion HCl 200 mg PO BID 11/21/20 12/26/21 Latuda 80 mg PO DAILY 02/22/21 12/26/21 Trulicity 0.75 mg SUBCUT WEEKLY 02/22/21 12/26/21 divalproex 250 mg PO Q12H 02/22/21 12/26/21 allopurinol 100 mg PO DAILY 11/28/21 12/26/21 Allergies Allergy/AdvReac Type Severity Reaction Status Date / Time ibuprofen Allergy Unknown skin Verified 12/26/21 09:05 changes Sulfa (Sulfonamide AdvReac Unknown Itching Verified 12/26/21 09:05 Antibiotics) cucumber AdvReac Hives Verified 12/26/21 09:05 Review of Systems Review of Systems: CONSTITUTIONAL: Denies fever, chills, or sweats. EYES: Denies visual changes, redness, or discharge. ENT: Denies rhinorrhea, congestion, sore throat, or otalgia. CARDIOVASCULAR: Denies chest pain, palpitations, or edema. RESPIRATORY: Denies cough or dyspnea. GASTROINTESTINAL: Denies abdominal pain, nausea, vomiting, or diarrhea. GENITOURINARY: Denies dysuria or hematuria. SKIN: Denies rash or itching. MUSCULOSKELETAL: Reports right-sided low back pain with radiation down right leg. NEUROLOGIC: Denies headache, numbness, or weakness. PSYCHIATRIC: Denies anxiety or depression. All other systems reviewed are negative, except as documented in HPI. [facility] Past Medical History Medical History Anemia Arthritis Chronic anemia Chronic kidney disease, stage 4 (severe) Baseline creatinine seems to be around 2.60. Chronic obstructive pulmonary disease Chronic respiratory failure with hypoxia Combined systolic and diastolic congestive heart failure Echocardiogram in May 2016 showed moderate enlargement of the left ventricular cavity, moderate global left ventricular systolic dysfunction, ejection fraction of 35%, and grade 3 diastolic dysfunction. Deep venous thrombosis Depression Diabetic peripheral neuropathy Gout Hepatitis C Hypercalcemia Hyperlipidemia Hypertension Hyponatremia Insulin dependent type 2 diabetes mellitus With diabetic peripheral neuropathy. Hemoglobin A1c was 11.7% on 02/22/2021. Kidney stones Morbid obesity Nonischemic cardiomyopathy Cardiac catheterization December 10, [address] Emmanuel Boyd showed right coronary dominant circulation with no significant coronary disease. Obstructive sleep apnea on CPAP Psoriasis Rheumatoid arthritis Tobacco dependence Transient ischemic attack Surgical History Surgical History History of cardiac catheterization Cardiac catheterization December 10, [address] Emmanuel Boyd showed right coronary dominant circulation with no significant coronary disease. History
== END 2021-12-26 09:35 | disposition home or self-care (01) ==
PROVIDERS: Emergency Provider Nurse Practitioner Family; PCP Physician Assistant
DX: M54.41 Lumbago with sciatica, right side (principal); B37.2 Candidiasis of skin and nail; Z87.891 Personal history of nicotine dependence; J44.9 Chronic obstructive pulmonary disease, unspecified; Z86.718 Personal history of other venous thrombosis and embolism; M10.9 Gout, unspecified; E78.5 Hyperlipidemia, unspecified; I13.0 Hypertensive heart and chronic kidney disease with heart failure and stage 1 through stage 4 chronic kidney disease, or unspecified chronic kidney disease; E11.22 Type 2 diabetes mellitus with diabetic chronic kidney disease; N18.4 Chronic kidney disease, stage 4 (severe); I50.40 Unspecified combined systolic (congestive) and diastolic (congestive) heart failure; Z79.4 Long term (current) use of insulin; E11.42 Type 2 diabetes mellitus with diabetic polyneuropathy; M19.90 Unspecified osteoarthritis, unspecified site; D64.9 Anemia, unspecified; E66.01 Morbid (severe) obesity due to excess calories; Z68.41 Body mass index [BMI] 40.0-44.9, adult; M06.9 Rheumatoid arthritis, unspecified; Z86.73 Personal history of transient ischemic attack (TIA), and cerebral infarction without residual deficits; G47.33 Obstructive sleep apnea (adult) (pediatric); F32.A Depression, unspecified; Z79.82 Long term (current) use of aspirin
CPT/HCPCS: 99213; G0463

== ENCOUNTER 2022-04-02 10:12 | Outpatient (CLI) | payer MEDICARE, MEDICAID, SELFPAY ==
--- NOTE | 2022-04-02 10:27 | ECHO_ITS ---
Patient Info Name: Lakshmi Fry Age: 66 years : 1955 Gender: Female Ht: 65 in Wt: 239 lbs BSA: 2.28 m2 HR: 83 bpm BP: 119 / 72 mmHg Technical Quality: Fair Exam Date: 04/02/2022 11:16 AM Exam Location: [facility] Patient Status: Outpatient Admit Date: 04/02/2022 Staff Ordering Physician: Hever Cobos DO Heel Gummer: Nakita Corona RDCS Attending Provider: Hever Cobos DO Referring Physician: Papito MANE; Exam Type: CA echo doppler color flow Study Info Indications I50.42 - Chronic combined systolic (congestive) and diastolic (congestive) heart failure Complete two-dimensional, color flow and Doppler transthoracic echocardiogram is performed. Summary 1. Complete two-dimensional, color flow and Doppler transthoracic echocardiogram is performed. 2. Left ventricular chamber dimension is severely enlarged. 3. Left ventricular systolic function is severely reduced, estimated at 25-30%. 4. The left ventricular diastolic function is grade I diastolic dysfunction. 5. E/e' 9 is minimally elevated. 6. No pulmonary hypertension, estimated pulmonary arterial systolic pressure is 32 mmHg. Left Ventricle E/e' 9 is minimally elevated. Left ventricular chamber dimension is severely enlarged. Left ventricular systolic function is severely reduced, estimated at 25-30%. The left ventricular diastolic function is grade I diastolic dysfunction. Right Ventricle Right ventricular chamber dimension is normal. Right ventricular systolic function is normal. Left Atria Left atrial chamber dimension is normal. Right Atria Right atrial chamber dimension is normal. Aortic Valve The aortic valve is trileaflet. There is no aortic valve stenosis. There is no aortic valve regurgitation. Pulmonic Valve There is no pulmonic regurgitation. Mitral Valve There is no mitral valve stenosis. There is no mitral valve regurgitation. Tricuspid Valve There is no tricuspid valve regurgitation. No pulmonary hypertension, estimated pulmonary arterial systolic pressure is 32 mmHg. Pericardium/Pleural There is no pericardial effusion. Inferior Vena Cava Normal inferior vena cava with >50% collapse upon inspiration consistent with normal right atrial pressure, 5 mmHg. Aorta The aortic root size at the sinus of Valsalva is normal. Left Ventricular Outflow Tract Name Value Normal LVOT 2D LVOT Diameter 2.1 cm LVOT Doppler LVOT Peak Gradient 6 mmHg LVOT Mean Gradient 3 mmHg LVOT VTI 21 cm LVOT VTI/AV VTI Ratio 0.9 LVOT Stroke Volume 72 ml LVOT CO 16.3 l/min LVOT CI 7.1 l/min/m2 Pulmonic Valve Name Value Normal PV Doppler PV Peak Gradi
== END 2022-04-02 10:13 | disposition home or self-care (01) ==
LOC: ANHCARD 10:14
PROVIDERS: PCP Physician Assistant; Visit Provider Internal Medicine Cardiovascular Disease
DX: I50.42 Chronic combined systolic (congestive) and diastolic (congestive) heart failure (principal)
CPT/HCPCS: 93306

== ENCOUNTER 2022-11-10 11:46 | Outpatient (CLI) | payer MEDICARE, MEDICAID, SELFPAY ==
--- NOTE | 2022-11-10 11:52 | ECHO_ITS ---
Patient Info Name: Lakshmi Fry Age: 67 years : 1955 Gender: Female Ht: 63 in Wt: 201 lbs BSA: 2.05 m2 HR: 92 bpm BP: 136 / 73 mmHg Heart Rhythm: Sinus Rhythm Technical Quality: Fair Exam Date: 11/10/2022 11:50 AM Exam Location: [facility] Patient Status: Outpatient Admit Date: 11/10/2022 Staff Ordering Physician: Hever Cobos DO Performance Test Engineer: Jayashree Zimmerman RDCS Attending Provider: Hever Cobos DO Referring Physician: Papito MANE; Exam Type: CA echo doppler color flow Study Info Indications I42.8 - Other cardiomyopathies Complete two-dimensional, color flow and Doppler transthoracic echocardiogram is performed. Summary 1. Complete two-dimensional, color flow and Doppler transthoracic echocardiogram is performed. 2. Left ventricular chamber dimension is moderately enlarged. 3. Left ventricular systolic function is severely globally reduced, estimated at 30-35%. 4. The left ventricular diastolic function is grade III diastolic dysfunction. 5. E/e' 26 is elevated. 6. Left atrial chamber dimension is moderately enlarged. 7. There is mild aortic valve sclerosis. 8. There is trace aortic valve regurgitation. 9. There is trace mitral valve regurgitation. 10. No pulmonary hypertension, estimated pulmonary arterial systolic pressure is 17 mmHg. Left Ventricle E/e' 26 is elevated. Left ventricular chamber dimension is moderately enlarged. Left ventricular systolic function is severely globally reduced, estimated at 30-35%. The left ventricular diastolic function is grade III diastolic dysfunction. Right Ventricle Right ventricular systolic function is normal and with normal TAPSE 1.9 cm. Right ventricular chamber dimension is normal. Left Atria Left atrial chamber dimension is moderately enlarged. Right Atria Right atrial chamber dimension is normal. Aortic Valve The aortic valve is trileaflet. There is mild aortic valve sclerosis. There is no aortic valve stenosis. There is trace aortic valve regurgitation. Pulmonic Valve There is no pulmonic regurgitation. Mitral Valve There is no mitral valve stenosis. There is trace mitral valve regurgitation. Tricuspid Valve There is no tricuspid valve regurgitation. No pulmonary hypertension, estimated pulmonary arterial systolic pressure is 17 mmHg. Pericardium/Pleural There is no pericardial effusion. Inferior Vena Cava Normal inferior vena cava with >50% collapse upon inspiration consistent with normal right atrial pressure, 5 mmHg. Aorta The aortic root size at the sinus of Valsalva is normal. Left Ventricular Outflow Tract Name Value Normal LVOT 2D LVOT Diameter 2.0 cm LVOT Doppler LVOT Peak Velocity 68 cm/s LVOT Peak Gradient 2 mmHg LVOT Mean Gradient 1 mmHg LVOT VTI 12 cm LVOT VTI/AV VTI Ratio 0.5 LVOT Stroke Volume 38 ml Pulmonic Valve Name
== END 2022-11-10 11:47 | disposition home or self-care (01) ==
LOC: CHSIMG 11:48
PROVIDERS: PCP Physician Assistant; Visit Provider Internal Medicine Cardiovascular Disease
DX: I42.8 Other cardiomyopathies (principal); R93.1 Abnormal findings on diagnostic imaging of heart and coronary circulation
CPT/HCPCS: 93306

== ENCOUNTER 2023-02-17 12:37 | Emergency (ER) | payer MEDICARE, MEDICAID, SELFPAY ==
[2023-02-17 12:46] VITALS: BP 96/55; PULSE 101; RESP 16; TEMP 37.2; O2SAT 98
--- NOTE | 2023-02-17 13:13 | ED.SKABFB ---
HPI - Skin/Abscess/Foreign Bdy General Chief complaint: Skin/Abscess/Foreign Body Stated complaint: Rash Time Seen by Provider: 02/17/23 13:00 Source: patient and RN notes reviewed Mode of arrival: ambulatory Limitations: no limitations History of Present Illness HPI narrative: 67-year-old female presents with concern for itchy rash. She reports she noticed it 3 days ago. She denies any change in personal care products, she was not exposed to poison joie that she is aware of. She is on chemotherapy for breast cancer, she is due for a treatment tomorrow. She has been on chemotherapy for about a month. She denies swollen lips, swollen tongue, trouble breathing, fever, aches, chills, sweats. MD complaint: rash Related Data Home Medications Medication Instructions Recorded Confirmed montelukast 10 mg tablet 10 mg PO DAILY 07/27/19 01/05/23 (Singulair) aspirin 81 mg tablet,delayed 81 mg PO DAILY 08/01/19 01/05/23 release cholecalciferol (vitamin D3) 25 1,000 unit PO DAILY 08/01/19 01/05/23 mcg (1,000 unit) capsule simvastatin 40 mg tablet 40 mg PO QPM 12/08/19 01/05/23 bupropion HCl 200 mg tablet,12 hr 200 mg PO BID 11/21/20 01/05/23 sustained-release divalproex 250 mg tablet,delayed 250 mg PO Q12H 02/22/21 01/05/23 release lurasidone 80 mg tablet (Latuda) 80 mg PO DAILY 02/22/21 01/05/23 allopurinol 100 mg tablet 100 mg PO DAILY 11/28/21 01/05/23 aripiprazole 10 mg tablet 10 mg PO DAILY 12/26/21 01/05/23 fluticasone propionate 50 50 mcg intranasal DAILY 12/26/21 01/05/23 mcg/actuation nasal spray,suspension gabapentin 800 mg tablet 800 mg PO DAILY 12/26/21 01/05/23 hydrocodone 10 mg-acetaminophen 1 tablet PO DAILY 12/26/21 01/05/23 325 mg tablet omega-3 acid ethyl esters 1 gram 1 g PO DAILY 12/26/21 01/05/23 capsule acetaminophen 300 mg-codeine 15 mg 1 tablet PO BID PRN 03/07/22 01/05/23 tablet Allergies Allergy/AdvReac Type Severity Reaction Status Date / Time ibuprofen Allergy Unknown skin Verified 02/17/23 12:54 changes Sulfa (Sulfonamide AdvReac Unknown Itching Verified 02/17/23 12:54 Antibiotics) cucumber AdvReac Hives Verified 02/17/23 12:54 Review of Systems Review of Systems: CONSTITUTIONAL: Denies malaise, chills, sweats, or fever. EYES: Denies redness, or discharge. ENT: Denies rhinorrhea, congestion, swollen lips, swollen tongue CARDIOVASCULAR: Denies chest pain, palpitations, or edema. RESPIRATORY: Denies cough or dyspnea. GASTROINTESTINAL: Denies abdominal pain, nausea, vomiting SKIN: Reports itchy rash on her arms and legs MUSCULOSKELETAL: Denies joint pain or myalgia. NEUROLOGIC: Denies headache. All systems reviewed & are unremarkable except as noted in HPI and below PMFSH Past Medical History Medical History Anemia Arthritis Chronic anemia Chronic kidney disease, stage 4 (severe) Baseline creatinine seems to be around 2.60. Chronic obstructive pulmonary disease Chronic respiratory failure with hypoxia Combined systolic and diastolic congestive heart failure Echocardiogram in May 2016 showed moderate enlargement of the left ventricular cavity, moderate global left ventricular systolic dysfunction, ejection fraction of 35%, and grade 3 diastolic dysfunction. Deep venous thrombosis Depression Diabetic peripheral neuropathy Gout Hepatitis C Hypercalcemia Hyperlipidemia Hypertension Hyponatremia Insulin dependent type 2 diabetes mellitus With diabetic peripheral neuropathy. Hemoglobin A1c was 11.7% on 02/22/2021. Kidney stones Morbid obesity Nonischemic cardiomyopathy Cardiac catheterization December 10, [address] Emmanuel Boyd showed right coronary dominant circulation with no significant coronary disease. Obstructive sleep apnea on CPAP Psoriasis Rheumatoid arthritis Tobacco dependence Transient ischemic attack Surgical History Surgical History (Reviewed 01/05/23 @ 13:07 by Jefry
== END 2023-02-17 13:17 | disposition home or self-care (01) ==
PROVIDERS: Emergency Provider Nurse Practitioner; PCP Physician Assistant
DX: L30.9 Dermatitis, unspecified (principal); C50.919 Malignant neoplasm of unspecified site of unspecified female breast; Z79.60 Long term (current) use of unspecified immunomodulators and immunosuppressants; Z87.891 Personal history of nicotine dependence; J44.9 Chronic obstructive pulmonary disease, unspecified; I13.0 Hypertensive heart and chronic kidney disease with heart failure and stage 1 through stage 4 chronic kidney disease, or unspecified chronic kidney disease; E11.22 Type 2 diabetes mellitus with diabetic chronic kidney disease; N18.4 Chronic kidney disease, stage 4 (severe); I50.40 Unspecified combined systolic (congestive) and diastolic (congestive) heart failure; Z79.4 Long term (current) use of insulin; E11.42 Type 2 diabetes mellitus with diabetic polyneuropathy; M19.90 Unspecified osteoarthritis, unspecified site; M06.9 Rheumatoid arthritis, unspecified; Z86.718 Personal history of other venous thrombosis and embolism; M10.9 Gout, unspecified; E66.01 Morbid (severe) obesity due to excess calories; Z68.32 Body mass index [BMI] 32.0-32.9, adult; Z86.73 Personal history of transient ischemic attack (TIA), and cerebral infarction without residual deficits; Z79.82 Long term (current) use of aspirin
CPT/HCPCS: 99213; G0463

== ENCOUNTER 2023-10-20 10:49 | Outpatient (CLI) | payer MEDICARE, MEDICAID, SELFPAY ==
--- NOTE | ~2023-10-20 | US_ITS ---
EXAMINATION: US venous doppler LE RT DATE: 10/20/2023 11:47 INDICATION: Acute embolism and thrombosis TECHNIQUE: Grayscale ultrasound images without and with compression and Doppler ultrasound images of the right lower extremity veins were obtained. COMPARISON: None. FINDINGS: The visualized portions of right common femoral vein, profunda (deep) femoral vein, femoral vein, pop liteal vein, peroneal trunk, posterior tibial veins, peroneal veins, gastrocnemius vein and greater s aphenous vein outflow are patent. IMPRESSION: 1. No deep venous thrombosis in the right lower limb. Reviewed, dictated and finalized at location A. IN[facility]
== END 2023-10-20 10:50 | disposition home or self-care (01) ==
PROVIDERS: PCP Physician Assistant; Visit Provider Podiatrist Foot & Ankle Surgery
DX: I82.491 Acute embolism and thrombosis of other specified deep vein of right lower extremity (principal)
CPT/HCPCS: 93971; J1100; J2405; J2704